=== PATIENT | male | born 1965 | race Caucasian/White ===

== ENCOUNTER 2022-10-24 10:40 | Inpatient (IN) ==
[2022-10-24] MEDS ORDERED: SODIUM CHLORIDE 0.9% 500 ML IV ONE ×2 (11:05→11:35)
[2022-10-24 11:30] LABS: Basophils # (auto) 0.04 K/uL (0-0.2); Basophils % (auto) 0.8 %; Eosinophils % (auto) 1.9 %; Hematocrit (blood only) 39.2 % (42.0-52.0); Hemoglobin 12.8 g/dl (14.0-18.0); Immature Granulocytes # (auto) 0.01 K/uL (0.01-0.20); Immature Granulocytes % (auto) 0.2 %; Lymphocytes # (auto) 1.59 K/uL (1.2-3.4); Lymphocytes % (auto) 30.8 %; Mean Corpuscular Hemoglobin 29.2 pg (25.0-34.0); Mean Corpuscular Hgb Conc 32.7 g/dL (32.0-36.0); Mean Corpuscular Volume 89.5 fL (80.0-100.0); Mean Platelet Volume 10.1 fL (9.4-12.4); Monocytes # (auto) 0.32 K/uL (0.11-0.59); Monocytes % (auto) 6.2 %; Neutrophils # (auto) 3.11 K/uL (1.40-6.50); Neutrophils % (auto) 60.1 %; Platelet Count 253 K/uL (130-400); RDW Coefficient of Variation 13.9 % (11.5-14.5); RDW Standard Deviation 45.4 fL (36.4-46.3); Red Blood Count 4.38 M/uL (4.70-6.10); White Blood Count 5.17 K/ul (4.8-10.8)
--- NOTE | 2022-10-24 11:30 | XRay Report ---
XR chest 1V portable CLINICAL HISTORY: palpitations TECHNIQUE: Single frontal radiograph of the chest was obtained. Comparison: None available at the time of this dictation. FINDINGS: No lines and tubes are seen. Cardiomegaly is noted. Multifocal airspace opacities are seen. No eviden ce of pleural effusion or pneumothorax. IMPRESSION: 1. Multifocal airspace opacities may represent atelectasis, pneumonia, and/or aspiration. 2. Cardiomegaly is seen. ACT 112: Negative or not required by law. Electronically signed by: Reuben Paz M.D. 10/24/2022 11:28 AM
[2022-10-24] MEDS ORDERED: FAMOTIDINE 20MG IV PUSH 20 MG/5 ML SYR IV STA (11:35)
--- NOTE | 2022-10-24 11:37 | Emergency Department Note ---
Impression & Plan New onset atrial fibrillation, Liver transplant status, ALEX (acute kidney injury), Pneumonia, Pericardial effusion ED Provider Note NAME: ZEENAT VENEGAS AGE: 57 SEX: M ARRIVES VIA: Ambulance INFORMANT: Patient ED PROVIDER(S): Gen Dailey MD CHIEF COMPLAINT: weakness, new afib, referred. PLAN: Disposition: Admit MEDICAL DECISION MAKING: The patient is a pleasant 57-year-old gentleman with a past medical history of liver transplant over 6 years ago on tacrolimus and mycophenolate who presents emerged [facility] several months of generalized weakness where he was found to have new onset atrial fibrillation in the office today. The patient describes that his symptoms began several months ago after having a flulike illness where he reports he did have fevers with cough and congestion but did not seek medical evaluation. He acknowledges that he is on "antirejection medications" but reports he was not aware that this also made him immune compromised. He reports ongoing cough and congestion for the past several months. He reports nausea with decreased appetite and poor oral intake. He reports significant weight loss over this time period as well. He denies any chest pain. He reports shortness of breath with minimal exertion. He denies any constipation, diarrhea or urinary symptoms. On arrival the patient is in no acute distress, afebrile with heart rate in the 110s in atrial fibrillation and vital signs otherwise stable. He appears clinically dry. He has rhonchi of bilateral mid and lower lung garcia. EKG demonstrates atrial fibrillation with RVR without overt acute ischemia. At rial fibrillation is new. Chest x-ray with multifocal airspace opacities better characterized on CT imaging. WBC completely within normal limits. H/H 12 point/39.2 without prior values for comparison. Creatinine 2.2 without priors for comparison though acute kidney injury suspected. Lactic acid 1.2, within normal limits. Magnesium 1.5 with repletion provided. Total bilirubin 1.6 with direct bilirubin 0.5 and LFTs otherwise unremarkable. Initial high-sensitivity troponin 24, nonspecific. Procalcitonin was not elevated. TSH 5.2 with free T4 within normal limits. UA appears contaminated without overt evidence of infection. Respiratory viral panel/bio fire was negative. CT of the head negative for acute abnormalities. CT of the chest demonstrates previously seen groundglass consolidations throughout both lungs with septal thickening which is nonspecific with broad differential including multifocal pneumonia, pulm edema and lung disease. Small to moderate pericardial effusion is also seen without clinical evidence of tamponade. Trace pleural effusions are noted. Appearance of cystitis is also seen. Small volume abdominopelvic ascites is noted. Patient agrees with plan for admission for further management. IV fluid hydration administered cautiously in setting of acute renal failure. Patient was treated empirically for pneumonia with cefepime and vancomycin. Case was discussed with Blayne Vargas with Dr. Maguire [facility] hospitalist, who will evaluate the patient for admission. Further management per admitting team. Triage Nursing notes reviewed and agree them. Prior/outside medical records reviewed Vital Signs: reviewed Differential diagnosis: Infection, dehydration, metabolic abnormality, hypo/hyperglycemia, electrolyte disturbance, anemia, hypoxia, cardiac sources, intracerebral event, toxicologic, neurologic, as well as other pathologies. ER treatment provided: See below. Diagnostics interpreted by me: ECG: Atrial fibrillation versus atrial flutter with variable AV block, 121 bpm, no overt ST elevation or depression, QTc 448, QRS 80. Cardiac Monitoring: An order for continuous cardiac monitoring was placed and demonstrated Laboratory studies: See below Imaging studies: See below Consultation(s): Case was discussed with Blayne Vargas with Dr. Magu[facility], who will evaluate the patient for admission. HPI: The patient is a pleasant 57-year-old gentleman with a past medical history of liver transplant over 6 years ago on tacrolimus and mycophenolate who presents emerged department [facility] for evaluation of several months of generalized weakness where he was found to have new onset atrial fibrillation in the office today. The patient describes that his symptoms began several months ago after having a flulike illness where he reports he did have fevers with cough and congestion but did not seek medical evaluation. He acknowledges that he is on "antirejection medications" but reports he was not aware that this also made him immune compromised. He reports ongoing cough and congestion for the past several months. He reports nausea with decreased appetite and poor oral intake. He reports significant weight loss over this time period as well. He denies any chest pain. He reports shortness of breath with minimal exertion. He denies any constipation, diarrhea or urinary symptoms. ROS: See above HPI for pertinent positives & negatives. A total of 10 systems reviewed and were otherwise negative. VITALS:See Below PHYSICAL EXAMINATION: GENERAL: Awake, alert, fatigued-appearing, in no distress HENT: Normocephalic, atraumatic. Oropharynx with dry mucous membranes and otherwise unremarkable. EYES: Normal conjunctiva. Sclera non-icteric. NECK: Supple. No nuchal rigidity. FROM. No JVD. RESPIRATORY: Rhonchi of bilateral lower lung garcia. CARDIAC: Regular rate, normal rhythm. Extremities warm and well perfused. Pulses equal. ABDOMEN: Soft, non-distended. No tenderness to palpation. No rebound or guarding. No masses. RECTAL: Deferred. MUSCULOSKELETAL: Chest examination reveals no tenderness. The back is symmetrical on inspection without obvious abnormality. There is no CVA tendern ess to palpation. No joint edema. LOWER EXTREMITIES: Calves are equal size bilaterally and non-tender. No edema. No discoloration. NEURO: Normal sensorium. No sensory or motor deficits noted. SKIN: No rash or jaundice noted. ED COURSE: Critical Care: I have personally spent greater than 35 minutes of critical care time in the direct management of this patient. This includes bedside care, interpretation of diagnostic studies, and testing, discussion with consultants, patient, and family members, and other required patient management activities. This 35 minutes is in excess of all separately billable procedures. Gen Dailey MD Past Med/Surg History Medical History History of alcohol use last drink reported 4 months ago HTN (hypertension) Tobacco use Surgical History Liver transplant status Family History Other Diabetes Heart disease Social History Smoking Status: Never smoker Do You Dip or Chew Tobacco: Yes; Hx Alcohol Use: No Hx Substance Use: No Preferred Language: Croatian Communication Ability: Effective Architectural Technologist Required: No Beliefs That Will Affect Care: None Current Living Situation: Alone Feels Safe at Home: Yes Safety Concerns: Feels Safe At This Time Assistive Devices: None Allergies Allergies Allergy/AdvReac Type Severity Reaction Status Date / Time No Known Allergies Allergy Unverified 10/24/22 12:02 Home Meds Home Medications Medication Instructions Recorded Confirmed carvedilol 12.5 mg tablet 0 mg PO BID 10/24/22 10/24/22 cyanocobalamin (vitamin B-12) 0 mcg PO DAILY 10/24/22 10/24/22 1,000 mcg tablet folic acid 1 mg tablet 0 mg PO DAILY 10/24/22 10/24/22 furosemide 20 mg tablet 0 mg PO DAILY 10/24/22 10/24/22 hydralazine 10 mg tablet 0 mg PO TID 10/24/22 10/24/22 mycophenolate mofetil 500 mg tablet 500 mg PO BID 10/24/22 10/24/22 tacrolimus 1 mg capsule, 3 mg PO Q12H 10/24/22 10/24/22 immediate-release thiamine HCl (vitamin B1) 100 mg 100 mg PO DAILY 10/24/22 10/24/22 tablet Results & Data (ED) Vital Signs Vital Signs - 24 hr 10/24/22 10:43 10/24/22 10:48 10/24/22 10:48 Temperature 36.6 C Temperature Source Oral Pulse Rate 126 H Pulse Rate [Right Apical] 126 H Pulse Rate from SpO2 Sensor Pulse Rhythm Respiratory Rate 18 18 Respiratory Effort / Characteristics Non-Labored Spontaneous Non-Labored Spontaneous Respiratory Depth Normal Normal Respiratory Pattern Regular Regular Blood Pressure 145/113 H Blood Pressure [Right Arm] 145/113 H Blood Pressure Mean 123 Blood Pressure Mean [Right Arm] 123 Pulse Oximetry 97 98 98 Oxygen Delivery Method Room Air Room Air Room Air Sepsis Recent Fever Within 48 Hours No Sepsis New/Unexplained Change in Mental Status No Sepsis Action Taken by Nursing No Action Required 10/24/22 11:04 10/24/22 12:14 10/24/22 10:54 Temperature Temperature Source Pulse Rate 112 H 100 H 106 H Pulse Rate [Right Apical] Pulse Rate from SpO2 Sensor 111 H Pulse Rhythm Irregular Respiratory Rate 18 20 Respiratory Effort / Characteristics Respiratory Depth Respiratory Pattern Blood Pressure Blood Pressure [Right Arm] Blood Pressure Mean Blood Pressure Mean [Right Arm] Pulse Oximetry 96 97 Oxygen Delivery Method Room Air Sepsis Recent Fever Within 48 Hours Sepsis New/Unexplained Change in Mental Status Sepsis Action Taken by Nursing 10/24/22 11:00 10/24/22 11:00 10/24/22 11:30 Temperature Temperature Source Pulse Rate 121 H Pulse Rate [Right Apical] Pulse Rate from SpO2 Sensor 117 H Pulse Rhythm Respiratory Rate 24 Respiratory Effort / Characteristics Respiratory Depth Respiratory Pattern Blood Pressure 124/87 121/83 Blood Pressure [Right Arm] Blood Pressure Mean 99 95 Blood Pressure Mean [Right Arm] Pulse Oximetry 98 Oxygen Delivery Method Sepsis Recent Fever Within 48 Hours Sepsis New/Unexplained Change in Mental Status Sepsis Action Taken by Nursing 10/24/22 11:30 10/24/22 12:00 10/24/22 12:00 Temperature Temperature Source Pulse Rate 128 H 117 H Pulse Rate [Right Apical] Pulse Rate from SpO2 Sensor 131 H Pulse Rhythm Respiratory Rate 25 H 23 Respiratory Effort / Characteristics Respiratory Depth Respiratory Pattern Blood Pressure 136/101 H Blood Pressure [Right Arm] Blood Pressure Mean 112 Blood Pressure Mean [Right Arm] Pulse Oximetry 96 Oxygen Delivery Method Sepsis Recent Fever Within 48 Hours Sepsis New/Unexplained Change in Mental Status Sepsis Action Taken by Nursing 10/24/22 12:30 10/24/22 12:30 10/24/22 13:10 Temperature Temperature Source Pulse Rate 124 H 120 H Pulse Rate [Right Apical] Pulse Rate from SpO2 Sensor 125 H Pulse Rhythm Respiratory Rate 27 H 29 H Respiratory Effort / Characteristics Respiratory Depth Respiratory Pattern Blood Pressure 144/84 H Blood Pressure [Right Arm] Blood Pressure Mean 104 Blood Pressure Mean [Right Arm] Pulse Oximetry 95 Oxygen Delivery Method Sepsis Recent Fever Within 48 Hours Sepsis New/Unexplained Change in Mental Status Sepsis Action Taken by Nursing 10/24/22 13:30 10/24/22 13:30 10/24/22 14:00 Temperature Temperature Source Pulse Rate 114 H Pulse Rate [Right Apical] Pulse Rate from SpO2 Sensor 109 H Pulse Rhythm Respiratory Rate 21 Respiratory Effort / Characteristics Respiratory Depth Respiratory Pattern Blood Pressure 122/83 116/93 Blood Pressure [Right Arm] Blood Pressure Mean 96 100 Blood Pressure Mean [Right Arm] Pulse Oximetry 93 Oxygen Delivery Method Sepsis Recent Fever Within 48 Hours Sepsis New/Unexplained Change in Mental Status Sepsis Action Taken by Nursing 10/24/22 14:00 10/24/22 14:30 10/24/22 14:30 Temperature Temperature Source Pulse Rate 106 H 109 H Pulse Rate [Right Apical] Pulse Rate from SpO2 Sensor 106 H 110 H Pulse Rhythm Respiratory Rate 17 20 Respiratory Effort / Characteristics Respiratory Depth Respiratory Pattern Blood Pressure 111/86 Blood Pressure [Right Arm] Blood Pressure Mean 94 Blood Pressure Mean [Right Arm] Pulse Oximetry 93 92 Oxygen Delivery Method Sepsis Recent Fever Within 48 Hours Sepsis New/Unexplained Change in Mental Status Sepsis Action Taken by Nursing 10/24/22 15:00 10/24/22 15:00 Temperature Temperature Source Pulse Rate 119 H Pulse Rate [Right Apical] Pulse Rate from SpO2 Sensor 118 H Pulse Rhythm Respiratory Rate 25 H Respiratory Effort / Characteristics Respiratory Depth Respiratory Pattern Blood Pressure 127/95 Blood Pressure [Right Arm] Blood Pressure Mean 105 Blood Pressure Mean [Right Arm] Pulse Oximetry 94 Oxygen Delivery Method Sepsis Recent Fever Within 48 Hours Sepsis New/Unexplained Change in Mental Status Sepsis Action Taken by Nursing Laboratory Data Attestation: I reviewed the patient's lab results. 10/24/22 10:30 10/24/22 10:30 Lab Results 10/24/22 10/24/22 10/24/22 Range/Units 10:30 10:30 10:30 WBC 5.17 (4.8-10.8) K/ul RBC 4.38 L (4.70-6.10) M/uL Hgb 12.8 L (14.0-18.0) g/dl Hct 39.2 L (42.0-52.0) % MCV 89.5 (80.0-100.0) fL MCH 29.2 (25.0-34.0) pg MCHC 32.7 (32.0-36.0) g/dL RDW Std Deviation 45.4 (36.4-46.3) fL RDW Coeff of Irina 13.9 (11.5-14.5) % Plt Count 253 (130-400) K/uL MPV 10.1 (9.4-12.4) fL Immature Gran % (Auto) 0.2 % Neut % (Auto) 60.1 % Lymph % (Auto) 30.8 % [place] % (Auto) 6.2 % Eos % (Auto) 1.9 % Baso % (Auto) 0.8 % Neut # (Auto) 3.11 (1.40-6.50) K/uL Lymph # (Auto) 1.59 (1.2-3.4) K/uL [place] # (Auto) 0.32 (0.11-0.59) K/uL Eos # (Auto) 0.10 (0-0.50) K/uL Baso # (Auto) 0.04 (0-0.2) K/uL Immature Gran # (Auto) 0.01 (0.01-0.20) K/uL PT 12.4 H (9.0-12.0) Seconds INR 1.2 H (0.9-1.1) Sodium 136 (136-145) mmol/L Potassium 4.0 (3.5-5.1) mmol/L Chloride 100 (98-107) mmol/L Carbon Dioxide 24 (21-32) mmol/L Anion Gap 12 H (3-11) BUN 24 H (6-23) mg/dl Creatinine 2.27 H (0.6-1.4) mg/dl Est Cr Clr Drug Dosing 36.6 ml/min Est GFR ( Amer) 35.5 ml/min Est GFR (Non-Af Amer) 30.7 ml/min BUN/Creatinine Ratio 10.6 (10-20) Glucose 119 H (70-99(Fasting)) mg/dl Lactate (0.4-2.0) mmol/L Calcium 9.1 (8.6-10.3) mg/dl Phosphorus 4.3 (2.5-4.9) mg/dl Magnesium 1.5 L (1.7-2.4) mg/dl Total Bilirubin 1.6 H (0.2-1.0) mg/dl Direct Bilirubin 0.5 H (0-0.2) mg/dl AST 11 L (13-39) U/L ALT 3 L (7-52) U/L Alkaline Phosphatase 78 (34-104) U/L Troponin I High Sens 24.1 H (0-20) pg/ml Total Protein 7.4 (6.0-8.3) gm/dl Albumin 3.7 (3.4-5.0) gm/dl Globulin 3.7 (2.5-4.0) gm/dl Albumin/Globulin Ratio 1.0 (0.9-2) Lipase 7 L (11-82) U/L Procalcitonin (0-0.5) ng/ml TSH (0.300-4.500) uIu/ml Free T4 (0.61-1.60) ng/dl Anaplasma Smear Babesia Smear Lyme Disease IgG Ab (Negative) Lyme Disease IgM Ab (Negative) SARS-CoV-2, RNA, NAAT (NEGATIVE) 10/24/22 10/24/22 10/24/22 Range/Units 10:30 11:19 12:19 WBC (4.8-10.8) K/ul RBC (4.70-6.10) M/uL Hgb (14.0-18.0) g/dl Hct (42.0-52.0) % MCV (80.0-100.0) fL MCH (25.0-34.0) pg MCHC (32.0-36.0) g/dL RDW Std Deviation (36.4-46.3) fL RDW Coeff of Irina (11.5-14.5) % Plt Count (130-400) K/uL MPV (9.4-12.4) fL Immature Gran % (Auto) % Neut % (Auto) % Lymph % (Auto) % [place] % (Auto) % Eos % (Auto) % Baso % (Auto) % Neut # (Auto) (1.40-6.50) K/uL Lymph # (Auto) (1.2-3.4) K/uL [place] # (Auto) (0.11-0.59) K/uL Eos # (Auto) (0-0.50) K/uL Baso # (Auto) (0-0.2) K/uL Immature Gran # (Auto) (0.01-0.20) K/uL PT (9.0-12.0) Seconds INR (0.9-1.1) Sodium (136-145) mmol/L Potassium (3.5-5.1) mmol/L Chloride (98-107) mmol/L Carbon Dioxide (21-32) mmol/L Anion Gap (3-11) BUN (6-23) mg/dl Creatinine (0.6-1.4) mg/dl Est Cr Clr Drug Dosing ml/min Est GFR ( Amer) ml/min Est GFR (Non-Af Amer) ml/min BUN/Creatinine Ratio (10-20) Glucose (70-99(Fasting)) mg/dl Lactate (0.4-2.0) mmol/L Calcium (8.6-10.3) mg/dl Phosphorus (2.5-4.9) mg/dl Magnesium (1.7-2.4) mg/dl Total Bilirubin (0.2-1.0) mg/dl Direct Bilirubin (0-0.2) mg/dl AST (13-39) U/L ALT (7-52) U/L Alkaline Phosphatase (34-104) U/L Troponin I High Sens (0-20) pg/ml Total Protein (6.0-8.3) gm/dl Albumin (3.4-5.0) gm/dl Globulin (2.5-4.0) gm/dl Albumin/Globulin Ratio (0.9-2) Lipase (11-82) U/L Procalcitonin 0.16 (0-0.5) ng/ml TSH 5.226 H (0.300-4.500) uIu/ml Free T4 1.18 (0.61-1.60) ng/dl Anaplasma Smear Babesia Smear Lyme Disease IgG Ab Negative (Negative) Lyme Disease IgM Ab Negative (Negative) SARS-CoV-2, RNA, NAAT NEGATIVE (NEGATIVE) 10/24/22 10/24/22 Range/Units 12:19 12:19 WBC (4.8-10.8) K/ul RBC (4.70-6.10) M/uL Hgb (14.0-18.0) g/dl Hct (42.0-52.0) % MCV (80.0-100.0) fL MCH (25.0-34.0) pg MCHC (32.0-36.0) g/dL RDW Std Deviation (36.4-46.3) fL RDW Coeff of Irina (11.5-14.5) % Plt Count (130-400) K/uL MPV (9.4-12.4) fL Immature Gran % (Auto) % Neut % (Auto) % Lymph % (Auto) % [place] % (Auto) % Eos % (Auto) % Baso % (Auto) % Neut # (Auto) (1.40-6.50) K/uL Lymph # (Auto) (1.2-3.4) K/uL [place] # (Auto) (0.11-0.59) K/uL Eos # (Auto) (0-0.50) K/uL Baso # (Auto) (0-0.2) K/uL Immature Gran # (Auto) (0.01-0.20) K/uL PT (9.0-12.0) Seconds INR (0.9-1.1) Sodium (136-145) mmol/L Potassium (3.5-5.1) mmol/L Chloride (98-107) mmol/L Carbon Dioxide (21-32) mmol/L Anion Gap (3-11) BUN (6-23) mg/dl Creatinine (0.6-1.4) mg/dl Est Cr Clr Drug Dosing ml/min Est GFR ( Amer) ml/min Est GFR (Non-Af Amer) ml/min BUN/Creatinine Ratio (10-20) Glucose (70-99(Fasting)) mg/dl Lactate 1.2 (0.4-2.0) mmol/L Calcium (8.6-10.3) mg/dl Phosphorus (2.5-4.9) mg/dl Magnesium (1.7-2.4) mg/dl Total Bilirubin (0.2-1.0) mg/dl Direct Bilirubin (0-0.2) mg/dl AST (13-39) U/L ALT (7-52) U/L Alkaline Phosphatase (34-104) U/L Troponin I High Sens (0-20) pg/ml Total Protein (6.0-8.3) gm/dl Albumin (3.4-5.0) gm/dl Globulin (2.5-4.0) gm/dl Albumin/Globulin Ratio (0.9-2) Lipase (11-82) U/L Procalcitonin (0-0.5) ng/ml TSH (0.300-4.500) uIu/ml Free T4 (0.61-1.60) ng/dl Anaplasma Smear See Comment Babesia Smear See Comment Lyme Disease IgG Ab (Negative) Lyme Disease IgM Ab (Negative) SARS-CoV-2, RNA, NAAT (NEGATIVE) Administered Medications Heparin Sodium/Dextrose (Heparin Sodium/Dextrose) 25,000 units in 500 mls @ 26 mls/hr IV .[id number] [facility]; Protocol Stop: 11/23/22 16:14 Last Titration: 10/25/22 00:29 Dose: 1,300 units/hr, 26 mls/hr Documented By: ALLA Co-signed By: CIARA Titration: 10/24/22 19:13 Dose: 1,400 units/hr, 28 mls/hr Documented By: SHARONDA Co-signed By: ALLA Admin: 10/24/22 16:33 Dose: 1,400 units/hr, 28 mls/hr Documented By: JONO Co-signed By: MARIBEL Cefepime HCl 2,000 mg/ Syringe 20 mls @ 5 mls/min IV Q12H [facility]; Protocol Stop: 10/31/22 00:00 Last Admin: 10/25/22 00:36 Dose: 5 mls/min Documented By: ALLA Metoprolol Tartrate (Metoprolol Tartrate 25 Mg Tab) 12.5 mg PO QID JESSICA Stop: 11/23/22 16:59 Last Admin: 10/24/22 20:33 Dose: 12.5 mg Documented By: Admin: 10/24/22 20:33 Dose: Not Given Documented By: ALLA Mycophenolate Mofetil (Mycophenolate Mofetil 250 Mg Cap) 500 mg PO BID JESSICA Stop: 11/23/22 20:59 Last Admin: 10/24/22 20:32 Dose: 500 mg Documented By: ALLA Tacrolimus (Tacrolimus 1 Mg Cap) 3 mg PO Q12 JESSICA Stop: 11/23/22 20:59 Last Admin: 10/24/22 20:32 Dose: 3 mg Documented By: ALLA Discontinued Medications Furosemide (Furosemide Inj 20 Mg/2 Ml Vial) 20 mg IV ONE ONE Stop: 10/24/22 16:16 Last Admin: 10/24/22 16:30 Dose: 20 mg Documented By: JONO Heparin Sodium/Dextrose (Heparin Iv Adult Wt-Based Standard *No* Bolus Protocol) 1 each IV Q15M [facility]; Protocol Stop: 10/24/22 17:01 Last Admin: 10/24/22 18:00 Dose: Not Given Documented By: SHARONDA Sodium Chloride (Nss) 500 mls @ 999 mls/hr IV .Q31M ONE Stop: 10/24/22 11:35 Last Infusion: 10/24/22 11:57 Dose: 0 mls/hr Documented By: Admin: 10/24/22 11:26 Dose: 999 mls/hr Documented By: MARIBEL Sodium Chloride (Nss) 500 mls @ 999 mls/hr IV .Q31M ONE Stop: 10/24/22 12:05 Last Admin: 10/24/22 11:50 Dose: Not Given Documented By: MARIBEL Famotidine (Pepcid 20mg Iv Push) 20 mg in 5 mls @ 2.5 mls/min IV NOW STA Stop: 10/24/22 11:36 Last Admin: 10/24/22 11:50 Dose: 2.5 mls/min Documented By: MARIBEL Cefepime HCl (Maxipime) 2,000 mg in 20 mls @ 5 mls/min IV NOW STA; Protocol Stop: 10/24/22 11:50 Last Admin: 10/24/22 12:40 Dose: 5 mls/min Documented By: MICHEAL Vancomycin HCl 2,000 mg/ (Sodium Chloride) 540 mls @ 200 mls/hr IV NOW ONE Stop: 10/24/22 14:31 Last Admin: 10/24/22 12:40 Dose: 200 mls/hr Documented By: HS Magnesium Sulfate/Dextrose (Magnesium Sulfate / D5w) 1 gm in 100 mls @ 100 mls/hr IV NOW STA Stop: 10/24/22 15:13 Last Infusion: 10/24/22 15:18 Dose: 0 mls/hr Documented By: Admin: 10/24/22 14:18 Dose: 100 mls/hr Documented By: MARIBEL Ondansetron HCl (Ondansetron Inj 2 Mg/Ml 2 Ml Vial) Confirm Administered Dose 4 mg .ROUTE .STK-MED ONE Stop: 10/24/22 16:15 Last Admin: 10/24/22 16:15 Dose: 4 mg Documented By: ALENA Imaging Data Radiologist's Impression: Abdomen/Pelvis CT 10/24/22 11:47 CT SCAN OF THE CHEST, ABDOMEN, AND PELVIS WITHOUT IV CONTRAST CLINICAL HISTORY: Pneumonia. Liver transplant. Acute renal insufficiency. COMPARISON STUDY: Chest x-ray dated 10/24/2022. TECHNIQUE: Unenhanced CT scan of the chest, abdomen, and pelvis was performed from the thoracic inlet to the proximal femora. Images are reviewed in the axial, sagittal, and coronal planes. IV contrast was not administered due to poor renal function. Note that the examinations are suboptimal without oral and IV contrast. There is also significant motion artifact. A dose lowering technique was utilized adhering to the principles of ALARA. FINDINGS: CHEST: Thyroid: Imaged portions of the thyroid gland are normal in size and attenuation. Thoracic aorta: There is mild atherosclerotic calcification of the thoracic aorta, which is normal in caliber and demonstrates standard 3-vessel arch anatomy. Heart: The heart is enlarged noting a small to moderate pericardial effusion. The coronary arteries and aortic valve leaflets are densely calcified. There is diminished attenuation of the cardiac blood pool as compared to the myocardium suggesting anemia. Lungs and pleural spaces: Evaluation of the lung parenchyma is degraded by motion artifact. There are trace pleural effusions. There is ground glass consolidation throughout both lungs with associated intralobular septal thickening. This gives a "crazy paving" appearance. The trachea and central airways are clear. There are scattered calcified granulomas. Mediastinum: There are numerous mildly enlarged mediastinal lymph nodes. Pretracheal nodes measure up to 14 mm short axis. Prevascular nodes measure up to 11 mm in short axis. Autumn: Not well assessed without IV contrast. Axillae: There is no axillary lymphadenopathy. Bony thorax: The skeletal structures are osteopenic. No lytic or blastic lesions are identified. Soft tissues: Gynecomastia is noted. ABDOMEN AND PELVIS: Liver: The unenhanced hepatic transplant is normal in size, contour, and attenuation. There is no intrahepatic biliary ductal dilatation. Gallbladder: Surgically absent. Spleen: Normal in size and attenuation. Pancreas: The unenhanced pancreas is atrophic and grossly unremarkable. Adrenal glands: Unremarkable. Kidneys: The unenhanced kidneys are atrophic and without hydronephrosis. No renal calculi are identified. There is no evidence of contour deforming renal mass lesion. Abdominal vasculature: The abdominal aorta is normal in course and caliber noting moderate atherosclerotic calcification. Bowel: There is no bowel obstruction. Mild fecal retention is seen throughout the colon. There are scattered colonic diverticula without CT evidence of acute diverticulitis. The appendix is well-visualized and normal. Peritoneum: There is a small volume of abdominopelvic ascites. No intraperitoneal free air is seen. There is a fat and ascitic fluid containing umbilical hernia. Lymphadenopathy: None. Pelvic viscera: The prostate gland is diminutive and heterogeneous. The bladder wall is circumferentially thickened with surrounding inflammation. There are small bilateral fat-containing groin hernias. Skeletal structures: The skeletal structures are osteopenic. There is mild lumbosacral spondylosis. No lytic or blastic lesions are seen. IMPRESSION: 1. Significantly motion compromised examinations. 2. Groundglass consolidation is seen throughout both lungs with associated intralobular septal thickening and a "crazy paving" appearance. This is nonspecific, and could be seen with pulmonary edema, multifocal pneumonia, pulmonary hemorrhage, and/or possibly drug induced lung disease. Clinical correlation will be essential. Correlate with any prior outside imaging studies. Radiographic follow-up to resolution is recommend. 3. Cardiomegaly noting a [id number]-[id number]-tiwzeszh pericardial effusion. 4. Trace pleural effusions. 5. The appearance of the bladder suggests cystitis. Correlate with clinical findings and urinalysis. 6. The unenhanced hepatic transplant is normal in size and attenuation. 7. Small volume of abdominopelvic ascites. 8. The kidneys are atrophic and without hydronephrosis. 9. Additional findings as above. ACT 112: Negative or not required by law. Electronically signed by: Eusebio Salguero M.D. 10/24/2022 1:[address] 10/24/22 11:47 CT SCAN OF THE CHEST, ABDOMEN, AND PELVIS WITHOUT IV CONTRAST CLINICAL HISTORY: Pneumonia. Liver transplant. Acute renal insufficiency. COMPARISON STUDY: Chest x-ray dated 10/24/2022. TECHNIQUE: Unenhanced CT scan of the chest, abdomen, and pelvis was performed from the thoracic inlet to the proximal femora. Images are reviewed in the axial, sagittal, and coronal planes. IV contrast was not administered due to poor renal function. Note that the examinations are suboptimal without oral and IV contrast. There is also significant motion artifact. A dose lowering technique was utilized adhering to the principles of ALARA. FINDINGS: CHEST: Thyroid: Imaged portions of the thyroid gland are normal in size and attenuation. Thoracic aorta: There is mild atherosclerotic calcification of the thoracic aorta, which is normal in caliber and demonstrates standard 3-vessel arch anatomy. Heart: The heart is enlarged noting a small to moderate pericardial effusion. The coronary arteries and aortic valve leaflets are densely calcified. There is diminished attenuation of the cardiac blood pool as compared to the myocardium suggesting anemia. Lungs and pleural spaces: Evaluation of the lung parenchyma is degraded by motion artifact. There are trace pleural effusions. There is ground glass consolidation throughout both lungs with associated intralobular septal thickening. This gives a "crazy paving" appearance. The trachea and central airways are clear. There are scattered calcified granulomas. Mediastinum: There are numerous mildly enlarged mediastinal lymph nodes. Pretracheal nodes measure up to 14 mm short axis. Prevascular nodes measure up to 11 mm in short axis. Autumn: Not well assessed without IV contrast. Axillae: There is no axillary lymphadenopathy. Bony thorax: The skeletal structures are osteopenic. No lytic or blastic lesions are identified. Soft tissues: Gynecomastia is noted. ABDOMEN AND PELVIS: Liver: The unenhanced hepatic transplant is normal in size, contour, and attenuation. There is no intrahepatic biliary ductal dilatation. Gallbladder: Surgically absent. Spleen: Normal in size and attenuation. Pancreas: The unenhanced pancreas is atrophic and grossly unremarkable. Adrenal glands: Unremarkable. Kidneys: The unenhanced kidneys are atrophic and without hydronephrosis. No renal calculi are identified. There is no evidence of contour deforming renal mass lesion. Abdominal vasculature: The abdominal aorta is normal in course and caliber noting moderate atherosclerotic calcification. Bowel: There is no bowel obstruction. Mild fecal retention is seen throughout the colon. There are scattered colonic diverticula without CT evidence of acute diverticulitis. The appendix is well-visualized and normal. Peritoneum: There is a small volume of abdominopelvic ascites. No intraperitoneal free air is seen. There is a fat and ascitic fluid containing umbilical hernia. Lymphadenopathy: None. Pelvic viscera: The prostate gland is diminutive and heterogeneous. The bladder wall is circumferentially thickened with surrounding inflammation. There are small bilateral fat-containing groin hernias. Skeletal structures: The skeletal structures are osteopenic. There is mild lumbosacral spondylosis. No lytic or blastic lesions are seen. IMPRESSION: 1. Significantly motion compromised examinations. 2. Groundglass consolidation is seen throughout both lungs with associated intralobular septal thickening and a "crazy paving" appearance. This is nonspecific, and could be seen with pulmonary edema, multifocal pneumonia, pulmonary hemorrhage, and/or possibly drug induced lung disease. Clinical correlation will be essential. Correlate with any prior outside imaging studies. Radiographic follow-up to resolution is recommend. 3. Cardiomegaly noting a [id number] pericardial effusion. 4. Trace pleural effusions. 5. The appearance of the bladder suggests cystitis. Correlate with clinical findings and urinalysis. 6. The unenhanced hepatic transplant is normal in size and attenuation. 7. Small volume of abdominopelvic ascites. 8. The kidneys are atrophic and without hydronephrosis. 9. Additional findings as above. ACT 112: Negative or not required by law. Electronically signed by: Eusebio Salguero M.D. 10/24/2022 1:[address] 10/24/22 11:50 CT SCAN OF THE BRAIN WITHOUT IV CONTRAST CLINICAL HISTORY: Generous weakness. Change in mental status. COMPARISON STUDY: No priors. TECHNIQUE: Unenhanced axial CT scan of the brain is performed from the vertex to the skull base. A dose lowering technique was utilized adhering to the principles of ALARA. CT DOSE: 1373.10 mGy.cm FINDINGS: Brain parenchyma: There is age-related involutional change noting mild to moderate patchy subcortical and periventricular microangiopathic disease. There is no hemorrhage, mass effect, or evidence of acute territorial ischemia by CT criteria. Beverly-white matter differentiation is preserved. No extra-axial fluid collection is seen. Mineralization is noted in the basal ganglia. Ventricles, sulci, cisterns: Prominent secondary to involutional change. Intracranial vasculature: There is atherosclerotic calcification of the cavernous carotid and vertebral arteries. Calvarium: Unremarkable. Sinuses and mastoids: The visualized paranasal sinuses are clear. The mastoid air cells are well pneumatized. Orbits: The bony orbits are grossly intact. IMPRESSION: There is no hemorrhage, mass effect, or evidence of acute territorial ischemia by CT criteria. ACT 112: Negative or not required by law. Electronically signed by: Eusebio Salguero M.D. 10/24/2022 1:17 PM Discharge Plan Visit Data Chief Complaint: Shortness of Breath/Dyspnea Stated Complaint: SOB, NEW ONSET AFIB ED Provider: Gen Dailey Discharge Problem: New onset atrial fibrillation, Liver transplant status, ALEX (acute kidney injury), Pneumonia, Pericardial effusion Patient Disposition: Admitted As Inpatient Discharge Instructions Interventions: ED Discharge Assessment Last Done: 10/24/22 17:44
[2022-10-24 11:45] LABS: Albumin Level 3.7 gm/dl (3.4-5.0); BUN Creatinine Ratio 10.6 (10-20); Bilirubin,Total 1.6 mg/dl (0.2-1.0); Calcium 9.1 mg/dl (8.6-10.3); Creatinine Clr Calc Pharmacy 36.6 ml/min; Est GFR (African American) 35.5 ml/min; Est GFR (Non-African American) 30.7 ml/min; Globulin 3.7 gm/dl (2.5-4.0); Magnesium 1.5 mg/dl (1.7-2.4); Phosphorus 4.3 mg/dl (2.5-4.9); Total Protein 7.4 gm/dl (6.0-8.3)
[2022-10-24] MEDS ORDERED: CEFEPIME 2,000 MG/20 ML VIAL IV STA (11:47)
[2022-10-24] MEDS ORDERED: VANCOMYCIN HCL 2,000 MG in SODIUM CHLORIDE 0.9% 500 ML IV ONE (11:50)
[2022-10-24] MEDS ORDERED: VANCOMYCIN CONSULT ACTIVE PRN (11:50)
[2022-10-24 11:51] LABS: Troponin I High Sensitivity 24.1 pg/ml (0-20)
[2022-10-24 11:55] LABS: INR 1.2 (0.9-1.1); Prothrombin Time 12.4 Seconds (9.0-12.0)
[2022-10-24 11:59] LABS: Thyroid Stimulating Hormone 5.226 uIu/ml (0.300-4.500)
[2022-10-24 12:18] LABS: Bilirubin Direct 0.5 mg/dl (0-0.2)
[2022-10-24 12:37] LABS: T4 Free Thyroxine 1.18 ng/dl (0.61-1.60)
--- NOTE | 2022-10-24 13:19 | CT Scan Report ---
CT SCAN OF THE BRAIN WITHOUT IV CONTRAST CLINICAL HISTORY: Generous weakness. Change in mental status. COMPARISON STUDY: No priors. TECHNIQUE: Unenhanced axial CT scan of the brain is performed from the vertex to the skull base. A do se lowering technique was utilized adhering to the principles of ALARA. CT DOSE: 1373.10 mGy.cm FINDINGS: Brain parenchyma: There is age-related involutional change noting mild to moderate patchy subcortical and periventricular microangiopathic disease. There is no hemorrhage, mass effect, or evidence of ac lucita territorial ischemia by CT criteria. Beverly-white matter differentiation is preserved. No extra-axi al fluid collection is seen. Mineralization is noted in the basal ganglia. Ventricles, sulci, cisterns: Prominent secondary to involutional change. Intracranial vasculature: There is atherosclerotic calcification of the cavernous carotid and vertebr al arteries. Calvarium: Unremarkable. Sinuses and mastoids: The visualized paranasal sinuses are clear. The mastoid air cells are well pneu matized. Orbits: The bony orbits are grossly intact. IMPRESSION: There is no hemorrhage, mass effect, or evidence of acute territorial ischemia by CT fredy mei. ACT 112: Negative or not required by law. Electronically signed by: Eusebio Salguero M.D. 10/24/2022 1:17 PM
--- NOTE | 2022-10-24 13:32 | CT Scan Report ---
CT SCAN OF THE CHEST, ABDOMEN, AND PELVIS WITHOUT IV CONTRAST CLINICAL HISTORY: Pneumonia. Liver transplant. Acute renal insufficiency. COMPARISON STUDY: Chest x-ray dated 10/24/2022. TECHNIQUE: Unenhanced CT scan of the chest, abdomen, and pelvis was performed from the thoracic inlet to the proximal femora. Images are reviewed in the axial, sagittal, and coronal planes. IV contrast was not administered due to poor renal function. Note that the examinations are suboptimal without or al and IV contrast. There is also significant motion artifact. A dose lowering technique was utilize d adhering to the principles of ALARA. FINDINGS: CHEST: Thyroid: Imaged portions of the thyroid gland are normal in size and attenuation. Thoracic aorta: There is mild atherosclerotic calcification of the thoracic aorta, which is normal in caliber and demonstrates standard 3-vessel arch anatomy. Heart: The heart is enlarged noting a small to moderate pericardial effusion. The coronary arteries a nd aortic valve leaflets are densely calcified. There is diminished attenuation of the cardiac blood pool as compared to the myocardium suggesting anemia. Lungs and pleural spaces: Evaluation of the lung parenchyma is degraded by motion artifact. There are trace pleural effusions. There is ground glass consolidation throughout both lungs with associated i ntralobular septal thickening. This gives a "crazy paving" appearance. The trachea and central airway s are clear. There are scattered calcified granulomas. Mediastinum: There are numerous mildly enlarged mediastinal lymph nodes. Pretracheal nodes measure up to 14 mm short axis. Prevascular nodes measure up to 11 mm in short axis. Autumn: Not well assessed without IV contrast. Axillae: There is no axillary lymphadenopathy. Bony thorax: The skeletal structures are osteopenic. No lytic or blastic lesions are identified. Soft tissues: Gynecomastia is noted. ABDOMEN AND PELVIS: Liver: The unenhanced hepatic transplant is normal in size, contour, and attenuation. There is no int rahepatic biliary ductal dilatation. Gallbladder: Surgically absent. Spleen: Normal in size and attenuation. Pancreas: The unenhanced pancreas is atrophic and grossly unremarkable. Adrenal glands: Unremarkable. Kidneys: The unenhanced kidneys are atrophic and without hydronephrosis. No renal calculi are identif ied. There is no evidence of contour deforming renal mass lesion. Abdominal vasculature: The abdominal aorta is normal in course and caliber noting moderate atheroscle rotic calcification. Bowel: There is no bowel obstruction. Mild fecal retention is seen throughout the colon. There are sc attered colonic diverticula without CT evidence of acute diverticulitis. The appendix is well-visual ized and normal. Peritoneum: There is a small volume of abdominopelvic ascites. No intraperitoneal free air is seen. T here is a fat and ascitic fluid containing umbilical hernia. Lymphadenopathy: None. Pelvic viscera: The prostate gland is diminutive and heterogeneous. The bladder wall is circumferenti ally thickened with surrounding inflammation. There are small bilateral fat-containing groin hernias. Skeletal structures: The skeletal structures are osteopenic. There is mild lumbosacral spondylosis. N o lytic or blastic lesions are seen. IMPRESSION: 1. Significantly motion compromised examinations. 2. Groundglass consolidation is seen throughout both lungs with associated intralobular septal thicke jose maria and a "crazy paving" appearance. This is nonspecific, and could be seen with pulmonary edema, mu ltifocal pneumonia, pulmonary hemorrhage, and/or possibly drug induced lung disease. Clinical correla tion will be essential. Correlate with any prior outside imaging studies. Radiographic follow-up to tressa romeo is recommend. 3. Cardiomegaly noting a [id number] pericardial effusion. 4. Trace pleural effusions. 5. The appearance of the bladder suggests cystitis. Correlate with clinical findings and urinalysis. 6. The unenhanced hepatic transplant is normal in size and attenuation. 7. Small volume of abdominopelvic ascites. 8. The kidneys are atrophic and without hydronephrosis. 9. Additional findings as above. ACT 112: Negative or not required by law. Electronically signed by: Eusebio Salguero M.D. 10/24/2022 1:31 PM
[2022-10-24 13:38] LABS: Procalcitonin 0.16 ng/ml (0-0.5)
[2022-10-24 13:43] LABS: Lyme Ab IgG w/WB Rflx Negative (Negative)
[2022-10-24 13:44] LABS: Lyme Ab IgM w/WB Rflx Negative (Negative)
[2022-10-24] MEDS ORDERED: MAGNESIUM SULFATE / D5W 1 GM/100 ML BAG IV STA (14:14)
--- NOTE | 2022-10-24 14:40 | History & Physical Report ---
Date of Service October 24, 2022 Assessment & Plan (1) SOB (shortness of breath): (2) HTN (hypertension): (3) Tobacco use: (4) History of alcohol use: (5) Liver transplant status: (6) ALEX (acute kidney injury): (7) New onset atrial fibrillation: Plan This is a 57-year-old male with PMH of history of heavy alcohol use and cirrhosis status post liver transplant at [facility] 6 years ago, hypertension, tobacco use who presents from [facility] clinic due to cough, fatigue and shortness of breath for the past 3 months. Exertional dyspnea Cough Unintentional weight loss [place] poorly over the past 3 months but did not seek medical attention until today. Of note, did self-stop taking carvedilol, lasix and hydralazine 3 months ago. Is only taking Prograf and CellCept once a day (prescribed Q12) No leukocytosis, covid and PCR negative, lyme negative, anaplasma DNR pending Chest CT with: * 1. Ground glass consolidation is seen throughout both lungs with associated intralobular septal thickening and a "crazy paving" appearance. This is nonspecific, and could be seen with pulmonary edema, multifocal pneumonia, pulmonary hemorrhage, and/or possibly drug induced lung disease. Clinical correlation will be essential. Correlate with any prior outside imaging studies. Radiographic follow-up to resolution is recommend. * 2. Cardiomegaly noting a [id number] pericardial effusion * 3. Trace pleural effusions Denies history of CHF but cardiomegaly, pulm edema - will obtain 2D echo for further evaluation, give 20mg IV Lasix in ED. Discussed case with Dr. Edmonds who will evaluate Dr. Bryant reviewed CT chest imaging and feels consistent with pulm edema Will continue empiric coverage of infectious pulm process - resp biofire pending, continue cefepime and vanco, follow blood culture New onset A fib A fib with RVR in 120s on EKG, no known history Stopped taking carvedilol 3 months ago - HR now 110s on monitor, giving PO Lopressor dose Starting IV heparin per discussion with Dr. Edmonds Acute kidney injury, unknown baseline Cr of 2.27 today (last Cr 1.7 in [facility] from October 2020) CT abd/pelvis with kidneys that are atrophic and without hydronephrosis Appears volume overloaded, giving 20mg IV lasix Routine nephro consult Pericardial effusion on CT chest Small-moderate pericardial effusion noted Adequate BP, normal heart sounds - low concern for tamponade at this time, cont close monitoring 2D echo pending H/o etoh cirrhosis s/p liver transplant 6 years ago Liver transplant at [facility] in [place], is only taking Prograf and CellCept once a day (prescribed Q12) Has not had labwork in over a year Still drinking etoh but denies use in past 4 months Small ascites on imaging, A&Ox3, INR 1.2 HTN Previously taking carvedilol, hydralazine but not currently taking. Appreciate cardiology recs Tobacco use Recommend cessation DVT Ppx: IV heparin Code status: FULL PCP: [facility] Dispo: Admitted to PCU Patient seen in collaboration with Dr. Maguire. Please see addendum. I spent a total of 85 minutes coordinating, documenting, and providing care for this patient excluding time spent in the performance of separately billed services. History of Present Illness Chief Complaint: SOB Primary Care Provider: NO PCP This is a 57-year-old male with PMH of history of heavy alcohol use and cirrhosis status post liver transplant at [facility] 6 years ago, hypertension, tobacco use who presents from [facility] clinic due to cough, fatigue and shortness of breath for the past 3 months. Has felt poorly for the past 3 months, stating he has had a cough, postnasal drip, dyspnea with exertion, loss of appetite and unintentional weight loss of 20 pounds over the p ast 3 months. Has been sleeping all the time. States he has not had lab work done in over a year because it is difficult for him to get from [place] where he resides alone to the [facility]. Stop taking carvedilol, Lasix and hydralazine over 3 months ago because he ran out and "have never been told what those medications are for". Does still take mycophenolate and tacrolimus daily (scheduled as every 12). Denies any fever or chills. No lightheadedness. No chest pain, wheezing, vomiting, abdominal pain, dysuria, diarrhea or constipation. States that following liver transplant while still inpatient in [place], was told he had kidney and heart problems but has not followed up for those. Does not see any specialists. Still drinks alcohol occasionally since liver transplant but denies any drink in the past 4 months. Using chewing tobacco. Allergies Allergy/AdvReac Type Severity Reaction Status Date / Time No Known Allergies Allergy Unverified 10/24/22 12:02 Home Medications Medication Instructions Recorded Confirmed Type carvedilol 12.5 mg tablet 0 mg PO BID 10/24/22 10/24/22 History cyanocobalamin (vitamin B-12) 0 mcg PO DAILY 10/24/22 10/24/22 History 1,000 mcg tablet folic acid 1 mg tablet 0 mg PO DAILY 10/24/22 10/24/22 History furosemide 20 mg tablet 0 mg PO DAILY 10/24/22 10/24/22 History hydralazine 10 mg tablet 0 mg PO TID 10/24/22 10/24/22 History mycophenolate mofetil 500 mg tablet 500 mg PO BID 10/24/22 10/24/22 History tacrolimus 1 mg capsule, 3 mg PO Q12H 10/24/22 10/24/22 History immediate-release thiamine HCl (vitamin B1) 100 mg 100 mg PO DAILY 10/24/22 10/24/22 History tablet Past Med/Surg History Medical History History of alcohol use last drink reported 4 months ago HTN (hypertension) Tobacco use Surgical History Liver transplant status Family History Other Diabetes Heart disease Social History Smoking Status: Current some day smoker Preferred Language: Bulgarian Feels Safe at Home: Yes Review of Systems Review of Systems: At least ten systems reviewed and negative except as noted in the HPI. Physical Exam Physical Exam: Please see Dr. Maguire's addendum for physical exam. Results & Data Results & Data Vital Signs (Past 12 Hours) Vital Signs Temp Pulse Pulse Resp BP BP Pulse Ox 10/24/22 12:14 100 H 10/24/22 11:04 112 H 18 96 10/24/22 10:48 126 H 18 145/113 H 98 10/24/22 10:48 98 10/24/22 10:43 36.6 C 126 H 18 145/113 H 97 O2 Del Method 10/24/22 12:14 10/24/22 11:04 Room Air 10/24/22 10:48 Room Air 10/24/22 10:48 Room Air 10/24/22 10:43 Room Air Laboratory Results Short CBC 10/24/22 Range/Units 10:30 WBC 5.17 (4.8-10.8) K/ul Hgb 12.8 L (14.0-18.0) g/dl Hct 39.2 L (42.0-52.0) % Plt Count 253 (130-400) K/uL BMP 10/24/22 10:30 Sodium 136 Potassium 4.0 Chloride 100 Carbon Dioxide 24 BUN 24 H Creatinine 2.27 H Glucose 119 H Calcium 9.1 Liver Function 10/24/22 Range/Units 10:30 Total Bilirubin 1.6 H (0.2-1.0) mg/dl Direct Bilirubin 0.5 H (0-0.2) mg/dl AST 11 L (13-39) U/L ALT 3 L (7-52) U/L Alkaline Phosphatase 78 (34-104) U/L Albumin 3.7 (3.4-5.0) gm/dl Diagnostic Findings Chest X-Ray 10/24/22 11:04 XR chest 1V portable CLINICAL HISTORY: palpitations TECHNIQUE: Single frontal radiograph of the chest was obtained. Comparison: None available at the time of this dictation. FINDINGS: No lines and tubes are seen. Cardiomegaly is noted. Multifocal airspace opacities are seen. No evidence of pleural effusion or pneumothorax. IMPRESSION: 1. Multifocal airspace opacities may represent atelectasis, pneumonia, and/or aspiration. 2. Cardiomegaly is seen. ACT 112: Negative or not required by law. Electronically signed by: Reuben Paz M.D. 10/24/2022 11:28 AM Abdomen/Pelvis CT 10/24/22 11:47 CT SCAN OF THE CHEST, ABDOMEN, AND PELVIS WITHOUT IV CONTRAST CLINICAL HISTORY: Pneumonia. Liver transplant. Acute renal insufficiency. COMPARISON STUDY: Chest x-ray dated 10/24/2022. TECHNIQUE: Unenhanced CT scan of the chest, abdomen, and pelvis was performed from the thoracic inlet to the proximal femora. Images are reviewed in the axial, sagittal, and coronal planes. IV contrast was not administered due to poor renal function. Note that the examinations are suboptimal without oral and IV contrast. There is also significant motion artifact. A dose lowering technique was utilized adhering to the principles of ALARA. FINDINGS: CHEST: Thyroid: Imaged portions of the thyroid gland are normal in size and attenuation . Thoracic aorta: There is mild atherosclerotic calcification of the thoracic aorta, which is normal in caliber and demonstrates standard 3-vessel arch anatomy. Heart: The heart is enlarged noting a small to moderate pericardial effusion. The coronary arteries and aortic valve leaflets are densely calcified. There is diminished attenuation of the cardiac blood pool as compared to the myocardium suggesting anemia. Lungs and pleural spaces: Evaluation of the lung parenchyma is degraded by motion artifact. There are trace pleural effusions. There is ground glass consolidation throughout both lungs with associated intralobular septal thickening. This gives a "crazy paving" appearance. The trachea and central airways are clear. There are scattered calcified granulomas. Mediastinum: There are numerous mildly enlarged mediastinal lymph nodes. Pretracheal nodes measure up to 14 mm short axis. Prevascular nodes measure up to 11 mm in short axis. Autumn: Not well assessed without IV contrast. Axillae: There is no axillary lymphadenopathy. Bony thorax: The skeletal structures are osteopenic. No lytic or blastic lesions are identified. Soft tissues: Gynecomastia is noted. ABDOMEN AND PELVIS: Liver: The unenhanced hepatic transplant is normal in size, contour, and attenuation. There is no intrahepatic biliary ductal dilatation. Gallbladder: Surgically absent. Spleen: Normal in size and attenuation. Pancreas: The unenhanced pancreas is atrophic and grossly unremarkable. Adrenal glands: Unremarkable. Kidneys: The unenhanced kidneys are atrophic and without hydronephrosis. No renal calculi are identified. There is no evidence of contour deforming renal mass lesion. Abdominal vasculature: The abdominal aorta is normal in course and caliber noting moderate atherosclerotic calcification. Bowel: There is no bowel obstruction. Mild fecal retention is seen throughout the colon. There are scattered colonic diverticula without CT evidence of acute diverticulitis. The appendix is well-visualized and normal. Peritoneum: There is a small volume of abdominopelvic ascites. No intraperitoneal free air is seen. There is a fat and ascitic fluid containing u mbilical hernia. Lymphadenopathy: None. Pelvic viscera: The prostate gland is diminutive and heterogeneous. The bladder wall is circumferentially thickened with surrounding inflammation. There are small bilateral fat-containing groin hernias. Skeletal structures: The skeletal structures are osteopenic. There is mild lumbosacral spondylosis. No lytic or blastic lesions are seen. IMPRESSION: 1. Significantly motion compromised examinations. 2. Groundglass consolidation is seen throughout both lungs with associated intralobular septal thickening and a "crazy paving" appearance. This is nonspecific, and could be seen with pulmonary edema, multifocal pneumonia, pulmonary hemorrhage, and/or possibly drug induced lung disease. Clinical correlation will be essential. Correlate with any prior outside imaging studies. Radiographic follow-up to resolution is recommend. 3. Cardiomegaly noting a [id number] pericardial effusion. 4. Trace pleural effusions. 5. The appearance of the bladder suggests cystitis. Correlate with clinical findings and urinalysis. 6. The unenhanced hepatic transplant is normal in size and attenuation. 7. Small volume of abdominopelvic ascites. 8. The kidneys are atrophic and without hydronephrosis. 9. Additional findings as above. ACT 112: Negative or not required by law. Electronically signed by: Eusebio Salguero M.D. 10/24/2022 1:[address] 10/24/22 11:47 CT SCAN OF THE CHEST, ABDOMEN, AND PELVIS WITHOUT IV CONTRAST CLINICAL HISTORY: Pneumonia. Liver transplant. Acute renal insufficiency. COMPARISON STUDY: Chest x-ray dated 10/24/2022. TECHNIQUE: Unenhanced CT scan of the chest, abdomen, and pelvis was performed from the thoracic inlet to the proximal femora. Images are reviewed in the axial, sagittal, and coronal planes. IV contrast was not administered due to poor renal function. Note that the examinations are suboptimal without oral and IV contrast. There is also significant motion artifact. A dose lowering technique was utilized adhering to the principles of ALARA. FINDINGS: CHEST: Thyroid: Imaged portions of the thyroid gland are normal in size and attenu ation. Thoracic aorta: There is mild atherosclerotic calcification of the thoracic aorta, which is normal in caliber and demonstrates standard 3-vessel arch anatomy. Heart: The heart is enlarged noting a small to moderate pericardial effusion. The coronary arteries and aortic valve leaflets are densely calcified. There is diminished attenuation of the cardiac blood pool as compared to the myocardium suggesting anemia. Lungs and pleural spaces: Evaluation of the lung parenchyma is degraded by motion artifact. There are trace pleural effusions. There is ground glass consolidation throughout both lungs with associated intralobular septal thickening. This gives a "crazy paving" appearance. The trachea and central airways are clear. There are scattered calcified granulomas. Mediastinum: There are numerous mildly enlarged mediastinal lymph nodes. Pretracheal nodes measure up to 14 mm short axis. Prevascular nodes measure up to 11 mm in short axis. Autumn: Not well assessed without IV contrast. Axillae: There is no axillary lymphadenopathy. Bony thorax: The skeletal structures are osteopenic. No lytic or blastic lesions are identified. Soft tissues: Gynecomastia is noted. ABDOMEN AND PELVIS: Liver: The unenhanced hepatic transplant is normal in size, contour, and attenuation. There is no intrahepatic biliary ductal dilatation. Gallbladder: Surgically absent. Spleen: Normal in size and attenuation. Pancreas: The unenhanced pancreas is atrophic and grossly unremarkable. Adrenal glands: Unremarkable. Kidneys: The unenhanced kidneys are atrophic and without hydronephrosis. No renal calculi are identified. There is no evidence of contour deforming renal mass lesion. Abdominal vasculature: The abdominal aorta is normal in course and caliber noting moderate atherosclerotic calcification. Bowel: There is no bowel obstruction. Mild fecal retention is seen throughout the colon. There are scattered colonic diverticula without CT evidence of acute diverticulitis. The appendix is well-visualized and normal. Peritoneum: There is a small volume of abdominopelvic ascites. No intraperitoneal free air is seen. There is a fat and ascitic fluid containing umbilical hernia. Lymphadenopathy: None. Pelvic viscera: The prostate gland is diminutive and heterogeneous. The bladder wall is circumferentially thickened with surrounding inflammation. There are small bilateral fat-containing groin hernias. Skeletal structures: The skeletal structures are osteopenic. There is mild lumbosacral spondylosis. No lytic or blastic lesions are seen. IMPRESSION: 1. Significantly motion compromised examinations. 2. Groundglass consolidation is seen throughout both lungs with associated intralobular septal thickening and a "crazy paving" appearance. This is nonspecific, and could be seen with pulmonary edema, multifocal pneumonia, pulmonary hemorrhage, and/or possibly drug induced lung disease. Clinical correlation will be essential. Correlate with any prior outside imaging studies. Radiographic follow-up to resolution is recommend. 3. Cardiomegaly noting a [id number] pericardial effusion. 4. Trace pleural effusions. 5. The appearance of the bladder suggests cystitis. Correlate with clinical findings and urinalysis. 6. The unenhanced hepatic transplant is normal in size and attenuation. 7. Small volume of abdominopelvic ascites. 8. The kidneys are atrophic and without hydronephrosis. 9. Additional findings as above. ACT 112: Negative or not required by law. Electronically signed by: Eusebio Salguero M.D. 10/24/2022 1:[address] 10/24/22 11:50 CT SCAN OF THE BRAIN WITHOUT IV CONTRAST CLINICAL HISTORY: Generous weakness. Change in mental status. COMPARISON STUDY: No priors. TECHNIQUE: Unenhanced axial CT scan of the brain is performed from the vertex to the skull base. A dose lowering technique was utilized adhering to the principles of ALARA. CT DOSE: 1373.10 mGy.cm FINDINGS: Brain parenchyma: There is age-related involutional change noting mild to moderate patchy subcortical and periventricular microangiopathic disease. There is no hemorrhage, mass effect, or evidence of acute territorial ischemia by CT criteria. Beverly-white matter differentiation is preserved. No extra-axial fluid collection is seen. Mineralization is noted in the basal ganglia. Ventricles, sulci, cisterns: Prominent secondary to involutional change. Intracranial vasculature: There is atherosclerotic calcification of the cavernous carotid and vertebral arteries. Calvarium: Unremarkable. Sinuses and mastoids: The visualized paranasal sinuses are clear. The mastoid air cells are well pneumatized. Orbits: The bony orbits are grossly intact. IMPRESSION: There is no hemorrhage, mass effect, or evidence of acute territorial ischemia by CT criteria. ACT 112: Negative or not required by law. Electronically signed by: Eusebio Salguero M.D. 10/24/2022 1:17 PM Supervising Physician Co-Signing Physician Notes Pt is a 57 y/o M with hx of Liver transplant (@ [facility] ~ 6 years ago) on Tacrolimus, & mycophenolate, prior hx of Alcoholic encephalopathy, CKD III, HTN admitted for worsening SOB, cough, fatigue. Per pt he has been only taking tacro, mycophenolate and Vit b12 daily. Otherwise has not been taking coreg, Lasix or any other meds for a while Still chewing tobacco, and has been drinking alcohol on and off. Last drink was 4 months ago Denied any hx of cardiac arrhythmia, or GI bleed. PE: NAD, well developed HEENT: normal conjunctiva (no jaundice) Lungs: Fair air movement b/l with mid and lower lobe crackles Cardiac: In afib, no murmur Abd: ND, soft, slight TTP of the L mid area MSK: trace b/l LE pitting edema Psych: AAOx3, normal affect A/P: SOB with cough: -2/2 Pneumonia +/- Acute on CHF - CT chest: Groundglass consolidation is seen throughout both lungs with associated intralobular septal thickening and a "crazy paving" appearance. This is nonspecific, and could be seen with pulmonary edema, multifocal pneumonia, pulmonary hemorrhage, and/or possibly drug induced lung disease. -procal neg ---- due to his chronic immunosuppression status will treat for PNA ---- continue vancomycin and Cefepine -will send BCx and UCx - Lyme is neg with normal smear study Acute CHF with possible hx of Chronic heart failure: -pt was supposed to take coreg and Lasix -currently not on these meds -will start pt on Lasix 20mg IV -echo -admit to tele -trend trop and cardiology consult -daily weight and Strict I/O New onset afib: -with intermittent RVR -Chadvasc: 2-3 ---- started the pt on heparin drip w/o bolus ---- A1C in the morning -admit to tele and cardiology consult --- recommended to start metoprolol tartrate 12.5mg QID ALEX with CKD III: -last know Cr was 1.7 -will continue to monitor BMP -nephrology consult Liver transplant: -pt was supposed to take cellcept and Tacro BID ---- will do BID dosing -also start pt on thiamine, folic acid (last ETOH intake was 4 months ago) Agree with A/P by Stephanie Guy PA-C
[2022-10-24] MEDS ORDERED: ONDANSETRON INJ 2 MG/ML 2 ML VIAL ONE (16:14)
[2022-10-24] MEDS ORDERED: FUROSEMIDE INJ 20 MG/2 ML VIAL IV ONE (16:15)
--- NOTE | 2022-10-24 16:24 | Cardiology Consultation ---
Date of Consultation October 24, 2022 Assessment & Plan (1) New onset atrial fibrillation: - Atrial fibrillation noted. Duration unknown. -The admitting service has requested records with regards to his hip pathology history see if he has any known history of esophageal varices. Hemoglobin relatively stable, at present, favor unfractionated heparin for stroke prophylaxis. -Proceed with low-dose metoprolol tartrate 12.5 mg 4 times daily for rate control -Patient apparently had been treated with hydralazine furosemide and carvedilol in the past but has not taken these medications for a few months. (2) Pulmonary edema: - Chest x-ray, CT of the chest suggestive of pulmonary edema. -Proceed with echocardiogram tomorrow to assess left ventricular systolic, diastolic function. -CT chest images reviewed independently, noted dense left coronary artery calcification (LAD) and calcification of the aortic valve -Proceed with cautious furosemide 20 mg IV x1 to start. (3) ALEX (acute kidney injury): - Creatinine 2.27 today. Most recent available previous measurement was in October, within the [facility], at which time creatinine was 1.7. -Proceed with supportive care. (4) HTN (hypertension): - Metoprolol and furosemide to be initiated first. (5) Liver transplant status: - Per primary service is placing him back on his immunosuppressive therapy, as it sounds like he has been taking them, but not at the prescribed doses. (6) Pericardial effusion: - Small to moderate pericardial effusion noted on CT of the chest. Blood pressure stable. Plan for echocardiogram tomorrow. Given most recent blood pressure measurement 145/113, hemodynamic stability noted. History of Present Illness History of Present Illness Candy Leach is a 57-year-old male seen in cardiology consultation per the request of Stephanie Guy PA-C of the [facility] Hospitalist service for the evaluation of generalized fatigue, dyspnea on exertion, atrial fibrillation with rapid ventricular response, small to moderate circumferential pericardial effusion on CT scan, and suspected underlying cardiomyopathy. The patient does not follow routinely with cardiology and this is the first time he is assessed by a member of our practice. He receives his care through the local [facility]. 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 He notes that 3 months ago he had what he describes as a flulike illness and was quite ill. Subsequently he had significant sinus congestion, and ever since he has felt weak and tired. He made an appointment with the local [place] clinic today, and on arrival was found to be in atrial fibrillation with rapid ventricular response prompting referral to the emergency department. At the time of my assessment in the ED, room C6, ongoing atrial fibrillation was noted with ventricular rate in the range of 97 to 100 bpm with occasional PVCs. Patient was without acute distress. With deep inspiration, he noted coughing. Family History: Mother at the age of 64 due to a presumed heart event, details unknown The patient's father at the age of 79, unknown causes The patient has 2 siblings without any history of heart disease Social History: Patient states he has been free of alcohol use for the last 3 months, is noted however that he presented to the emergency department at [facility] in July, with acute alcohol intoxication, fall, and hand laceration that required suturing He states he lives alone, but his sister and his former spouse check up on him on occasion He states he joined the [employer] after high school, and 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 [place] Allergies Allergy/AdvReac Type Severity Reaction Status Date / Time No Known Allergies Allergy Unverified 10/24/22 12:02 Home Medications Medication Instructions Recorded Confirmed Type carvedilol 12.5 mg tablet 0 mg PO BID 10/24/22 10/24/22 History cyanocobalamin (vitamin B-12) 0 mcg PO DAILY 10/24/22 10/24/22 History 1,000 mcg tablet folic acid 1 mg tablet 0 mg PO DAILY 10/24/22 10/24/22 History furosemide 20 mg tablet 0 mg PO DAILY 10/24/22 10/24/22 History hydralazine 10 mg tablet 0 mg PO TID 10/24/22 10/24/22 History mycophenolate mofetil 500 mg tablet 500 mg PO BID 10/24/22 10/24/22 History tacrolimus 1 mg capsule, 3 mg PO Q12H 10/24/22 10/24/22 History immediate-release thiamine HCl (vitamin B1) 100 mg 100 mg PO DAILY 10/24/22 10/24/22 History tablet Patient History Medical History History of alcohol use last drink reported 4 months ago HTN (hypertension) Tobacco use Surgical History Liver transplant status Family History Other Diabetes Heart disease Social History Smoking Status: Current some day smoker Preferred Language: Croatian Feels Safe at Home: Yes Review of Systems Constitutional: + fatigue, + weakness and + weight loss Respiratory: + cough and + dyspnea on exertion Cardiovascular: + dyspnea and + edema Physical Exam Constitutional: + ill appearing and + thin Eyes: PERRL, conjunctivae normal, anicteric sclerae Respiratory: Auscultation: + diminished lung sounds (Crackles bilaterally at the bases with diminished lung sounds) Cardiovascular: Rate/Rhythm: + tachycardic and + irregularly irregular Extremities: + edema (Trace bilateral lower extremity edema) Gastrointestinal (Abdomen): normal bowel sounds, soft, nontender, no hepatosplenomegaly Neurologic: PERRL, EOMI, accommodation nl, no face palsy, no dysarthria Results & Data Vital Signs (Past 12 Hours) Vital Signs Temp Pulse Pulse Resp BP BP Pulse Ox 10/24/22 12:14 100 H 10/24/22 11:04 112 H 18 96 10/24/22 10:48 126 H 18 145/113 H 98 10/24/22 10:48 98 10/24/22 10:43 36.6 C 126 H 18 145/113 H 97 O2 Del Method 10/24/22 12:14 10/24/22 11:04 Room Air 10/24/22 10:48 Room Air 10/24/22 10:48 Room Air 10/24/22 10:43 Room Air Laboratory Results Cardiac Enzymes 10/24/22 Range/Units 10:30 AST 11 L (13-39) U/L Troponin I High Sens 24.1 H (0-20) pg/ml Coagulation INR 1.2 10/24/22 Range/Units 10:30 PT 12.4 H (9.0-12.0) Seconds CBC 10/24/22 Range/Units 10:30 WBC 5.17 (4.8-10.8) K/ul RBC 4.38 L (4.70-6.10) M/uL Hgb 12.8 L (14.0-18.0) g/dl Hct 39.2 L (42.0-52.0) % Plt Count 253 (130-400) K/uL Neut # (Auto) 3.11 (1.40-6.50) K/uL Lymph # (Auto) 1.59 (1.2-3.4) K/uL [place] # (Auto) 0.32 (0.11-0.59) K/uL Eos # (Auto) 0.10 (0-0.50) K/uL Baso # (Auto) 0.04 (0-0.2) K/uL Comprehensive Metabolic Panel 10/24/22 Range/Units 10:30 Sodium 136 (136-145) mmol/L Potassium 4.0 (3.5-5.1) mmol/L Chloride 100 (98-107) mmol/L Carbon Dioxide 24 (21-32) mmol/L BUN 24 H (6-23) mg/dl Creatinine 2.27 H (0.6-1.4) mg/dl Glucose 119 H (70-99(Fasting)) mg/dl Calcium 9.1 (8.6-10.3) mg/dl Direct Bilirubin 0.5 H (0-0.2) mg/dl AST 11 L (13-39) U/L ALT 3 L (7-52) U/L Alkaline Phosphatase 78 (34-104) U/L Total Protein 7.4 (6.0-8.3) gm/dl Albumin 3.7 (3.4-5.0) gm/dl TSH 5.226 IU/L, free T41.18 NG per deciliter SARS-CoV-2 screen negative Lyme screen negative Diagnostic Findings Summary of report of CT of the head no hemorrhage mass effect or evidence of acute territorial ischemia by CT criteria Noncontrast CT of the chest abdomen and pelvis: Radiology report describes that the examination was compromised by motion artifact Groundglass consolidation noted throughout the lungs with findings suggestive of pulmonary edema, multifocal pneumonia,Pulmonary hemorrhage, or drug-induced lung disease. Cardiomegaly noted with small to moderate circumferential pericardial effusion Trace pleural effusions Bladder appearance suggestive of cystitis Small volume abdominal pelvic ascites The coronary arteries and aortic valve are densely calcified Chest x-ray: Image reviewed independently: Consistent with pulmonary edema, enlarged cardiac silhouette EKG performed 10/24/2022 at 10:45 AM: Atrial fibrillation with rapid ventricular sponsor 121 bpm, [address] segments are difficult to interpret due to baseline artifact Repeat EKG 10/24/2022 at 1418: Interpreted independently: Atrial fibrillation 113 bpm poor R wave progression suggestive of possible anterolateral infarct, ST segments without acute abnormality, when noted PVC
[2022-10-24] MEDS: HEPARIN SODIUM/DEXTROSE 25,000 UNITS/500 ML BAG IV SCH (16:33)
[2022-10-24 17:55] LABS: Adenovirus PCR Not Detected (NotDetected); Bordetella parapertussis PCR Not Detected (NotDetected); Bordetella pertussis PCR Not Detected (NotDetected); Chlamydia pneumoniae PCR Not Detected (NotDetected); Coronavirus 229E PCR Not Detected (NotDetected); Coronavirus CoV-2 (COVID19)PCR Not Detected (NotDetected); Coronavirus HKU1 PCR Not Detected (NotDetected); Coronavirus NL63 PCR Not Detected (NotDetected); Coronavirus OC43PCR Not Detected (NotDetected); Human Metapneumovirus PCR Not Detected (NotDetected); Influenza A PCR Not Detected (NotDetected); Influenza B PCR Not Detected (NotDetected); Mycoplasma pneumoniae PCR Not Detected (NotDetected); Parainfluenza Virus 1 PCR Not Detected (NotDetected); Parainfluenza Virus 2 PCR Not Detected (NotDetected); Parainfluenza Virus 3 PCR Not Detected (NotDetected); Parainfluenza Virus 4 PCR Not Detected (NotDetected); Respiratory Syncytial VirusPCR Not Detected (NotDetected); Rhinovirus/Enterovirus PCR Not Detected (NotDetected)
[2022-10-24] MEDS ORDERED: ACETAMINOPHEN 325 MG TAB PO PRN (17:56)
[2022-10-24] MEDS ORDERED: ONDANSETRON INJ 2 MG/ML 2 ML VIAL IV PRN (17:56)
[2022-10-24] MEDS ORDERED: POLYETHYLENE (MIRALAX) 17 GM PACK PO PRN (17:56)
[2022-10-24] MEDS: Heparin IV Adult Wt-Based Standard *NO* Bolus Protocol IV SCH ×2 (18:00→18:04)
--- NOTE | 2022-10-24 18:55 | Pharmacy Report ---
Pharmacy PK ABX Note - Date of Service October 24, 2022 - Assessment and Plan Assessment 57 year old M receiving IV Vancomycin and Cefepime for treatment of empiric pulm. Day # 1 of antimicrobial therapy. Plan Vancomycin * Loading dose: 2000 mg (~25mg/kg) IV x 1 was given in the ED * Patient presents in ALEX; sCr = 2.27 mg/dL. Baseline sCr was 1.7 according to labs at [facility] 10/2020. Given unstable renal function, will dose Vancomycin based on random levels as unable to determine optimal maintenance dose. * Ordered MRSA nasal swab to assist with potential de-escalation * Random level ordered for: 10/25/22 Pharmacy will continue to follow and will adjust dose/frequency as necessary. Thank you. Pharmacy has transitioned to AUC monitoring for vancomycin. AUC/MAIN is the preferred PK/PD target and is associated with decreased risk of nephrotoxicity compared to traditional trough targets.
[2022-10-24] MEDS: METOPROLOL TARTRATE 25 MG TAB PO SCH ×3 (20:30→20:33)
[2022-10-24] MEDS: MYCOPHENOLATE MOFETIL 250 MG CAP PO SCH (20:32)
[2022-10-24] MEDS: TACROLIMUS 1 MG CAP PO SCH (20:32)
[2022-10-24 21:22] LABS: Appearance Urine Clear (Clear); Bacteria Urine Automated Negative (Negative); Bilirubin Urine Negative (Negative); Blood Urine Negative (Negative); Color Urine Dark Yellow; Glucose Urine UA Negative (Negative); Ketones Urine Trace (Negative); Leukocyte Esterase Urine Trace (Negative); Nitrite Urine Negative (Negative); Protein Urine Negative (Negative); RBC Urine Automated 0-4 /hpf (0-4); Specific Gravity Urine 1.016 (1.000-1.030); Urobilinogen Urine Negative (Negative)
[2022-10-24 23:59] LABS: Partial Thromboplastin Ratio 2.7
[2022-10-25 00:07] LABS: Partial Thromboplastin Time 75.2 Seconds (21.0-31.0)
[2022-10-25] MEDS: CEFEPIME 2,000 MG in SYRINGE 0 ML IV SCH ×2 (00:36→11:55)
[2022-10-25 08:18] LABS: Basophils # (auto) 0.04 K/uL (0-0.2); Eosinophils # (auto) 0.08 K/uL (0-0.50); Eosinophils % (auto) 2.1 %; Hematocrit (blood only) 33.1 % (42.0-52.0); Hemoglobin 10.7 g/dl (14.0-18.0); Lymphocytes # (auto) 1.61 K/uL (1.2-3.4); Lymphocytes % (auto) 41.8 %; Mean Corpuscular Hemoglobin 29.1 pg (25.0-34.0); Mean Corpuscular Hgb Conc 32.3 g/dL (32.0-36.0); Mean Corpuscular Volume 89.9 fL (80.0-100.0); Mean Platelet Volume 10.2 fL (9.4-12.4); Monocytes # (auto) 0.29 K/uL (0.11-0.59); Monocytes % (auto) 7.5 %; Neutrophils # (auto) 1.83 K/uL (1.40-6.50); Neutrophils % (auto) 47.6 %; Platelet Count 199 K/uL (130-400); Red Blood Count 3.68 M/uL (4.70-6.10); White Blood Count 3.85 K/ul (4.8-10.8)
[2022-10-25] MEDS: METOPROLOL TARTRATE 25 MG TAB PO SCH ×4 (08:34→21:10)
[2022-10-25] MEDS: MYCOPHENOLATE MOFETIL 250 MG CAP PO SCH ×2 (08:39→21:10)
[2022-10-25] MEDS: TACROLIMUS 1 MG CAP PO SCH ×2 (08:39→21:11)
[2022-10-25] MEDS: THIAMINE HCL 100 MG TAB PO SCH (08:39)
[2022-10-25 08:45] LABS: Magnesium 1.7 mg/dl (1.7-2.4)
[2022-10-25 08:49] LABS: Estimated Average Glucose 117 mg/dl; Hemoglobin A1C 5.7 % (4.5-5.6)
[2022-10-25 08:54] LABS: Partial Thromboplastin Ratio 2.6
[2022-10-25] MEDS ORDERED: FOLIC ACID 1 MG TAB PO SCH (09:00)
[2022-10-25 09:26] LABS: Partial Thromboplastin Time 71.8 Seconds (21.0-31.0)
[2022-10-25 10:06] LABS: Est GFR (African American) 31.3 ml/min
--- NOTE | 2022-10-25 10:52 | Pharmacy Report ---
Pharmacy PK ABX Note - Date of Service October 25, 2022 - Assessment and Plan Assessment 57 year old M receiving IV Vancomycin and Cefepime for empiric treatment of pneumonia. * Day #2 of antimicrobial therapy. * Remains afebrile and without leukocytosis. Renal fxn is worsening with SCr up to 2.52 today. * Attending would like to continue vancomycin for now despite negative MRSA nasal swab given immunocompromised state. Blood cultures pending. Plan Vancomycin * Received 2000 mg vancomycin loading dose yesterday at 1240 (~25 mg/kg). * Random level obtained this AM resulted as 17.2 mcg/mL. This is predicted to achieve target AUC/MAIN of 400-600 mg/L.hr * Will give 1000 mg IV vancomycin today at 1200. Predicted AUC at steady state: 595 mg/L.hr. * Continue to dose per level at this point. Repeat random level ordered for: 10/26/22 Pharmacy will continue to follow and will adjust dose/frequency as necessary. Thank you. Pharmacy has transitioned to AUC monitoring for vancomycin. AUC/MAIN is the preferred PK/PD target and is associated with decreased risk of nephrotoxicity compared to traditional trough targets.
--- NOTE | 2022-10-25 11:17 | Consultation Report ---
NEPHROLOGY CONSULTATION NOTE REASON FOR CONSULTATION: [id number] renal failure in a patient status post liver transplant, now admitted with pulmonary edema. HISTORY OF PRESENT ILLNESS: The patient is a 57-year-old male with history of alcoholic cirrhosis, status post liver transplant at the [facility], operated by [facility] about 6 years ago. He is not great with followup. He has not had any blood work for the last 2 year, when he had a creatinine of 1.7 as of October 2020. For the last few months, he was not taking his carvedilol or Lasix, but claims he was still taking his transplant medications, which includes tacrolimus 3 mg twice daily and mycophenolate 500 twice daily. He was getting increasingly short of breath, weak. Workup done in the Emergency Department shows pericardial as well as pleural effusion with pulmonary edema. Creatinine was 2.27 yesterday and has gone up even more today to 2.52. He got one dose of Lasix 20 mg IV yesterday, but did not have any diuresis at all. He was also found to be in atrial fibrillation with rapid ventricular response. Echocardiogram done earlier today shows ejection fraction of 40% with atrial fibrillation. Urine sediment was negative for blood or protein. Chest x-ray shows pulmonary edema. CT abdomen and pelvis shows bilateral atrophic kidney without hydronephrosis or other significant abnormality. ALLERGIES: None. MEDICATIONS: Home medication list was reviewed in detail. He was still taking the rejection medicine, but no other medicine. PAST MEDICAL AND SURGICAL HISTORY: Alcoholic cirrhosis with status post liver transplant 6 years ago. He still has alcohol use, hypertension, tobacco use, history of cardiomyopathy, which he was told even 6 years ago, as well as CKD with last creatinine we have in our system is 1.7 two years ago, status post liver transplant. FAMILY HISTORY: Positive for diabetes, heart disease. 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 REVIEW OF SYSTEMS: Positive for ongoing weight loss, increasing weakness, shortness of breath, orthopnea, PND, cough, poor appetite. Otherwise, denied any acute symptoms and total of 12 systems was reviewed. PHYSICAL EXAMINATION: GENERAL: A middle-aged white male who appears to be chronically ill. He is awake, alert, oriented x3. VITAL SIGNS: Most recent blood pressure is 99/67, pulse rate 92, temperature 36.4, 96% on room air, respiratory rate 20. HEENT: Mucous membranes are moist. NECK: Supple. Jugular venous distention is present. CHEST: Bilateral decreased breath sounds with basal crackles up to half the lung. CARDIOVASCULAR: S1 and S2, irregular. Systolic murmur heard. ABDOMEN: Soft, nontender. Ascites could not be appreciated on clinical exam. EXTREMITIES: Show trace edema. LABORATORY DATA: The last creatinine we have is 1.7 two years ago, current creatinine is 2.5. Sodium 136, potassium 4.0 on admission. Creatinine yesterday was 2.27. Hemoglobin A1c 5.7, magnesium 1.7. LFT, no major changes. BNP was 1610. IMAGING DATA: Chest x-ray, CT abdomen and pelvis, CT chest was reviewed in detail. Pertinent findings include bilateral atrophic kidneys. Pericardial and pleural effusion with pulmonary edema, mild ascites. The urine sediment negative for blood or protein, but does have a lot of hyaline casts and epithelial cells. ASSESSMENT AND PLAN: A 57-year-old male with alcoholic cirrhosis, status post liver transplant 6 years ago with underlying chronic kidney disease as well as cardiomyopathy, now admitted with decompensated congestive heart failure as well as atrial fibrillation with rapid ventricular response and also has worsening kidney function. Acute renal failure: Given that his last baseline creatinine was 1.7 two years ago and he already has bilateral atrophic kidney, my assumption is this is predominantly chronic kidney disease we are dealing with. Creatinine went up slightly from yesterday, but this is definitely not because of Lasix, as he had barely any meaningful diuresis. Given the current situation of decompensated heart failure, atrial fibrillation, there will be expected cardiorenal syndrome with decreased renal perfusion causing worsening kidney function. He has not had any urine output since this morning and bladder scan was negative, but there is no question he does have evidence of fluid overload with pulmonary edema and needs to be diuresed. I expect the kidney function to potentially get worse in the coming days, but that is still acceptable and permissible. His renal prognosis is not good and is heading towards path of dialysis. does need regular Nephrology care in [place]. . RECOMMENDATION: 1. Lasix 40 mg IV twice daily. This is because the 20 mg IV did not produce any diuresis at all and we do need to use a higher dose. 2. Daily renal panel. 3. Avoid BAILEY or ARB at this time. 4. Hold diuretics if his blood pressure gets below 90 systolic. 5. No further workup is needed for the etiology of the acute renal failure. We have already ruled out obstructive uropathy and his urine sediment is bland without blood or protein ruling out most causes of GN. 6. 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 However, we do have to use that for his liver transplant, but I do want to check the Prograf trough level, which we have not checked for a long time. The current dose of 3 mg twice daily is somewhat high for a liver transplant, but we will continue the same dose pending Prograf trough level. Case has been discussed with cardiology and primary team. Thank you very much for the consult. Job ID: [id number] MTDD
[2022-10-25] MEDS: HEPARIN SODIUM/DEXTROSE 25,000 UNITS/500 ML BAG IV SCH (11:33)
[2022-10-25] MEDS ORDERED: VANCOMYCIN HCL 1,000 MG in SODIUM CHLORIDE 0.9% 250 ML IV SCH (12:00)
--- NOTE | 2022-10-25 12:34 | Cardiology Progress Note ---
Date of Service October 25, 2022 Assessment & Plan (1) New onset atrial fibrillation: Plan: - Atrial fibrillation noted. Duration unknown. -The admitting service has requested records with regards to his hip pathology history see if he has any known history of esophageal varices. Hemoglobin relatively stable, at present, favor unfractionated heparin for stroke prophylaxis. -Continue low-dose metoprolol tartrate 12.5 mg 4 times daily for rate control (2) Pulmonary edema: Plan: - Chest x-ray, CT of the chest suggestive of pulmonary edema. -Echo with LVEF 40-45%, moderate , moderate RV systolic dysfunction -Nephrology input noted and appreciated, agree with furosemide 40 mg IV BID. (3) ALEX (acute kidney injury): Plan: - Creatinine 2.27 --> 2.52. Most recent available previous measurement was in October, within the [facility] [place], at which time creatinine was 1.7. -Cautious furosemide 40 mg IV BID . (4) HTN (hypertension): Plan: - Metoprolol and furosemide . BP improved, most recent measurement 108/74 mm Hg. (5) Liver transplant status: Plan: - Per primary service is placing him back on his immunosuppressive therapy, as it sounds like he has been taking them, but not at the prescribed doses. (6) Pericardial effusion: Plan: - Small to moderate pericardial effusion noted on CT of the chest and echo without tamponade. Blood pressure stable. Monitor. (7) Aortic stenosis: Plan: - Moderate aortic stenosis. Treatment as noted above. Admission and Anticipated Discharge Date Admission Date: October 24, 2022 Subjective Patient seen in cardiology follow-up of chief complaint of generalized weakness, shortness of breath. Patient feels subjectively improved. Less short of breath. He states that he was able to stand to walk to the bathroom this morning, and yesterday he was unable to stand under his own power. Telemetry reveals ongoing atrial fibrillation currently at 88 bpm, with recent range in the range of 80 bpm to 100 bpm. Physical Exam Constitutional: + ill appearing and + thin Eyes: PERRL, conjunctivae normal, anicteric sclerae Respiratory: Auscultation: + diminished lung sounds (Crackles bilaterally at the bases with diminished lung sounds) Cardiovascular: Rate/Rhythm: + tachycardic and + irregularly irregular Extremities: + edema (Trace bilateral lower extremity edema) Gastrointestinal (Abdomen): normal bowel sounds, soft, nontender, no hepatosplenomegaly Neurologic: PERRL, EOMI, accommodation nl, no face palsy, no dysarthria Results & Data Vital Signs (Past 12 Hours) Vital Signs Temp Pulse Resp BP Pulse Ox O2 Del Method 10/25/22 12:11 36.6 C 92 H 20 108/74 95 Room Air 10/25/22 07:52 36.4 C L 92 H 20 99/67 L 96 Room Air 10/25/22 03:57 36.6 C 88 20 119/74 96 Room Air Laboratory Results Cardiac Enzymes 10/24/22 10/24/22 10/24/22 Range/Units 16:12 16:12 22:45 Troponin I High Sens 25.6 H 24.8 H (0-20) pg/ml B-Natriuretic Peptide 1610 H (0-100) pg/ml Coagulation 10/24/22 10/24/22 10/25/22 Range/Units 16:12 22:45 07:36 APTT 75.2 H* 71.8 H* (21.0-31.0) Seconds B-Natriuretic Peptide 1610 H (0-100) pg/ml CBC 10/25/22 Range/Units 07:36 WBC 3.85 L (4.8-10.8) K/ul RBC 3.68 L (4.70-6.10) M/uL Hgb 10.7 L (14.0-18.0) g/dl Hct 33.1 L (42.0-52.0) % Plt Count 199 (130-400) K/uL Neut # (Auto) 1.83 (1.40-6.50) K/uL Lymph # (Auto) 1.61 (1.2-3.4) K/uL [place] # (Auto) 0.29 (0.11-0.59) K/uL Eos # (Auto) 0.08 (0-0.50) K/uL Baso # (Auto) 0.04 (0-0.2) K/uL Comprehensive Metabolic Panel 10/25/22 10/25/22 Range/Units 07:36 07:41 Creatinine 2.52 H Cancelled (0.6-1.4) mg/dl Intake and Output 10/24/22 10/25/22 10/25/22 22:59 06:59 14:59 Intake Total 174.667 / 1022.134 347.467 / 1022.134 277.866 / 277.866 Output Total 150 / 150 Balance 174.667 / 872.134 197.467 / 872.134 277.866 / 277.866 Intake: IV 174.667 / 822.134 147.467 / 822.134 277.866 / 277.866 Heparin Sodium/Dextrose 25,000 74.667 / 222.134 147.467 / 222.134 277.866 / 277.866 units In 500 ml @ 1,300 UNITS/ HR 26 mls/hr IV .[id number] JESSICA Rx #:[id number] Magnesium Sulfate / D5w 1 gm In 100 / 100 100 ml @ 100 mls/hr IV NOW STA Rx#:[id number] Oral 200 / 200 Output: Urine 150 / 150 Other: # Unmeasured Voids 1 Weight 80.9 kg 80.9 kg Weight Measurement Method Built in [facility] in [facility] Diagnostic Findings Echocardiogram performed 10/25/2022 and interpreted independently: Atrial fibrillation with rate in the range of 90 to 100 bpm present at the time of the echocardiogram. Moderate concentric left ventricular hypertrophy is present Mild global left ventricular hypokinesis, LVEF in the range of 40-45% The right ventricle is mildly dilated The right ventricular systolic function is moderately reduced Mild biatrial enlargement is present. Moderate aortic valve calcification with moderate aortic valve stenosis and mild aortic regurgitation Mild mitral gravitation Mild tricuspid regurgitation There is a small to moderate-sized circumferential pericardial effusion with no significant focal fluid collection adjacent to the inferolateral left ventricular wall, without evidence of tamponade The aortic root is mildly dilated at 3.8 cm. -No previous studies available for comparison
[2022-10-25] MEDS: FUROSEMIDE 40 MG/4 ML VIAL IV SCH ×2 (13:04→17:08)
[2022-10-25] MEDS: POTASSIUM CHLORIDE CRTAB 20 MEQ TABCR PO SCH ×2 (13:04→21:12)
[2022-10-25] MEDS: Heparin IV Adult Wt-Based Standard *NO* Bolus Protocol IV SCH (15:06)
--- NOTE | 2022-10-25 16:08 | Hospitalist Progress Note ---
Date of Service October 25, 2022 Assessment & Plan (1) SOB (shortness of breath): (2) HTN (hypertension): (3) Tobacco use: (4) History of alcohol use: (5) Liver transplant status: (6) ALEX (acute kidney injury): (7) New onset atrial fibrillation: Plan This is a 57-year-old male with PMH of history of heavy alcohol use and cirrhosis status post liver transplant at [facility] 6 years ago, hypertension, tobacco use who presents from [facility] clinic due to cough, fatigue and shortness of breath for the past 3 months. Exertional dyspnea Cough Unintentional weight loss [place] poorly over the past 3 months but did not seek medical attention until today. Of note, did self-stop taking carvedilol, lasix and hydralazine 3 months ago. Is only taking Prograf and CellCept once a day (prescribed Q12) No leukocytosis, covid and PCR negative, lyme negative, anaplasma DNR pending Chest CT with: * 1. Ground glass consolidation is seen throughout both lungs with associated intralobular septal thickening and a "crazy paving" appearance. This is nonspecific, and could be seen with pulmonary edema, multifocal pneumonia, pulmonary hemorrhage, and/or possibly drug induced lung disease. Clinical correlation will be essential. Correlate with any prior outside imaging studies. Radiographic follow-up to resolution is recommend. * 2. Cardiomegaly noting a [id number] pericardial effusion * 3. Trace pleural effusions Denies history of CHF but cardiomegaly, pulm edema - will obtain 2D echo for further evaluation, give 20mg IV Lasix in ED. Discussed case with Dr. Edmonds who will evaluate Dr. Bryant reviewed CT chest imaging and feels consistent with pulm edema Was started with cefepime and Vanco-Vanco was discontinued with negative MRSA swab Will add doxycycline to cover atypicals Clinically much better Will involve pulmonary from tomorrow New onset A fib A fib with RVR in 120s on EKG, no known history Stopped taking carvedilol 3 months ago - HR now 110s on monitor, giving PO Lopressor dose Starting IV heparin per discussion with Dr. Edmonds Appreciate cardiology input and recommendation Echo of the heart showed: Moderate concentric LVH with mild global hypokinesis of the left ventricle EF of 40 to 45%, biatrial enlargement, moderate valvular aortic stenosis, mild aortic regurgitation, mild mitral regurgitation and mild tricuspid regurgitation, there is a small to moderate size circumferential pericardial effusion Denies any cardiac symptoms Acute kidney injury, unknown baseline Cr of 2.27 today (last Cr 1.7 in [facility] from October 2020) CT abd/pelvis with kidneys that are atrophic and without hydronephrosis Appears volume overloaded, giving 20mg IV lasix Appreciate nephrology input and recommendation Will have Lasix 40 mg IV twice daily for more diuresis Pericardial effusion on CT chest Small-moderate pericardial effusion noted Adequate BP, normal heart sounds - low concern for tamponade at this time, cont close monitoring 2D echo pending -as above with a small pericardial effusion H/o etoh cirrhosis s/p liver transplant 6 years ago Liver transplant at [facility] [place], is only taking Prograf and CellCept once a day (prescribed Q12) Has not had labwork in over a year Still drinking etoh but denies use in past 4 months Small ascites on imaging, A&Ox3, INR 1.2 Will get Prograf and CellCept level Outpatient appointment with the transplant team on discharge HTN Previously taking carvedilol, hydralazine but not currently taking. Appreciate cardiology recs Tobacco use Recommend cessation DVT Ppx: IV heparin Code status: FULL PCP: [facility] Dispo: Admitted to PCU Admission and Anticipated Discharge Date Admission Date: October 24, 2022 Subjective 10/25/2022 The patient was seen and examined in telemetry unit He has been feeling much better since admission Has generalized weakness but denies any other significant symptoms Review of Systems Review of Systems: All systems reviewed and are unremarkable except as noted below Physical Exam Physical Exam: Lying in bed without any acute distress Constitutional: + ill appearing and average body habitus Eyes: PERRL, conjunctivae normal, anicteric sclerae ENMT: external ear and nose normal, oropharynx normal Neck: trachea midline, no thyromegaly Respiratory: no respiratory distress Auscultation: + diminished lung sounds and + crackles (Bibasilar crackles) Cardiovascular: Rate/Rhythm: not tachycardic and not irregularly irregular Heart Sounds: normal S1, normal S2 and + murmur Extremities: + edema (Trace edema bilaterally) Gastrointestinal (Abdomen): Inspection/Auscultation: normal bowel sounds; abdomen not distended Percussion/Palpation: abdomen soft; abdomen nontender Musculoskeletal: No acute arthritis involving any joint Neurologic: Alert, awake and oriented x3 Psychiatric: A+Ox3, euthymic affect Lymphatic: no cervical or axillary lymphadenopathy Results & Data Results & Data Vital Signs (Past 12 Hours) Vital Signs Temp Pulse Pulse Resp BP Pulse Ox O2 Del Method 10/25/22 15:03 36.5 C 91 H 18 103/69 93 Room Air 10/25/22 14:06 Room Air 10/25/22 12:11 36.6 C 92 H 20 108/74 95 Room Air 10/25/22 07:52 36.4 C L 92 H 20 99/67 L 96 Room Air Laboratory Results Short CBC 10/25/22 Range/Units 07:36 WBC 3.85 L (4.8-10.8) K/ul Hgb 10.7 L (14.0-18.0) g/dl Hct 33.1 L (42.0-52.0) % Plt Count 199 (130-400) K/uL BMP 10/25/22 10/25/22 07:36 07:41 Creatinine 2.52 H Cancelled Urine 10/24/22 Range/Units 20:58 Urine Color Dark Yellow Urine Appearance Clear (Clear) Urine pH 5.0 (4.5-7.5) Ur Specific Jordan 1.016 (1.000-1.030) Urine Protein Negative (Negative) Urine Glucose (UA) Negative (Negative) Medications Administered Current Inpatient Medications Acetaminophen (Acetaminophen 325 Mg Tab) 650 mg PO Q4H PRN PRN Reason: Pain or Fever Stop: 11/23/22 17:55 Furosemide (Furosemide 40 Mg/4 Ml Vial) 40 mg IV [id number] [facility] Stop: 11/24/22 12:29 Last Admin: 10/25/22 13:04 Dose: 40 mg Heparin Sodium/Dextrose (Heparin Sodium/Dextrose) 25,000 units in 500 mls @ 24 mls/hr IV .[id number] [facility]; Protocol Stop: 11/23/22 16:14 Last Admin: 10/25/22 11:33 Dose: 1,200 units/hr, 24 mls/hr Cefepime HCl 2,000 mg/ Syringe 20 mls @ 5 mls/min IV Q12H [facility]; Protocol Stop: 10/31/22 00:00 Last Admin: 10/25/22 11:55 Dose: 5 mls/min Metoprolol Tartrate (Metoprolol Tartrate 25 Mg Tab) 12.5 mg PO QID [facility] Stop: 11/23/22 16:59 Last Admin: 10/25/22 13:04 Dose: 12.5 mg Mycophenolate Mofetil (Mycophenolate Mofetil 250 Mg Cap) 500 mg PO BID [facility] Stop: 11/23/22 20:59 Last Admin: 10/25/22 08:39 Dose: 500 mg Ondansetron HCl (Ondansetron Inj 2 Mg/Ml 2 Ml Vial) 4 mg IV Q6H PRN PRN Reason: Nausea Stop: 11/23/22 17:55 Polyethylene Glycol (Polyethylene (Miralax) 17 Gm Pack) 17 gm PO DAILY PRN PRN Reason: Constipation Stop: 11/23/22 17:55 Potassium Chloride (Potassium Chloride Crtab 20 Meq Tabcr) 20 meq PO BID [facility] Stop: 11/24/22 12:29 Last Admin: 10/25/22 13:04 Dose: 20 meq Tacrolimus (Tacrolimus 1 Mg Cap) 3 mg PO Q12 [facility] Stop: 11/23/22 20:59 Last Admin: 10/25/22 08:39 Dose: 3 mg Thiamine HCl (Thiamine Hcl 100 Mg Tab) 100 mg PO DAILY [facility] Stop: 11/24/22 08:59 Last Admin: 10/25/22 08:39 Dose: 100 mg
[2022-10-25 16:16] LABS: Partial Thromboplastin Ratio 2.6
[2022-10-25] MEDS: DOXYCYCLINE HYCLATE 100 MG CAP PO SCH (21:10)
[2022-10-25 23:46] LABS: Partial Thromboplastin Ratio 2.2
[2022-10-25 23:51] LABS: Partial Thromboplastin Time 59.8 Seconds (21.0-31.0)
[2022-10-26] MEDS: CEFEPIME 2,000 MG in SYRINGE 0 ML IV SCH ×2 (00:06→23:40)
--- NOTE | 2022-10-26 05:06 | Electrocardiogram Report ---
Test Reason : Blood Pressure : / mmHG Vent. Rate : 121 BPM Atrial Rate : 187 BPM P-R Int : 000 ms QRS Dur : 080 ms QT Int : 316 ms P-R-T Axes : 000 -36 065 degrees QTc Int : 448 ms Atrial fibrillation with rapid ventricular response with premature ventricular or aberrantly conducte d complexes Left axis deviation Poor R wave progression, consider anterior ME vs. lead placement vs. LVH Abnormal ECG No previous ECGs available Confirmed by Easton Moreols ([id number]) on 10/26/2022 5:06:32 AM Referred By: Confirmed By:Easton Morelos
--- NOTE | 2022-10-26 05:20 | Electrocardiogram Report ---
Test Reason : Blood Pressure : / mmHG Vent. Rate : 113 BPM Atrial Rate : 113 BPM P-R Int : 000 ms QRS Dur : 086 ms QT Int : 344 ms P-R-T Axes : 000 -38 042 degrees QTc Int : 471 ms Atrial fibrillation with rapid ventricular response with premature ventricular or aberrantly conducte d complexes Left axis deviation Anterior infarct Abnormal ECG When compared with ECG of 24-OCT-2022 10:45, No significant change Confirmed by Easton Morelos ([id number]) on 10/26/2022 5:20:42 AM Referred By: REFERRED SELF Confirmed By:Easton Morelos
[2022-10-26 06:08] LABS: Basophils # (auto) 0.03 K/uL (0-0.2); Basophils % (auto) 0.8 %; Eosinophils # (auto) 0.09 K/uL (0-0.50); Eosinophils % (auto) 2.4 %; Hematocrit (blood only) 36.1 % (42.0-52.0); Hemoglobin 11.7 g/dl (14.0-18.0); Lymphocytes # (auto) 1.27 K/uL (1.2-3.4); Lymphocytes % (auto) 34.1 %; Mean Corpuscular Hgb Conc 32.4 g/dL (32.0-36.0); Mean Corpuscular Volume 89.4 fL (80.0-100.0); Mean Platelet Volume 10.4 fL (9.4-12.4); Monocytes # (auto) 0.26 K/uL (0.11-0.59); Neutrophils # (auto) 2.07 K/uL (1.40-6.50); Neutrophils % (auto) 55.7 %; Platelet Count 189 K/uL (130-400); RDW Coefficient of Variation 13.7 % (11.5-14.5); RDW Standard Deviation 45.1 fL (36.4-46.3); Red Blood Count 4.04 M/uL (4.70-6.10); White Blood Count 3.72 K/ul (4.8-10.8)
[2022-10-26 06:18] LABS: BUN Creatinine Ratio 9.9 (10-20); Calcium 8.7 mg/dl (8.6-10.3); Creatinine Clr Calc Pharmacy 27.5 ml/min; Est GFR (African American) 25.2 ml/min; Est GFR (Non-African American) 21.7 ml/min; Magnesium 1.7 mg/dl (1.7-2.4); Phosphorus 5.1 mg/dl (2.5-4.9); Potassium 4.8 mmol/L (3.5-5.1)
[2022-10-26 07:36] LABS: Partial Thromboplastin Ratio 1.9; Partial Thromboplastin Time 51.5 Seconds (21.0-31.0)
[2022-10-26] MEDS: HEPARIN SODIUM/DEXTROSE 25,000 UNITS/500 ML BAG IV SCH ×2 (08:15→12:08)
[2022-10-26] MEDS: DOXYCYCLINE HYCLATE 100 MG CAP PO SCH ×2 (08:16→21:01)
[2022-10-26] MEDS: FUROSEMIDE 40 MG/4 ML VIAL IV SCH (08:16)
[2022-10-26] MEDS: METOPROLOL TARTRATE 25 MG TAB PO SCH ×4 (08:17→21:01)
[2022-10-26] MEDS: MYCOPHENOLATE MOFETIL 250 MG CAP PO SCH ×2 (08:18→21:00)
[2022-10-26] MEDS: TACROLIMUS 1 MG CAP PO SCH ×2 (08:18→21:03)
[2022-10-26] MEDS: POTASSIUM CHLORIDE CRTAB 20 MEQ TABCR PO SCH ×2 (08:18→21:01)
[2022-10-26] MEDS: THIAMINE HCL 100 MG TAB PO SCH (08:18)
--- NOTE | 2022-10-26 10:10 | Nephrology Progress Note ---
Date of Service October 26, 2022 Assessment & Plan Admission and Anticipated Discharge Date Admission Date: October 24, 2022 Subjective S---Says feels tired. Denies major SOB now. Did not have Diuresis even with l asix 40 iv bid. PHYSICAL EXAMINATION: GENERAL: A middle-aged white male who appears to be chronically ill. He is awake, alert, oriented x3. VITAL SIGNS: Most recent blood pressure is 99/67, pulse rate 92, temperature 36.4, 96% on room air, respiratory rate 20. HEENT: Mucous membranes are moist. NECK: Supple. Jugular venous distention is present. CHEST: Bilateral decreased breath sounds with basal crackles up to half the lung. CARDIOVASCULAR: S1 and S2, irregular. Systolic murmur heard. ABDOMEN: Soft, nontender. Ascites could not be appreciated on clinical exam. EXTREMITIES: Show trace edema. LABORATORY DATA: The last creatinine we have is 1.7 two years ago, Creat is still rising. IMAGING DATA: Chest x-ray, CT abdomen and pelvis, CT chest was reviewed in detail. Pertinent findings include bilateral atrophic kidneys. Pericardial and pleural effusion with pulmonary edema, mild ascites. The urine sediment negative for blood or protein, but does have a lot of hyaline casts and epithelial cells. ASSESSMENT AND PLAN: A 57-year-old male with alcoholic cirrhosis, status post liver transplant 6 years ago with underlying chronic kidney disease as well as cardiomyopathy, now admitted with decompensated congestive heart failure as well as atrial fibrillation with rapid ventricular response and also has worsening kidney function. Acute renal failure: Given that his last baseline creatinine was 1.7 two years ago and he already has bilateral atrophic kidney, my assumption is this is predominantly chronic kidney disease we are dealing with. Creatinine went up slightly from yesterday, but this is definitely not because of Lasix, as he had barely any meaningful diuresis. Given the current situation of decompensated heart failure, atrial fibrillation, there will be expected cardiorenal syndrome with decreased renal perfusion causing worsening kidney function. He has not had any urine output since this morning and bladder scan was negative, but there is no question he does have evidence of fluid overload with pulmonary edema and needs to be diuresed. I expect the kidney function to potentially get worse in the coming days, but that is still acceptable and permissible. His renal prognosis is not good and is heading towards path of dialysis. does need regular Nephrology care in [place]. . RECOMMENDATION: 1. Will stop Lasix. Already got the dose in AM. It is not a good sign when creat is rising daily even without Diuresis. acting more like ATN at this point. 2. Daily renal panel. 3. Avoid BAILEY or ARB at this time. 4. Repeat UA today. 5. 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 However, we do have to use that for his liver transplant, but I do want to check the Prograf trough level, which we have not checked for a long time.The current dose of 3 mg twice daily is somewhat high for a liver transplant, but we will continue the same dose pending Prograf trough level. 6 If possible avoid nephrotoxic Abx salvador vancomicin. Results & Data Vital Signs (Past 12 Hours) Vital Signs Temp Pulse Resp BP Pulse Ox O2 Del Method 10/26/22 08:00 Room Air 10/26/22 07:14 36.4 C L 98 H 19 115/76 92 Room Air 10/26/22 03:19 36.8 C 85 18 124/83 97 Room Air 10/25/22 23:07 36.6 C 83 18 106/72 93 Room Air
--- NOTE | 2022-10-26 12:36 | Cardiology Progress Note ---
Date of Service October 26, 2022 Assessment & Plan (1) ALEX (acute kidney injury): Plan: - Creatinine 2.27 --> 2.52--> 3.02 -Agree with nephrology assessment the patient likely has cardiorenal syndrome in the setting of heart failure with reduced ejection fraction, atrial fibrillation and previous chronic kidney disease. -Holding diuretics and observing. -No BAILEY inhibitor or angiotensin receptor yola due to renal insufficiency. (2) New onset atrial fibrillation: Plan: - Atrial fibrillation noted. Duration unknown. -Continue low-dose metoprolol tartrate 12.5 mg 4 times daily for rate control -Continue heparin for stroke prophylaxis. Hemoglobin stable. I favor unfractioned heparin infusion as the anticoagulant of choice is given his renal insufficiency he is not a candidate for Lovenox or direct oral anticoagulant at present. Would hold off on starting warfarin until his hospital course remains more clear with regards to the needs for potential invasive procedure especially given worsening renal function. (3) Pulmonary edema: Plan: - Chest x-ray, CT of the chest suggestive of pulmonary edema. -Echo with LVEF 40-45%, moderate , moderate RV systolic dysfunction -Nephrology input noted and appreciated-diuretics on hold as noted below. (4) HTN (hypertension): Plan: - Metoprolol and furosemide . BP stable. (5) Liver transplant status: Plan: - Per primary service is placing him back on his immunosuppressive therapy, as it sounds like he has been taking them, but not at the prescribed doses. (6) Pericardial effusion: Plan: - Small to moderate pericardial effusion noted on CT of the chest and echo without tamponade. Blood pressure stable. Monitor. (7) Aortic stenosis: Plan: - Moderate aortic stenosis. Treatment as noted above. Admission and Anticipated Discharge Date Admission Date: October 24, 2022 Subjective Patient seen in follow-up of chief complaint of generalized weakness, shortness of breath with exertion. Patient seen in room 461. Remains in bed. Denies any subjective cardiac complaint at present. Minimal urine output noted by patient and per intake and output summary as charted. Telemetry reveals rate controlled atrial fibrillation with occasional PVCs, rates for the most part in the 80s to 90s. Heparin infusing. Physical Exam Constitutional: + ill appearing and + thin Eyes: PERRL, conjunctivae normal, anicteric sclerae Respiratory: Auscultation: + diminished lung sounds (Crackles bilaterally at the bases with diminished lung sounds) Cardiovascular: Rate/Rhythm: + irregularly irregular Extremities: + edema (Trace bilateral lower extremity edema) Gastrointestinal (Abdomen): normal bowel sounds, soft, nontender, no hepatosplenomegaly Neurologic: PERRL, EOMI, accommodation nl, no face palsy, no dysarthria Results & Data Vital Signs (Past 12 Hours) Vital Signs Temp Pulse Resp BP Pulse Ox O2 Del Method 10/26/22 12:21 36.5 C 79 20 100/63 96 Room Air 10/26/22 08:00 Room Air 10/26/22 07:14 36.4 C L 98 H 19 115/76 92 Room Air 10/26/22 03:19 36.8 C 85 18 124/83 97 Room Air Laboratory Results Coagulation 10/25/22 10/25/22 10/26/22 Range/Units 15:18 22:48 05:39 APTT 72.0 H* 59.8 H* 51.5 H* (21.0-31.0) Seconds CBC 10/26/22 Range/Units 05:39 WBC 3.72 L (4.8-10.8) K/ul RBC 4.04 L (4.70-6.10) M/uL Hgb 11.7 L (14.0-18.0) g/dl Hct 36.1 L (42.0-52.0) % Plt Count 189 (130-400) K/uL Neut # (Auto) 2.07 (1.40-6.50) K/uL Lymph # (Auto) 1.27 (1.2-3.4) K/uL [place]row # (Auto) 0.26 (0.11-0.59) K/uL Eos # (Auto) 0.09 (0-0.50) K/uL Baso # (Auto) 0.03 (0-0.2) K/uL Comprehensive Metabolic Panel 10/26/22 Range/Units 05:39 Sodium 132 L (136-145) mmol/L Potassium 4.8 (3.5-5.1) mmol/L Chloride 103 (98-107) mmol/L Carbon Dioxide 22 (21-32) mmol/L BUN 30 H (6-23) mg/dl Creatinine 3.02 H D (0.6-1.4) mg/dl Glucose 91 (70-99(Fasting)) mg/dl Calcium 8.7 (8.6-10.3) mg/dl
--- NOTE | 2022-10-26 17:07 | Hospitalist Progress Note ---
Date of Service October 26, 2022 Assessment & Plan (1) SOB (shortness of breath): (2) HTN (hypertension): (3) Tobacco use: (4) History of alcohol use: (5) Liver transplant status: (6) ALEX (acute kidney injury): (7) New onset atrial fibrillation: Plan This is a 57-year-old male with PMH of history of heavy alcohol use and cirrhosis status post liver transplant at [facility] 6 years ago, hypertension, tobacco use who presents from [facility] clinic due to cough, fatigue and shortness of breath for the past 3 months. Exertional dyspnea Cough Unintentional weight loss [place] poorly over the past 3 months but did not seek medical attention until today. Of note, did self-stop taking carvedilol, lasix and hydralazine 3 months ago. Is only taking Prograf and CellCept once a day (prescribed Q12) No leukocytosis, covid and PCR negative, lyme negative, anaplasma DNR pending Chest CT with: * 1. Ground glass consolidation is seen throughout both lungs with associated intralobular septal thickening and a "crazy paving" appearance. This is nonspecific, and could be seen with pulmonary edema, multifocal pneumonia, pulmonary hemorrhage, and/or possibly drug induced lung disease. Clinical correlation will be essential. Correlate with any prior outside imaging studies. Radiographic follow-up to resolution is recommend. * 2. Cardiomegaly noting a [id number]-[id number] pericardial effusion * 3. Trace pleural effusions Denies history of CHF but cardiomegaly, pulm edema - will obtain 2D echo for further evaluation, give 20mg IV Lasix in ED. Discussed case with Dr. Edmonds who will evaluate Dr. Bryant reviewed CT chest imaging and feels consistent with pulm edema Was started with cefepime and Vanco-Vanco was discontinued with negative MRSA swab Will add doxycycline to cover atypicals Clinically much better and denies any other symptoms We will continue current management and repeat x-ray in a day or 2 If condition gets worse will involve pulmonary New onset A fib A fib with RVR in 120s on EKG, no known history Stopped taking carvedilol 3 months ago - HR now 110s on monitor, giving PO Lopressor dose Starting IV heparin per discussion with Dr. Edmonds Appreciate cardiology input and recommendation Echo of the heart showed: Moderate concentric LVH with mild global hypokinesis of the left ventricle EF of 40 to 45%, biatrial enlargement, moderate valvular aortic stenosis, mild aortic regurgitation, mild mitral regurgitation and mild tricuspid regurgitation, there is a small to moderate size circumferential pericardial effusion Denies any cardiac symptoms-his rate remains controlled Acute kidney injury, unknown baseline Cr of 2.27 today (last Cr 1.7 in [facility] from October 2020) CT abd/pelvis with kidneys that are atrophic and without hydronephrosis Appears volume overloaded, giving 20mg IV lasix Appreciate nephrology input and recommendation Will have Lasix 40 mg IV twice daily for more diuresis Creatinine went up and Lasix is on hold today We will monitor kidney function Pericardial effusion on CT chest Small-moderate pericardial effusion noted Adequate BP, normal heart sounds - low concern for tamponade at this time, cont close monitoring 2D echo pending -as above with a small pericardial effusion H/o etoh cirrhosis s/p liver transplant 6 years ago Liver transplant at [facility] in [place], is only taking Prograf and CellCept once a day (prescribed Q12) Has not had labwork in over a year Still drinking etoh but denies use in past 4 months Small ascites on imaging, A&Ox3, INR 1.2 Will get Prograf and CellCept level Outpatient appointment with the transplant team on discharge HTN Previously taking carvedilol, hydralazine but not currently taking. Appreciate cardiology recs Tobacco use Recommend cessation DVT Ppx: IV heparin Code status: FULL PCP: [facility] Dispo: Admitted to PCU Admission and Anticipated Discharge Date Admission Date: October 24, 2022 Subjective 10/25/2022 The patient was seen and examined in telemetry unit He has been feeling much better since admission Has generalized weakness but denies any other significant symptoms 10/26/2022 The patient was seen and examined in telemetry unit He has been feeling much better and denies any symptoms at rest No cough, fever and or chills no shortness of breath Has been saturating normally on room air Review of Systems Review of Systems: All systems reviewed and are unremarkable except as noted below Respiratory: No cough and no shortness of breath Cardiovascular: Additional Comments: No palpitation and/or chest pain Physical Exam Physical Exam: Lying in bed without any acute distress Constitutional: average body habitus; not ill appearing Eyes: PERRL, conjunctivae normal, anicteric sclerae ENMT: external ear and nose normal, oropharynx normal Neck: trachea midline, no thyromegaly Respiratory: no respiratory distress Auscultation: + diminished lung sounds and + crackles (Bibasilar crackles) Cardiovascular: Rate/Rhythm: not tachycardic and not irregularly irregular Heart Sounds: normal S1, normal S2 and + murmur Extremities: + edema (Trace edema bilaterally) Gastrointestinal (Abdomen): Inspection/Auscultation: normal bowel sounds; abdomen not distended Percussion/Palpation: abdomen soft; abdomen nontender Musculoskeletal: No acute arthritis involving any of the joints Neurologic: Alert, awake and oriented x3. No focal sensory or motor deficit appreciated Psychiatric: A+Ox3, euthymic affect Lymphatic: no cervical or axillary lymphadenopathy Results & Data Results & Data Vital Signs (Past 12 Hours) Vital Signs Temp Pulse Resp BP Pulse Ox O2 Del Method 10/26/22 16:25 36.5 C 76 19 115/75 99 Room Air 10/26/22 12:21 36.5 C 79 20 100/63 96 Room Air 10/26/22 08:00 Room Air 10/26/22 07:14 36.4 C L 98 H 19 115/76 92 Room Air Laboratory Results Short CBC 10/26/22 Range/Units 05:39 WBC 3.72 L (4.8-10.8) K/ul Hgb 11.7 L (14.0-18.0) g/dl Hct 36.1 L (42.0-52.0) % Plt Count 189 (130-400) K/uL BMP 10/26/22 05:39 Sodium 132 L Potassium 4.8 Chloride 103 Carbon Dioxide 22 BUN 30 H Creatinine 3.02 H D Glucose 91 Calcium 8.7 Medications Administered Current Inpatient Medications Acetaminophen (Acetaminophen 325 Mg Tab) 650 mg PO Q4H PRN PRN Reason: Pain or Fever Stop: 11/23/22 17:55 Doxycycline Hyclate (Doxycycline Hyclate 100 Mg Cap) 100 mg PO BID [facility] Stop: 11/01/22 20:59 Last Admin: 10/26/22 08:16 Dose: 100 mg Heparin Sodium/Dextrose (Heparin Sodium/Dextrose) 25,000 units in 500 mls @ 22 mls/hr IV .[id number] [facility]; Protocol Stop: 11/23/22 16:14 Last Admin: 10/26/22 12:08 Dose: 1,100 units/hr, 22 mls/hr Cefepime HCl 2,000 mg/ Syringe 20 mls @ 5 mls/min IV Q24H [facility]; Protocol Stop: 11/01/22 00:00 Metoprolol Tartrate (Metoprolol Tartrate 25 Mg Tab) 12.5 mg PO QID [facility] Stop: 11/23/22 16:59 Last Admin: 10/26/22 12:10 Dose: 12.5 mg Mycophenolate Mofetil (Mycophenolate Mofetil 250 Mg Cap) 500 mg PO BID [facility] Stop: 11/23/22 20:59 Last Admin: 10/26/22 08:18 Dose: 500 mg Ondansetron HCl (Ondansetron Inj 2 Mg/Ml 2 Ml Vial) 4 mg IV Q6H PRN PRN Reason: Nausea Stop: 11/23/22 17:55 Polyethylene Glycol (Polyethylene (Miralax) 17 Gm Pack) 17 gm PO DAILY PRN PRN Reason: Constipation Stop: 11/23/22 17:55 Potassium Chloride (Potassium Chloride Crtab 20 Meq Tabcr) 20 meq PO BID [facility] Stop: 11/24/22 12:29 Last Admin: 10/26/22 08:18 Dose: 20 meq Tacrolimus (Tacrolimus 1 Mg Cap) 3 mg PO Q12 [facility] Stop: 11/23/22 20:59 Last Admin: 10/26/22 08:18 Dose: 3 mg Thiamine HCl (Thiamine Hcl 100 Mg Tab) 100 mg PO DAILY [facility] Stop: 11/24/22 08:59 Last Admin: 10/26/22 08:18 Dose: 100 mg
--- NOTE | 2022-10-26 23:39 | Electrocardiogram Report ---
Test Reason : Blood Pressure : / mmHG Vent. Rate : 084 BPM Atrial Rate : 075 BPM P-R Int : 000 ms QRS Dur : 086 ms QT Int : 388 ms P-R-T Axes : 000 -46 -02 degrees QTc Int : 458 ms Atrial fibrillation with premature ventricular or aberrantly conducted complexes Left axis deviation Low voltage QRS Possible Inferior infarct , age undetermined Possible Anterior infarct Abnormal ECG When compared with ECG of 24-OCT-2022 14:18, No significant change was found Confirmed by Easton Morelos ([id number]) on 10/26/2022 11:38:51 PM Referred By: REFERRED SELF Confirmed By:Easton Morelos
[2022-10-27 05:19] LABS: Appearance Urine Cloudy (Clear); Bacteria Urine Automated Negative (Negative); Bilirubin Urine Negative (Negative); Blood Urine Negative (Negative); Color Urine Dark Yellow; Epithelial Cell Urine Auto >30 /lpf (0-5); Glucose Urine UA Negative (Negative); Ketones Urine Trace (Negative); Leukocyte Esterase Urine Negative (Negative); Nitrite Urine Negative (Negative); Protein Urine 1+ (Negative); Specific Gravity Urine 1.018 (1.000-1.030); Urobilinogen Urine Negative (Negative)
[2022-10-27 06:16] LABS: Calcium Oxalate Crystals Urine Present (None Prsent)
[2022-10-27 06:37] LABS: Basophils # (auto) 0.02 K/uL (0-0.2); Basophils % (auto) 0.5 %; Eosinophils % (auto) 2.5 %; Hematocrit (blood only) 34.2 % (42.0-52.0); Hemoglobin 11.1 g/dl (14.0-18.0); Immature Granulocytes # (auto) 0.01 K/uL (0.01-0.20); Immature Granulocytes % (auto) 0.2 %; Lymphocytes # (auto) 1.36 K/uL (1.2-3.4); Lymphocytes % (auto) 33.3 %; Mean Corpuscular Hemoglobin 29.4 pg (25.0-34.0); Mean Corpuscular Hgb Conc 32.5 g/dL (32.0-36.0); Mean Corpuscular Volume 90.5 fL (80.0-100.0); Mean Platelet Volume 10.5 fL (9.4-12.4); Monocytes # (auto) 0.37 K/uL (0.11-0.59); Monocytes % (auto) 9.1 %; Neutrophils # (auto) 2.22 K/uL (1.40-6.50); Neutrophils % (auto) 54.4 %; Platelet Count 169 K/uL (130-400); RDW Coefficient of Variation 13.9 % (11.5-14.5); RDW Standard Deviation 45.6 fL (36.4-46.3); Red Blood Count 3.78 M/uL (4.70-6.10); White Blood Count 4.08 K/ul (4.8-10.8)
[2022-10-27 06:47] LABS: BUN Creatinine Ratio 8.7 (10-20); Calcium 8.7 mg/dl (8.6-10.3); Creatinine Clr Calc Pharmacy 22.7 ml/min; Est GFR (African American) 19.9 ml/min; Est GFR (Non-African American) 17.2 ml/min; Magnesium 1.6 mg/dl (1.7-2.4); Potassium 5.3 mmol/L (3.5-5.1)
[2022-10-27 07:22] LABS: Partial Thromboplastin Ratio 2.5
[2022-10-27 07:41] LABS: Partial Thromboplastin Time 68.7 Seconds (21.0-31.0)
[2022-10-27] MEDS: METOPROLOL TARTRATE 25 MG TAB PO SCH ×4 (09:00→20:46)
[2022-10-27] MEDS: DOXYCYCLINE HYCLATE 100 MG CAP PO SCH ×2 (09:00→20:45)
[2022-10-27] MEDS: MYCOPHENOLATE MOFETIL 250 MG CAP PO SCH ×2 (09:00→20:45)
[2022-10-27] MEDS: THIAMINE HCL 100 MG TAB PO SCH (09:00)
[2022-10-27] MEDS: TACROLIMUS 1 MG CAP PO SCH ×2 (09:00→20:45)
[2022-10-27 10:27] LABS: Babesia microti DNA Not Detected (Not Detected)
--- NOTE | 2022-10-27 10:54 | Nephrology Progress Note ---
Date of Service October 27, 2022 Assessment & Plan Admission and Anticipated Discharge Date Admission Date: October 24, 2022 Subjective Subjective S---Says feels tired. Denies major SOB now. Did not have Diuresis even with lasix 40 iv bid. Urine output is low PHYSICAL EXAMINATION: GENERAL: A middle-aged white male who appears to be chronically ill. He is awake, alert, oriented x3. HEENT: Mucous membranes are moist. NECK: Supple. Jugular venous distention is present. CHEST: Bilateral decreased breath sounds with basal crackles up to half the lung. CARDIOVASCULAR: S1 and S2, irregular. Systolic murmur heard. ABDOMEN: Soft, nontender. Ascites could not be appreciated on clinical exam. EXTREMITIES: Show trace edema. LABORATORY DATA: The last creatinine we have is 1.7 two years ago, Creat is still rising every day IMAGING DATA: Chest x-ray, CT abdomen and pelvis, CT chest was reviewed in detail. Pertinent findings include bilateral atrophic kidneys. Pericardial and pleural effusion with pulmonary edema, mild ascites. The urine sediment negative for blood or protein, but does have a lot of hyaline casts and epithelial cells. ASSESSMENT AND PLAN: A 57-year-old male with alcoholic cirrhosis, status post liver transplant 6 years ago with underlying chronic kidney disease as well as cardiomyopathy, now admitted with decompensated congestive heart failure as well as atrial fibrillation with rapid ventricular response and also has worsening kidney function. Acute renal failure: Given that his last baseline creatinine was 1.7 two years ago and he already has bilateral atrophic kidney, my assumption is this is predominantly chronic kidney disease we are dealing with. Creatinine went up slightly from yesterday, but this is definitely not because of Lasix, as he had barely any meaningful diuresis. Given the current situation of decompensated heart failure, atrial fibrillation, there will be expected cardiorenal syndrome with decreased renal perfusion causing worsening kidney function. He has not had any sig urine. I expect the kidney function to potentially get worse in the coming days. His renal prognosis is not good and is heading towards path of dialysis. does need regular Nephrology care in [place]. . RECOMMENDATION: 1.Last lasix was yesterday AM. For now hold. It is not a good sign when creat is rising daily even without Diuresis. Acting like ATN/cardio renal at this point.Since creat is still rising every day we dont know how far bad it will get at this time 2. Daily renal panel. 3. Avoid BAILEY or ARB at this time. 4. CXR x 1 view today. 5. 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 However, we do have to use that for his liver transplant, but I do want to check the Prograf trough level, which we have not checked for a long time.The current dose of 3 mg twice daily is somewhat high for a liver transplant, but we will continue the same dose pending Prograf trough level. 6If possible avoid nephrotoxic Abx salvador vancomicin. Results & Data Vital Signs (Past 12 Hours) Vital Signs Temp Pulse Pulse Resp BP Pulse Ox O2 Del Method 10/27/22 09:39 84 10/27/22 09:35 Room Air 10/27/22 08:15 36.4 C L 94 H 18 113/76 95 Room Air 10/27/22 03:51 36.4 C L 98 H 16 120/80 96 Room Air 10/26/22 23:52 36.3 C L 79 18 97/63 L 93 Room Air
[2022-10-27] MEDS: HEPARIN SODIUM/DEXTROSE 25,000 UNITS/500 ML BAG IV SCH (10:55)
[2022-10-27] MEDS: POTASSIUM CHLORIDE CRTAB 20 MEQ TABCR PO SCH (11:40)
--- NOTE | 2022-10-27 13:05 | XRay Report ---
XR chest 1V portable HISTORY: Shortness of breath. f/u Pulm congestion COMPARISON: Chest 10/24/2022. FINDINGS: No pneumothorax. The heart remains enlarged. Trace bilateral pleural effusions persist. Ghislaine r diffuse bilateral airspace opacities are similar to the prior study. There are low lung volumes. No acute fractures identified. IMPRESSION: No significant change in the cardiomegaly and bilateral airspace opacities. ACT 112: Negative or not required by law. Electronically signed by: Monster Ramirez M.D. 10/27/2022 1:04 PM
[2022-10-27] MEDS: MAGNESIUM OXIDE 400 MG TAB PO SCH (13:23)
--- NOTE | 2022-10-27 14:03 | Cardiology Progress Note ---
Date of Service October 27, 2022 Assessment & Plan (1) ALEX (acute kidney injury): (2) New onset atrial fibrillation: (3) Pulmonary edema: (4) Liver transplant status: (5) Pericardial effusion: (6) Aortic stenosis: Plan: (1) ALEX (acute kidney injury): Plan: - Creatinine 2.27 --> 2.52--> 3.02-->3.67 mg/dl -Agree with nephrology assessment the patient likely has cardiorenal syndrome in the setting of heart failure with reduced ejection fraction, atrial fibrillation and previous chronic kidney disease. -Holding diuretics and observing. -No BAILEY inhibitor or angiotensin receptor yola due to renal insufficiency. (2) New onset atrial fibrillation: Plan: - Atrial fibrillation noted. Duration unknown. -Continue low-dose metoprolol tartrate 12.5 mg 4 times daily for rate control -Continue heparin for stroke prophylaxis. Hemoglobin stable. I favor unfractioned heparin infusion as the anticoagulant of choice is given his renal insufficiency he is not a candidate for Lovenox or direct oral anticoagulant at present. Would hold off on starting warfarin until his hospital course remains more clear with regards to the needs for potential invasive procedure especially given worsening renal function. (3) Pulmonary edema: Plan: - Chest x-ray, CT of the chest suggestive of pulmonary edema. -Echo with LVEF 40-45%, moderate , moderate RV systolic dysfunction -Nephrology input noted and appreciated-diuretics on hold as noted below. (4) HTN (hypertension): Plan: - Metoprolol and furosemide . BP stable. (5) Liver transplant status: Plan: - Per primary service is placing him back on his immunosuppressive therapy, as it sounds like he has been taking them, but not at the prescribed doses. (6) Pericardial effusion: Plan: - Small to moderate pericardial effusion noted on CT of the chest and echo without tamponade. Blood pressure stable. Monitor. (7) Aortic stenosis: Plan: - Moderate aortic stenosis. Treatment as noted above. Admission and Anticipated Discharge Date Admission Date: October 24, 2022 Subjective Patient seen in follow-up of shortness of breath. He remains in bed. Heparin infusing. Telemetry reveals atrial fibrillation for the most part in the 80s. Physical Exam Constitutional: + ill appearing (Without acute distress) Respiratory: Auscultation: + diminished lung sounds (And coarse breath sounds bilaterally at the bases) Cardiovascular: Rate/Rhythm: + irregularly irregular Heart Sounds: + murmur (2/6 systolic murmur) Extremities: + edema (Trace edema) Gastrointestinal (Abdomen): normal bowel sounds, soft, nontender, no hepatosplenomegaly Neurologic: PERRL, EOMI, accommodation nl, no face palsy, no dysarthria Results & Data Vital Signs (Past 12 Hours) Vital Signs Temp Pulse Pulse Pulse Resp BP Pulse Ox 10/27/22 11:41 36.5 C 91 H 16 108/67 95 10/27/22 09:39 84 10/27/22 09:35 10/27/22 08:15 36.4 C L 94 H 18 113/76 95 10/27/22 03:51 36.4 C L 98 H 16 120/80 96 O2 Del Method 10/27/22 11:41 Room Air 10/27/22 09:39 10/27/22 09:35 Room Air 10/27/22 08:15 Room Air 10/27/22 03:51 Room Air Laboratory Results Coagulation 10/27/22 Range/Units 05:25 APTT 68.7 H* (21.0-31.0) Seconds CBC 10/27/22 Range/Units 05:25 WBC 4.08 L (4.8-10.8) K/ul RBC 3.78 L (4.70-6.10) M/uL Hgb 11.1 L (14.0-18.0) g/dl Hct 34.2 L (42.0-52.0) % Plt Count 169 (130-400) K/uL Neut # (Auto) 2.22 (1.40-6.50) K/uL Lymph # (Auto) 1.36 (1.2-3.4) K/uL [place] # (Auto) 0.37 (0.11-0.59) K/uL Eos # (Auto) 0.10 (0-0.50) K/uL Baso # (Auto) 0.02 (0-0.2) K/uL Comprehensive Metabolic Panel 10/27/22 Range/Units 05:25 Sodium 131 L (136-145) mmol/L Potassium 5.3 H (3.5-5.1) mmol/L Chloride 103 (98-107) mmol/L Carbon Dioxide 18 L (21-32) mmol/L BUN 32 H (6-23) mg/dl Creatinine 3.67 H D (0.6-1.4) mg/dl Glucose 93 (70-99(Fasting)) mg/dl Calcium 8.7 (8.6-10.3) mg/dl Intake and Output 10/26/22 10/27/22 10/27/22 22:59 06:59 14:59 Intake Total 157.667 / 976.067 240 / 976.067 337.533 / 337.533 Output Total 50 / 200 50 / 200 Balance 107.667 / 776.067 190 / 776.067 337.533 / 337.533 Intake: IV 157.667 / 376.067 337.533 / 337.533 Heparin Sodium/Dextrose 25,000 157.667 / 376.067 337.533 / 337.533 units In 500 ml @ 1,100 UNITS/ HR 22 mls/hr IV .[id number] [facility] Rx #:[id number] Oral 240 / 600 Output: Urine 50 / 200 50 / 200 Other: # Emeses 1 Weight 85 kg Weight Measurement Method Built in [facility] Diagnostic Findings Chest x-ray reveals enlargement of the cardiac silhouette, with ongoing pulmonary edema-Per radiology report as well as my personal interpretation
[2022-10-27 15:45] LABS: Partial Thromboplastin Ratio 2.1
--- NOTE | 2022-10-27 15:45 | Hospitalist Progress Note ---
Date of Service October 27, 2022 Assessment & Plan (1) SOB (shortness of breath): (2) HTN (hypertension): (3) Tobacco use: (4) History of alcohol use: (5) Liver transplant status: (6) ALEX (acute kidney injury): (7) New onset atrial fibrillation: Plan This is a 57-year-old male with PMH of history of heavy alcohol use and cirrhosis status post liver transplant at [facility] 6 years ago, hypertension, tobacco use who presents from [facility] clinic due to cough, fatigue and shortness of breath for the past 3 months. Exertional dyspnea Cough Unintentional weight loss Critz poorly over the past 3 months but did not seek medical attention until today. Of note, did self-stop taking carvedilol, lasix and hydralazine 3 months ago. Is only taking Prograf and CellCept once a day (prescribed Q12) No leukocytosis, covid and PCR negative, lyme negative, anaplasma DNR pending Chest CT with: * 1. Ground glass consolidation is seen throughout both lungs with associated intralobular septal thickening and a "crazy paving" appearance. This is nonspecific, and could be seen with pulmonary edema, multifocal pneumonia, pulmonary hemorrhage, and/or possibly drug induced lung disease. Clinical correlation will be essential. Correlate with any prior outside imaging studies. Radiographic follow-up to resolution is recommend. * 2. Cardiomegaly noting a [id number]-[id number] pericardial effusion * 3. Trace pleural effusions Denies history of CHF but cardiomegaly, pulm edema - will obtain 2D echo for further evaluation, give 20mg IV Lasix in ED. Discussed case with Dr. Edmonds who will evaluate Dr. Bryant reviewed CT chest imaging and feels consistent with pulm edema Was started with cefepime and Vanco-Vanco was discontinued with negative MRSA swab Will add doxycycline to cover atypicals Clinically much better and denies any other symptoms We will continue current management and repeat x-ray in a day or 2 If condition gets worse will involve pulmonary No issues with shortness of breath and has been saturating normally on room air Repeat chest x-ray did not show any change-we will get pulmonary involvement New onset A fib A fib with RVR in 120s on EKG, no known history Stopped taking carvedilol 3 months ago - HR now 110s on monitor, giving PO Lopressor dose Starting IV heparin per discussion with Dr. Edmonds Appreciate cardiology input and recommendation Echo of the heart showed: Moderate concentric LVH with mild global hypokinesis of the left ventricle EF of 40 to 45%, biatrial enlargement, moderate valvular aortic stenosis, mild aortic regurgitation, mild mitral regurgitation and mild tricuspid regurgitation, there is a small to moderate size circumferential pericardial effusion Denies any cardiac symptoms-his rate remains controlled Reverted to sinus rhythm and rate is running around 90s with first-degree AV block Acute kidney injury, unknown baseline Cr of 2.27 today (last Cr 1.7 in [facility] from October 2020) CT abd/pelvis with kidneys that are atrophic and without hydronephrosis Appears volume overloaded, giving 20mg IV lasix Appreciate nephrology input and recommendation Will have Lasix 40 mg IV twice daily for more diuresis Creatinine went up and Lasix is on hold today Kidney function has been getting worse-diuretics is on hold since yesterday morning Pericardial effusion on CT chest Small-moderate pericardial effusion noted Adequate BP, normal heart sounds - low concern for tamponade at this time, cont close monitoring 2D echo pending -as above with a small pericardial effusion H/o etoh cirrhosis s/p liver transplant 6 years ago Liver transplant at [facility] in [place], is only taking Prograf and CellCept once a day (prescribed Q12) Has not had labwork in over a year Still drinking etoh but denies use in past 4 months Small ascites on imaging, A&Ox3, INR 1.2 Will get Prograf and CellCept level Outpatient appointment with the transplant team on discharge Has had acute confusion transiently last night-we will check ammonia level tomorrow HTN Previously taking carvedilol, hydralazine but not currently taking. Appreciate cardiology recs Tobacco use Recommend cessation DVT Ppx: IV heparin Code status: FULL PCP: [facility] Dispo: Admitted to PCU Discussed with the patient in detail Admission and Anticipated Discharge Date Admission Date: October 24, 2022 Subjective 10/25/2022 The patient was seen and examined in telemetry unit He has been feeling much better since admission Has generalized weakness but denies any other significant symptoms 10/26/2022 The patient was seen and examined in telemetry unit He has been feeling much better and denies any symptoms at rest No cough, fever and or chills no shortness of breath Has been saturating normally on room air 10/27/2022 The patient was seen and examined in telemetry unit He has been very weak and denies any other symptoms He has not had seen his liver transplant doctor for more than 6 years He gets his medications through mail and does not know who is prescribing it [facility] [place] [facility] Denies any palpitation, any chest pain or shortness of breath at rest Review of Systems Review of Systems: All systems reviewed and are unremarkable as noted below Cardiovascular: Additional Comments: No palpitation and/or chest pain Physical Exam Physical Exam: Lying in bed without any acute distress but looks very anxious Constitutional: average body habitus; not ill appearing Eyes: PERRL, conjunctivae normal, anicteric sclerae ENMT: external ear and nose normal, oropharynx normal Neck: trachea midline, no thyromegaly Respiratory: no respiratory distress Auscultation: + diminished lung sounds and + crackles (Bibasilar crackles) Cardiovascular: Rate/Rhythm: not tachycardic and not irregularly irregular Heart Sounds: normal S1, normal S2 and + murmur Extremities: + edema (Trace edema bilaterally) Gastrointestinal (Abdomen): Inspection/Auscultation: normal bowel sounds; abdomen not distended Percussion/Palpation: abdomen soft; abdomen nontender Musculoskeletal: No acute arthritis involving any joint Neurologic: Alert, awake and oriented x3 Psychiatric: A+Ox3, euthymic affect Lymphatic: no cervical or axillary lymphadenopathy Results & Data Results & Data Vital Signs (Past 12 Hours) Vital Signs Temp Pulse Pulse Pulse Resp BP Pulse Ox 10/27/22 11:41 36.5 C 91 H 16 108/67 95 10/27/22 09:39 84 10/27/22 09:35 10/27/22 08:15 36.4 C L 94 H 18 113/76 95 10/27/22 03:51 36.4 C L 98 H 16 120/80 96 O2 Del Method 10/27/22 11:41 Room Air 10/27/22 09:39 10/27/22 09:35 Room Air 10/27/22 08:15 Room Air 10/27/22 03:51 Room Air Laboratory Results Short CBC 10/27/22 Range/Units 05:25 WBC 4.08 L (4.8-10.8) K/ul Hgb 11.1 L (14.0-18.0) g/dl Hct 34.2 L (42.0-52.0) % Plt Count 169 (130-400) K/uL BMP 10/27/22 05:25 Sodium 131 L Potassium 5.3 H Chloride 103 Carbon Dioxide 18 L BUN 32 H Creatinine 3.67 H D Glucose 93 Calcium 8.7 Urine 10/27/22 Range/Units 04:55 Urine Color Dark Yellow Urine Appearance Cloudy A (Clear) Urine pH 5.0 (4.5-7.5) Ur Specific [place] 1.018 (1.000-1.030) Urine Protein 1+ H (Negative) Urine Glucose (UA) Negative (Negative) Medications Administered Current Inpatient Medications Acetaminophen (Acetaminophen 325 Mg Tab) 650 mg PO Q4H PRN PRN Reason: Pain or Fever Stop: 11/23/22 17:55 Doxycycline Hyclate (Doxycycline Hyclate 100 Mg Cap) 100 mg PO BID [facility] Stop: 10/30/22 20:59 Last Admin: 10/27/22 09:00 Dose: 100 mg Heparin Sodium/Dextrose (Heparin Sodium/Dextrose) 25,000 units in 500 mls @ 20 mls/hr IV .Q24H [facility]; Protocol Stop: 11/23/22 16:14 Last Admin: 10/27/22 10:55 Dose: 1,000 units/hr, 20 mls/hr Cefepime HCl 2,000 mg/ Syringe 20 mls @ 5 mls/min IV Q24H [facility]; Protocol Stop: 10/29/22 12:00 Last Admin: 10/26/22 23:40 Dose: 5 mls/min Magnesium Oxide (Magnesium Oxide 400 Mg Tab) 400 mg PO QAM [facility] Stop: 11/26/22 12:14 Last Admin: 10/27/22 13:23 Dose: 400 mg Metoprolol Tartrate (Metoprolol Tartrate 25 Mg Tab) 12.5 mg PO QID [facility] Stop: 11/23/22 16:59 Last Admin: 10/27/22 14:47 Dose: 12.5 mg Mycophenolate Mofetil (Mycophenolate Mofetil 250 Mg Cap) 500 mg PO BID [facility] Stop: 11/23/22 20:59 Last Admin: 10/27/22 09:00 Dose: 500 mg Ondansetron HCl (Ondansetron Inj 2 Mg/Ml 2 Ml Vial) 4 mg IV Q6H PRN PRN Reason: Nausea Stop: 11/23/22 17:55 Last Admin: 10/26/22 22:36 Dose: 4 mg Polyethylene Glycol (Polyethylene (Miralax) 17 Gm Pack) 17 gm PO DAILY PRN PRN Reason: Constipation Stop: 11/23/22 17:55 Tacrolimus (Tacrolimus 1 Mg Cap) 3 mg PO Q12 JESSICA Stop: 11/23/22 20:59 Last Admin: 10/27/22 09:00 Dose: 3 mg Tamsulosin HCl (Tamsulosin Hcl 0.4 Mg Cap) 0.4 mg PO HS JESSICA Stop: 11/26/22 20:59 Thiamine HCl (Thiamine Hcl 100 Mg Tab) 100 mg PO DAILY JESSICA Stop: 11/24/22 08:59 Last Admin: 10/27/22 09:00 Dose: 100 mg
[2022-10-27 15:46] LABS: Partial Thromboplastin Time 58.6 Seconds (21.0-31.0)
--- NOTE | 2022-10-27 16:29 | Pulmonary Consultation ---
Date of Consultation October 27, 2022 Assessment & Plan (1) Pulmonary edema: (2) SOB (shortness of breath): (3) New onset atrial fibrillation: (4) Tobacco use: (5) Liver transplant status: (6) Abnormal chest CT: Plan Chest CT 10/24/2022 personally reviewed: Interstitial thickening appreciated bilaterally upper lobes, patchy opacities also appreciated bilateral upper and lower lobes Traction bronchiectasis upper lobes, bronchiectasis bilateral lower lobes Small bilateral pleural effusion Cardiomegaly Minimal mediastinal lymphadenopathy 2D echo 10/25/2022: EF 40-45%, RV mildly dilated, RV systolic function is moderately reduced, moderate aortic stenosis, moderate circumferential pericardial effusion -- Exertional shortness of breath Multifactorial Likely secondary to new onset A-fib RVR on top of systolic CHF and moderate Respiratory bio fire negative for everything BNP at the time of presentation 1610 Procalcitonin 0.16, nasal MRSA negative -- Abnormal chest CT Patient likely has underlying ILD with traction bronchiectasis I think patient most likely has pulmonary fibrosis like picture The reason for patchy disease bilaterally given the elevated BNP and CHF will likely be from pulmonary edema Other possibilities include but not limited to pulmonary hemorrhage(Unlikely given improvement with diuresis, H&H is stable), drug-induced pneumonia is also possibility given tacrolimus use. 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 --Current smoker Approximately [id number] smoking history Importance of quitting explained to the patient --History of liver cirrhosis S/p liver transplant 6 years ago On tacrolimus and mycophenolate Plan: In/out: +3.2 L since coming to the hospital Chest x-ray from today does show minimal improvement compared to 10/24/2022 Patchy alveolar opacities and interstitial marking appreciated bilaterally with cardiomegaly Given the overall improvement in the opacities compared to the time of pre sentation probability of pulmonary hemorrhage as well as drug-induced pneumonitis will be low It does seem the patient has underlying ILD/pulmonary fibrosis. Autoimmune work-up ordered The CAT scan likely shows pulmonary edema on an underlying ILD/pulmonary fibrosis like picture. I do not expect chest x-ray to normalize. Okay to continue with antibiotics for atypical coverage Recommend diuresing the patient when feasible Plan was discussed with Dr. Lopez Please note the above document was generated using voice recognition software. It may contain grammatical, syntax or spelling errors.Any formal questions or concerns about the content, text or information contained within the body of this dictation should be directly addressed to the provider for clarification. History of Present Illness Attending Physician: Ayla Lopez MD History of Present Illness 57-year-old male presented to the hospital with complaints of exertional shortness of breath which has been getting worse in the last 3 months Past medical history: Cirrhosis s/p liver transplant in 2008 6 on tacrolimus and mycophenolate, hypertension, tobacco use Pulmonary consulted for abnormal imaging At the time of examination patient was not in acute distress He was saturating 96-97% on room air. Respiratory rate in the mid teens. Denies any issues with his breathing right now. No headache, no blurry vision Did have nausea when he had flulike symptoms approximately a month ago. No dysuria, no diarrhea No fever or chills right now Denies any prior diagnosis of COVID 19 pneumonia Denies any personal or family history of autoimmune disease like lupus, sarcoid, Sjogren's, rheumatoid Patient states that he has not followed up with any doctor for approximately 6 years and needs to get his tacrolimus and mycophenolate at home. Please make note that patient has tangential thoughts. His replies are not to the point Social history: Approximately [id number] smoking history, occasionally smokes cigarettes. Used to be heavy drinker quit long time ago. 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 Was also stationed in [facility] for couple of months, unable to quantify how much time Allergies Allergy/AdvReac Type Severity Reaction Status Date / Time No Known Allergies Allergy Unverified 10/24/22 12:02 Home Medications Medication Instructions Recorded Confirmed Type carvedilol 12.5 mg tablet 0 mg PO BID 10/24/22 10/24/22 History cyanocobalamin (vitamin B-12) 0 mcg PO DAILY 10/24/22 10/24/22 History 1,000 mcg tablet folic acid 1 mg tablet 0 mg PO DAILY 10/24/22 10/24/22 History furosemide 20 mg tablet 0 mg PO DAILY 10/24/22 10/24/22 History hydralazine 10 mg tablet 0 mg PO TID 10/24/22 10/24/22 History mycophenolate mofetil 500 mg tablet 500 mg PO BID 10/24/22 10/24/22 History tacrolimus 1 mg capsule, 3 mg PO Q12H 10/24/22 10/24/22 History immediate-release thiamine HCl (vitamin B1) 100 mg 100 mg PO DAILY 10/24/22 10/24/22 History tablet Patient History Medical History History of alcohol use last drink reported 4 months ago HTN (hypertension) Tobacco use Surgical History Liver transplant status Family History Other Diabetes Heart disease Social History Smoking Status: Never smoker Do You Dip or Chew Tobacco: Yes; Hx Alcohol Use: No Hx Substance Use: No Preferred Language: Czech Communication Ability: Effective Physician Representative Required: No Beliefs That Will Affect Care: None Current Living Situation: Alone Feels Safe at Home: Yes Safety Concerns: Feels Safe At This Time Assistive Devices: None Review of Systems Review of Systems: All systems reviewed & are unremarkable except as noted in HPI & below Physical Exam Physical Exam: Constitutional: No acute distress HEENT: EOMI, PERRLA Respiratory system: Decreased air entry bilaterally, no wheeze, no rhonchi, positive crackles appreciated bilaterally anteriorly and posteriorly (? Velcro- like especially anteriorly) CVS: S1-S2 positive, no murmurs or gallops Abdomen: Soft, nontender, nondistended, positive bowel sounds x4 Extremities: +2 pulses bilaterally radialis/ dorsalis pedis, no cyanosis, +1 p itting edema bilateral lower extremity Neuro: Awake alert oriented x3 Psych: Normal mood and affect G/U: No Horner Skin: no rashes, warm and dry Lymphatic: no cervical or axillary lymphadenopathy Results & Data Results & Data Vital Signs (Past 12 Hours) Vital Signs Temp Pulse Pulse Pulse Resp BP Pulse Ox 10/27/22 11:41 36.5 C 91 H 16 108/67 95 10/27/22 09:39 84 10/27/22 09:35 10/27/22 08:15 36.4 C L 94 H 18 113/76 95 O2 Del Method 10/27/22 11:41 Room Air 10/27/22 09:39 10/27/22 09:35 Room Air 10/27/22 08:15 Room Air Laboratory Results 10/27/22 05:25 10/27/22 05:25 PG Care Time/CCT Total # of Minutes Spent Total Time Spent with Patient: Total time spent is greater than 50% in coordination of care (as documented) at patient's floor/unit and/or counseling patient: Coding Level of Care Code 99958 INT INP/OBS CARE 3/75MIN Diagnoses Pulmonary edema J81.1 SOB (shortness of breath) R06.02 New onset atrial fibrillation I48.91 Tobacco use Z72.0 Liver transplant status Z94.[address] R93.89
[2022-10-27] MEDS: TAMSULOSIN HCL 0.4 MG CAP PO SCH (20:46)
[2022-10-27] MEDS: CEFEPIME 2,000 MG in SYRINGE 0 ML IV SCH (23:27)
[2022-10-28 06:30] LABS: Basophils # (auto) 0.03 K/uL (0-0.2); Eosinophils # (auto) 0.07 K/uL (0-0.50); Eosinophils % (auto) 2.2 %; Hematocrit (blood only) 31.8 % (42.0-52.0); Hemoglobin 10.7 g/dl (14.0-18.0); Immature Granulocytes # (auto) 0.01 K/uL (0.01-0.20); Immature Granulocytes % (auto) 0.3 %; Lymphocytes # (auto) 1.07 K/uL (1.2-3.4); Lymphocytes % (auto) 34.2 %; Mean Corpuscular Hemoglobin 29.6 pg (25.0-34.0); Mean Corpuscular Hgb Conc 33.6 g/dL (32.0-36.0); Mean Corpuscular Volume 87.8 fL (80.0-100.0); Mean Platelet Volume 10.4 fL (9.4-12.4); Monocytes # (auto) 0.26 K/uL (0.11-0.59); Monocytes % (auto) 8.3 %; Neutrophils # (auto) 1.69 K/uL (1.40-6.50); Platelet Count 155 K/uL (130-400); RDW Coefficient of Variation 13.5 % (11.5-14.5); RDW Standard Deviation 43.5 fL (36.4-46.3); Red Blood Count 3.62 M/uL (4.70-6.10); White Blood Count 3.13 K/ul (4.8-10.8)
[2022-10-28 06:38] LABS: Anion Gap 8 (3-11); Blood Urea Nitrogen 35 mg/dl (6-23); Calcium 8.8 mg/dl (8.6-10.3); Carbon Dioxide 20 mmol/L (21-32); Chloride 103 mmol/L (98-107); Creatinine Clr Calc Pharmacy 21.3 ml/min; Est GFR (African American) 18.4 ml/min; Est GFR (Non-African American) 15.9 ml/min; Glucose 92 mg/dl (70-99(Fasting)); Potassium 5.2 mmol/L (3.5-5.1); Sodium 131 mmol/L (136-145)
[2022-10-28 06:44] LABS: Alanine Aminotransferase < 3 U/L (7-52); Albumin Level 2.8 gm/dl (3.4-5.0); Alkaline Phosphatase 49 U/L (34-104); Aspartate Aminotransferase 8 U/L (13-39); Bilirubin,Total 0.8 mg/dl (0.2-1.0); Globulin 2.7 gm/dl (2.5-4.0); Total Protein 5.5 gm/dl (6.0-8.3)
[2022-10-28 06:56] LABS: Partial Thromboplastin Ratio 1.7
[2022-10-28] MEDS: MYCOPHENOLATE MOFETIL 250 MG CAP PO SCH ×2 (08:24→21:00)
[2022-10-28] MEDS: THIAMINE HCL 100 MG TAB PO SCH (08:24)
[2022-10-28] MEDS: MAGNESIUM OXIDE 400 MG TAB PO SCH (08:24)
[2022-10-28] MEDS: METOPROLOL TARTRATE 25 MG TAB PO SCH ×4 (08:25→21:00)
[2022-10-28] MEDS: DOXYCYCLINE HYCLATE 100 MG CAP PO SCH ×2 (08:25→21:00)
[2022-10-28] MEDS: TACROLIMUS 1 MG CAP PO SCH (08:26)
--- NOTE | 2022-10-28 10:23 | Pulmonology Progress Note ---
Date of Service October 28, 2022 Assessment & Plan (1) Pulmonary edema: (2) SOB (shortness of breath): (3) New onset atrial fibrillation: (4) Tobacco use: (5) Liver transplant status: (6) Abnormal chest CT: Plan Chest CT 10/24/2022 personally reviewed: Interstitial thickening appreciated bilaterally upper lobes, patchy opacities also appreciated bilateral upper and lower lobes Traction bronchiectasis upper lobes, bronchiectasis bilateral lower lobes Small bilateral pleural effusion Cardiomegaly Minimal mediastinal lymphadenopathy 2D echo 10/25/2022: EF 40-45%, RV mildly dilated, RV systolic function is moderately reduced, moderate aortic stenosis, moderate circumferential pericardial effusion -- Exertional shortness of breath Multifactorial Likely secondary to new onset A-fib RVR on top of systolic CHF and moderate Respiratory bio fire negative for everything BNP at the time of presentation 1610 Procalcitonin 0.16, nasal MRSA negative -- Abnormal chest CT Patient likely has underlying ILD with traction bronchiectasis I think patient most likely has pulmonary fibrosis like picture The CAT scan likely shows pulmonary edema on an underlying ILD/pulmonary fibrosis like picture. The reason for patchy disease bilaterally given the elevated BNP and CHF will likely be from pulmonary edema Other possibilities include but not limited to pulmonary hemorrhage(Unlikely given improvement with diuresis, H&H is stable), drug-induced pneumonia is also possibility given tacrolimus use. 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 Autoimmune blood work ordered Bronchoscopy in a patient who has moderate aortic stenosis, decrease ejection fraction, CKD will be very high risk. --Current smoker Approximately [id number] smoking history Importance of quitting explained to the patient --History of liver cirrhosis S/p liver transplant 6 years ago On tacrolimus and mycophenolate Tacrolimus level within expected range Plan: In/out: +4 L since coming to the hospital Continue with atypical coverage for total of 5 days Follow-up sputum culture Recommend diuresing the patient when feasible Plan was discussed with Dr. Lopez Please note the above document was generated using voice recognition software. It may contain grammatical, syntax or spelling errors.Any formal questions or concerns about the content, text or information contained within the body of this dictation should be directly addressed to the provider for clarification. Admission and Anticipated Discharge Date Admission Date: October 24, 2022 Subjective Patient seen and examined at bedside. No acute distress, no adverse events overnight He was saturating well on room air. He was sleeping. Upon waking up he denied any chest pain, no headache, no nausea, no vomiting He has been coughing but not bringing up any phlegm. Denies any fever or chills. Review of Systems Review of Systems: All systems reviewed & are unremarkable except as noted in Subjective Physical Exam Physical Exam: Constitutional: No acute distress HEENT: EOMI, PERRLA Respiratory system: Decreased air entry bilaterally, no wheeze, no rhonchi, positive crackles appreciated bilaterally anteriorly and posteriorly (? Velcro- like especially anteriorly) CVS: S1-S2 positive, no murmurs or gallops Abdomen: Soft, nontender, nondistended, positive bowel sounds x4 Extremities: +2 pulses bilaterally radialis/ dorsalis pedis, no cyanosis, +1 pitting edema bilateral lower extremity Neuro: Awake alert oriented x3 Psych: Normal mood and affect G/U: No Horner Skin: no rashes, warm and dry Lymphatic: no cervical or axillary lymphadenopathy Results & Data Results & Data Vital Signs (Past 12 Hours) Vital Signs Temp Pulse Pulse Resp BP Pulse Ox O2 Del Method 10/28/22 09:17 75 10/28/22 08:37 Room Air 10/28/22 08:04 36.3 C L 95 H 18 90/56 L 98 Room Air 10/28/22 04:12 97 H 98/63 L 97 Room Air 10/27/22 23:19 36.5 C 65 18 95/63 L 96 Room Air Laboratory Results 10/28/22 05:34 10/28/22 05:34 PG Care Time/CCT Total # of Minutes Spent Total Time Spent with Patient: Total time spent is greater than 50% in coordination of care (as documented) at patient's floor/unit and/or counseling patient: Coding Level of Care Code 24018 SUB INP/OBS CARE 3/50MIN Diagnoses Pulmonary edema J81.1 SOB (shortness of breath) R06.02 New onset atrial fibrillation I48.91 Tobacco use Z72.0 Liver transplant status Z94.[address] R93.89
[2022-10-28] MEDS: HEPARIN SODIUM/DEXTROSE 25,000 UNITS/500 ML BAG IV SCH ×2 (12:23→20:25)
--- NOTE | 2022-10-28 14:35 | CT Scan Report ---
CT SCAN OF THE BRAIN WITHOUT IV CONTRAST CLINICAL HISTORY: Change in mental status. COMPARISON STUDY: CT of the brain dated 10/24/2022. TECHNIQUE: Unenhanced axial CT scan of the brain is performed from the vertex to the skull base. A do se lowering technique was utilized adhering to the principles of ALARA. CT DOSE: 1228.53 mGy.cm FINDINGS: Brain parenchyma: There is age-related involutional change noting [id number] subcortical and pe riventricular microangiopathic disease. There is no hemorrhage, mass effect, or evidence of acute ter ritorial ischemia by CT criteria. Beverly-white matter differentiation is preserved. No extra-axial flui d collection is seen. Mineralization is noted in the basal ganglia. Ventricles, sulci, cisterns: Prominent secondary to involutional change. Intracranial vasculature: There is atherosclerotic calcification of the cavernous carotid and vertebr al arteries. Calvarium: Unremarkable. Sinuses and mastoids: The visualized paranasal sinuses are clear. The mastoid air cells are well pneu matized. Orbits: The bony orbits are grossly intact. IMPRESSION: There is no hemorrhage, mass effect, or evidence of acute territorial ischemia by CT fredy mei. ACT 112: Negative or not required by law. Electronically signed by: Eusebio Salguero M.D. 10/28/2022 2:33 PM
--- NOTE | 2022-10-28 15:07 | Nephrology Progress Note ---
Date of Service October 28, 2022 Assessment & Plan Admission and Anticipated Discharge Date Admission Date: October 24, 2022 Subjective Subjective S---Says feels tired. Denies major SOB now. Did not have Diuresis even with lasix 40 iv bid. Urine output is low but creat is still rising. Now has ray. PHYSICAL EXAMINATION: GENERAL: A middle-aged white male who appears to be chronically ill. He is awake, alert, oriented x3. HEENT: Mucous membranes are moist. NECK: Supple. Jugular venous distention is present. CHEST: Bilateral decreased breath sounds with basal crackles up to half the lung. CARDIOVASCULAR: S1 and S2, irregular. Systolic murmur heard. ABDOMEN: Soft, nontender. Ascites could not be appreciated on clinical exam. EXTREMITIES: Show trace edema. LABORATORY DATA: The last creatinine we have is 1.7 two years ago, Creat is still rising every day IMAGING DATA: Chest x-ray, CT abdomen and pelvis, CT chest was reviewed in detail. Pertinent findings include bilateral atrophic kidneys. Pericardial and pleural effusion with pulmonary edema, mild ascites. The urine sediment negative for blood or protein, but does have a lot of hyaline casts and epit helial cells. ASSESSMENT AND PLAN: A 57-year-old male with alcoholic cirrhosis, status post liver transplant 6 years ago with underlying chronic kidney disease as well as cardiomyopathy, now admitted with decompensated congestive heart failure as well as atrial fibrillation with rapid ventricular response and also has worsening kidney function. Acute renal failure: Given that his last baseline creatinine was 1.7 two years ago and he already has bilateral atrophic kidney, my assumption is this is predominantly chronic kidney disease we are dealing with. Creatinine went up slightly from yesterday, but this is definitely not because of Lasix, as he had barely any meaningful diuresis. I expect the kidney function to potentially get worse in the coming days. His renal prognosis is not good and is heading towards path of dialysis. does need regular Nephrology care in [place]. . RECOMMENDATION: 1.Last lasix was 2 days ago. For now hold.It is not a good sign when creat is rising daily even without Diuresis. Acting like ATN/cardio renal at this point.Since creat is still rising every day we dont know how far bad it will get at this time 2 Can give 500 ml NS given low BP and now Pulm saying he has ILD and maybe thats what it is and not Pulm edema. Also he is not eating anything. 2. Daily renal panel. 3. Avoid BAILEY or ARB at this time. 4.Given that he has been on Prograf, which is a potentially nephrotoxic drug when used chronically, it is quite possible that part of the CKD and ALEX is related with calcineurin inhibitor toxicity. However, we do have to use that for his liver transplant, but I do want to check the Prograf trough level, which we have not checked for a long time.The current dose of 3 mg twice daily is somewhat high for a liver transplant---Prograf level was quite high at 19 ( although not exactly 12 hr trough) so will hold for tonight and AM dose tomorrow and then restart at 1 mg q12 empricially. . Will also need to get hold of his liver transplant center on Sunday for further discussion. Prograf trough level takes more than 5 days in our hospital so it is not really possible to establish the dosing. Patient does not want to be in [facility] where the level can come quick. He does not want to go back to [place]. Had long discussion with his ex who is still involved and his closest person about all this. Results & Data Vital Signs (Past 12 Hours) Vital Signs Temp Pulse Pulse Resp BP Pulse Ox O2 Del Method 10/28/22 12:28 75 18 97/64 L 95 Room Air 10/28/22 09:17 75 10/28/22 08:37 Room Air 10/28/22 08:04 36.3 C L 95 H 18 90/56 L 98 Room Air 10/28/22 04:12 97 H 98/63 L 97 Room Air
--- NOTE | 2022-10-28 15:47 | Ultrasound Report ---
ULTRASOUND ASCITES CHECK CLINICAL HISTORY: Liver transplant. Assess for ascites. COMPARISON STUDY: Abdominal CT dated 10/24/2022. FINDINGS: Real-time grayscale sonography of all 4 quadrants of the abdomen is performed to assess for abdominal ascites. There is a [id number] volume of abdominopelvic ascites, with the largest p ocket seen in the right lower quadrant. IMPRESSION: Small to moderate volume of abdominopelvic ascites. Electronically signed by: Eusebio Salguero M.D. 10/28/2022 3:44 PM
[2022-10-28] MEDS: SODIUM CHLORIDE 0.9% 1000ML 1,000 ML IV SCH (16:13)
--- NOTE | 2022-10-28 17:09 | Hospitalist Progress Note ---
Date of Service October 28, 2022 Assessment & Plan (1) Acute metabolic encephalopathy: Plan: He has been more confused for the last day or 2 Multifactorial-ALEX, deteriorating CHF, multiorgan failure, medications Discussed with the significant other-he has been almost like this at home for the last few days. He has been very noncompliant with medications and has not been seen his doctors for a while. Given does not take his medication regularly. CT of the head did not show any acute events Abdominal ultrasound did not show much ascites We will hold his tacrolimus for now and give a small amount of intravenous fluid Prognosis remains poor We will discuss with his sister (2) SOB (shortness of breath): (3) HTN (hypertension): (4) Tobacco use: (5) History of alcohol use: (6) Liver transplant status: (7) ALEX (acute kidney injury): (8) New onset atrial fibrillation: Plan This is a 57-year-old male with PMH of history of heavy alcohol use and cirrhosis status post liver transplant at [facility] 6 years ago, hypertension, tobacco use who presents from [facility] clinic due to cough, fatigue and shortness of breath for the past 3 months. Exertional dyspnea Cough Unintentional weight loss [place] poorly over the past 3 months but did not seek medical attention until today. Of note, did self-stop taking carvedilol, lasix and hydralazine 3 months ago. Is only taking Prograf and CellCept once a day (prescribed Q12) No leukocytosis, covid and PCR negative, lyme negative, anaplasma DNR pending Chest CT with: * 1. Ground glass consolidation is seen throughout both lungs with associated intralobular septal thickening and a "crazy paving" appearance. This is nonspecific, and could be seen with pulmonary edema, multifocal pneumonia, pu lmonary hemorrhage, and/or possibly drug induced lung disease. Clinical correlation will be essential. Correlate with any prior outside imaging studies. Radiographic follow-up to resolution is recommend. * 2. Cardiomegaly noting a [id number] pericardial effusion * 3. Trace pleural effusions Denies history of CHF but cardiomegaly, pulm edema - will obtain 2D echo for further evaluation, give 20mg IV Lasix in ED. Discussed case with Dr. Edmonds who will evaluate Dr. Bryant reviewed CT chest imaging and feels consistent with pulm edema Was started with cefepime and Vanco-Vanco was discontinued with negative MRSA swab Will add doxycycline to cover atypicals Clinically much better and denies any other symptoms We will continue current management and repeat x-ray in a day or 2 If condition gets worse will involve pulmonary No issues with shortness of breath and has been saturating normally on room air Repeat chest x-ray did not show any change-we will get pulmonary involvement Appreciate pulmonary input and recommendation New onset A fib A fib with RVR in 120s on EKG, no known history Stopped taking carvedilol 3 months ago - HR now 110s on monitor, giving PO Lopressor dose Starting IV heparin per discussion with Dr. Edmonds Appreciate cardiology input and recommendation Echo of the heart showed: Moderate concentric LVH with mild global hypokinesis of the left ventricle EF of 40 to 45%, biatrial enlargement, moderate valvular aortic stenosis, mild aortic regurgitation, mild mitral regurgitation and mild tricuspid regurgitation, there is a small to moderate size circumferential pericardial effusion Denies any cardiac symptoms-his rate remains controlled Reverted to sinus rhythm and rate is running around 90s with first-degree AV block Acute kidney injury, unknown baseline Cr of 2.27 today (last Cr 1.7 in [facility] from October 2020) CT abd/pelvis with kidneys that are atrophic and without hydronephrosis Appears volume overloaded, giving 20mg IV lasix Appreciate nephrology input and recommendation Will have Lasix 40 mg IV twice daily for more diuresis Creatinine went up and Lasix is on hold today Kidney function has been getting worse-diuretics is on hold since yesterday morning Pericardial effusion on CT chest Small-moderate pericardial effusion noted Adequate BP, normal heart sounds - low concern for tamponade at this time, cont close monitoring 2D echo pending -as above with a small pericardial effusion H/o etoh cirrhosis s/p liver transplant 6 years ago Liver transplant at [place] in [place], is only taking Prograf and CellCept once a day (prescribed Q12) Has not had labwork in over a year Still drinking etoh but denies use in past 4 months Small ascites on imaging, A&Ox3, INR 1.2 Will get Prograf and CellCept level Outpatient appointment with the transplant team on discharge Has had acute confusion transiently last night-we will check ammonia level tomorrow HTN Previously taking carvedilol, hydralazine but not currently taking. Appreciate cardiology recs Tobacco use Recommend cessation DVT Ppx: IV heparin Code status: FULL PCP: [facility] Dispo: Admitted to PCU Discussed with the significant other-the mother of his children And the sister Admission and Anticipated Discharge Date Admission Date: October 24, 2022 Subjective 10/25/2022 The patient was seen and examined in telemetry unit He has been feeling much better since admission Has generalized weakness but denies any other significant symptoms 10/26/2022 The patient was seen and examined in telemetry unit He has been feeling much better and denies any symptoms at rest No cough, fever and or chills no shortness of breath Has been saturating normally on room air 10/27/2022 The patient was seen and examined in telemetry unit He has been very weak and denies any other symptoms He has not had seen his liver transplant doctor for more than 6 years He gets his medications through mail and does not know who is prescribing it See his [place] doctor in [place] occasionally Denies any palpitation, any chest pain or shortness of breath at rest 10/28/2022 The patient was seen and examined in telemetry unit He has been more confused today and has not been drinking or eating Minimal communication today, does not seems to be in any acute distress but lethargic Review of Systems Review of Systems: Unobtainable due to cognitive status Respiratory: No cough and no shortness of breath Cardiovascular: Additional Comments: No palpitation and/or chest pain Physical Exam Physical Exam: Lying in bed with minimal distress but looks ill Constitutional: + ill appearing and average body habitus Eyes: PERRL, conjunctivae normal, anicteric sclerae ENMT: external ear and nose normal, oropharynx normal Neck: trachea midline, no thyromegaly Respiratory: no respiratory distress Auscultation: + diminished lung sounds and + crackles (Bibasilar crackles) Cardiovascular: Rate/Rhythm: not tachycardic and not irregularly irregular Heart Sounds: normal S1, normal S2 and + murmur Extremities: + edema (Trace edema bilaterally) Gastrointestinal (Abdomen): Inspection/Auscultation: normal bowel sounds; abdomen not distended Percussion/Palpation: abdomen soft; abdomen nontender Musculoskeletal: No acute arthritis involving any joint Neurologic: Alert and awake. Confused and minimal communication on commands. Lymphatic: no cervical or axillary lymphadenopathy Results & Data Results & Data Vital Signs (Past 12 Hours) Vital Signs Temp Pulse Pulse Resp BP Pulse Ox O2 Del Method 10/28/22 16:19 36.2 C L 94 H 18 109/73 98 Room Air 10/28/22 12:28 75 18 97/64 L 95 Room Air 10/28/22 09:17 75 10/28/22 08:37 Room Air 10/28/22 08:04 36.3 C L 95 H 18 90/56 L 98 Room Air Laboratory Results Short CBC 10/28/22 Range/Units 05:34 WBC 3.13 L (4.8-10.8) K/ul Hgb 10.7 L (14.0-18.0) g/dl Hct 31.8 L (42.0-52.0) % Plt Count 155 (130-400) K/uL BMP 10/28/22 05:34 Sodium 131 L Potassium 5.2 H Chloride 103 Carbon Dioxide 20 L BUN 35 H Creatinine 3.91 H Glucose 92 Calcium 8.8 Liver Function 10/28/22 Range/Units 05:34 Total Bilirubin 0.8 (0.2-1.0) mg/dl AST 8 L (13-39) U/L ALT < 3 L (7-52) U/L Alkaline Phosphatase 49 (34-104) U/L Albumin 2.8 L (3.4-5.0) gm/dl Medications Administered Current Inpatient Medications Acetaminophen (Acetaminophen 325 Mg Tab) 650 mg PO Q4H PRN PRN Reason: Pain or Fever Stop: 11/23/22 17:55 Doxycycline Hyclate (Doxycycline Hyclate 100 Mg Cap) 100 mg PO BID JESSICA Stop: 10/30/22 20:59 Last Admin: 10/28/22 08:25 Dose: 100 mg Heparin Sodium/Dextrose (Heparin Sodium/Dextrose) 25,000 units in 500 mls @ 20 mls/hr IV .Q24H JESSICA; Protocol Stop: 11/23/22 16:14 Last Admin: 10/28/22 12:23 Dose: 1,000 units/hr, 20 mls/hr Cefepime HCl 2,000 mg/ Syringe 20 mls @ 5 mls/min IV Q24H JESSICA; Protocol Stop: 10/29/22 12:00 Last Admin: 10/27/22 23:27 Dose: 5 mls/min Sodium Chloride (Nss 1000ml) 1,000 mls @ 80 mls/hr IV .[id number] [facility] Stop: 11/27/22 15:14 Last Admin: 10/28/22 16:13 Dose: 80 mls/hr Magnesium Oxide (Magnesium Oxide 400 Mg Tab) 400 mg PO QAM [facility] Stop: 11/26/22 12:14 Last Admin: 10/28/22 08:24 Dose: 400 mg Metoprolol Tartrate (Metoprolol Tartrate 25 Mg Tab) 12.5 mg PO QID [facility] Stop: 11/23/22 16:59 Last Admin: 10/28/22 16:21 Dose: Not Given Mycophenolate Mofetil (Mycophenolate Mofetil 250 Mg Cap) 500 mg PO BID [facility] Stop: 11/23/22 20:59 Last Admin: 10/28/22 08:24 Dose: 500 mg Ondansetron HCl (Ondansetron Inj 2 Mg/Ml 2 Ml Vial) 4 mg IV Q6H PRN PRN Reason: Nausea Stop: 11/23/22 17:55 Last Admin: 10/26/22 22:36 Dose: 4 mg Polyethylene Glycol (Polyethylene (Miralax) 17 Gm Pack) 17 gm PO DAILY PRN PRN Reason: Constipation Stop: 11/23/22 17:55 Tamsulosin HCl (Tamsulosin Hcl 0.4 Mg Cap) 0.4 mg PO HS [facility] Stop: 11/26/22 20:59 Last Admin: 10/27/22 20:46 Dose: 0.4 mg Thiamine HCl (Thiamine Hcl 100 Mg Tab) 100 mg PO DAILY JESSICA Stop: 11/24/22 08:59 Last Admin: 10/28/22 08:24 Dose: 100 mg
--- NOTE | 2022-10-28 17:28 | Cardiology Progress Note ---
Date of Service October 28, 2022 Assessment & Plan (1) ALEX (acute kidney injury): (2) New onset atrial fibrillation: (3) Pulmonary edema: (4) Liver transplant status: (5) Pericardial effusion: (6) Aortic stenosis: Plan: (1) ALEX (acute kidney injury): Plan: - Creatinine 2.27 --> 2.52--> 3.02-->3.67 --> 3.91 mg/dl -Agree with nephrology assessment the patient likely has cardiorenal syndrome in the setting of heart failure with reduced ejection fraction, atrial fibrillation and previous chronic kidney disease. -Pulmonary input noted and appreciated, with thoughts that some of the changes on his CT may be due to underlying interstitial lung disease. Agree with nephrology plan to proceed with gentle IV fluid. Holding furosemide. (2) New onset atrial fibrillation: Plan: - Atrial fibrillation noted. Duration unknown. -Continue low-dose metoprolol tartrate 12.5 mg 4 times daily for rate control -Continue heparin for stroke prophylaxis. Hemoglobin stable. I favor unfractionated heparin infusion as the anticoagulant of choice is given his renal insufficiency he is not a candidate for Lovenox or direct oral anticoagulant at present. Would hold off on starting warfarin until his hospital course remains more clear with regards to the needs for potential invasive procedure especially given worsening renal function. (3) Pulmonary edema: Plan: - Chest x-ray, CT of the chest suggestive of pulmonary edema, perhaps underlying interstitial lung disease -Echo with LVEF 40-45%, moderate , moderate RV systolic dysfunction -Nephrology input noted and appreciated-diuretics on hold as noted below. (4) HTN (hypertension): Plan: - Metoprolol and furosemide . BP stable. (5) Liver transplant status: Plan: - Per primary service is placing him back on his immunosuppressive therapy. Prograf dose being adjusted with the assistance of nephrology. (6) Pericardial effusion: Plan: - Small to moderate pericardial effusion noted on CT of the chest and echo without tamponade. Blood pressure stable. Monitor. (7) Aortic stenosis: Plan: - Moderate aortic stenosis. Treatment as noted above. Admission and Anticipated Discharge Date Admission Date: October 24, 2022 Subjective Patient seen in cardiology follow-up. Patient is more lethargic today. Less conversant. Telemetry reveals ongoing atrial fibrillation in the 80s. Heparin infusing. Horner catheter in place. Physical Exam Constitutional: no acute distress Respiratory: Auscultation: + crackles (Bilaterally at the bases) Cardiovascular: Rate/Rhythm: + irregularly irregular Heart Sounds: + murmur (1/6 systolic murmur) Extremities: + edema (Trace edema) Gastrointestinal (Abdomen): Inspection/Auscultation: normal bowel sounds and + abdominal edema (Suggestive of mild ascites) Nontender on palpation Neurologic: 4 extremities. Mildly somnolent/ Results & Data Vital Signs (Past 12 Hours) Vital Signs Temp Pulse Pulse Resp BP Pulse Ox O2 Del Method 10/28/22 16:19 36.2 C L 94 H 18 109/73 98 Room Air 10/28/22 12:28 75 18 97/64 L 95 Room Air 10/28/22 09:17 75 10/28/22 08:37 Room Air 10/28/22 08:04 36.3 C L 95 H 18 90/56 L 98 Room Air Laboratory Results Cardiac Enzymes 10/28/22 Range/Units 05:34 AST 8 L (13-39) U/L Coagulation 10/28/22 Range/Units 05:34 APTT 47.0 H* (21.0-31.0) Seconds CBC 10/28/22 Range/Units 05:34 WBC 3.13 L (4.8-10.8) K/ul RBC 3.62 L (4.70-6.10) M/uL Hgb 10.7 L (14.0-18.0) g/dl Hct 31.8 L (42.0-52.0) % Plt Count 155 (130-400) K/uL Neut # (Auto) 1.69 (1.40-6.50) K/uL Lymph # (Auto) 1.07 L (1.2-3.4) K/uL [place] # (Auto) 0.26 (0.11-0.59) K/uL Eos # (Auto) 0.07 (0-0.50) K/uL Baso # (Auto) 0.03 (0-0.2) K/uL Comprehensive Metabolic Panel 10/28/22 Range/Units 05:34 Sodium 131 L (136-145) mmol/L Potassium 5.2 H (3.5-5.1) mmol/L Chloride 103 (98-107) mmol/L Carbon Dioxide 20 L (21-32) mmol/L BUN 35 H (6-23) mg/dl Creatinine 3.91 H (0.6-1.4) mg/dl Glucose 92 (70-99(Fasting)) mg/dl Calcium 8.8 (8.6-10.3) mg/dl AST 8 L (13-39) U/L ALT < 3 L (7-52) U/L Alkaline Phosphatase 49 (34-104) U/L Total Protein 5.5 L (6.0-8.3) gm/dl Albumin 2.8 L (3.4-5.0) gm/dl Intake and Output 10/28/22 10/28/22 10/28/22 06:59 14:59 22:59 Intake Total 335.667 / 335.667 Output Total Balance - 930.866 335.667 / 332.667 - / 332.667 Intake: IV 335.667 / 335.667 Heparin Sodium/Dextrose 25,000 335.667 / 335.667 units In 500 ml @ 1,000 UNITS/ HR 20 mls/hr IV .Q24H [facility] Rx#: [id number] Output: # Bowel Movements Other: # Unmeasured Voids 1 Weight 83.2 kg Weight Measurement Method Built in [facility]
[2022-10-28] MEDS ORDERED: MoRPHine SULFATE 2 MG/ML CARP IV STA (20:51)
[2022-10-28] MEDS: TAMSULOSIN HCL 0.4 MG CAP PO SCH (21:00)
[2022-10-29] MEDS: CEFEPIME 2,000 MG in SYRINGE 0 ML IV SCH
[2022-10-29] MEDS: SODIUM CHLORIDE 0.9% 1000ML 1,000 ML IV SCH ×2 (05:45→16:04)
[2022-10-29] MEDS: HEPARIN SODIUM/DEXTROSE 25,000 UNITS/500 ML BAG IV SCH ×2 (05:45→14:19)
[2022-10-29 06:27] LABS: Basophils # (auto) 0.01 K/uL (0-0.2); Basophils % (auto) 0.3 %; Eosinophils # (auto) 0.08 K/uL (0-0.50); Eosinophils % (auto) 2.7 %; Hematocrit (blood only) 31.9 % (42.0-52.0); Hemoglobin 10.7 g/dl (14.0-18.0); Lymphocytes # (auto) 0.96 K/uL (1.2-3.4); Lymphocytes % (auto) 31.9 %; Mean Corpuscular Hemoglobin 29.3 pg (25.0-34.0); Mean Corpuscular Hgb Conc 33.5 g/dL (32.0-36.0); Mean Corpuscular Volume 87.4 fL (80.0-100.0); Mean Platelet Volume 10.4 fL (9.4-12.4); Monocytes # (auto) 0.31 K/uL (0.11-0.59); Monocytes % (auto) 10.3 %; Neutrophils # (auto) 1.65 K/uL (1.40-6.50); Neutrophils % (auto) 54.8 %; Platelet Count 147 K/uL (130-400); RDW Coefficient of Variation 13.7 % (11.5-14.5); RDW Standard Deviation 43.9 fL (36.4-46.3); Red Blood Count 3.65 M/uL (4.70-6.10); White Blood Count 3.01 K/ul (4.8-10.8)
[2022-10-29 06:36] LABS: Albumin Level 2.8 gm/dl (3.4-5.0); BUN Creatinine Ratio 9.2 (10-20); Bilirubin,Total 0.8 mg/dl (0.2-1.0); Calcium 8.9 mg/dl (8.6-10.3); Creatinine Clr Calc Pharmacy 21.9 ml/min; Est GFR (African American) 19.1 ml/min; Est GFR (Non-African American) 16.4 ml/min; Globulin 2.7 gm/dl (2.5-4.0); Magnesium 1.5 mg/dl (1.7-2.4); Total Protein 5.5 gm/dl (6.0-8.3)
--- NOTE | 2022-10-29 07:05 | XRay Report ---
SINGLE VIEW CHEST CLINICAL HISTORY: Follow-up airspace consolidation. FINDINGS: An AP, portable, upright chest radiograph is compared to study dated 10/27/2022 and correlat ed with chest CT dated 10/24/2022. The heart is enlarged. There is pulmonary vascular congestion. Mult ifocal bilateral airspace consolidation is similar to previous. Small pleural effusions are noted. No pneumothorax is seen. The skeletal structures are osteopenic. The bony thorax is grossly intact. IMPRESSION: 1. Cardiomegaly with pulmonary vascular congestion. 2. Multifocal airspace consolidation throughout both lungs is similar to previous. 3. Small pleural effusions. ACT 112: Negative or not required by law. Electronically signed by: Eusebio Salguero M.D. 10/29/2022 7:04 AM
--- NOTE | 2022-10-29 07:22 | Pulmonology Progress Note ---
Date of Service October 29, 2022 Assessment & Plan (1) Pulmonary edema: (2) SOB (shortness of breath): (3) New onset atrial fibrillation: (4) Tobacco use: (5) Liver transplant status: (6) Abnormal chest CT: Plan Chest CT 10/24/2022 personally reviewed: Interstitial thickening appreciated bilaterally upper lobes, patchy opacities also appreciated bilateral upper and lower lobes Traction bronchiectasis upper lobes, bronchiectasis bilateral lower lobes Small bilateral pleural effusion Cardiomegaly Minimal mediastinal lymphadenopathy 2D echo 10/25/2022: EF 40-45%, RV mildly dilated, RV systolic function is moderately reduced, moderate aortic stenosis, moderate circumferential pericardial effusion -- Exertional shortness of breath Multifactorial Likely secondary to new onset A-fib RVR on top of systolic CHF and moderate Respiratory bio fire negative for everything BNP at the time of presentation 1610 Procalcitonin 0.16, nasal MRSA negative -- Abnormal chest CT Patient likely has underlying ILD with traction bronchiectasis I think patient most likely has pulmonary fibrosis like picture The CAT scan likely shows pulmonary edema on an underlying ILD/pulmonary fibrosis like picture. The reason for patchy disease bilaterally given the elevated BNP and CHF will likely be from pulmonary edema Other possibilities include but not limited to pulmonary hemorrhage(Unlikely given improvement with diuresis, H&H is stable), drug-induced pneumonia is also possibility given tacrolimus use. 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 Autoimmune blood work ordered Bronchoscopy in a patient who has moderate aortic stenosis, decrease ejection fraction, CKD will be very high risk. --Current smoker Approximately [id number] smoking history Importance of quitting explained to the patient --History of liver cirrhosis S/p liver transplant 6 years ago On tacrolimus and mycophenolate Tacrolimus level within expected range --Metabolic encephalopathy Calcium within normal limit Ammonia negative TSH normal Sodium within normal limit, BUN elevated Plan: In/out: +1 L, urine output 453, +5 L since coming to the hospital Continue with atypical coverage for total of 5 days Patient's mental status has acutely worsened in the last 24-48 hours Ammonia level was negative yesterday TSH at the time of presentation was high but normal free T4 Patient is still getting mycophenolate. Would recommend to stop mycophenolate totally. Recommend diuresing the patient when feasible Recommend palliative care consult to get goals of care for the patient who has multiple comorbidities Plan was discussed with Dr. Lopez Please note the above document was generated using voice recognition software. It may contain grammatical, syntax or spelling errors.Any formal questions or concerns about the content, text or information contained within the body of this dictation should be directly addressed to the provider for clarification. Admission and Anticipated Discharge Date Admission Date: October 24, 2022 Subjective Patient seen and examined at bedside. No acute distress Patient is having just a blank stare. He is not answering any questions. He was saturating 98% on room air. Has been afebrile. Review of Systems Review of Systems: Unobtainable due to cognitive status Physical Exam Physical Exam: Constitutional: No acute distress HEENT: EOMI, PERRLA Respiratory system: Decreased air entry bilaterally, no wheeze, no rhonchi, positive crackles appreciated bilaterally anteriorly and posteriorly (? Velcro- like especially anteriorly) CVS: S1-S2 positive, no murmurs or gallops Abdomen: Soft, nontender, nondistended, positive bowel sounds x4 Extremities: +2 pulses bilaterally radialis/ dorsalis pedis, no cyanosis, +1 pitting edema bilateral lower extremity Neuro: Patient moving all extremities but not following any commands Psych: Flat mood and affect G/U: No Horner Skin: no rashes, warm and dry Lymphatic: no cervical or axillary lymphadenopathy Results & Data Results & Data Vital Signs (Past 12 Hours) Vital Signs Temp Pulse Pulse Resp BP Pulse Ox O2 Del Method 10/29/22 05:48 92 H 10/29/22 03:37 36.5 C 98 H 18 110/78 97 Room Air 10/28/22 23:03 36.4 C L 105 H 18 117/69 99 Room Air 10/28/22 20:36 Room Air 10/28/22 19:41 36.5 C 80 18 97/62 L 94 Room Air Laboratory Results 10/29/22 05:56 10/29/22 05:56 PG Care Time/CCT Total # of Minutes Spent Total Time Spent with Patient: Total time spent is greater than 50% in coordination of care (as documented) at patient's floor/unit and/or counseling patient: Coding Level of Care Code 52906 SUB INP/OBS CARE 3/50MIN Diagnoses Pulmonary edema J81.1 SOB (shortness of breath) R06.02 New onset atrial fibrillation I48.91 Tobacco use Z72.0 Liver transplant status Z94.[address] R93.89
[2022-10-29 07:23] LABS: Partial Thromboplastin Ratio 2.9
[2022-10-29] MEDS: THIAMINE HCL 100 MG TAB PO SCH (07:48)
[2022-10-29] MEDS: METOPROLOL TARTRATE 25 MG TAB PO SCH ×2 (07:48→22:37)
[2022-10-29] MEDS: MAGNESIUM OXIDE 400 MG TAB PO SCH (07:48)
[2022-10-29] MEDS: MYCOPHENOLATE MOFETIL 250 MG CAP PO SCH ×2 (07:48→22:37)
[2022-10-29] MEDS: DOXYCYCLINE HYCLATE 100 MG CAP PO SCH ×2 (07:48→22:37)
--- NOTE | 2022-10-29 11:29 | Cardiology Progress Note ---
Date of Service October 29, 2022 Assessment & Plan (1) ALEX (acute kidney injury): (2) New onset atrial fibrillation: (3) Pulmonary edema: (4) Liver transplant status: (5) Pericardial effusion: (6) Aortic stenosis: Plan: (1) ALEX (acute kidney injury): Plan: - Creatinine 2.27 --> 2.52--> 3.02-->3.67 --> 3.91 --> 3.80 mg/dl -450 mils of urine output noted in Horner catheter in last 24 hours, which is a bit improved compared to previously, and patient is now on normal saline at 80 mils per hour, started at 1500 on 10/28/2022 -Agree with nephrology assessment the patient likely has cardiorenal syndrome in the setting of heart failure with reduced ejection fraction, atrial fibrillation and previous chronic kidney disease. -Pulmonary input noted and appreciated, with thoughts that some of the changes on his CT may be due to underlying interstitial lung disease. Agree with nephrology plan to proceed with gentle IV fluid. Holding furosemide. (2) New onset atrial fibrillation: Plan: - Atrial fibrillation noted. Duration unknown. -Continue low-dose metoprolol tartrate . Change dose to 25 mg twice daily. -Continue heparin for stroke prophylaxis. Hemoglobin stable. I favor unfractionated heparin infusion as the anticoagulant of choice is given his renal insufficiency he is not a candidate for Lovenox or direct oral anticoagulant at present. Would hold off on starting warfarin until his hospital course remains more clear with regards to the needs for potential invasive procedure especially given worsening renal function. (3) Pulmonary edema: Plan: - Chest x-ray, CT of the chest suggestive of pulmonary edema, perhaps underlying interstitial lung disease -Echo with LVEF 40-45%, moderate , moderate RV systolic dysfunction -Nephrology input noted and appreciated-diuretics on hold as noted below. (4) HTN (hypertension): Plan: - Metoprolol. BP stable. (5) Liver transplant status: Plan: - Per primary service is placing him back on his immunosuppressive therapy. Prograf dose being adjusted with the assistance of nephrology. (6) Pericardial effusion: Plan: - Small to moderate pericardial effusion noted on CT of the chest and echo without tamponade. Blood pressure stable. Monitor. (7) Aortic stenosis: Plan: - Moderate aortic stenosis. Treatment as noted above. (8) Delirium -Mental status worse over the last 2 days. Ammonia level within normal limits on 10/29, repeat currently pending.No focal neurological deficits Admission and Anticipated Discharge Date Admission Date: October 24, 2022 Subjective Patient not conversant today. Ammonia level drawn yesterday was within normal limits, repeat pending today. Moves feet on request. Physical Exam Constitutional: + ill appearing (Without acute distress) and + thin; no acute distress Eyes: PERRL, conjunctivae normal, anicteric sclerae Respiratory: Auscultation: + diminished lung sounds (And coarse breath sounds bilaterally at the bases) and + crackles (Bilaterally at the bases) Cardiovascular: Rate/Rhythm: + tachycardic and + irregularly irregular Heart Sounds: + murmur (1/6 systolic murmur) Extremities: + edema (Trace edema) Gastrointestinal (Abdomen): normal bowel sounds, soft, nontender, no hepatosplenomegaly Inspection/Auscultation: normal bowel sounds and + abdominal edema (Suggestive of mild ascites) Neurologic: PERRL, EOMI, accommodation nl, no face palsy, no dysarthria Results & Data Vital Signs (Past 12 Hours) Vital Signs Temp Pulse Pulse Resp BP Pulse Ox O2 Del Method 10/29/22 10:36 96 H 10/29/22 07:49 Room Air 10/29/22 07:45 36.5 C 87 20 117/81 97 Room Air 10/29/22 05:48 92 H 10/29/22 03:37 36.5 C 98 H 18 110/78 97 Room Air Laboratory Results Cardiac Enzymes 10/29/22 Range/Units 05:56 AST 9 L (13-39) U/L Coagulation 10/29/22 Range/Units 06:03 APTT 81.0 H* (21.0-31.0) Seconds CBC 10/29/22 Range/Units 05:56 WBC 3.01 L (4.8-10.8) K/ul RBC 3.65 L (4.70-6.10) M/uL Hgb 10.7 L (14.0-18.0) g/dl Hct 31.9 L (42.0-52.0) % Plt Count 147 (130-400) K/uL Neut # (Auto) 1.65 (1.40-6.50) K/uL Lymph # (Auto) 0.96 L (1.2-3.4) K/uL [place] # (Auto) 0.31 (0.11-0.59) K/uL Eos # (Auto) 0.08 (0-0.50) K/uL Baso # (Auto) 0.01 (0-0.2) K/uL Comprehensive Metabolic Panel 10/29/22 Range/Units 05:56 Sodium 132 L (136-145) mmol/L Potassium 5.0 (3.5-5.1) mmol/L Chloride 105 (98-107) mmol/L Carbon Dioxide 19 L (21-32) mmol/L BUN 35 H (6-23) mg/dl Creatinine 3.80 H (0.6-1.4) mg/dl Glucose 88 (70-99(Fasting)) mg/dl Calcium 8.9 (8.6-10.3) mg/dl AST 9 L (13-39) U/L ALT 3 L (7-52) U/L Alkaline Phosphatase 50 (34-104) U/L Total Protein 5.5 L (6.0-8.3) gm/dl Albumin 2.8 L (3.4-5.0) gm/dl
--- NOTE | 2022-10-29 14:09 | Hospitalist Progress Note ---
Date of Service October 29, 2022 Assessment & Plan (1) Acute metabolic encephalopathy: Plan: He has been more confused for the last day or 2 Multifactorial-ALEX, deteriorating CHF, multiorgan failure, medications Discussed with the significant other-he has been almost like this at home for the last few days. He has been very noncompliant with medications and has not been seen his doctors for a while. Given does not take his medication regularly. CT of the head did not show any acute events Abdominal ultrasound did not show much ascites We will hold his tacrolimus for now and give a small amount of intravenous fluid Prognosis remains poor Condition is worsened today-ammonia level has been unremarkable Will DC CellCept and tacrolimus was DC'd yesterday Trying to get the number of sister to update her and also get recommendation for continued care from here Try to get palliative involved tomorrow (2) SOB (shortness of breath): (3) HTN (hypertension): (4) Tobacco use: (5) History of alcohol use: (6) Liver transplant status: (7) ALEX (acute kidney injury): (8) New onset atrial fibrillation: Plan This is a 57-year-old male with PMH of history of heavy alcohol use and cirr hosis status post liver transplant at [facility] 6 years ago, hypertension, tobacco use who presents from [facility] clinic due to cough, fatigue and shortness of breath for the past 3 months. Exertional dyspnea Cough Unintentional weight loss Grant poorly over the past 3 months but did not seek medical attention until today. Of note, did self-stop taking carvedilol, lasix and hydralazine 3 months ago. Is only taking Prograf and CellCept once a day (prescribed Q12) No leukocytosis, covid and PCR negative, lyme negative, anaplasma DNR pending Chest CT with: * 1. Ground glass consolidation is seen throughout both lungs with associated intralobular septal thickening and a "crazy paving" appearance. This is nonspecific, and could be seen with pulmonary edema, multifocal pneumonia, pulmonary hemorrhage, and/or possibly drug induced lung disease. Clinical correlation will be essential. Correlate with any prior outside imaging studies. Radiographic follow-up to resolution is recommend. * 2. Cardiomegaly noting a [id number] pericardial effusion * 3. Trace pleural effusions Denies history of CHF but cardiomegaly, pulm edema - will obtain 2D echo for further evaluation, give 20mg IV Lasix in ED. Discussed case with Dr. Edmonds who will evaluate Dr. Bryant reviewed CT chest imaging and feels consistent with pulm edema Was started with cefepime and Vanco-Vanco was discontinued with negative MRSA swab Will add doxycycline to cover atypicals Clinically much better and denies any other symptoms We will continue current management and repeat x-ray in a day or 2 If condition gets worse will involve pulmonary No issues with shortness of breath and has been saturating normally on room air Repeat chest x-ray did not show any change-we will get pulmonary involvement Appreciate pulmonary input and recommendation Has been saturating normally on room air-continue antibiotic for now New onset A fib A fib with RVR in 120s on EKG, no known history Stopped taking carvedilol 3 months ago - HR now 110s on monitor, giving PO Lopressor dose Starting IV heparin per discussion with Dr. Edmonds Appreciate cardiology input and recommendation Echo of the heart showed: Moderate concentric LVH with mild global hypokinesis of the left ventricle EF of 40 to 45%, biatrial enlargement, moderate valvular aortic stenosis, mild aortic regurgitation, mild mitral regurgitation and mild tricuspid regurgitation, there is a small to moderate size circumferential pericardial effusion Denies any cardiac symptoms-his rate remains controlled Reverted to sinus rhythm and rate is running around 90s with first-degree AV block Acute kidney injury, unknown baseline Cr of 2.27 today (last Cr 1.7 in [facility] from October 2020) CT abd/pelvis with kidneys that are atrophic and without hydronephrosis Appears volume overloaded, giving 20mg IV lasix Appreciate nephrology input and recommendation Will have Lasix 40 mg IV twice daily for more diuresis Creatinine went up and Lasix is on hold today Kidney function has been getting worse-diuretics is on hold since yesterday morning Creatinine remains elevated but minimally improved as of yesterday Pericardial effusion on CT chest Small-moderate pericardial effusion noted Adequate BP, normal heart sounds - low concern for tamponade at this time, cont close monitoring 2D echo pending -as above with a small pericardial effusion H/o etoh cirrhosis s/p liver transplant 6 years ago Liver transplant at [facility] in [place], is only taking Prograf and CellCept once a day (prescribed Q12) Has not had labwork in over a year Still drinking etoh but denies use in past 4 months Small ascites on imaging, A&Ox3, INR 1.2 Will get Prograf and CellCept level Outpatient appointment with the transplant team on discharge Has had acute confusion transiently last night-we will check ammonia level tomorrow HTN Previously taking carvedilol, hydralazine but not currently taking. Appreciate cardiology recs Tobacco use Recommend cessation DVT Ppx: IV heparin Code status: FULL PCP: [facility] Dispo: Admitted to PCU Discussed with the significant other-the mother of his children Will discuss with the significant other and the sister when available Admission and Anticipated Discharge Date Admission Date: October 24, 2022 Subjective 10/25/2022 The patient was seen and examined in telemetry unit He has been feeling much better since admission Has generalized weakness but denies any other significant symptoms 10/26/2022 The patient was seen and examined in telemetry unit He has been feeling much better and denies any symptoms at rest No cough, fever and or chills no shortness of breath Has been saturating normally on room air 10/27/2022 The patient was seen and examined in telemetry unit He has been very weak and denies any other symptoms He has not had seen his liver transplant doctor for more than 6 years He gets his medications through mail and does not know who is prescribing it [facility] [place] occasionally Denies any palpitation, any chest pain or shortness of breath at rest 10/28/2022 The patient was seen and examined in telemetry unit He has been more confused today and has not been drinking or eating Minimal communication today, does not seems to be in any acute distress but lethargic 10/29/2022 The patient was seen and examined in telemetry unit He is worse today and has not been communicating Not being responding to vocal commands but wandering around with the eyes A little distress at rest Saturating normally on room air and remains hemodynamically stable Review of Systems Review of Systems: All systems reviewed and are unremarkable as noted below Respiratory: No cough and no shortness of breath Cardiovascular: Additional Comments: No palpitation and/or chest pain Physical Exam Physical Exam: Lying in bed with minimal distress but looks ill Constitutional: + ill appearing and average body habitus Eyes: PERRL, conjunctivae normal, anicteric sclerae ENMT: external ear and nose normal, oropharynx normal Neck: trachea midline, no thyromegaly Respiratory: no respiratory distress Auscultation: + diminished lung sounds and + crackles (Bibasilar crackles) Cardiovascular: Rate/Rhythm: not tachycardic and not irregularly irregular Heart Sounds: normal S1, normal S2 and + murmur Extremities: + edema (Trace edema bilaterally) Gastrointestinal (Abdomen): Inspection/Auscultation: normal bowel sounds; abdomen not distended Percussion/Palpation: abdomen soft; abdomen nontender Musculoskeletal: No acute arthritis involving any joint Neurologic: Alert and awake. Not communicating and no meaningful response to vocal commands. Generally weak Lymphatic: no cervical or axillary lymphadenopathy Results & Data Results & Data Vital Signs (Past 12 Hours) Vital Signs Temp Pulse Pulse Resp BP Pulse Ox O2 Del Method 10/29/22 12:16 36.4 C L 83 19 118/83 98 Room Air 10/29/22 10:36 96 H 10/29/22 07:49 Room Air 10/29/22 07:45 36.5 C 87 20 117/81 97 Room Air 10/29/22 05:48 92 H 10/29/22 03:37 36.5 C 98 H 18 110/78 97 Room Air Laboratory Results Short CBC 10/29/22 Range/Units 05:56 WBC 3.01 L (4.8-10.8) K/ul Hgb 10.7 L (14.0-18.0) g/dl Hct 31.9 L (42.0-52.0) % Plt Count 147 (130-400) K/uL BMP 10/29/22 05:56 Sodium 132 L Potassium 5.0 Chloride 105 Carbon Dioxide 19 L BUN 35 H Creatinine 3.80 H Glucose 88 Calcium 8.9 Liver Function 10/29/22 Range/Units 05:56 Total Bilirubin 0.8 (0.2-1.0) mg/dl AST 9 L (13-39) U/L ALT 3 L (7-52) U/L Alkaline Phosphatase 50 (34-104) U/L Albumin 2.8 L (3.4-5.0) gm/dl Medications Administered Current Inpatient Medications Acetaminophen (Acetaminophen 325 Mg Tab) 650 mg PO Q4H PRN PRN Reason: Pain or Fever Stop: 11/23/22 17:55 Doxycycline Hyclate (Doxycycline Hyclate 100 Mg Cap) 100 mg PO BID JESSICA Stop: 10/30/22 20:59 Last Admin: 10/29/22 07:48 Dose: Not Given Heparin Sodium/Dextrose (Heparin Sodium/Dextrose) 25,000 units in 500 mls @ 18 mls/hr IV .Q24H [facility]; Protocol Stop: 11/23/22 16:14 Last Titration: 10/29/22 09:54 Dose: 900 units/hr, 18 mls/hr Sodium Chloride (Nss 1000ml) 1,000 mls @ 80 mls/hr IV .[id number] [facility] Stop: 11/27/22 15:14 Last Admin: 10/29/22 05:45 Dose: 80 mls/hr Magnesium Oxide (Magnesium Oxide 400 Mg Tab) 400 mg PO QAM [facility] Stop: 11/26/22 12:14 Last Admin: 10/29/22 07:48 Dose: Not Given Metoprolol Tartrate (Metoprolol Tartrate 25 Mg Tab) 25 mg PO BID [facility] Stop: 11/28/22 20:59 Ondansetron HCl (Ondansetron Inj 2 Mg/Ml 2 Ml Vial) 4 mg IV Q6H PRN PRN Reason: Nausea Stop: 11/23/22 17:55 Last Admin: 10/26/22 22:36 Dose: 4 mg Polyethylene Glycol (Polyethylene (Miralax) 17 Gm Pack) 17 gm PO DAILY PRN PRN Reason: Constipation Stop: 11/23/22 17:55 Tamsulosin HCl (Tamsulosin Hcl 0.4 Mg Cap) 0.4 mg PO HS [facility] Stop: 11/26/22 20:59 Last Admin: 10/28/22 21:00 Dose: Not Given Thiamine HCl (Thiamine Hcl 100 Mg Tab) 100 mg PO DAILY [facility] Stop: 11/24/22 08:59 Last Admin: 10/29/22 07:48 Dose: Not Given
--- NOTE | 2022-10-29 15:03 | Nephrology Progress Note ---
Date of Service October 29, 2022 Assessment & Plan Admission and Anticipated Discharge Date Admission Date: October 24, 2022 Subjective Subjective S---has stopped talking totally. He seems awake and fully alert though. Also not taking any pills now. Some increase in urine output--450ml yesterday.. Denies major SOB. has ray and on Iv fluid. PHYSICAL EXAMINATION: GENERAL: A middle-aged white male who appears to be chronically ill. He is awake, alert,. HEENT: Mucous membranes are moist. NECK: Supple. Jugular venous distention is present. CHEST: Bilateral decreased breath sounds with basal crackles up to half the lung. CARDIOVASCULAR: S1 and S2, irregular. Systolic murmur heard. ABDOMEN: Soft, nontender. Ascites could not be appreciated on clinical exam. EXTREMITIES: Show trace edema. LABORATORY DATA: The last creatinine we have is 1.7 two years ago, Creat today is 3.9 IMAGING DATA: Chest x-ray, CT abdomen and pelvis, CT chest was reviewed in detail. Pertinent findings include bilateral atrophic kidneys. Pericardial and pleural effusion with pulmonary edema, mild ascites. The urine sediment negative for blood or protein, but does have a lot of hyaline casts and epithelial cells. ASSESSMENT AND PLAN: A 57-year-old male with alcoholic cirrhosis, status post liver transplant 6 years ago with underlying chronic kidney disease as well as cardiomyopathy, now admitted with decompensated congestive heart failure as well as atrial fibrillation with rapid ventricular response and also has worsening kidney function. Acute renal failure: Given that his last baseline creatinine was 1.7 two years ago and he already has bilateral atrophic kidney, my assumption is this is predominantly chronic kidney disease we are dealing with. Creatinine went up slightly from yesterday, but this is definitely not because of Lasix, as he had barely any meaningful diuresis. I think the crackles is very possibly related with ILD. His renal prognosis is not good and is heading towards path of dialysis. He does need regular Nephrology care in [place]. . RECOMMENDATION: 1.Continue NS at 80 ml per hr for now. 2. Daily renal panel + LFT 3. Avoid BAILEY or ARB at this time. 4.The current dose of 3 mg twice daily is somewhat high for a liver transplant---Prograf level was quite high at 19 ( although not exactly 12 hr trough). However his ex claims he was taking 3mg daily and that too he would forget quite often. Will also need to get hold of his liver transplant center on Sunday for further discussion. Prograf trough level takes more than 5 days in our hospital so it is not really possible to establish the dosing. for now will use 2 in AM and 1 in PM from tomorrow morning. Check LFT Patient does not want to be in [facility] where the level can come quick. He does not want to go back to [place]. Had long discussion with his ex who is still involved and his closest person about all this. 5 Low mag and will correct. 6 neurotoxicity from MMF is extremely rare and I personally have not witnessed it. prograf is much more likely to cause neurotoxicity though. But I dont want to stop Anti rejection meds arbitrarily. restart MMF 7 Palliative med is being consulted to decide about the level of care. It seems patient has almost given up and does not want to do anything now. . Results & Data Vital Signs (Past 12 Hours) Vital Signs Temp Pulse Pulse Resp BP Pulse Ox O2 Del Method 10/29/22 12:16 36.4 C L 83 19 118/83 98 Room Air 10/29/22 10:36 96 H 10/29/22 07:49 Room Air 10/29/22 07:45 36.5 C 87 20 117/81 97 Room Air 10/29/22 05:48 92 H 10/29/22 03:37 36.5 C 98 H 18 110/78 97 Room Air
[2022-10-29] MEDS ORDERED: MAGNESIUM SULFATE / D5W 1 GM/100 ML BAG IV ONE (15:09)
[2022-10-29] MEDS ORDERED: LORazepam 2 MG/1 ML VIAL IV STA (16:19)
[2022-10-29 17:11] LABS: Partial Thromboplastin Ratio 2.8
[2022-10-29 17:17] LABS: Partial Thromboplastin Time 77.3 Seconds (21.0-31.0)
--- NOTE | 2022-10-29 17:24 | XRay Report ---
BONY ORBITS 3 VIEWS CLINICAL HISTORY: MRI clearance. FINDINGS: 3 views of the bony orbits are obtained. There is no radiodense/metallic foreign body seen in the region of the bony orbits. The bony orbits are intact as imaged. The visualized paranasal sinu ses and the mastoid air cells appear clear. The imaged calvarium appears intact. IMPRESSION: There is no radiodense/metallic foreign body seen in the region of the bony orbits. ACT 112: Negative or not required by law. Electronically signed by: Eusebio Salguero M.D. 10/29/2022 5:22 PM
--- NOTE | 2022-10-29 18:48 | Magnetic Resonance Report ---
MRI OF THE BRAIN WITHOUT IV CONTRAST CLINICAL HISTORY: Change in mental status. Stroke like symptoms. COMPARISON STUDY: CT of the brain dated 10/28/2022. TECHNIQUE: MRI of the brain was performed utilizing various T1 and T2-weighted sequences in the axial , sagittal, and coronal planes. IV contrast was not administered for this examination. FINDINGS: Brain parenchyma: There is age-related involutional change noting mild subcortical and periventricula r microangiopathic disease. There is no hemorrhage or mass effect. There is no restricted diffusion t o suggest acute ischemia. [place]-white matter differentiation is preserved. No extra-axial fluid collec tion is seen. The cerebellar tonsils are normal in configuration. Mineralization is noted in the basa l ganglia. Ventricles, sulci, and cisterns: Prominent secondary to involutional change. Pituitary and sella: Unremarkable. Intracranial vasculature: Normal flow voids are maintained at the skull base. Orbits: The bony orbits are grossly intact. Orbital contents are normal in appearance. Sinuses and mastoids: Clear. Calvarium: Unremarkable. Cervical cord: Partially visualized cervical spinal cord is normal in morphology and signal intensity . IMPRESSION: No acute intracranial abnormality. ACT 112: Negative or not required by law. Electronically signed by: Eusebio Salguero M.D. 10/29/2022 6:46 PM
[2022-10-29] MEDS: TAMSULOSIN HCL 0.4 MG CAP PO SCH (22:38)
[2022-10-30 01:15] LABS: Partial Thromboplastin Ratio 2.1
[2022-10-30 01:35] LABS: Partial Thromboplastin Time 56.5 Seconds (21.0-31.0)
[2022-10-30 02:04] LABS: Basophils # (auto) 0.02 K/uL (0-0.2); Basophils % (auto) 0.7 %; Eosinophils # (auto) 0.05 K/uL (0-0.50); Eosinophils % (auto) 1.7 %; Hematocrit (blood only) 31.6 % (42.0-52.0); Hemoglobin 10.3 g/dl (14.0-18.0); Immature Granulocytes # (auto) 0.01 K/uL (0.01-0.20); Immature Granulocytes % (auto) 0.3 %; Lymphocytes % (auto) 34.6 %; Mean Corpuscular Hgb Conc 32.6 g/dL (32.0-36.0); Mean Platelet Volume 10.3 fL (9.4-12.4); Monocytes # (auto) 0.34 K/uL (0.11-0.59); Monocytes % (auto) 11.8 %; Neutrophils # (auto) 1.47 K/uL (1.40-6.50); Neutrophils % (auto) 50.9 %; Platelet Count 140 K/uL (130-400); RDW Standard Deviation 45.5 fL (36.4-46.3); Red Blood Count 3.55 M/uL (4.70-6.10); White Blood Count 2.89 K/ul (4.8-10.8)
[2022-10-30 02:20] LABS: Anion Gap 9 (3-11); Blood Urea Nitrogen 33 mg/dl (6-23); Calcium 8.9 mg/dl (8.6-10.3); Carbon Dioxide 18 mmol/L (21-32); Chloride 106 mmol/L (98-107); Creatinine Clr Calc Pharmacy 22.6 ml/min; Est GFR (African American) 19.8 ml/min; Est GFR (Non-African American) 17.1 ml/min; Glucose 73 mg/dl (70-99(Fasting)); Potassium 5.4 mmol/L (3.5-5.1); Sodium 133 mmol/L (136-145)
[2022-10-30 02:32] LABS: Alanine Aminotransferase < 3 U/L (7-52); Albumin Level 2.7 gm/dl (3.4-5.0); Alkaline Phosphatase 48 U/L (34-104); Aspartate Aminotransferase 9 U/L (13-39); Bilirubin,Total 0.8 mg/dl (0.2-1.0); Globulin 2.7 gm/dl (2.5-4.0); Total Protein 5.4 gm/dl (6.0-8.3)
[2022-10-30 04:44] LABS: INR 1.2 (0.9-1.1)
[2022-10-30] MEDS: SODIUM CHLORIDE 0.9% 1000ML 1,000 ML IV SCH ×2 (07:28→17:48)
[2022-10-30] MEDS: THIAMINE HCL 100 MG TAB PO SCH (08:07)
[2022-10-30] MEDS: MAGNESIUM OXIDE 400 MG TAB PO SCH (08:07)
[2022-10-30] MEDS: MYCOPHENOLATE MOFETIL 250 MG CAP PO SCH ×2 (08:07→20:26)
[2022-10-30] MEDS: DOXYCYCLINE HYCLATE 100 MG CAP PO SCH (08:07)
[2022-10-30] MEDS: TACROLIMUS 1 MG CAP PO SCH ×2 (08:07→20:26)
[2022-10-30] MEDS: METOPROLOL TARTRATE 25 MG TAB PO SCH ×2 (08:07→20:26)
--- NOTE | 2022-10-30 10:49 | Cardiology Progress Note ---
Date of Service October 30, 2022 Assessment & Plan (1) ALEX (acute kidney injury): (2) New onset atrial fibrillation: (3) Pulmonary edema: (4) Liver transplant status: (5) Pericardial effusion: (6) Aortic stenosis: Plan: (1) ALEX (acute kidney injury): Plan: - Creatinine 2.27 --> 2.52--> 3.02-->3.67 --> 3.91 --> 3.80 mg/dl -->3.68 Urine output slightly improved, however, patient examines volume overloaded with crackles suggestive of possible interstitial lung disease versus pulmonary edema. Will defer trial of diuretic therapy to nephrology at this time. Patient is not hypoxic, saturate 95% on room air Most likely cardiorenal syndrome in the setting of heart failure with reduced ejection fraction, atrial fibrillation and previous chronic kidney disease. (2) New onset atrial fibrillation: Plan: -Fair rate control -Continue low-dose metoprolol tartrate and IV heparin. -Hemoglobin stable. I favor unfractionated heparin infusion as the anticoagulant of choice is given his renal insufficiency he is not a candidate for Lovenox or direct oral anticoagulant at present. Would hold off on starting warfarin until his hospital course remains more clear with regards to the needs for potential invasive procedure especially given worsening renal function. (3) Pulmonary edema: Plan: - Chest x-ray, CT of the chest suggestive of pulmonary edema, perhaps underlying interstitial lung disease -Echo with LVEF 40-45%, moderate , moderate RV systolic dysfunction -Nephrology input noted and appreciated-diuretics currently on hold (4) HTN (hypertension): Plan: - Metoprolol. BP stable. (5) Liver transplant status: Plan: - Per primary service is placing him back on his immunosuppressive therapy. Prograf dose being adjusted with the assistance of nephrology. (6) Pericardial effusion: Plan: - Small to moderate pericardial effusion noted on CT of the chest and echo without tamponade. Blood pressure stable. Monitor. (7) Aortic stenosis: Plan: - Moderate aortic stenosis. Treatment as noted above. (8) Delirium -Mental status improved today. Ammonia level within normal limits on 10/29. No focal neurological deficits Admission and Anticipated Discharge Date Admission Date: October 24, 2022 Subjective Patient seen examined the bedside. Awake and alert however uncooperative. Answers some questions. States "there is nothing wrong with me". Fluid balance positive. Creatinine trending downward slightly, however, essentially unchanged from 10/27/2022. Telemetry reveals atrial fibrillation with heart rate ranging 90-100 bpm. Patient denies chest pain or palpitations. Review of Systems Review of Systems: Other (Patient uncooperative.) Physical Exam Constitutional: + ill appearing; no acute distress Respiratory: no respiratory distress and no labored breathing Auscultation: + crackles (Bilateral) and + rales (Bilateral); no wheezes Cardiovascular: Rate/Rhythm: + irregularly irregular Heart Sounds: normal S1 and normal S2; no murmur Vessels: radial pulses present; no JVD and no carotid bruit Extremities: no edema Neurologic: moves all extremities Results & Data Vital Signs (Past 12 Hours) Vital Signs Temp Pulse Pulse Resp BP Pulse Ox O2 Del Method 10/30/22 08:39 36.5 C 112 H 20 118/74 95 Room Air 10/30/22 07:29 Room Air 10/30/22 04:09 36.3 C L 113 H 18 126/77 98 Room Air 10/30/22 01:19 97 H 10/29/22 23:32 36.5 C 78 18 115/75 96 Room Air Laboratory Results Cardiac Enzymes 10/30/22 Range/Units 01:40 AST 9 L (13-39) U/L Coagulation 10/29/22 10/30/22 10/30/22 Range/Units 16:03 00:22 00:22 PT 13.0 H (9.0-12.0) Seconds APTT 77.3 H* 56.5 H* (21.0-31.0) Seconds CBC 10/30/22 Range/Units 01:40 WBC 2.89 L (4.8-10.8) K/ul RBC 3.55 L (4.70-6.10) M/uL Hgb 10.3 L (14.0-18.0) g/dl Hct 31.6 L (42.0-52.0) % Plt Count 140 (130-400) K/uL Neut # (Auto) 1.47 (1.40-6.50) K/uL Lymph # (Auto) 1.00 L (1.2-3.4) K/uL [place] # (Auto) 0.34 (0.11-0.59) K/uL Eos # (Auto) 0.05 (0-0.50) K/uL Baso # (Auto) 0.02 (0-0.2) K/uL Comprehensive Metabolic Panel 10/30/22 Range/Units 01:40 Sodium 133 L (136-145) mmol/L Potassium 5.4 H (3.5-5.1) mmol/L Chloride 106 (98-107) mmol/L Carbon Dioxide 18 L (21-32) mmol/L BUN 33 H (6-23) mg/dl Creatinine 3.68 H (0.6-1.4) mg/dl Glucose 73 (70-99(Fasting)) mg/dl Calcium 8.9 (8.6-10.3) mg/dl AST 9 L (13-39) U/L ALT < 3 L (7-52) U/L Alkaline Phosphatase 48 (34-104) U/L Total Protein 5.4 L (6.0-8.3) gm/dl Albumin 2.7 L (3.4-5.0) gm/dl Intake and Output 10/29/22 10/30/22 10/30/22 22:59 06:59 14:59 Intake Total 1180.833 / 2680.833 1000 / 2680.833 218.933 / 218.933 Output Total 250 / 725 250 / 725 Balance 930.833 / 1955.833 750 / 1955.833 218.933 / 218.933 Intake: IV 980.833 / 2480.833 1000 / 2480.833 218.933 / 218.933 Heparin Sodium/Dextrose 25,000 55.5 / 555.500 218.933 / 218.933 units In 500 ml @ 800 UNITS/HR 16 mls/hr IV .Q24H JESSICA Rx#: [id number] Magnesium Sulfate / D5w 1 gm In 100 / 100 100 ml @ 50 mls/hr IV ONE ONE Rx#:[id number] Sodium Chloride 0.9% 1000ML 1, 825.333 / 2126.253 9169 / 1825.333 000 ml @ 80 mls/hr IV .[id number] [facility] Rx#:[id number] Oral 200 / 200 Output: Urine Amount (Catheter) 250 / 725 250 / 725 [place]ner/Indwelling 250 / 725 250 / 725 Other: Weight 86.5 kg Weight Measurement Method Built in [facility]
--- NOTE | 2022-10-30 11:55 | Nephrology Progress Note ---
Date of Service October 30, 2022 Assessment & Plan (1) CKD (chronic kidney disease) stage 4, GFR 15-29 ml/min: Plan: Advanced CKD4, bordering on CKD 5 with stable renal function past 4 days or so His last baseline creatinine was 1.7 two years ago and he already has bilateral atrophic kidneys so current changes are chronic not acute kidney failure. Crackles on exam possibly related with ILD. His renal prognosis is not good and is heading towards dialysis. He will need regular Nephrology care in [place]. . RECOMMENDATION: 1.Continue NS at 80 ml per hr for now ; pt tolerating this IV Fso far 2. Daily renal panel + LFT 3. Avoid BAILEY or ARB at this time. 4.>>recommend primary service contact [facility] transplant program to update them on his liver transplant status and for guidance on recommended tacrolimus dosing, what f/u they prefer etc; may need to connect him w/ local bread panner for f/u.; He was admitted with 3 mg bid FK dose, which is rather high for a liver transplant---Prograf level was quite high at 19 ( although not exactly 12 hr trough). However his ex claims he was taking 3 mg daily and that too he would forget quite often. Prograf trough level takes more than 5 days in our hospital so it is not really possible to establish the dosing. for now will use 2 in AM and 1 in PM from 10/30 on Patient does not want to be in [facility] where the level can come quick. He does not want to go back to [place]. 5 Low mag this admission > order in to recheck in am 6 neurotoxicity from MMF is extremely rare; do not stop MMF 7 Palliative med is being consulted to decide about the level of care. It seems patient has almost given up and does not want to do anything now. >>consider psych consult / close OP follow up for depression Admission and Anticipated Discharge Date Admission Date: October 24, 2022 Subjective seen on rounds early this afternoon > more alert/interactive today but limited ability to participate in ros; ex at bedside Review of Systems Review of Systems: Unobtainable due to cognitive status Physical Exam Constitutional: well developed and well nourished; no acute distress Eyes: EOM intact bilaterally ENMT: Ears: no external ear abnormality Nose: no external nose abnormality Mouth: + dry oral mucous membranes Neck: no nuchal rigidity Respiratory: normal respiratory effort Auscultation: + diminished lung sounds Cardiovascular: Rate/Rhythm: + tachycardic and + irregularly irregular Extremities: no edema Gastrointestinal (Abdomen): Inspection/Auscultation: normal bowel sounds Percussion/Palpation: + abdomen tender (R sided tenderness ), + guarding and abdomen soft Musculoskeletal: Extremities: strength 5/5 throughout Skin: no rashes, warm and dry Neurologic: dick, fluent speech, no tremor Psychiatric: Orientation: alert and oriented to person; + not oriented x 3 Results & Data Vital Signs (Past 12 Hours) Vital Signs Temp Pulse Pulse Resp BP Pulse Ox O2 Del Method 10/30/22 08:39 36.5 C 112 H 20 118/74 95 Room Air 10/30/22 07:29 Room Air 10/30/22 04:09 36.3 C L 113 H 18 126/77 98 Room Air 10/30/22 01:19 97 H Laboratory Results 10/30/22 01:40 10/30/22 01:40
--- NOTE | 2022-10-30 15:59 | Hospitalist Progress Note ---
Date of Service October 30, 2022 Assessment & Plan (1) Acute metabolic encephalopathy: Plan: He has been more confused for the last day or 2 Multifactorial-ALEX, deteriorating CHF, multiorgan failure, medications Discussed with the significant other-he has been almost like this at home for the last few days. He has been very noncompliant with medications and has not been seen his doctors for a while. Given does not take his medication regularly. CT of the head did not show any acute events Abdominal ultrasound did not show much ascites We will hold his tacrolimus for now and give a small amount of intravenous fluid Prognosis remains poor Condition is worsened today-ammonia level has been unremarkable Will DC CellCept and tacrolimus was DC'd yesterday Trying to get the number of sister to update her and also get recommendation for continued care from here Discussed with the sister in detail on 10/29/2022 and [id number] on 10/30/2022 in presence of the patient He was talking occasionally during her presence-looked very depressed and confused Awaiting palliative input and recommendation We will get a neuro consult as per the sister Tried to call [facility] for more information regarding the transplant and medications-no one was available at the time. We will try again tomorrow morning. (2) SOB (shortness of breath): (3) HTN (hypertension): (4) Tobacco use: (5) History of alcohol use: (6) Liver transplant status: (7) ALEX (acute kidney injury): (8) New onset atrial fibrillation: Plan This is a 57-year-old male with PMH of history of heavy alcohol use and cirrhosis status post liver transplant at [facility] 6 years ago, hypertension, tobacco use who presents from [facility] clinic due to cough, fatigue and shortness of breath for the past 3 months. Exertional dyspnea Cough Unintentional weight loss Radnor poorly over the past 3 months but did not seek medical attention until today. Of note, did self-stop taking carvedilol, lasix and hydralazine 3 months ago. Is only taking Prograf and CellCept once a day (prescribed Q12) No leukocytosis, covid and PCR negative, lyme negative, anaplasma DNR pending Chest CT with: * 1. Ground glass consolidation is seen throughout both lungs with associated intralobular septal thickening and a "crazy paving" appearance. This is nonspecific, and could be seen with pulmonary edema, multifocal pneumonia, pulmonary hemorrhage, and/or possibly drug induced lung disease. Clinical correlation will be essential. Correlate with any prior outside imaging studies. Radiographic follow-up to resolution is recommend. * 2. Cardiomegaly noting a [id number] pericardial effusion * 3. Trace pleural effusions Denies history of CHF but cardiomegaly, pulm edema - will obtain 2D echo for fur ther evaluation, give 20mg IV Lasix in ED. Discussed case with Dr. Edmonds who will evaluate Dr. Bryant reviewed CT chest imaging and feels consistent with pulm edema Was started with cefepime and Vanco-Vanco was discontinued with negative MRSA swab Will add doxycycline to cover atypicals Clinically much better and denies any other symptoms We will continue current management and repeat x-ray in a day or 2 If condition gets worse will involve pulmonary No issues with shortness of breath and has been saturating normally on room air Repeat chest x-ray did not show any change-we will get pulmonary involvement Appreciate pulmonary input and recommendation Has been saturating normally on room air-continue antibiotic for now Saturating normally on room air New onset A fib A fib with RVR in 120s on EKG, no known history Stopped taking carvedilol 3 months ago - HR now 110s on monitor, giving PO Lopressor dose Starting IV heparin per discussion with Dr. Edmonds Appreciate cardiology input and recommendation Echo of the heart showed: Moderate concentric LVH with mild global hypokinesis of the left ventricle EF of 40 to 45%, biatrial enlargement, moderate valvular aortic stenosis, mild aortic regurgitation, mild mitral regurgitation and mild tricuspid regurgitation, there is a small to moderate size circumferential pericardial effusion Denies any cardiac symptoms-his rate remains controlled Reverted to sinus rhythm and rate is running around 90s with first-degree AV block Heart rate has been around 113 Acute kidney injury, unknown baseline Cr of 2.27 today (last Cr 1.7 in [facility] from October 2020) CT abd/pelvis with kidneys that are atrophic and without hydronephrosis Appears volume overloaded, giving 20mg IV lasix Appreciate nephrology input and recommendation Will have Lasix 40 mg IV twice daily for more diuresis Creatinine went up and Lasix is on hold today Kidney function has been getting worse-diuretics is on hold since yesterday morning Creatinine remains elevated but minimally improved as of yesterday Creatinine is minimally improved-continue minimal amount IV fluid Pericardial effusion on CT chest Small-moderate pericardial effusion noted Adequate BP, normal heart sounds - low concern for tamponade at this time, cont close monitoring 2D echo pending -as above with a small pericardial effusion H/o etoh cirrhosis s/p liver transplant 6 years ago Liver transplant at [facility] in [place], is only taking Prograf and CellCept once a day (prescribed Q12) Has not had labwork in over a year Still drinking etoh but denies use in past 4 months Small ascites on imaging, A&Ox3, INR 1.2 Will get Prograf and CellCept level Outpatient appointment with the transplant team on discharge Has had acute confusion transiently last night-we will check ammonia level tomorrow When it has been normal-we will try to contact transplant service at [facility] HTN Previously taking carvedilol, hydralazine but not currently taking. Appreciate cardiology recs Tobacco use Recommend cessation DVT Ppx: IV heparin Code status: FULL PCP: [facility] Dispo: Admitted to PCU Discussed with the significant other-the mother of his children Discussed with the sister in detail Admission and Anticipated Discharge Date Admission Date: October 24, 2022 Subjective 10/25/2022 The patient was seen and examined in telemetry unit He has been feeling much better since admission Has generalized weakness but denies any other significant symptoms 10/26/2022 The patient was seen and examined in telemetry unit He has been feeling much better and denies any symptoms at rest No cough, fever and or chills no shortness of breath Has been saturating normally on room air 10/27/2022 The patient was seen and examined in telemetry unit He has been very weak and denies any other symptoms He has not had seen his liver transplant doctor for more than 6 years He gets his medications through mail and does not know who is prescribing it See [facility] [place] occasionally Denies any palpitation, any chest pain or shortness of breath at rest 10/28/2022 The patient was seen and examined in telemetry unit He has been more confused today and has not been drinking or eating Minimal communication today, does not seems to be in any acute distress but lethargic 10/29/2022 The patient was seen and examined in telemetry unit He is worse today and has not been communicating Not being responding to vocal commands but wandering around with the eyes A little distress at rest Saturating normally on room air and remains hemodynamically stable 10/30/2022 The patient was seen and examined in telemetry unit He remains confused does not want to talk with a vacant look when asked a question This morning he was seen in presence of the sister He could not remember the name of the sister but he was happy to see her initially He mentioned that he is feeling fine Review of Systems Review of Systems: All systems reviewed and are unremarkable as noted below Respiratory: No cough and no shortness of breath Cardiovascular: Additional Comments: No palpitation and/or chest pain Physical Exam Physical Exam: Lying in bed with minimal distress and is not communicating Constitutional: + ill appearing and average body habitus Eyes: PERRL, conjunctivae normal, anicteric sclerae ENMT: external ear and nose normal, oropharynx normal Neck: trachea midline, no thyromegaly Respiratory: no respiratory distress Auscultation: + diminished lung sounds and + crackles (Bibasilar crackles) Cardiovascular: Rate/Rhythm: not tachycardic and not irregularly irregular Heart Sounds: normal S1, normal S2 and + murmur Extremities: + edema (Trace edema bilaterally) Gastrointestinal (Abdomen): Inspection/Auscultation: normal bowel sounds; abdomen not distended Percussion/Palpation: abdomen soft; abdomen nontender Neurologic: Remains confused and not communicating Psychiatric: Looks very depressed Lymphatic: no cervical or axillary lymphadenopathy Results & Data Results & Data Vital Signs (Past 12 Hours) Vital Signs Temp Pulse Resp BP Pulse Ox O2 Del Method 10/30/22 15:57 36.4 C L 113 H 17 126/73 97 Room Air 10/30/22 12:16 36.5 C 110 H 19 121/79 97 Room Air 10/30/22 08:39 36.5 C 112 H 20 118/74 95 Room Air 10/30/22 07:29 Room Air 10/30/22 04:09 36.3 C L 113 H 18 126/77 98 Room Air Laboratory Results Short CBC 10/30/22 Range/Units 01:40 WBC 2.89 L (4.8-10.8) K/ul Hgb 10.3 L (14.0-18.0) g/dl Hct 31.6 L (42.0-52.0) % Plt Count 140 (130-400) K/uL BMP 10/30/22 01:40 Sodium 133 L Potassium 5.4 H Chloride 106 Carbon Dioxide 18 L BUN 33 H Creatinine 3.68 H Glucose 73 Calcium 8.9 Liver Function 10/30/22 Range/Units 01:40 Total Bilirubin 0.8 (0.2-1.0) mg/dl AST 9 L (13-39) U/L ALT < 3 L (7-52) U/L Alkaline Phosphatase 48 (34-104) U/L Albumin 2.7 L (3.4-5.0) gm/dl Medications Administered Current Inpatient Medications Acetaminophen (Acetaminophen 325 Mg Tab) 650 mg PO Q4H PRN PRN Reason: Pain or Fever Stop: 11/23/22 17:55 Doxycycline Hyclate (Doxycycline Hyclate 100 Mg Cap) 100 mg PO BID [facility] Stop: 10/30/22 20:59 Last Admin: 10/30/22 08:07 Dose: Not Given Heparin Sodium/Dextrose (Heparin Sodium/Dextrose) 25,000 units in 500 mls @ 16 mls/hr IV .Q24H JESSICA; Protocol Stop: 11/23/22 16:14 Last Titration: 10/30/22 07:05 Dose: 800 units/hr, 16 mls/hr Sodium Chloride (Nss 1000ml) 1,000 mls @ 80 mls/hr IV .[id number] [facility] Stop: 11/27/22 15:14 Last Admin: 10/30/22 07:28 Dose: 80 mls/hr Magnesium Oxide (Magnesium Oxide 400 Mg Tab) 400 mg PO QAM [facility] Stop: 11/26/22 12:14 Last Admin: 10/30/22 08:07 Dose: Not Given Metoprolol Tartrate (Metoprolol Tartrate 25 Mg Tab) 25 mg PO BID [facility] Stop: 11/28/22 20:59 Last Admin: 10/30/22 08:07 Dose: Not Given Mycophenolate Mofetil (Mycophenolate Mofetil 250 Mg Cap) 500 mg PO BID [facility] Stop: 11/28/22 20:59 Last Admin: 10/30/22 08:07 Dose: Not Given Ondansetron HCl (Ondansetron Inj 2 Mg/Ml 2 Ml Vial) 4 mg IV Q6H PRN PRN Reason: Nausea Stop: 11/23/22 17:55 Last Admin: 10/26/22 22:36 Dose: 4 mg Polyethylene Glycol (Polyethylene (Miralax) 17 Gm Pack) 17 gm PO DAILY PRN PRN Reason: Constipation Stop: 11/23/22 17:55 Tacrolimus (Tacrolimus 1 Mg Cap) 2 mg PO QAM JESSICA Stop: 11/29/22 08:59 Last Admin: 10/30/22 08:07 Dose: Not Given Tacrolimus (Tacrolimus 1 Mg Cap) 1 mg PO QPM JESSICA Stop: 11/29/22 20:59 Tamsulosin HCl (Tamsulosin Hcl 0.4 Mg Cap) 0.4 mg PO HS JESSICA Stop: 11/26/22 20:59 Last Admin: 10/29/22 22:38 Dose: Not Given Thiamine HCl (Thiamine Hcl 100 Mg Tab) 100 mg PO DAILY JESSICA Stop: 11/24/22 08:59 Last Admin: 10/30/22 08:07 Dose: Not Given
[2022-10-30] MEDS: METOPROLOL TARTRATE 1 MG/ML VIAL IV PRN (17:47)
--- NOTE | 2022-10-30 17:48 | Pulmonology Progress Note ---
Date of Service October 30, 2022 Assessment & Plan (1) Pulmonary edema: (2) SOB (shortness of breath): (3) New onset atrial fibrillation: (4) Tobacco use: (5) Liver transplant status: (6) Abnormal chest CT: Plan Attending: Dr. Fuentes Impression: 57-year-old male admitted 10/24/2022 from the [place] [facility] with shortness of breath, fatigue and cough. Imaging reveals probable traction bronchiectasis in the upper lobes as well as bronchiectasis in the bilateral lower lobes. Trace pleural effusions. Minimal mediastinal lymphadenopathy. Probable infectious process. Patient is unresponsive today but is awake. No acute distress or use of accessory muscles. Patient unable to participate in interview and examination. Recommendations: 1. Exertional shortness of breath: * Certainly multifactorial. Probable interstitial lung disease versus fibrosis. Patient with bronchiectasis as seen on CT scan * Patient also with new onset atrial fibrillation with RVR with congestive heart failure. * Echocardiogram also reveals moderate aortic stenosis. * Patient with elevated proBNP on admission * Continue to maintain SaO2 between 88 and 92% * Continue to treat congestive heart failure 2. Abnormal CT with probable infectious process: * Continue with antibiotics. * Calcitonin was 0.16 on admission and the nasal MRSA was negative. * Due to groundglass opacities on CT scan we will treat for 5 to 7 days and stop * Patient is a smoker. Also had exposure in the [place] with the . * Follow-up outpatient after discharge. * Patient also with bronchiectasis. Would encourage pulmonary toilet and flutter valve. If unable to clear sputum, consider Pneumovax. * Outpatient follow-up for ILD/pulmonary fibrosis * Bronchoscopy at this time due to moderate aortic stenosis and decreased ejection fraction. 3. Tobacco abuse history: * Patient really is not cooperative with discussion regarding tobacco due to cognitive status * [id number] smoking history * If patient improves from a metabolic standpoint, continue to encourage tobacco abstention Thank you for including us in the care of this patient. Palliative care consult would most likely be appropriate. Will defer to primary care team for this. Admission and Anticipated Discharge Date Admission Date: October 24, 2022 Subjective Attending: Dr. Fuentes This is a 57-year-old male who was admitted to [facility] on 10/24/2022 with significant history of heavy alcohol use, cirrhosis, status post liver transplant 6 years ago, tobacco use who was referred from the [facility] clinic due to cough, fatigue, shortness of breath x3 months. Patient was found to be in new onset atrial fibrillation. CT scan showed groundglass consolidation with multifocal pneumonia with trace pleural effusions. Patient seen at bedside in room 461. He is awake but is unable to give me history and answers most questions with a simple yes or no which are not always accurate based on presentation. Unreliable historian. Unable to adequately complete review of systems. Does not appear to be in any acute distress. No use of accessory muscles. No evidence of respiratory distress. Review of Systems Review of Systems: Unobtainable due to cognitive status Physical Exam Physical Exam: GENERAL : No acute distress. No use of accessory muscles. No evidence of respiratory distress. EYES: No icterus, gaze conjugate NOSE: No evidence of epistaxis MOUTH: No lesions or candidiasis NECK: Supple LUNGS: Velcro type crackles on examination. No significant wheezes. Decreased breath sounds throughout. Patient noncompliant when directed to take deep breaths. HEART: Regular, rate controlled ABDOMEN: Soft, NT, ND, BS Present EXTREMITIES: No LE edema, pedal pulses intact NEURO: Awake and moves all 4 extremities but does not follow any commands. Results & Data Results & Data Vital Signs (Past 12 Hours) Vital Signs Temp Pulse Pulse Resp BP Pulse Ox O2 Del Method 10/30/22 16:17 109 H 10/30/22 15:57 36.4 C L 113 H 17 126/73 97 Room Air 10/30/22 12:16 36.5 C 110 H 19 121/79 97 Room Air 10/30/22 08:39 36.5 C 112 H 20 118/74 95 Room Air 10/30/22 07:29 Room Air Critical Care Results & Data Vital Signs (Past 12 Hours) Vital Signs Temp Pulse Pulse Resp BP Pulse Ox O2 Del Method 10/30/22 16:17 109 H 10/30/22 15:57 36.4 C L 113 H 17 126/73 97 Room Air 10/30/22 12:16 36.5 C 110 H 19 121/79 97 Room Air 10/30/22 08:39 36.5 C 112 H 20 118/74 95 Room Air 10/30/22 07:29 Room Air Lab & Micro Results (Past 24 Hours) RBC 3.55 M/uL (4.70-6.10) L 10/30/22 WBC 2.89 K/ul (4.8-10.8) L 10/30/22 Hgb 10.3 g/dl (14.0-18.0) L 10/30/22 Hct 31.6 % (42.0-52.0) L 10/30/22 MCV 89.0 fL (80.0-100.0) 10/30/22 MCH 29.0 pg (25.0-34.0) 10/30/22 MCHC 32.6 g/dL (32.0-36.0) 10/30/22 RDW Standard Deviation 45.5 fL (36.4-46.3) 10/30/22 RDW Coefficient of Variation 14.0 % (11.5-14.5) 10/30/22 Plt Count 140 K/uL (130-400) 10/30/22 MPV 10.3 fL (9.4-12.4) 10/30/22 Neutrophils (%) (Auto) 50.9 % 10/30/22 Lymphocytes (%) (Auto) 34.6 % 10/30/22 Monocytes # (Auto) 0.34 K/uL (0.11-0.59) 10/30/22 Eosinophils # (Auto) 0.05 K/uL (0-0.50) 10/30/22 Immature Granulocyte % (Auto) 0.3 % 10/30/22 Neutrophils # (Auto) 1.47 K/uL (1.40-6.50) 10/30/22 Lymphocytes # (Auto) 1.00 K/uL (1.2-3.4) L 10/30/22 Monocytes # (Auto) 0.34 K/uL (0.11-0.59) 10/30/22 Eosinophils # (Auto) 0.05 K/uL (0-0.50) 10/30/22 Basophils # (Auto) 0.02 K/uL (0-0.2) 10/30/22 Immature Granulocyte # (Auto) 0.01 K/uL (0.01-0.20) 3 Na 133 mmol/L (136-145) L 10/30/22 K 5.4 mmol/L (3.5-5.1) H 10/30/22 Cl 106 mmol/L (98-107) 10/30/22 CO2 18 mmol/L (21-32) L 10/30/22 Anion Gap 9 (3-11) 10/30/22 BUN 33 mg/dl (6-23) H 10/30/22 Creatinine 3.68 mg/dl (0.6-1.4) H 10/30/22 Estimated GFR ( Amer) 19.8 ml/min 10/30/22 Estimated GFR (Non-Af Amer) 17.1 ml/min 10/30/22 BUN/Creatinine Ratio 9.0 (10-20) L 10/30/22 Glu 73 mg/dl (70-99(Fasting)) 10/30/22 Ca 8.9 mg/dl (8.6-10.3) 10/30/22 Total Bilirubin 0.8 mg/dl (0.2-1.0) 10/30/22 AST 9 U/L (13-39) L 10/30/22 ALT < 3 U/L (7-52) L 10/30/22 Alkaline Phosphatase 48 U/L (34-104) 10/30/22 TP 5.4 gm/dl (6.0-8.3) L 10/30/22 Albumin 2.7 gm/dl (3.4-5.0) L 10/30/22 Globulin 2.7 gm/dl (2.5-4.0) 10/30/22 Albumin/Globulin Ratio 1.0 (0.9-2) 10/30/22 Calcium Level 8.9 mg/dl (8.6-10.3) 10/30/22 01:40 Prothromb Time International Ratio 1.2 (0.9-1.1) H 10/30/22 00 :22 Microbiology 10/24/22 12:25 Aerobic Blood Culture - Final Blood No growth in Aerobic bottle after 5 days. Anaerobic Blood Culture - Final No growth in Anaerobic bottle after 5 days. 10/24/22 12:19 Aerobic Blood Culture - Final Blood No growth in Aerobic bottle after 5 days. Anaerobic Blood Culture - Final No growth in Anaerobic bottle after 5 days. Diagnostic Findings (Past 24 Hours) Brain MRI 10/29/22 16:17 MRI OF THE BRAIN WITHOUT IV CONTRAST CLINICAL HISTORY: Change in mental status. Stroke like symptoms. COMPARISON STUDY: CT of the brain dated 10/28/2022. TECHNIQUE: MRI of the brain was performed utilizing various T1 and T2-weighted sequences in the axial, sagittal, and coronal planes. IV contrast was not administered for this examination. FINDINGS: Brain parenchyma: There is age-related involutional change noting mild subcortical and periventricular microangiopathic disease. There is no hemorrhage or mass effect. There is no restricted diffusion to suggest acute ischemia. [place]-white matter differentiation is preserved. No extra-axial fluid collection is seen. The cerebellar tonsils are normal in configuration. Mineralization is noted in the basal ganglia. Ventricles, sulci, and cisterns: Prominent secondary to involutional change. Pituitary and sella: Unremarkable. Intracranial vasculature: Normal flow voids are maintained at the skull base. Orbits: The bony orbits are grossly intact. Orbital contents are normal in appearance. Sinuses and mastoids: Clear. Calvarium: Unremarkable. Cervical cord: Partially visualized cervical spinal cord is normal in morphology and signal intensity. IMPRESSION: No acute intracranial abnormality. ACT 112: Negative or not required by law. Electronically signed by: Eusebio Salguero M.D. 10/29/2022 6:46 PM I & O Totals 24 Hours 10/29/22 10/30/22 10/31/22 06:59 06:59 06:59 Intake Total 1335.667 / 7803.324 9593.833 / 2680.833 218.933 / 218.933 Output Total 453 / 453 725 / 725 Balance 882.667 / 035.567 8486.833 / 1955.833 218.933 / 218.933 Cumulative 10/24/22 10:29 thru 10/30/22 07:05 Intake Total 8874.966 Output Total 2154 Balance 6720.966 RT Ventilator Mngmt (Last Documented) Ventilator Ordered Settings Respiratory Rate 17 10/30/22 15:57 Ventilator - PT Measurements Respiratory Rate 17 PG Care Time/CCT Total # of Minutes Spent Total Time Spent with Patient: Total time spent is greater than 50% in coordination of care (as documented) at patient's floor/unit and/or counseling patient:20 Coding Level of Care Code 92480 SUB INP/OBS CARE 2/35MIN Diagnoses Pulmonary edema J81.1 SOB (shortness of breath) R06.02 New onset atrial fibrillation I48.91 Tobacco use Z72.0 Liver transplant status Z94.[address] R93.89 Time Spent (min) 20
[2022-10-30 18:57] LABS: Mycophenolic Acid 1.6 mcg/mL (1.0-3.5)
[2022-10-30] MEDS: TAMSULOSIN HCL 0.4 MG CAP PO SCH (20:26)
[2022-10-31] MEDS: HEPARIN SODIUM/DEXTROSE 25,000 UNITS/500 ML BAG IV SCH ×4 (01:01→09:30)
[2022-10-31] MEDS: SODIUM CHLORIDE 0.9% 1000ML 1,000 ML IV SCH (06:08)
[2022-10-31] MEDS: METOPROLOL TARTRATE 1 MG/ML VIAL IV PRN (07:23)
[2022-10-31] MEDS: MYCOPHENOLATE MOFETIL 250 MG CAP PO SCH ×2 (07:25→21:51)
[2022-10-31] MEDS: METOPROLOL TARTRATE 25 MG TAB PO SCH ×2 (07:25→21:52)
[2022-10-31] MEDS: TACROLIMUS 1 MG CAP PO SCH ×2 (07:25→21:52)
[2022-10-31] MEDS: THIAMINE HCL 100 MG TAB PO SCH (07:25)
[2022-10-31] MEDS: MAGNESIUM OXIDE 400 MG TAB PO SCH (07:26)
[2022-10-31 08:29] LABS: Partial Thromboplastin Ratio 2.1; Partial Thromboplastin Time 56.7 Seconds (21.0-31.0)
[2022-10-31 09:25] LABS: Basophils # (auto) 0.03 K/uL (0-0.2); Basophils % (auto) 0.8 %; Calcium 8.8 mg/dl (8.6-10.3); Eosinophils # (auto) 0.08 K/uL (0-0.50); Eosinophils % (auto) 2.1 %; Hematocrit (blood only) 32.3 % (42.0-52.0); Hemoglobin 10.6 g/dl (14.0-18.0); Immature Granulocytes # (auto) 0.01 K/uL (0.01-0.20); Immature Granulocytes % (auto) 0.3 %; Lymphocytes # (auto) 0.91 K/uL (1.2-3.4); Lymphocytes % (auto) 23.5 %; Mean Corpuscular Hemoglobin 28.9 pg (25.0-34.0); Mean Corpuscular Hgb Conc 32.8 g/dL (32.0-36.0); Mean Platelet Volume 10.5 fL (9.4-12.4); Monocytes # (auto) 0.41 K/uL (0.11-0.59); Monocytes % (auto) 10.6 %; Neutrophils # (auto) 2.43 K/uL (1.40-6.50); Neutrophils % (auto) 62.7 %; Platelet Count 135 K/uL (130-400); Potassium 5.4 mmol/L (3.5-5.1); RDW Coefficient of Variation 14.1 % (11.5-14.5); RDW Standard Deviation 45.5 fL (36.4-46.3); Red Blood Count 3.67 M/uL (4.70-6.10); White Blood Count 3.87 K/ul (4.8-10.8)
[2022-10-31 09:30] LABS: BUN Creatinine Ratio 10.3 (10-20); Creatinine Clr Calc Pharmacy 27.5 ml/min; Est GFR (African American) 25.2 ml/min; Est GFR (Non-African American) 21.7 ml/min
--- NOTE | 2022-10-31 09:30 | Palliative Care Consultation ---
Date of Consultation October 31, 2022 Assessment & Plan (1) Palliative care by specialist: Met with pt, provided overview of Palliative Medicine, a subspecialty that provides specialized medical care for people living with a serious illness by offering a focus on quality of life. Palliative Medicine is often conflated with hospice: I advised patient/family that Palliative and hospice can be partners but we are not the same. It is important to understand the difference so that we may be informed, and not afraid. Palliative Medicine works to improve QOL through reduction of symptom burden/more control over their illness, for both the patient and family. Palliative medicine clinicians are board certified, specially-trained and another member of the patient's medical care team. We often provide an extra layer of support because our care is based on the needs of the patient, not the prognosis; as such, it's appropriate at any age/advancing stage of a serious illness and can be provided along with curative treatment. Palliative Medicine clinicians are also trained in advanced communication methodologies, to facilitate complex discussions about advanced illness planning, which are needed to help assure that the treatment choices match the patient's goals, aka delivering Goal Concordant care. Finally, we discussed that hospice is a visiting nurse service that focuses on care delivered at the very end of life for patients with terminal illness, with life expectancy less than 6 month. (2) Advanced care planning/counseling discussion: Met face to face with patient, his sister/HCP and his niece (sister's daughter) at bedside for 45min. We reviewed that all chronic/progressive disease has a declining trajectory over time where facets of patient self-identity and independence are lost. Every acute event leads to a further decline, resulting- many times, in a new baseline. Advised that the greatest priority is to determine what matters most to pt, then family and to develop a plan of care that is aligned with those priorities. Advance illness planning conversations are conducted to review goals and expectations, support shared decision-making, and engage in disease specific advance care planning. This type of advance care planning is sometimes referred to as 'preparedness planning. It is used to review the risks and benefits of offered therapy, elicit and deepen understanding of the underlying illness and therapeutic options, ensure adequate psychosocial support, address existential concerns and coping, and engage in end-of-life planning. Preparedness planning is not meant to replace informed consent discussions. Palliative medicine plays a role in the process of deepening a patients understanding of this specific medical intervention and ensuring this treatment aligns with their goals of care remains a central tenet of the planning conversation. Dr. De Leon joined for part of the discussion and advised pt and sister his heart rhythm is more regular and Coumadin would be the PO option but pt was saying no then yes then no twice more. He is still delirious and neuro consult is pending. Pt says do whatever is necessary" and sister feels everything should be done because she perceives he was well before the decline started in August. He is not decisional at this time and cannot follow a discussion. He is tangential and has wandering thoughts. Sister is surrogate decision maker. Patient was able to indicate "she's the boss, she's the only one you talk to." He is reportedly estranged from his 3 adult children and none of them could be reached successfully. 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 Thank you for allowing us to participate in the ongoing care of this patient. Please don't hesitate to call or page with any additional concerns. Dr. Mayte Fenton DNP Director, Palliative Care History of Present Illness Reason for Consultation: Goals of care Attending Physician: Ayla Lopez MD History of Present Illness Amaury is a 57yo male admitted 10/24/22 from home with a 3 month complaint of worsening cough, fatigue and dyspnea. He reported 3 mos of "flu-like illness" with severe sinus congestion, persistent weakness and fatigue. He made an appointment with [facility] clinic 10/24/22 and on arrival, was found to be in atrial fibrillation with rapid ventricular response prompting referral to the emergency department. He has a hx of liver txp for ETOH abuse induced cirrhosis at [place] approx 6 years ago. He is an active smoker, +HTN, +advanced CKD4, bordering on CKD 5and continues to actively drink ETOH after his liver txp for ETOH cirrhosis. Amaury reported being sober however EPIC review indicates [facility] ED visit in July 2022 for acute alcohol intoxication, fall, and hand laceration that required suturing. CT abd/pelvis with kidneys that are atrophic and without hydronephrosis Chest CT 10/24/2022: Interstitial thickening appreciated bilaterally upper lobes, patchy opacities also appreciated bilateral upper and lower lobes Traction bronchiectasis upper lobes, bronchiectasis bilateral lower lobes Small bilateral pleural effusion Cardiomegaly Minimal mediastinal lymphadenopathy 2D echo 10/25/2022: EF 40-45%, RV mildly dilated, RV systolic function is moderately reduced, moderate aortic stenosis, moderate circumferential pericardial effusion He has a hx of medical non adherence, reporting he self dc carvedilol, furosemide and hydralazine over 3 months ago "because he ran out and have never been told what those medications are for." He states he has continued taking MMF and Prograf. He has not had routine transplant labs done in over a year due to reported transportation problems from home in [facility] to [facility] [place]. 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 Autoimmune workup in progress. Chest imaging suggests probable interstitial lung disease versus fibrosis, and admission further complicated by new onset A fib with RVR, CHF, Ao stenosis on echo/moderate Extensive chart review indicates pt has not been cooperative with providers in nearly all discussions attempted. Palliative Medicine was consulted to assist with clarifying the goals of care for this very complicated patient. Allergies Allergy/AdvReac Type Severity Reaction Status Date / Time No Known Allergies Allergy Unverified 10/24/22 12:02 Home Medications Medication Instructions Recorded Confirmed Type carvedilol 12.5 mg tablet 0 mg PO BID 10/24/22 10/24/22 History cyanocobalamin (vitamin B-12) 0 mcg PO DAILY 10/24/22 10/24/22 History 1,000 mcg tablet folic acid 1 mg tablet 0 mg PO DAILY 10/24/22 10/24/22 History furosemide 20 mg tablet 0 mg PO DAILY 10/24/22 10/24/22 History hydralazine 10 mg tablet 0 mg PO TID 10/24/22 10/24/22 History mycophenolate mofetil 500 mg tablet 500 mg PO BID 10/24/22 10/24/22 History tacrolimus 1 mg capsule, 3 mg PO Q12H 10/24/22 10/24/22 History immediate-release thiamine HCl (vitamin B1) 100 mg 100 mg PO DAILY 10/24/22 10/24/22 History tablet Patient History Medical History Advanced care planning/counseling discussion Calcineurin inhibitor causing toxicity in therapeutic use Progressive CKD in part due to 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 Palliative care by specialist Tobacco use Surgical History Liver transplant status Family History Other Diabetes Heart disease Social History Smoking Status: Never smoker Hx Alcohol Use: No Hx Substance Use: No Preferred Language: [place] Communication Ability: Effective Practical Nursing Instructor Required: No Beliefs That Will Affect Care: None Current Living Situation: Alone Feels Safe at Home: Yes Assistive Devices: None Review of Systems Review of Systems: Other (pt refused to answer) Physical Exam Constitutional: WD/WN, vitals as above Eyes: PERRL, conjunctivae normal, anicteric sclerae ENMT: Mouth: + dry oral mucous membranes and + poor dentition Neck: normal visual inspection and trachea midline Thyroid: normal thyroid Respiratory: normal respiratory effort and able to speak in complete sentences Auscultation: + diminished lung sounds and + rhonchi Cardiovascular: Rate/Rhythm: + irregularly irregular Gastrointestinal (Abdomen): Percussion/Palpation: + abdomen tender and + guarding Musculoskeletal: Head/Neck/Chest: + head abnormal to inspection and neck supple Skin: + turgor decreased Neurologic: alert to self. date is january. year unsure. place "I don't F know" Psychiatric: Orientation: oriented to person Affect: + anxious affect and + labile affect Mood: + anxious mood and + dysphoric mood Thought Process: + tangential thought process, + flight of ideas and + looseness of associations Insight: + impaired insight Judgment: + impaired judgement Results & Data Vital Signs (Past 12 Hours) Vital Signs Temp Pulse Pulse Resp BP Pulse Ox O2 Del Method 10/31/22 07:45 36.4 C L 110 H 22 128/79 95 Room Air 10/31/22 07:23 137 H 10/31/22 03:52 36.7 C 112 H 18 135/78 96 Room Air 10/30/22 23:00 102 H 10/30/22 22:54 117 H 20 124/77 98 Room Air Laboratory Results data reviewed, see HPI Diagnostic Findings data reviewed, see HPI PG Care Time/CCT Total # of Minutes Spent Total Time Spent: 90 Total Time Spent with Patient: Total time spent is greater than 50% in coordination of care (as documented) at patient's floor/unit and/or counseling patient: [place] [address] INT INP/OBS CARE 2/55MIN Patient Type New Medical Decision Making High Complexity Diagnoses Palliative care by specialist Z51.5 Advanced care planning/counseling discussion Z71.89 New onset atrial fibrillation I48.91 ETOH abuse F10.10 Other abnormal clinical finding R68.89 Liver transplant status Z94.4 Dyspnea and respiratory abnormalities R06.00; R06.89 CKD (chronic kidney disease) stage 4, GFR 15-29 ml/min N18.4 Tobacco use Z72.0 Calcineurin inhibitor 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
--- NOTE | 2022-10-31 10:28 | Neurology Consultation ---
Date of Consultation October 31, 2022 Assessment & Plan (1) Acute metabolic encephalopathy: Plan NEUROLOGY CONSULTATION Assessment & Plan: Impression: pt with multiorgan failure and liver disease and CHF and ALEX. pt's episodic confusion is multifactorial and expected changes as his overall condition deteriorates. Likely Hepatorenal syndrome/encephalopathy. Recommendations: -not much to add from neurology at this point. continue supportive care. agree with palliative care. poor prognosis avoid hypotension and sedative meds. no further neurological work up needed. will sign off. Dr. Milan Ortega MD [facility] Neurology Chief Complaint: confusion History of Present Illness: pt with known liver transplant and noncompliant to medical therapy and alcohol abuse. pt with general feeling ill and was admitted for ongoing medical management. pt with episodic confusion. mri brain negative. this morning pt is fully awake and making jokes. chart reviewed. Admission/Initial HPI documentation: Amaury is a 57yo male admitted 10/24/22 from home with a 3 month complaint of worsening cough, fatigue and dyspnea. He reported 3 mos of "flu-like illness" with severe sinus congestion, persistent weakness and fatigue. He made an appointment with [facility] clinic 10/24/22 and on arrival, was found to be in atrial fibrillation with rapid ventricular response prompting referral to the emergency department. He has a hx of liver txp for ETOH abuse induced cirrhosis at [place] approx 6 years ago. He is an active smoker, +HTN, +advanced CKD4, bordering on CKD 5and continues to actively drink ETOH after his liver txp for ETOH cirrhosis. Amaury reported being sober however EPIC review indicates [facility] ED visit in July 2022 for acute alcohol intoxication, fall, and hand laceration that required suturing. CT abd/pelvis with kidneys that are atrophic and without hydronephrosis Chest CT 10/24/2022: Interstitial thickening appreciated bilaterally upper lobes, patchy opacities also appreciated bilateral upper and lower lobes Traction bronchiectasis upper lobes, bronchiectasis bilateral lower lobes Small bilateral pleural effusion Cardiomegaly Minimal mediastinal lymphadenopathy 2D echo 10/25/2022: EF 40-45%, RV mildly dilated, RV systolic function is moderately reduced, moderate aortic stenosis, moderate circumferential pericardial effusion He has a hx of medical non adherence, reporting he self dc carvedilol, furosemide and hydralazine over 3 months ago "because he ran out and have never been told what those medications are for." He states he has continued taking MMF and Prograf. He has not had routine transplant labs done in over a year due to reported transportation problems from home in [facility] to [facility] in [place]. 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 - high index suspicion for Pneumoconiosis. Autoimmune workup in progress. Past Medical History: See chart Meds: See chart I personally reviewed all of the medications Social & Family History: See chart Review of Systems: Per initial HPI on admission. Physical Exam: GEN: NAD HEENT: Normocephalic Neuro: Mental status:A & O x 3. had to guess the month. knew year, not sure of the name of the hospital. no left/rt confusion. make is making jokes and sometimes using inappropriate language towards this provider. No dysarthria or aphasia.No neglect. Fluent speech. No apraxia Cranial Nerves:II-XII intact Motor:Normal bulk and tone,5/5 strength x 4 extremities Coordination:Intact Chart reviewed I have spent more than 50% educating patient about potential diagnosis and neurological evaluation and coordinating care with patient's treatment team. Total time spent (including chart review and coordination of care): 80 min (this includes chart review). History of Present Illness Attending Physician: Ayla Lopez MD Allergies Allergy/AdvReac Type Severity Reaction Status Date / Time No Known Allergies Allergy Unverified 10/24/22 12:02 Home Medications Medication Instructions Recorded Confirmed Type carvedilol 12.5 mg tablet 0 mg PO BID 10/24/22 10/24/22 History cyanocobalamin (vitamin B-12) 0 mcg PO DAILY 10/24/22 10/24/22 History 1,000 mcg tablet folic acid 1 mg tablet 0 mg PO DAILY 10/24/22 10/24/22 History furosemide 20 mg tablet 0 mg PO DAILY 10/24/22 10/24/22 History hydralazine 10 mg tablet 0 mg PO TID 10/24/22 10/24/22 History mycophenolate mofetil 500 mg tablet 500 mg PO BID 10/24/22 10/24/22 History tacrolimus 1 mg capsule, 3 mg PO Q12H 10/24/22 10/24/22 History immediate-release thiamine HCl (vitamin B1) 100 mg 100 mg PO DAILY 10/24/22 10/24/22 History tablet Patient History Medical History Advanced care planning/counseling discussion 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 Palliative care by specialist Tobacco use Surgical History (Updated 10/25/22 @ 01: by Gen Dailey MD) Liver transplant status Family History Other Diabetes Heart disease Social History Smoking Status: Never smoker Do You Dip or Chew Tobacco: Yes; Hx Alcohol Use: No Hx Substance Use: No Preferred Language: Albanian Communication Ability: Effective Traffic Observer Required: No Beliefs That Will Affect Care: None Current Living Situation: Alone Feels Safe at Home: Yes Safety Concerns: Feels Safe At This Time Assistive Devices: None Results & Data Vital Signs (Past 12 Hours) Vital Signs Temp Pulse Pulse Resp BP Pulse Ox O2 Del Method 10/31/22 07:45 36.4 C L 110 H 22 128/79 95 Room Air 10/31/22 07:23 137 H 10/31/22 03:52 36.7 C 112 H 18 135/78 96 Room Air 10/30/22 23:00 102 H 10/30/22 22:54 117 H 20 124/77 98 Room Air
--- NOTE | 2022-10-31 11:57 | Nephrology Progress Note ---
Date of Service October 31, 2022 Assessment & Plan (1) CKD (chronic kidney disease) stage 4, GFR 15-29 ml/min: Plan: Advanced CKD4, bordering on CKD 5 with stable renal function past 4 days or so His last baseline creatinine was 1.7 two years ago and he already has bilateral atrophic kidneys so current changes are chronic not acute kidney failure. Crackles on exam possibly related with ILD. His renal prognosis is not good and is heading towards dialysis. He will need regular Nephrology care in [place]. All of that said, renal function improved dramatically with IV fluid; with urine output up trending to 700 mL daily yesterday, out of prior oliguric range -Changed normal saline to D5 water with 150 mill equivalents sodium bicarbonate at 125 mL hourly due to ongoing/worsening non-anion gap metabolic acidosis Continue Daily renal panel + LFT - Avoid BAILEY or ARB at this time. >>recommend primary service contact [facility] transplant program to update them on his liver transplant status and for guidance on recommended tacrolimus dosing, what f/u they prefer etc; may need to connect him w/ local toll bridge attendant for f/u.; He was admitted with 3 mg bid FK dose, which is rather high for a liver transplant---Prograf level was quite high at 19 ( although not exactly 12 hr trough). However his ex claims he was taking 3 mg daily and that too he would forget quite often. Prograf trough level takes more than 5 days in our hospital so it is not really possible to establish the dosing. for now will use 2 in AM and 1 in PM from 10/30 on Patient does not want to be in [facility] where the level can come quick. He does not want to go back to [place]. >> Continue current doses of tacrolimus and mycophenolate. Neurotoxicity from mycophenolate is extremely rare. Do not stop mycophenolate. Did go ahead and order tacrolimus trough on new dose; not clear how clinically useful this will be given delay in its posting but we will only know that in hindsight so I have ordered it -low mag this admission and again on labs this morning; he is on oral magnesium and missed October 29 and doses; will recheck in the morning no further supplementation. He did have his dose this morning Unexplained encephalopathy October 28 and particularly -Palliative med is being consulted to decide about the level of care. It seems patient has almost given up and does not want to do anything now. >>consider psych consult / close OP follow up for depression Continue metabolic evaluation for encephalopathy did discuss abdominal exam w/ Dr Lopez who is considering abdominal imaging/further eval Admission and Anticipated Discharge Date Admission Date: October 24, 2022 Subjective no interval events. different friends/family at bedside today. they tell me his abdomen has been quite sore. pt more conversant but still not really able to give ROS Review of Systems Review of Systems: Unobtainable due to reduced consciousness Physical Exam Constitutional: well developed and well nourished; no acute distress Eyes: EOM intact bilaterally ENMT: Ears: no external ear abnormality Nose: no external nose abnormality Mouth: + dry oral mucous membranes Neck: no nuchal rigidity Respiratory: normal respiratory effort Auscultation: + diminished lung soun ds Cardiovascular: Rate/Rhythm: + tachycardic and + irregularly irregular Extremities: no edema Gastrointestinal (Abdomen): Inspection/Auscultation: normal bowel sounds Percussion/Palpation: + abdomen tender (marked diffuse), + guarding and abdomen soft Musculoskeletal: Extremities: strength 5/5 throughout Skin: no rashes, warm and dry Psychiatric: Orientation: alert and oriented to person; + not oriented x 3 Eye Contact: + fair eye contact Speech: normal rate/rhythm/volume of speech (when he does speak which is limited but generally appropriate) Results & Data Vital Signs (Past 12 Hours) Vital Signs Temp Pulse Pulse Resp BP Pulse Ox O2 Del Method 10/31/22 11:29 36.5 C 100 H 20 127/81 95 Room Air 10/31/22 08:00 109 H 10/31/22 07:45 36.4 C L 110 H 22 128/79 95 Room Air 10/31/22 07:23 137 H 10/31/22 03:52 36.7 C 112 H 18 135/78 96 Room Air Laboratory Results 10/31/22 07:20 10/31/22 07:20
[2022-10-31] MEDS: OLANZAPINE 2.5 MG TAB PO SCH ×2 (12:23→12:27)
[2022-10-31] MEDS: SODIUM BICARBONATE 8.4% 150 MEQ in DEXTROSE 5% 1,000 ML IV SCH ×2 (12:57→21:50)
--- NOTE | 2022-10-31 13:01 | Cardiology Progress Note ---
Date of Service October 31, 2022 Assessment & Plan (1) ALEX (acute kidney injury): (2) New onset atrial fibrillation: (3) Pulmonary edema: (4) Liver transplant status: (5) Pericardial effusion: (6) Aortic stenosis: Plan: (1) ALEX (acute kidney injury): Plan: - Creatinine 2.27 --> 2.52--> 3.02-->3.67 --> 3.91 --> 3.80 mg/dl -->3.68 -->3.02 Patient examines volume overloaded with crackles suggestive of possible interstitial lung disease versus pulmonary edema. He has not hypoxic. No conversational dyspnea orthopnea. Consider discontinuation of IV fluid if p.o. intake is adequate. Will defer trial of diuretic therapy to nephrology at this time. (2) New onset atrial fibrillation: Plan: -Fair rate control -Continue low-dose metoprolol tartrate and IV heparin. -Currently, patient declining possibility of long-term anticoagulation (3) Pulmonary edema: Plan: - Chest x-ray, CT of the chest suggestive of pulmonary edema, perhaps underlying interstitial lung disease -Echo with LVEF 40-45%, moderate , moderate RV systolic dysfunction -Nephrology input noted and appreciated-diuretics currently on hold (4) HTN (hypertension): Plan: - Metoprolol. BP stable. (5) Liver transplant status: Plan: - Per primary service is placing him back on his immunosuppressive therapy. Prograf dose being adjusted with the assistance of nephrology. (6) Pericardial effusion: Plan: - Small to moderate pericardial effusion noted on CT of the chest and echo without tamponade. Blood pressure stable. Monitor. (7) Aortic stenosis: Plan: - Moderate aortic stenosis. Treatment as noted above. (8) Delirium -Mental status improved today. More alert. Ammonia level within normal limits on 10/29. No focal neurological deficits Admission and Anticipated Discharge Date Admission Date: October 24, 2022 Subjective Patient seen and examined at the bedside. More alert today. Somewhat uncooperative. Family and palliative care physician at bedside. Patient denies chest pain, shortness of breath, or palpitations. Serum creatinine improving. Patient continues to receive gentle IV fluid. Review of Systems Review of Systems: Unobtainable due to mental health condition Physical Exam Constitutional: + ill appearing; no acute distress Respiratory: no respiratory distress and no labored breathing Auscultation: + crackles (Bilateral) and + rales (Bilateral); no wheezes Cardiovascular: Rate/Rhythm: + irregularly irregular Heart Sounds: normal S1 and normal S2; no murmur Vessels: radial pulses present; no JVD and no carotid bruit Extremities: no edema Neurologic: CN's II-XI intact bilaterally and moves all extremities; no focal motor deficits Results & Data Vital Signs (Past 12 Hours) Vital Signs Temp Pulse Pulse Resp BP Pulse Ox O2 Del Method 10/31/22 11:29 36.5 C 100 H 20 127/81 95 Room Air 10/31/22 08:00 109 H 10/31/22 07:45 36.4 C L 110 H 22 128/79 95 Room Air 10/31/22 07:23 137 H 10/31/22 03:52 36.7 C 112 H 18 135/78 96 Room Air Laboratory Results Coagulation 10/31/22 Range/Units 07:18 APTT 56.7 H* (21.0-31.0) Seconds CBC 10/31/22 Range/Units 07:20 WBC 3.87 L (4.8-10.8) K/ul RBC 3.67 L (4.70-6.10) M/uL Hgb 10.6 L (14.0-18.0) g/dl Hct 32.3 L (42.0-52.0) % Plt Count 135 (130-400) K/uL Neut # (Auto) 2.43 (1.40-6.50) K/uL Lymph # (Auto) 0.91 L (1.2-3.4) K/uL Wheeler # (Auto) 0.41 (0.11-0.59) K/uL Eos # (Auto) 0.08 (0-0.50) K/uL Baso # (Auto) 0.03 (0-0.2) K/uL Comprehensive Metabolic Panel 10/31/22 Range/Units 07:20 Sodium 136 (136-145) mmol/L Potassium 5.4 H (3.5-5.1) mmol/L Chloride 110 H (98-107) mmol/L Carbon Dioxide 18 L (21-32) mmol/L BUN 31 H (6-23) mg/dl Creatinine 3.02 H D (0.6-1.4) mg/dl Glucose 81 (70-99(Fasting)) mg/dl Calcium 8.8 (8.6-10.3) mg/dl Intake and Output 10/30/22 10/31/22 10/31/22 22:59 06:59 14:59 Intake Total 1052.234 / 2257.834 986.667 / 2257.834 649.067 / 649.067 Output Total 200 / 400 200 / 400 Balance 852.234 / 1857.834 786.667 / 1857.834 649.067 / 649.067 Intake: IV 1052.234 / 2257.834 986.667 / 2257.834 649.067 / 649.067 Heparin Sodium/Dextrose 25,000 225.567 / 444.500 98.4 / 98.4 units In 500 ml @ 800 UNITS/HR 16 mls/hr IV .Q24H [facility] Rx#: [id number] Sodium Chloride 0.9% 1000ML 1, 826.667 / 1813.334 986.667 / 1813.334 550.667 / 550.667 000 ml @ 80 mls/hr IV .[id number] [facility] Rx#:[id number] Output: Urine Amount (Catheter) 200 / 400 200 / 400 Horner/Indwelling 200 / 400 200 / 400 Other: Weight 86 kg Weight Measurement Method Built in [facility]
--- NOTE | 2022-10-31 14:37 | Pulmonology Progress Note ---
Date of Service October 31, 2022 Assessment & Plan (1) Pulmonary edema: (2) SOB (shortness of breath): (3) New onset atrial fibrillation: (4) Tobacco use: (5) Liver transplant status: (6) Abnormal chest CT: Plan Attending: Dr. Fuentes Impression: 57-year-old male [place]/24/2022 from [place] with shortness of breath, fatigue and cough. Imaging reveals probable traction bronchiectasis in the upper lobes as well as bronchiectasis in the bilateral lower lobes. Trace pleural effusions. Minimal mediastinal lymphadenopathy. Probable infectious process. Patient is unresponsive today but is awake. No acute distress or use of accessory muscles. Patient unable to participate in interview and examination. Recommendations: 1. Exertional shortness of breath: * Certainly multifactorial. Probable interstitial lung disease versus fibrosis. Patient with bronchiectasis as seen on CT scan * Patient also with new onset atrial fibrillation with RVR with congestive heart failure. * Echocardiogram also reveals moderate aortic stenosis. * Patient with elevated proBNP on admission * Continue to maintain SaO2 between 88 and 92% * Continue to treat congestive heart failure 2. Abnormal CT with probable infectious process: * Continue with antibiotics. * Procalcitonin was 0.16 on admission and the nasal MRSA was negative. * Due to groundglass opacities on CT scan we will treat for 5 to 7 days and stop * Patient is a smoker. Also had exposure in the [place] with the . * Follow-up outpatient after discharge. * Patient also with bronchiectasis. Would encourage pulmonary toilet and flutter valve. If unable to clear sputum, consider Pneumovax. * Outpatient follow-up for ILD/pulmonary fibrosis * Bronchoscopy at this time due to moderate aortic stenosis and decreased ejection fraction. 3. Tobacco abuse history: * Patient really is not cooperative with discussion regarding tobacco due to cognitive status * [id number] smoking history * If patient improves from a metabolic standpoint, continue to encourage tobacco abstention Thank you for including us in the care of this patient. Pulmonary medicine will sign off at this time. Admission and Anticipated Discharge Date Admission Date: October 24, 2022 Subjective Patient seen and evaluated today. He is pleasantly confused. Offers no complaints at this time. Review of Systems Review of Systems: Offers no complaints. Physical Exam Physical Exam: VITAL SIGNS - Vital signs and nursing notes were reviewed. GENERAL - 57-year-old male appearing his stated age who is in no acute distress. Pleasantly confused. NOSE - Midline and without cyanosis. MOUTH/OROPHARYNX - Without perioral cyanosis. NECK - Neck with FROM. LUNGS - Auscultation reveals no wheezes, rales, or rhonchi noted. CARDIAC - RRR with S1/S2. No murmur, rubs, or gallops appreciated. ABDOMEN - BS normoactive all four quadrants. No tenderness, palpable masses, or ascites noted. EXTREMITIES - No pretibial edema present. +3/5 radial palpated throughout. PSYCH - A&Ox3 and cooperates fully with examiner. Pt is very pleasant and interacts well with examiner. Results & Data Results & Data Vital Signs (Past 12 Hours) Vital Signs Temp Pulse Pulse Resp BP Pulse Ox O2 Del Method 10/31/22 11:29 36.5 C 100 H 20 127/81 95 Room Air 10/31/22 08:00 109 H 10/31/22 07:45 36.4 C L 110 H 22 128/79 95 Room Air 10/31/22 07:23 137 H 10/31/22 03:52 36.7 C 112 H 18 135/78 96 Room Air PG Care Time/CCT Total # of Minutes Spent Total Time Spent with Patient: Total time spent is greater than 50% in coordination of care (as documented) at patient's floor/unit and/or counseling patient: Coding Level of Care Code 30566 SUB INP/OBS CARE 2/35MIN Diagnoses Pulmonary edema J81.1 SOB (shortness of breath) R06.02 New onset atrial fibrillation I48.91 Tobacco use Z72.0 Liver transplant status Z94.[address] R93.89
[2022-10-31] MEDS ORDERED: LORazepam 2 MG/1 ML VIAL IV STA (14:58)
[2022-10-31] MEDS: THIAMINE HCL 100 MG in SYRINGE 9 ML IV SCH (16:15)
[2022-10-31] MEDS: FOLIC ACID 1 MG in SYRINGE 9.8 ML IV SCH (16:15)
--- NOTE | 2022-10-31 18:29 | Hospitalist Progress Note ---
Date of Service October 31, 2022 Assessment & Plan (1) Acute metabolic encephalopathy: Plan: He has been more confused for the last day or 2 Multifactorial-ALEX, deteriorating CHF, multiorgan failure, medications Discussed with the significant other-he has been almost like this at home for the last few days. He has been very noncompliant with medications and has not been seen his doctors for a while. Given does not take his medication regularly. CT of the head did not show any acute events Abdominal ultrasound did not show much ascites We will hold his tacrolimus for now and give a small amount of intravenous fluid Prognosis remains poor Condition is worsened today-ammonia level has been unremarkable Will DC CellCept and tacrolimus was DC'd yesterday Trying to get the number of sister to update her and also get recommendation for continued care from here Discussed with the sister in detail on 10/29/2022 and [id number] on 10/30/2022 in presence of the patient He was talking occasionally during her presence-looked very depressed and confused Awaiting palliative input and recommendation We will get a neuro consult as per the sister Appreciate neuro consult and recommendation. Appreciate palliative care consult and recommendation Further information from PCP and transplant service in [place] Case discussed with Shannon Gracia #[phone] (the phone number for transplant team is [phone]) at the transplant center in [facility] He has been continuing to drink after transplant and has not been seen by the transplant team since his transplant team for follow-up Has been very noncompliant with medication and is still he has been getting Prograf and CellCept regularly from the facility He has [facility] [place] and following that he was transferred to the hospital with A-fib and RVR and shortness of breath His current condition of acute confusion and altered responsiveness could be due to medications and could be multifactorial as mentioned in neurological note He could have alcohol withdrawal issues as well No further recommendation from the transplant service other than continue the current care (2) SOB (shortness of breath): (3) HTN (hypertension): (4) Tobacco use: (5) History of alcohol use: Plan: Has been using alcohol even after liver transplant Symptom related to alcohol withdrawal as well (6) Liver transplant status: (7) ALEX (acute kidney injury): (8) New onset atrial fibrillation: Plan This is a 57-year-old male with PMH of history of heavy alcohol use and cirrhosis status post liver transplant at [facility] 6 years ago, hypertension, tobacco use who presents from [facility] clinic due to cough, fatigue and shortness of breath for the past 3 months. Exertional dyspnea Cough Unintentional weight loss [place] poorly over the past 3 months but did not seek medical attention until today. Of note, did self-stop taking carvedilol, lasix and hydralazine 3 months ago. Is only taking Prograf and CellCept once a day (prescribed Q12) No leukocytosis, covid and PCR negative, lyme negative, anaplasma DNR pending Chest CT with: * 1. Ground glass consolidation is seen throughout both lungs with associated intralobular septal thickening and a "crazy paving" appearance. This is nonspecific, and could be seen with pulmonary edema, multifocal pneumonia, pulmonary hemorrhage, and/or possibly drug induced lung disease. Clinical correlation will be essential. Correlate with any prior outside imaging studies. Radiographic follow-up to resolution is recommend. * 2. Cardiomegaly noting a [id number] pericardial effusion * 3. Trace pleural effusions Denies history of CHF but cardiomegaly, pulm edema - will obtain 2D echo for further evaluation, give 20mg IV Lasix in ED. Discussed case with Dr. Edmonds who will evaluate Dr. Bryant reviewed CT chest imaging and feels consistent with pulm edema Was started with cefepime and Vanco-Vanco was discontinued with negative MRSA swab Will add doxycycline to cover atypicals Clinically much better and denies any other symptoms We will continue current management and repeat x-ray in a day or 2 If condition gets worse will involve pulmonary No issues with shortness of breath and has been saturating normally on room air Repeat chest x-ray did not show any change-we will get pulmonary involvement Appreciate pulmonary input and recommendation Has been saturating normally on room air-continue antibiotic for now Saturating normally on room air New onset A fib A fib with RVR in 120s on EKG, no known history Stopped taking carvedilol 3 months ago - HR now 110s on monitor, giving PO Lopressor dose Starting IV heparin per discussion with Dr. Edmonds Appreciate cardiology input and recommendation Echo of the heart showed: Moderate concentric LVH with mild global hypokinesis of the left ventricle EF of 40 to 45%, biatrial enlargement, moderate valvular aortic stenosis, mild aortic regurgitation, mild mitral regurgitation and mild tricuspid regurgitation, there is a small to moderate size circumferential pericardial effusion Denies any cardiac symptoms-his rate remains controlled Reverted to sinus rhythm and rate is running around 90s with first-degree AV block Heart rate has been around 115 Acute kidney injury, unknown baseline Cr of 2.27 today (last Cr 1.7 in [facility] from October 2020) CT abd/pelvis with kidneys that are atrophic and without hydronephrosis Appears volume overloaded, giving 20mg IV lasix Appreciate nephrology input and recommendation Will have Lasix 40 mg IV twice daily for more diuresis Creatinine went up and Lasix is on hold today Kidney function has been getting worse-diuretics is on hold since yesterday morning Creatinine remains elevated but minimally improved as of yesterday Creatinine is minimally improved-continue minimal amount IV fluid Creatinine remains stable at 3.[address] chest Small-moderate pericardial effusion noted Adequate BP, normal heart sounds - low concern for tamponade at this time, cont close monitoring 2D echo pending -as above with a small pericardial effusion H/o etoh cirrhosis s/p liver transplant 6 years ago Liver transplant at [facility] in [place], is only taking Prograf and CellCept once a day (prescribed Q12) Has not had labwork in over a year Still drinking etoh but denies use in past 4 months Small ascites on imaging, A&Ox3, INR 1.2 Will get Prograf and CellCept level Outpatient appointment with the transplant team on discharge Has had acute confusion transiently last night-we will check ammonia level tomorrow Discussed with the transplant service in [place]-current change in mental status could be due to restarting Prograf and CellCept and also reflect alcohol withdrawal and multiorgan failure as mentioned above We will be happy to follow of the patient following discharge from the hospital Current dose of Prograf and CellCept will be continued HTN Previously taking carvedilol, hydralazine but not currently taking. Appreciate cardiology recs Tobacco use Recommend cessation DVT Ppx: IV heparin Code status: FULL PCP: [facility] Dispo: Admitted to PCU Discussed with the significant other-the mother of his children Discussed with the sister in detail Admission and Anticipated Discharge Date Admission Date: October 24, 2022 Subjective 10/25/2022 The patient was seen and examined in telemetry unit He has been feeling much better since admission Has generalized weakness but denies any other significant symptoms 10/26/2022 The patient was seen and examined in telemetry unit He has been feeling much better and denies any symptoms at rest No cough, fever and or chills no shortness of breath Has been saturating normally on room air 10/27/2022 The patient was seen and examined in telemetry unit He has been very weak and denies any other symptoms He has not had seen his liver transplant doctor for more than 6 years He gets his medications through mail and does not know who is prescribing it See his CT doctor in [place] occasionally Denies any palpitation, any chest pain or shortness of breath at rest 10/28/2022 The patient was seen and examined in telemetry unit He has been more confused today and has not been drinking or eating Minimal communication today, does not seems to be in any acute distress but lethargic 10/29/2022 The patient was seen and examined in telemetry unit He is worse today and has not been communicating Not being responding to vocal commands but wandering around with the eyes A little distress at rest Saturating normally on room air and remains hemodynamically stable 10/30/2022 The patient was seen and examined in telemetry unit He remains confused does not want to talk with a vacant look when asked a question This morning he was seen in presence of the sister He could not remember the name of the sister but he was happy to see her initially He mentioned that he is feeling fine 10/31/2022 The patient was seen and examined in telemetry unit He has been communicating but remains very confused and lethargic He does not want to eat and sometimes does not want to answer the questions Not been aggressive but later on noted to be very agitated Review of Systems Review of Systems: All systems reviewed and are unremarkable as noted below Respiratory: No cough and no shortness of breath Cardiovascular: Additional Comments: No palpitation and/or chest pain Physical Exam Physical Exam: Lying in bed with with little unsteady and has been communicating Constitutional: + ill appearing and average body habitus Eyes: PERRL, conjunctivae normal, anicteric sclerae ENMT: external ear and nose normal, oropharynx normal Neck: trachea midline, no thyromegaly Respiratory: no respiratory distress Auscultation: + diminished lung sounds and + crackles (Bibasilar crackles) Cardiovascular: Rate/Rhythm: not tachycardic and not irregularly irregular Heart Sounds: normal S1, normal S2 and + murmur Extremities: + edema (Trace edema bilaterally) Gastrointestinal (Abdomen): Inspection/Auscultation: normal bowel sounds; abdomen not distended Percussion/Palpation: abdomen soft; abdomen nontender Musculoskeletal: No acute arthritis involving any joint Neurologic: Alert and awake. Confused. Answering questions critically. Occasionally aggressive and trying to tear of the lines Psychiatric: A+Ox3, euthymic affect Lymphatic: no cervical or axillary lymphadenopathy Results & Data Results & Data Vital Signs (Past 12 Hours) Vital Signs Temp Pulse Pulse Resp BP Pulse Ox O2 Del Method 10/31/22 15:51 115 H 10/31/22 11:29 36.5 C 100 H 20 127/81 95 Room Air 10/31/22 08:00 109 H 10/31/22 07:45 36.4 C L 110 H 22 128/79 95 Room Air 10/31/22 07:23 137 H Laboratory Results Short CBC 10/31/22 Range/Units 07:20 WBC 3.87 L (4.8-10.8) K/ul Hgb 10.6 L (14.0-18.0) g/dl Hct 32.3 L (42.0-52.0) % Plt Count 135 (130-400) K/uL BMP 10/31/22 07:20 Sodium 136 Potassium 5.4 H Chloride 110 H Carbon Dioxide 18 L BUN 31 H Creatinine 3.02 H D Glucose 81 Calcium 8.8 Medications Administered Current Inpatient Medications Acetaminophen (Acetaminophen 325 Mg Tab) 650 mg PO Q4H PRN PRN Reason: Pain or Fever Stop: 11/23/22 17:55 Heparin Sodium/Dextrose (Heparin Sodium/Dextrose) 25,000 units in 500 mls @ 16 mls/hr IV .Q24H [facility]; Protocol Stop: 11/30/22 09:29 Last Admin: 10/31/22 09:30 Dose: 800 units/hr, 16 mls/hr Sodium Bicarbonate 150 meq/ (Dextrose) 1,150 mls @ 125 mls/hr IV .Q9H12M [facility] Stop: 11/30/22 11:59 Last Admin: 10/31/22 12:57 Dose: 125 mls/hr Folic Acid 1 mg/ Syringe 10 mls @ 5 mls/min IV QAM [facility] Stop: 11/30/22 14:59 Last Admin: 10/31/22 16:15 Dose: 5 mls/min Thiamine HCl 100 mg/ Syringe 10 mls @ 2 mls/min IV QAM [facility] Stop: 11/30/22 15:14 Last Admin: 10/31/22 16:15 Dose: 2 mls/min Magnesium Oxide (Magnesium Oxide 400 Mg Tab) 400 mg PO QAM [facility] Stop: 11/26/22 12:14 Last Admin: 10/31/22 07:26 Dose: 400 mg Metoprolol Tartrate (Metoprolol Tartrate 25 Mg Tab) 25 mg PO BID [facility] Stop: 11/28/22 20:59 Last Admin: 10/31/22 07:25 Dose: 25 mg Metoprolol Tartrate (Metoprolol Tartrate 1 Mg/Ml Vial) 2.5 mg IV Q6 PRN PRN Reason: Tachycardia Stop: 11/29/22 17:59 Last Admin: 10/31/22 07:23 Dose: 2.5 mg Mycophenolate Mofetil (Mycophenolate Mofetil 250 Mg Cap) 500 mg PO BID [facility] Stop: 11/28/22 20:59 Last Admin: 10/31/22 07:25 Dose: 500 mg Olanzapine (Ol[facility]apine 2.5 Mg Tab) [facility]: 11/30/22 11:14 Last Admin: 10/31/22 12:27 Dose: Not Given Ondansetron HCl (Ondansetron Inj 2 Mg/Ml 2 Ml Vial) 4 mg IV Q6H PRN PRN Reason: Nausea Stop: 11/23/22 17:55 Last Admin: 10/26/22 22:36 Dose: 4 mg Polyethylene Glycol (Polyethylene (Miralax) 17 Gm Pack) 17 gm PO DAILY PRN PRN Reason: Constipation Stop: 11/23/22 17:55 Tacrolimus (Tacrolimus 1 Mg Cap) 2 mg PO QAM [facility] Stop: 11/29/22 08:59 Last Admin: 10/31/22 07:25 Dose: 2 mg Tacrolimus (Tacrolimus 1 Mg Cap) 1 mg PO QPM [facility] Stop: 11/29/22 20:59 Last Admin: 10/30/22 20:26 Dose: Not Given Tamsulosin HCl (Tamsulosin Hcl 0.4 Mg Cap) 0.4 mg PO HS [facility] Stop: 11/26/22 20:59 Last Admin: 10/30/22 20:26 Dose: Not Given
[2022-10-31] MEDS: TAMSULOSIN HCL 0.4 MG CAP PO SCH (21:52)
[2022-10-31 23:32] LABS: Hematocrit (blood only) 32.8 % (42.0-52.0); Hemoglobin 10.8 g/dl (14.0-18.0)
[2022-11-01] MEDS: SODIUM BICARBONATE 8.4% 150 MEQ in DEXTROSE 5% 1,000 ML IV SCH (06:34)
[2022-11-01 07:47] LABS: Basophils # (auto) 0.02 K/uL (0-0.2); Basophils % (auto) 0.5 %; Eosinophils # (auto) 0.11 K/uL (0-0.50); Eosinophils % (auto) 2.6 %; Hematocrit (blood only) 29.9 % (42.0-52.0); Immature Granulocytes # (auto) 0.01 K/uL (0.01-0.20); Immature Granulocytes % (auto) 0.2 %; Lymphocytes # (auto) 0.78 K/uL (1.2-3.4); Lymphocytes % (auto) 18.3 %; Mean Corpuscular Hemoglobin 29.4 pg (25.0-34.0); Mean Corpuscular Hgb Conc 33.4 g/dL (32.0-36.0); Mean Corpuscular Volume 87.9 fL (80.0-100.0); Mean Platelet Volume 10.8 fL (9.4-12.4); Monocytes # (auto) 0.49 K/uL (0.11-0.59); Monocytes % (auto) 11.5 %; Neutrophils # (auto) 2.85 K/uL (1.40-6.50); Neutrophils % (auto) 66.9 %; Platelet Count 121 K/uL (130-400); RDW Coefficient of Variation 14.3 % (11.5-14.5); RDW Standard Deviation 45.5 fL (36.4-46.3); White Blood Count 4.26 K/ul (4.8-10.8)
[2022-11-01 08:00] LABS: BUN Creatinine Ratio 9.6 (10-20); Calcium 8.9 mg/dl (8.6-10.3); Creatinine Clr Calc Pharmacy 28.5 ml/min; Est GFR (African American) 26.2 ml/min; Est GFR (Non-African American) 22.6 ml/min; Magnesium 1.4 mg/dl (1.7-2.4); Potassium 4.6 mmol/L (3.5-5.1)
[2022-11-01 08:25] LABS: Partial Thromboplastin Ratio 1.2; Partial Thromboplastin Time 34.3 Seconds (21.0-31.0)
[2022-11-01] MEDS: THIAMINE HCL 100 MG in SYRINGE 9 ML IV SCH (09:29)
[2022-11-01] MEDS: OLANZAPINE 2.5 MG TAB PO SCH (09:30)
[2022-11-01] MEDS: METOPROLOL TARTRATE 25 MG TAB PO SCH ×2 (09:30→21:04)
[2022-11-01] MEDS: FOLIC ACID 1 MG in SYRINGE 9.8 ML IV SCH (09:30)
[2022-11-01] MEDS: MAGNESIUM OXIDE 400 MG TAB PO SCH ×2 (09:30→21:05)
[2022-11-01] MEDS: MYCOPHENOLATE MOFETIL 250 MG CAP PO SCH ×2 (09:30→21:04)
[2022-11-01] MEDS: TACROLIMUS 1 MG CAP PO SCH ×2 (09:30→21:08)
--- NOTE | 2022-11-01 11:10 | Nephrology Progress Note ---
Date of Service November 01, 2022 Assessment & Plan (1) CKD (chronic kidney disease) stage 4, GFR 15-29 ml/min: Plan: Advanced CKD4, bordering on CKD 5 with stable renal function past 4 days or so His last baseline creatinine was 1.7 two years ago and he already has bilateral atrophic kidneys so current changes are chronic not acute kidney failure. Crackles on exam possibly related with ILD. His renal prognosis is not good and is heading towards dialysis. He will need regular Nephrology care in [place]. All of that said, renal function improved dramatically with IV fluid; UOP has dropped off a bit -Changed bicarb gtt to LR at 80 ml/hr Continue Daily renal panel + LFT - Avoid BAILEY or ARB at this time. >>primary service has contacted [facility] transplant program to update them on his liver transplant status; long hx of noncompliance w/ meds and f/u per Dr Lopez's discussion w/ liver txplt. family corroborates noncompliance >>Prograf trough level takes more than 5 days in our hospital so it is not really possible to establish the dosing. for now will use 2 in AM and 1 in PM from 10/30 on; did order tac trough 10/30 PM which is\will be pending >> Continue current doses of tacrolimus and mycophenolate. Neurotoxicity from mycophenolate is extremely rare. Do not stop mycophenolate. AWait tacrolimus trough on new dose; not clear how clinically useful this will be given delay in its posting but we will only know that in hindsight so I have ordered it -low mag this admission and again on labs yesterday, this morning; he is on oral magnesium and missed October 29 and doses; getting 2 gm IV mag today and had daily dose past 2 days including today >>> increased po mag to 200 mg bid Unexplained encephalopathy October 28 and particularly -Palliative med is being consulted to decide about the level of care. It seems patient has almost given up and does not want to do anything now. >>consider psych consult / close OP follow up for depression Continue metabolic evaluation for encephalopathy No further abdominal pain or findings on exam today. Defer abdominal imaging Admission and Anticipated Discharge Date Admission Date: October 24, 2022 Subjective Remains quite confused. Denies abdominal pain today. Denies shortness of breath Review of Systems Review of Systems: All systems reviewed & are unremarkable except as noted in Subjective (Limited by mental status) Physical Exam Constitutional: well developed and well nourished; no acute distress Eyes: EOM intact bilaterally ENMT: Ears: no external ear abnormality Nose: no external nose abnormality Mouth: + dry oral mucous membranes Neck: no nuchal rigidity Respiratory: normal respiratory effort Auscultation: + diminished lung sounds Cardiovascular: Rate/Rhythm: + tachycardic and + irregularly irregular Extremities: no edema Gastrointestinal (Abdomen): Inspection/Auscultation: normal bowel sounds Percussion/Palpation: + guarding and abdomen soft; abdomen nontender Musculoskeletal: Extremities: strength 5/5 throughout Skin: no rashes, warm and dry Psychiatric: Orientation: alert and oriented to person; + not oriented x 3 Eye Contact: + fair eye contact Speech: normal rate/rhythm/volume of speech (when he does speak which is limited but generally appropriate) Results & Data Vital Signs (Past 12 Hours) Vital Signs Temp Pulse Pulse Resp BP Pulse Ox O2 Del Method 11/01/22 08:00 100 H 11/01/22 08:00 Room Air 11/01/22 08:11 36.7 C 99 H 18 126/82 95 Room Air 11/01/22 03:33 36.8 C 102 H 22 113/72 94 Room Air 11/01/22 03:03 107 H Laboratory Results 11/01/22 07:23 11/01/22 07:02
[2022-11-01] MEDS: MAGNESIUM SULFATE / D5W 1 GM/100 ML BAG IV SCH ×2 (11:50→13:58)
[2022-11-01] MEDS: LACTATED RINGER'S 1,000 ML IV SCH (11:56)
--- NOTE | 2022-11-01 13:26 | Cardiology Progress Note ---
Date of Service November 01, 2022 Assessment & Plan (1) ALEX (acute kidney injury): (2) New onset atrial fibrillation: (3) Pulmonary edema: (4) Liver transplant status: (5) Pericardial effusion: (6) Aortic stenosis: Plan: (1) ALEX (acute kidney injury): Plan: - Creatinine 2.27 --> 2.52--> 3.02-->3.67 --> 3.91 --> 3.80 mg/dl -->3.68 -->3.02 --> 2.92 Renal function improving with gentle IV fluid. Patient is not hypoxic without orthopnea or signs of acute decompensated heart failure. Chest x-ray and physical exam suggest interstitial lung disease. (2) New onset atrial fibrillation: Plan: -Fair rate control -IV heparin placed on hold due to hematuria after traumatic Horner removal. No recurrent hematuria this AM. Restart IV heparin. Patient agreeable to warfarin, however, will not initiate oral anticoagulation until long- term/discharge plans in place. -Continue low-dose metoprolol tartrate (3) Pulmonary edema: Plan: - Chest x-ray, CT of the chest suggestive of pulmonary edema, perhaps underlying interstitial lung disease -Echo with LVEF 40-45%, moderate , moderate RV systolic dysfunction -Nephrology input noted and appreciated-diuretics currently on hold (4) HTN (hypertension): Plan: - Metoprolol. BP stable. (5) Liver transplant status: Plan: - Per primary service is placing him back on his immunosuppressive therapy. Prograf dose being adjusted with the assistance of nephrology. (6) Pericardial effusion: Plan: - Small to moderate pericardial effusion noted on CT of the chest and echo without tamponade. Blood pressure stable. Monitor. (7) Aortic stenosis: Plan: - Moderate aortic stenosis. Treatment as noted above. (8) Delirium -Mental status improved today. More alert. Ammonia level within normal limits on 10/29. No focal neurological deficits Admission and Anticipated Discharge Date Admission Date: October 24, 2022 Subjective Patient seen examined the bedside. More alert and cooperative today. Removed Horner catheter overnight with resultant hematuria. IV heparin placed on hold. Telemetry reveals atrial fibrillation with heart rate in the 80-90s. Patient unaware of atrial fibrillation. Denies palpitations, chest discomfort, shortness of breath, or lightheadedness. No recurrent hematuria this morning. Serum creatinine trending downward. Review of Systems Review of Systems: All systems reviewed & are unremarkable except as noted in Subjective Physical Exam Constitutional: + ill appearing; no acute distress Respiratory: no respiratory distress and no labored breathing Auscultation: + crackles (Bilateral) and + rales (Bilateral); no wheezes Cardiovascular: Rate/Rhythm: + irregularly irregular Heart Sounds: normal S1 and normal S2; no murmur Vessels: radial pulses present; no JVD and no carotid bruit Extremities: no edema Neurologic: CN's II-XI intact bilaterally and moves all extremities; no focal motor deficits Results & Data Vital Signs (Past 12 Hours) Vital Signs Temp Pulse Pulse Resp BP Pulse Ox O2 Del Method 11/01/22 11:19 36.9 C 85 18 109/73 95 Room Air 11/01/22 08:00 100 H 11/01/22 08:00 Room Air 11/01/22 08:11 36.7 C 99 H 18 126/82 95 Room Air 11/01/22 03:33 36.8 C 102 H 22 113/72 94 Room Air 11/01/22 03:03 107 H
[2022-11-01] MEDS: HEPARIN SODIUM/DEXTROSE 25,000 UNITS/500 ML BAG IV SCH (15:42)
--- NOTE | 2022-11-01 18:09 | Hospitalist Progress Note ---
Date of Service November 01, 2022 Assessment & Plan (1) Acute metabolic encephalopathy: Plan: Patient is a 57-yr male with PMH of history of heavy alcohol use and cirrhosis status post liver transplant at [facility] 6 years ago, hypertension, tobacco use who presents from [facility] clinic due to cough, fatigue and shortness of breath for the past 3 months. Acute metabolic encephalopathy Likely multifactorial-ALEX, deteriorating CHF, multiorgan failure, medications H/O noncompliance with medications and follow-up with physicians as per family --MRI Brain:No acute intracranial abnormality. -- Appreciate neurology input --Ammonia within normal limits TSH minimally elevated Check vitamin B12 levels Continue thiamine, folic acid Avoid sedating medications as able Reorient frequently to minimize delirium Monitor for alcohol withdrawal As per Prior hospitalist Further information from PCP and transplant service in [place] Case discussed with Shannon Gracia #[phone] (the phone number for transplant team is [phone]) at the transplant center in [facility] He has been continuing to drink after transplant and has not been seen by the transplant team since his transplant team for follow-up Has been very noncompliant with medication and is still he has been getting Prograf and CellCept regularly from the facility He has [facility] [place] and following that he was transferred to the hospital with A-fib and RVR and shortness of breath His current condition of acute confusion and altered responsiveness could be due to medications and could be multifactorial as mentioned in neurological note He could have alcohol withdrawal issues as well No further recommendation from the transplant service other than continue the current care (2) SOB (shortness of breath): (3) HTN (hypertension): (4) Tobacco use: (5) History of alcohol use: Plan: Was apparently using alcohol even after liver transplant per record Monitor for withdrawal (6) Liver transplant status: (7) ALEX (acute kidney injury): (8) New onset atrial fibrillation: Plan Exertional dyspnea Cough Unintentional weight loss--Likely multifactorial Noncompliant with medications -self discontinued carvedilol, lasix and hydralazine 3 months ago and was taking only Prograf and CellCept once a day (prescribed Q12) Dyspnea likely multifactorial--probable interstitial lung disease versus fibrosis, valvular heart disease, CHF, pericardial effusion contributing as well Bronchiectasis on CT scan Moderate aortic stenosis on echo --BioFire negative --Chest CT:Significantly motion compromised examinations. Groundglass consolidation is seen throughout both lungs with associated intralobular septal thickening and a "crazy paving" appearance. This is nonspecific, and could be seen with pulmonary edema, multifocal pneumonia, pulmonary hemorrhage, and/or possibly drug induced lung disease. Clinical correlation will be essential. Correlate with any prior outside imaging studies. Radiographic follow-up to [facility] is recommend. Cardiomegaly noting a [id number] pericardial effusion. Trace pleural effusions. The appearance of the bladder suggests cystitis. Correlate with clinical findings and urinalysis. The unenhanced hepatic transplant is normal in size and attenuation. Small volume of abdominopelvic ascites. The kidneys are atrophic and without hydronephrosis. --ECHO: Moderate concentric LVH. Mild global hypokinesis of left ventricle. EF 40 to 45%. Right ventricle is mildly dilated. Right ventricle systolic function is moderately reduced. Mild biatrial enlargement. Aortic valve trileaflet. Aortic valve is moderately calcified, moderate valvular aortic stenosis. Mild aortic regurgitation. Mild mitral and tricuspid regurgitation. Small to moderate-sized circumferential pericardial effusion with most significant focal fluid collection adjacent to the inferolateral left ventricular wall. No findings suggestive of cardiac tamponade. Aortic root mildly dilated at 3.8 cm. Proximal ascending aorta is not visualized well enough to allow measurement. -- Appreciate pulmonology, cardiology Input -- Suspected probable infectious process. Procalcitonin normal. MRSA screen negative. Empirically completed 7-day course of antibiotics (cefepime, vancomycin, Doxy) Counseled to quit smoking Needs follow-up with pulmonology upon discharge Currently saturating well on room air New onset A fib Noncompliant with home carvedilol Continue metoprolol On IV heparin for anticoagulation Appreciate cardiology input Acute kidney injury on CKD IV/V Baseline Cr ~ 1.7 Metabolic acidosis Hyperkalemia --CT abd/pelvis with kidneys that are atrophic and without hydronephrosis Cr slowly improving Acidosis, hyperkalemia resolved Continue IV fluids as per nephrology Avoid nephrotoxic agents as able Monitor renal function Volume overload Likely multifactorial Pericardial effusion on CT chest Small to moderate abdominal pelvic ascites on abdominal ultrasound H/O ETOH cirrhosis s/p liver transplant 6 years ago Liver transplant at [facility] in [place], is only taking Prograf and CellCept once a day (prescribed Q12) Has not had lab work in over a year Continues to drink alcohol post transplant but denies alcohol use in past 4 months Prograf and CellCept level pending Immunological work-up pending as well Monitor volume status HTN Continue current medication Hypomagnesemia Replete electrolytes as needed Tobacco use Recommend cessation DVT Px: IV heparin Code status: FULL CODE Admission and Anticipated Discharge Date Admission Date: October 24, 2022 Subjective Patient is seen and examined at bedside Patient voluntarily pulled out Horner catheter overnight resulting in transient hematuria More alert, awake this morning Pleasantly confused Offers no complaints We will plan to resume IV heparin Review of Systems Review of Systems: Other Physical Exam Physical Exam: Physical Exam: Vitals signs as noted above General Appearance:Moderately built and nourished, no apparent distress Head: normocephalic, Atraumatic Eyes: normal inspection, EOMI Neck: supple, Trachea midline Respiratory/Chest: Normal breath sounds, B/L Rales, No accessory muscle use Cardiovascular: Irregularly irregular, No murmur Abdomen/GI:Soft, Non tender, Bowel sounds present Extremities/Musculoskeletal:normal inspection, B/L LE edema Neurologic/Psych:AAOX1, grossly no focal neurological deficits Skin: normal color, warm Results & Data Results & Data Vital Signs (Past 12 Hours) Vital Signs Temp Pulse Pulse Resp BP BP Pulse Ox 11/01/22 15:18 36.6 C 85 18 105/69 96 11/01/22 11:19 36.9 C 85 18 109/73 95 11/01/22 08:00 100 H 11/01/22 08:00 11/01/22 08:11 36.7 C 99 H 18 126/82 95 O2 Del Method 11/01/22 15:18 Room Air 11/01/22 11:19 Room Air 11/01/22 08:00 11/01/22 08:00 Room Air 11/01/22 08:11 Room Air Laboratory Results Short CBC 10/31/22 11/01/22 Range/Units 22:59 07:23 WBC 4.26 L (4.8-10.8) K/ul Hgb 10.8 L 10.0 L (14.0-18.0) g/dl Hct 32.8 L 29.9 L (42.0-52.0) % Plt Count 121 L (130-400) K/uL BMP 11/01/22 07:02 Sodium 136 Potassium 4.6 Chloride 105 Carbon Dioxide 26 BUN 28 H Creatinine 2.92 H Glucose 122 H Calcium 8.9
[2022-11-01] MEDS: TAMSULOSIN HCL 0.4 MG CAP PO SCH (21:04)
[2022-11-01 23:29] LABS: Partial Thromboplastin Ratio 1.7
[2022-11-01 23:33] LABS: Partial Thromboplastin Time 48.1 Seconds (21.0-31.0)
[2022-11-02] MEDS: LACTATED RINGER'S 1,000 ML IV SCH (00:06)
[2022-11-02 06:25] LABS: Hemoglobin 10.3 g/dl (14.0-18.0); Mean Corpuscular Hemoglobin 29.8 pg (25.0-34.0); Mean Corpuscular Hgb Conc 33.2 g/dL (32.0-36.0); Mean Corpuscular Volume 89.6 fL (80.0-100.0); Mean Platelet Volume 11.1 fL (9.4-12.4); Platelet Count 109 K/uL (130-400); RDW Coefficient of Variation 14.4 % (11.5-14.5); RDW Standard Deviation 46.2 fL (36.4-46.3); Red Blood Count 3.46 M/uL (4.70-6.10); White Blood Count 3.41 K/ul (4.8-10.8)
[2022-11-02 06:45] LABS: Calcium 8.8 mg/dl (8.6-10.3); Magnesium 1.8 mg/dl (1.7-2.4); Potassium 4.5 mmol/L (3.5-5.1)
[2022-11-02 06:51] LABS: BUN Creatinine Ratio 9.2 (10-20); Creatinine Clr Calc Pharmacy 31.1 ml/min; Est GFR (African American) 26.2 ml/min; Est GFR (Non-African American) 22.6 ml/min; Partial Thromboplastin Ratio 2.1; Partial Thromboplastin Time 57.3 Seconds (21.0-31.0)
[2022-11-02] MEDS: MYCOPHENOLATE MOFETIL 250 MG CAP PO SCH ×2 (09:22→20:05)
[2022-11-02] MEDS: METOPROLOL TARTRATE 25 MG TAB PO SCH ×2 (09:22→20:06)
[2022-11-02] MEDS: MAGNESIUM OXIDE 400 MG TAB PO SCH ×2 (09:22→20:05)
[2022-11-02] MEDS: THIAMINE HCL 100 MG in SYRINGE 9 ML IV SCH (09:23)
[2022-11-02] MEDS: OLANZAPINE 2.5 MG TAB PO SCH (09:23)
[2022-11-02] MEDS: TACROLIMUS 1 MG CAP PO SCH ×2 (09:23→20:04)
[2022-11-02] MEDS: FOLIC ACID 1 MG in SYRINGE 9.8 ML IV SCH (09:23)
--- NOTE | 2022-11-02 10:35 | Nephrology Progress Note ---
Date of Service November 02, 2022 Assessment & Plan (1) CKD (chronic kidney disease) stage 4, GFR 15-29 ml/min: Plan: Advanced CKD4, bordering on CKD 5 with stable renal function past 4 days or so His last baseline creatinine was 1.7 two years ago and he already has bilateral atrophic kidneys so current changes are chronic not acute kidney failure. Crackles on exam possibly related with ILD. His renal prognosis is not good and is heading towards dialysis. He will need regular Nephrology care in [place]. All of that said, renal function improved dramatically with IV fluid; UOP has dropped off a bit primary service has contacted [facility] transplant program to update them on his liver transplant status; long hx of noncompliance w/ meds and f/u per Dr Lopez's discussion w/ liver txplt. family corroborates noncompliance -stopped IV fluids at this time as we are seeing little improvement in renal function with this support and IVF have potential to complicate cardiopulm status Continue Daily renal panel + LFT - Avoid BAILEY or ARB at this time. >>Prograf trough level takes more than 5 days in our hospital so it is not really possible to establish the dosing. for now will use 2 in AM and 1 in PM from 10/30 on; did order tac trough 10/30 PM which is still pending >> Continue current doses of tacrolimus and mycophenolate. Neurotoxicity from mycophenolate is extremely rare. Do not stop mycophenolate. AWait tacrolimus trough on new dose; not clear how clinically useful this will be given delay in its posting but we will only know that in hindsight so I have ordered it -low mag this admission and again on labs yesterday, this morning; he is on oral magnesium and missed October 29 and doses; getting 2 gm IV mag today and had daily dose past 2 days including today >>> increased po mag to 200 mg bid Unexplained encephalopathy October 28 and particularly -Palliative med is being consulted to decide about the level of care. It seems patient has almost given up and does not want to do anything now. >>consider psych consult / close OP follow up for depression Continue metabolic evaluation for encephalopathy No further abdominal pain or findings on exam today. Defer abdominal imaging Admission and Anticipated Discharge Date Admission Date: October 24, 2022 Subjective No interval clinical events. Continues with minimal appetite. Remains confused but quite talkative. Review of Systems Review of Systems: All systems reviewed & are unremarkable except as noted in Subjective Physical Exam Constitutional: well developed, + cachectic and cooperative; no acute distress Eyes: EOM intact bilaterally ENMT: Ears: no external ear abnormality Nose: no external nose abnormality Mouth: + dry oral mucous membranes Neck: no nuchal rigidity Respiratory: normal respiratory effort Auscultation: + diminished lung sounds Cardiovascular: Rate/Rhythm: regular rate and + irregularly irregular Extremities: no edema Gastrointestinal (Abdomen): Inspection/Auscultation: normal bowel sounds Percussion/Palpation: + guarding and abdomen soft; abdomen nontender Musculoskeletal: Extremities: strength 5/5 throughout Skin: no rashes, warm and dry Psychiatric: Orientation: alert and oriented to person; + not oriented x 3 Eye Contact: + fair eye contact Speech: normal rate/rhythm/volume of speech (when he does speak which is limited but generally appropriate) Results & Data Vital Signs (Past 12 Hours) Vital Signs Temp Pulse Resp BP BP Pulse Ox O2 Del Method 11/02/22 06:58 36.7 C 99 H 18 100/64 95 Room Air 11/02/22 03:00 36.4 C L 93 H 21 98/58 L 96 Room Air 11/01/22 22:55 36.8 C 86 18 115/67 95 Room Air Laboratory Results 11/02/22 06:02 11/02/22 06:02
--- NOTE | 2022-11-02 11:46 | Cardiology Progress Note ---
Date of Service November 02, 2022 Assessment & Plan (1) ALEX (acute kidney injury): (2) New onset atrial fibrillation: (3) Pulmonary edema: (4) Liver transplant status: (5) Pericardial effusion: (6) Aortic stenosis: Plan: (1) ALEX (acute kidney injury): Plan: - Creatinine 2.27 --> 2.52--> 3.02-->3.67 --> 3.91 --> 3.80 mg/dl -->3.68 -->3.02 --> 2.92 --> 2.92 Renal function improving with gentle IV fluid. Patient is not hypoxic without orthopnea or signs of acute decompensated heart failure. Chest x-ray and physical exam suggest interstitial lung disease. (2) New onset atrial fibrillation: Plan: -Fair rate control, patient refusing telemetry -IV heparin restarted. No recurrent hematuria this AM. Patient agreeable to warfarin, however, will not initiate oral anticoagulation until long-term/di scharge plans in place. -Continue low-dose metoprolol tartrate (3) Pulmonary edema: Plan: - Chest x-ray, CT of the chest suggestive of pulmonary edema, perhaps underlying interstitial lung disease -Echo with LVEF 40-45%, moderate , moderate RV systolic dysfunction -Nephrology input noted and appreciated-diuretics currently on hold (4) HTN (hypertension): Plan: -Well-controlled with borderline resting hypotension. (5) Liver transplant status: Plan: - Per primary service placed him back on his immunosuppressive therapy. Prograf dose being adjusted with the assistance of nephrology. (6) Pericardial effusion: Plan: - Small to moderate pericardial effusion noted on CT of the chest and echo without tamponade. Blood pressure stable. Monitor. (7) Aortic stenosis: Plan: - Moderate aortic stenosis. Treatment as noted above. (8) Delirium -Mental status improved today. More alert. Ammonia level within normal limits on 10/29. No focal neurological deficits Admission and Anticipated Discharge Date Admission Date: October 24, 2022 Subjective Patient seen examined the bedside. Refusing to wear air sampling and monitoring. Denies chest pain or shortness of breath. Horner catheter replaced yesterday. No recurrent hematuria. Tolerating IV heparin. Renal function unchanged. Review of Systems Review of Systems: All systems reviewed & are unremarkable except as noted in Subjective Physical Exam Constitutional: + ill appearing; no acute distress Respiratory: no respiratory distress and no labored breathing Auscultation: + crackles (Bilateral) and + rales (Bilateral); no wheezes Cardiovascular: Rate/Rhythm: + irregularly irregular Heart Sounds: normal S1 and normal S2; no murmur Vessels: radial pulses present; no JVD and no carotid bruit Extremities: no edema Neurologic: CN's II-XI intact bilaterally and moves all extremities; no focal motor deficits Results & Data Vital Signs (Past 12 Hours) Vital Signs Temp Pulse Resp BP BP Pulse Ox O2 Del Method 11/02/22 06:58 36.7 C 99 H 18 100/64 95 Room Air 11/02/22 03:00 36.4 C L 93 H 21 98/58 L 96 Room Air Laboratory Results Coagulation 11/01/22 11/02/22 Range/Units 22:30 06:02 APTT 48.1 H* 57.3 H* (21.0-31.0) Seconds CBC 11/02/22 Range/Units 06:02 WBC 3.41 L (4.8-10.8) K/ul RBC 3.46 L (4.70-6.10) M/uL Hgb 10.3 L (14.0-18.0) g/dl Hct 31.0 L (42.0-52.0) % Plt Count 109 L (130-400) K/uL Comprehensive Metabolic Panel 11/02/22 Range/Units 06:02 Sodium 134 L (136-145) mmol/L Potassium 4.5 (3.5-5.1) mmol/L Chloride 102 (98-107) mmol/L Carbon Dioxide 26 (21-32) mmol/L BUN 27 H (6-23) mg/dl Creatinine 2.92 H (0.6-1.4) mg/dl Glucose 91 (70-99(Fasting)) mg/dl Calcium 8.8 (8.6-10.3) mg/dl Intake and Output 11/01/22 11/02/22 11/02/22 22:59 06:59 14:59 Intake Total 158.733 / 2452.066 973.333 / 2452.066 1033.434 / 1033.434 Output Total 225 / 325 100 / 325 Balance -66.267 / 2127.066 873.333 / 2127.066 1033.434 / 1033.434 Intake: IV 158.733 / 1832.066 973.333 / 4993.038 8451.434 / 1033.434 Heparin Sodium/Dextrose 25,000 58.733 / 58.733 192.267 / 192.267 units In 500 ml @ 800 UNITS/HR 16 mls/hr IV .Q24H JESSICA Rx#: [id number] Lactated Ringer's 1,000 ml @ 80 973.333 / 973.333 841.167 / 841.167 mls/hr IV .[id number] JESSICA Rx#: [id number] Magnesium Sulfate / D5w 1 gm In 100 / 200 100 ml @ 50 mls/hr IV Q2H JESSICA Rx#:[id number] Output: Urine Amount (Catheter) 225 / 325 100 / 325 Horner/Indwelling 225 / 325 100 / 325 Other: Weight 90 kg Weight Measurement Method Built in [facility]
[2022-11-02 12:19] LABS: Partial Thromboplastin Ratio 1.7
[2022-11-02 12:26] LABS: Partial Thromboplastin Time 47.8 Seconds (21.0-31.0)
--- NOTE | 2022-11-02 16:26 | Hospitalist Progress Note ---
Date of Service November 02, 2022 Assessment & Plan (1) Acute metabolic encephalopathy: Plan: Patient is a 57-yr male with PMH of history of heavy alcohol use and cirrhosis status post liver transplant at [facility] 6 years ago, hypertension, tobacco use who presents from [facility] clinic due to cough, fatigue and shortness of breath for the past 3 months. Acute metabolic encephalopathy Likely multifactorial-ALEX, deteriorating CHF, multiorgan failure, medications H/O noncompliance with medications and follow-up with physicians as per family --MRI Brain:No acute intracranial abnormality. -- Appreciate neurology input --Ammonia within normal limits TSH minimally elevated Normal vitamin B12 levels Continue thiamine, folic acid Avoid sedating medications as able Reorient frequently to minimize delirium Monitor for alcohol withdrawal Mental status slowly improving As per Prior hospitalist Further information from PCP and transplant service in [place] Case discussed with Shannon Gracia #[phone] (the phone number for transplant team is [phone]) at the transplant center in [facility] He has been continuing to drink after transplant and has not been seen by the transplant team since his transplant team for follow-up Has been very noncompliant with medication and is still he has been getting Prograf and CellCept regularly from the facility He has seen once [facility] [place] and following that he was transferred to the hospital with A-fib and RVR and shortness of breath His current condition of acute confusion and altered responsiveness could be due to medications and could be multifactorial as mentioned in neurological note He could have alcohol withdrawal issues as well No further recommendation from the transplant service other than continue the current care (2) SOB (shortness of breath): (3) HTN (hypertension): (4) Tobacco use: (5) History of alcohol use: Plan: Was apparently using alcohol even after liver transplant per record Monitor for withdrawal (6) Liver transplant status: (7) ALEX (acute kidney injury): (8) New onset atrial fibrillation: Plan Exertional dyspnea Cough Unintentional weight loss--Likely multifactorial Noncompliant with medications -self discontinued carvedilol, lasix and hydralazine 3 months ago and was taking only Prograf and CellCept once a day (prescribed Q12) Dyspnea likely multifactorial--probable interstitial lung disease versus fibrosis, valvular heart disease, CHF, pericardial effusion contributing as well Bronchiectasis on CT scan Moderate aortic stenosis on echo --BioFire negative --Chest CT:Significantly motion compromised examinations. Groundglass consolidation is seen throughout both lungs with associated intralobular septal thickening and a "crazy paving" appearance. This is nonspecific, and could be seen with pulmonary edema, multifocal pneumonia, pulmonary hemorrhage, and/or possibly drug induced lung disease. Clinical correlation will be essential. Correlate with any prior outside imaging studies. Radiographic follow-up to resolution is recommend. Cardiomegaly noting a vxwae-[id number]-pwiqrmzx pericardial effusion. Trace pleural effusions. The appearance of the bladder suggests cystitis. Correlate with clinical findings and urinalysis. The unenhanced hepatic transplant is normal in size and attenuation. Small volume of abdominopelvic ascites. The kidneys are atrophic and without hydronephrosis. --ECHO: Moderate concentric LVH. Mild global hypokinesis of left ventricle. EF 40 to 45%. Right ventricle is mildly dilated. Right ventricle systolic function is moderately reduced. Mild biatrial enlargement. Aortic valve trileaflet. Aortic valve is moderately calcified, moderate valvular aortic stenosis. Mild aortic regurgitation. Mild mitral and tricuspid regurgitation. Small to moderate-sized circumferential pericardial effusion with most significant focal fluid collection adjacent to the inferolateral left ventricular wall. No findings suggestive of cardiac tamponade. Aortic root mildly dilated at 3.8 cm. Proximal ascending aorta is not visualized well enough to allow measurement. -- Appreciate pulmonology, cardiology Input -- Suspected probable infectious process. Procalcitonin normal. MRSA screen negative. Empirically completed 7-day course of antibiotics (cefepime, vancomycin, Doxy) Counseled to quit smoking Needs follow-up with pulmonology upon discharge saturating well on room air New onset A fib Noncompliant with home carvedilol Continue metoprolol On IV heparin for anticoagulation Appreciate cardiology input Rate controlled Acute kidney injury on CKD IV/V Baseline Cr ~ 1.7 Metabolic acidosis Hyperkalemia --CT abd/pelvis with kidneys that are atrophic and without hydronephrosis Acidosis, hyperkalemia resolved Continue IV fluids as per nephrology Avoid nephrotoxic agents as able Monitor renal function Cr stable at 2.9 Volume overload Likely multifactorial Pericardial effusion on CT chest Small to moderate abdominal pelvic ascites on abdominal ultrasound H/O ETOH cirrhosis s/p liver transplant 6 years ago Liver transplant at [facility] in [place], is only taking Prograf and CellCept once a day (prescribed Q12) Has not had lab work in over a year Continues to drink alcohol post transplant but denies alcohol use in past 4 months Prograf and CellCept level pending Immunological work-up pending as well Monitor volume status HTN Continue current medication Hypomagnesemia Replete electrolytes as needed Tobacco use Recommend cessation DVT Px: IV heparin Code status: FULL CODE Admission and Anticipated Discharge Date Admission Date: October 24, 2022 Subjective Patient is seen and examined at bedside Has been refusing to wear monitor Mental status slightly better but intermittently confused No hematuria today while on IV heparin Patient offers no complaints Review of Systems Review of Systems: All systems reviewed & are unremarkable except as noted in Subjective Physical Exam Physical Exam: Physical Exam: Vitals signs as noted above General Appearance:Moderately built and nourished, no apparent distress Head: normocephalic, Atraumatic Eyes: normal inspection, EOMI Neck: supple, Trachea midline Respiratory/Chest: Normal breath sounds, B/L Rales, No accessory muscle use Cardiovascular: Irregularly irregular, No murmur Abdomen/GI:Soft, Non tender, Bowel sounds present Extremities/Musculoskeletal:normal inspection, B/L LE edema Neurologic/Psych:AAOX1, grossly no focal neurological deficits Skin: normal color, warm Results & Data Results & Data Vital Signs (Past 12 Hours) Vital Signs Temp Pulse Resp BP BP Pulse Ox O2 Del Method 11/02/22 11:45 36.9 C 88 18 111/74 98 Room Air 11/02/22 15:41 36.8 C 81 18 104/68 97 Room Air 11/02/22 06:58 36.7 C 99 H 18 100/64 95 Room Air Laboratory Results Short CBC 11/02/22 Range/Units 06:02 WBC 3.41 L (4.8-10.8) K/ul Hgb 10.3 L (14.0-18.0) g/dl Hct 31.0 L (42.0-52.0) % Plt Count 109 L (130-400) K/uL BMP 11/02/22 06:02 Sodium 134 L Potassium 4.5 Chloride 102 Carbon Dioxide 26 BUN 27 H Creatinine 2.92 H Glucose 91 Calcium 8.8
[2022-11-02] MEDS: HEPARIN SODIUM/DEXTROSE 25,000 UNITS/500 ML BAG IV SCH (18:44)
[2022-11-02] MEDS: TAMSULOSIN HCL 0.4 MG CAP PO SCH (20:04)
[2022-11-03 06:19] LABS: Hemoglobin 9.5 g/dl (14.0-18.0); Mean Corpuscular Hemoglobin 29.6 pg (25.0-34.0); Mean Corpuscular Hgb Conc 32.8 g/dL (32.0-36.0); Mean Corpuscular Volume 90.3 fL (80.0-100.0); Mean Platelet Volume 11.1 fL (9.4-12.4); Platelet Count 105 K/uL (130-400); RDW Coefficient of Variation 14.6 % (11.5-14.5); RDW Standard Deviation 48.5 fL (36.4-46.3); Red Blood Count 3.21 M/uL (4.70-6.10); White Blood Count 3.37 K/ul (4.8-10.8)
[2022-11-03 06:31] LABS: BUN Creatinine Ratio 8.8 (10-20); Calcium 8.3 mg/dl (8.6-10.3); Creatinine Clr Calc Pharmacy 28.7 ml/min; Est GFR (African American) 23.5 ml/min; Est GFR (Non-African American) 20.3 ml/min; Magnesium 1.7 mg/dl (1.7-2.4); Potassium 4.5 mmol/L (3.5-5.1)
[2022-11-03] MEDS: FOLIC ACID 1 MG in SYRINGE 9.8 ML IV SCH (09:05)
[2022-11-03] MEDS: THIAMINE HCL 100 MG in SYRINGE 9 ML IV SCH (09:06)
[2022-11-03] MEDS: METOPROLOL TARTRATE 25 MG TAB PO SCH ×3 (09:06→20:16)
[2022-11-03] MEDS: TACROLIMUS 1 MG CAP PO SCH ×2 (09:06→20:18)
[2022-11-03] MEDS: OLANZAPINE 2.5 MG TAB PO SCH (09:07)
[2022-11-03] MEDS: MYCOPHENOLATE MOFETIL 250 MG CAP PO SCH ×2 (09:07→20:18)
[2022-11-03] MEDS: MAGNESIUM OXIDE 400 MG TAB PO SCH ×2 (09:07→20:19)
--- NOTE | 2022-11-03 09:49 | Cardiology Progress Note ---
Date of Service November 03, 2022 Assessment & Plan (1) ALEX (acute kidney injury): (2) New onset atrial fibrillation: (3) Pulmonary edema: (4) Liver transplant status: (5) Pericardial effusion: (6) Aortic stenosis: Plan: (1) ALEX (acute kidney injury): Plan: - Creatinine 2.27 --> 2.52--> 3.02-->3.67 --> 3.91 --> 3.80 mg/dl -->3.68 -->3.02 --> 2.92 --> 2.92 --> 3.19 Serum creatinine trending upward today. IV fluid discontinued. Patient is not hypoxic without orthopnea or signs of acute decompensated heart failure. Chest x-ray and physical exam suggest interstitial lung disease versus pulmonary edema. Will defer trial of low-dose diuretic therapy to nephrology. (2) New onset atrial fibrillation: Plan: -Fair rate control. -IV heparin restarted. No recurrent hematuria. -Patient agreeable to warfarin, however, he is a significant fall risk and will not initiate oral anticoagulation until long-term/discharge plans in place. -Titrate metoprolol to 25 mg 3 times daily (3) Pulmonary edema: Plan: - Chest x-ray, CT of the chest suggestive of pulmonary edema, perhaps underlying interstitial lung disease -Echo with LVEF 40-45%, moderate , moderate RV systolic dysfunction -Nephrology input appreciated, IVF discontinued, diuretics currently on hold (4) HTN (hypertension): Plan: -Well-controlled with borderline resting hypotension. (5) Liver transplant status: Plan: - Per primary service placed him back on his immunosuppressive therapy. Prograf dose being adjusted with the assistance of nephrology. (6) Pericardial effusion: Plan: - Small to moderate pericardial effusion noted on CT of the chest and echo without tamponade. Blood pressure stable. Monitor. (7) Aortic stenosis: Plan: - Moderate aortic stenosis. Treatment as noted above. (8) Delirium -Mental status improved today. More alert. Ammonia level within normal limits on 10/29. No focal neurological deficits Admission and Anticipated Discharge Date Admission Date: October 24, 2022 Subjective Patient seen examined the bedside. More alert today. Denies chest pain, shortness of breath, or palpitations. Creatinine trending upward this morning. Admits to feeling weak. Requesting transfer to bedside chair if possible. No signs/symptoms of GI/ blood loss. Telemetry reveals atrial fibrillation with heart rate 90-100 bpm. Review of Systems Review of Systems: All systems reviewed & are unremarkable except as noted in Subjective Physical Exam Constitutional: + ill appearing; no acute distress Respiratory: no respiratory distress and no labored breathing Auscultation: + crackles (Bilateral) and + rales (Bilateral); no wheezes Cardiovascular: Rate/Rhythm: + irregularly irregular Heart Sounds: normal S1 and normal S2; no murmur Vessels: radial pulses present; no JVD and no carotid bruit Extremities: no edema Neurologic: CN's II-XI intact bilaterally and moves all extremities; no focal motor deficits Results & Data Vital Signs (Past 12 Hours) Vital Signs Temp Pulse Pulse Pulse Resp BP Pulse Ox 11/03/22 07:47 36.5 C 108 H 18 129/77 95 11/03/22 04:00 36.6 C 89 20 117/82 92 11/02/22 23:46 88 11/02/22 22:52 36.5 C 96 H 22 103/70 93 O2 Del Method 11/03/22 07:47 Room Air 11/03/22 04:00 Room Air 11/02/22 23:46 11/02/22 22:52 Room Air Laboratory Results Coagulation 11/02/22 Range/Units 11:24 APTT 47.8 H* (21.0-31.0) Seconds CBC 11/03/22 Range/Units 06:04 WBC 3.37 L (4.8-10.8) K/ul RBC 3.21 L (4.70-6.10) M/uL Hgb 9.5 L (14.0-18.0) g/dl Hct 29.0 L (42.0-52.0) % Plt Count 105 L (130-400) K/uL Comprehensive Metabolic Panel 11/03/22 Range/Units 06:04 Sodium 131 L (136-145) mmol/L Potassium 4.5 (3.5-5.1) mmol/L Chloride 100 (98-107) mmol/L Carbon Dioxide 26 (21-32) mmol/L BUN 28 H (6-23) mg/dl Creatinine 3.19 H (0.6-1.4) mg/dl Glucose 95 (70-99(Fasting)) mg/dl Calcium 8.3 L (8.6-10.3) mg/dl Intake and Output 11/02/22 11/03/22 11/03/22 22:59 06:59 14:59 Intake Total 384.533 / 2127.967 200 / 2127.967 Output Total 100 / 553 450 / 553 Balance 284.533 / 1574.967 -250 / 1574.967 Intake: IV 184.533 / 1217.967 Heparin Sodium/Dextrose 25,000 184.533 / 376.800 units In 500 ml @ 800 UNITS/HR 16 mls/hr IV .Q24H [facility] Rx#: [id number] Oral 200 / 910 200 / 910 Output: Urine Amount (Catheter) 100 / 550 450 / 550 Horner/Indwelling 100 / 550 450 / 550 Other: Weight 91.4 kg Weight Measurement Method Built in [facility]
--- NOTE | 2022-11-03 10:14 | Nephrology Progress Note ---
Date of Service November 03, 2022 Assessment & Plan (1) CKD (chronic kidney disease) stage 4, GFR 15-29 ml/min: Plan: Advanced CKD4, bordering on CKD 5 with stable renal function past 4 days or so until it worsened today going from 2.9-3.2 His last baseline creatinine was 1.7 two years ago and he already has bilateral atrophic kidneys so current changes are chronic not acute kidney failure. Crackles on exam possibly related with ILD. His renal prognosis is not good and is heading towards dialysis. He will need regular Nephrology care in [place]. All of that said, renal function improved then stabilized with IV fluid; UOP has dropped off a bit primary service has contacted [facility] transplant program to update them on his liver transplant status; long hx of noncompliance w/ meds and f/u per Dr Lopez's discussion w/ liver txplt. family corroborates noncompliance -stopped IV fluids 11/02 as we are seeing little improvement in renal function with this support and IVF have potential to complicate cardiopulm status >> Chest x-ray suggestive of fluid overload: Started on low-dose 4 times daily Lasix Continue Daily renal panel + LFT - Avoid BAILEY or ARB at this time. >>Prograf trough level takes more than 5 days in our hospital so it is not really possible to establish the dosing. for now will use 2 in AM and 1 in PM from 10/30 on; did order tac trough 10/31 PM which is still pending >> Continue current doses of tacrolimus and mycophenolate. Neurotoxicity from mycophenolate is extremely rare. Do not stop mycophenolate. AWait tacrolimus trough on new dose; not clear how clinically useful this will be given delay in its posting but we will only know that in hindsight so I have ordered it -low mag this admission and improving now but also more BM on mag 200 mg bid to continue for now Unexplained encephalopathy October 28 and particularly -Palliative med is following for goals of care. >>consider psych consult / close OP follow up for depression No further abdominal pain or findings on exam today. Defer abdominal imaging Admission and Anticipated Discharge Date Admission Date: October 24, 2022 Subjective Creatinine worsened slightly today. Patient denies shortness of breath. Ongoing issues/challenges maintaining oral intake. Remains somewhat confused and unreliable Review of Systems Review of Systems: All systems reviewed & are unremarkable except as noted in Subjective Physical Exam Constitutional: well developed, well nourished, + cachectic and cooperative; no acute distress Eyes: EOM intact bilaterally ENMT: Ears: no external ear abnormality Nose: no external nose abnormality Mouth: + dry oral mucous membranes Neck: no nuchal rigidity Respiratory: normal respiratory effort Auscultation: + diminished lung sounds and + crackles (Posteriorly) Cardiovascular: Rate/Rhythm: regular rate and + irregularly irregular Extremities: no edema Gastrointestinal (Abdomen): Inspection/Auscultation: normal bowel sounds Percussion/Palpation: + guarding and abdomen soft; abdomen nontender Musculoskeletal: Extremities: strength 5/5 throughout Skin: no rashes, warm and dry Psychiatric: Orientation: alert and oriented to person; + not oriented x 3 Eye Contact: + fair eye contact Speech: normal rate/rhythm/volume of speech (when he does speak which is limited but generally appropriate) Results & Data Vital Signs (Past 12 Hours) Vital Signs Temp Pulse Pulse Pulse Resp BP Pulse Ox 11/03/22 07:47 36.5 C 108 H 18 129/77 95 11/03/22 04:00 36.6 C 89 20 117/82 92 11/02/22 23:46 88 11/02/22 22:52 36.5 C 96 H 22 103/70 93 O2 Del Method 11/03/22 07:47 Room Air 11/03/22 04:00 Room Air 11/02/22 23:46 11/02/22 22:52 Room Air Laboratory Results 11/03/22 06:04 11/03/22 06:04
[2022-11-03 11:18] LABS: Partial Thromboplastin Ratio 1.8
[2022-11-03 11:34] LABS: Partial Thromboplastin Time 50.3 Seconds (21.0-31.0)
--- NOTE | 2022-11-03 11:51 | XRay Report ---
XR chest 1V portable HISTORY: 57 years-old Male f/u pulmonary vascular congestion acute shortness of breath COMPARISON: 10/29/2022 TECHNIQUE: AP view of the chest FINDINGS: Cardiac silhouette is enlarged. Pulmonary vascular congestion with interstitial coarsening. Small ple ural effusions with bibasilar and midlung consolidation again noted. Slightly improved aeration of th e lungs. No pneumothorax. Bones appear grossly intact. IMPRESSION: 1. Cardiomegaly with pulmonary edema again noted. There is mild improvement of the previously noted b ilateral airspace opacities. 2. Small pleural effusions persist. ACT 112: Negative or not required by law. The above report was generated using voice recognition software. It may contain grammatical, syntax o r spelling errors. Electronically signed by: Beltran Roy M.D. 11/03/2022 11:50 AM
[2022-11-03] MEDS ORDERED: FUROSEMIDE INJ 20 MG/2 ML VIAL IV ONE (17:45)
--- NOTE | 2022-11-03 18:11 | Hospitalist Progress Note ---
Date of Service November 03, 2022 Assessment & Plan (1) Acute metabolic encephalopathy: Plan: Patient is a 57-yr male with PMH of history of heavy alcohol use and cirrhosis status post liver transplant at [facility] 6 years ago, hypertension, tobacco use who presents from [facility] clinic due to cough, fatigue and shortness of breath for the past 3 months. Acute metabolic encephalopathy Likely multifactorial-ALEX, deteriorating CHF, multiorgan failure, medications H/O noncompliance with medications and follow-up with physicians as per family --MRI Brain:No acute intracranial abnormality. -- Appreciate neurology input --Ammonia within normal limits TSH minimally elevated Normal vitamin B12 levels Continue thiamine, folic acid Avoid sedating medications as able Reorient frequently to minimize delirium Monitor for alcohol withdrawal Mental status continues to improve As per Prior hospitalist Further information from PCP and transplant service in [place] Case discussed with Shannon Gracia #[phone] (the phone number for transplant team is [phone]) at the transplant center in [facility] [address] He has been continuing to drink after transplant and has not been seen by the transplant team since his transplant team for follow-up Has been very noncompliant with medication and is still he has been getting Prograf and CellCept regularly from the facility He has seen [facility] [place] and following that he was transferred to the hospital with A-fib and RVR and shortness of breath His current condition of acute confusion and altered responsiveness could be due to medications and could be multifactorial as mentioned in neurological note He could have alcohol withdrawal issues as well No further recommendation from the transplant service other than continue the current care (2) SOB (shortness of breath): (3) HTN (hypertension): (4) Tobacco use: (5) History of alcohol use: Plan: Was apparently using alcohol even after liver transplant per record Monitor for withdrawal (6) Liver transplant status: (7) ALEX (acute kidney injury): (8) New onset atrial fibrillation: Plan Exertional dyspnea Cough Unintentional weight loss--Likely multifactorial Noncompliant with medications -self discontinued carvedilol, lasix and hydralazine 3 months ago and was taking only Prograf and CellCept once a day (prescribed Q12) Dyspnea likely multifactorial--probable interstitial lung disease versus fibrosis, valvular heart disease, CHF, pericardial effusion contributing as well Bronchiectasis on CT scan Moderate aortic stenosis on echo --BioFire negative --Chest CT:Significantly motion compromised examinations. Groundglass consolidation is seen throughout both lungs with associated intralobular septal thickening and a "crazy paving" appearance. This is nonspecific, and could be seen with pulmonary edema, multifocal pneumonia, pulmonary hemorrhage, and/or possibly drug induced lung disease. Clinical correlation will be essential. Correlate with any prior outside imaging studies. Radiographic follow-up to resolution is recommend. Cardiomegaly noting a [id number] pericardial effusion. Trace pleural effusions. The appearance of the bladder suggests cystitis. Correlate with clinical findings and urinalysis. The unenhanced hepatic transplant is normal in size and attenuation. Small volume of abdominopelvic ascites. The kidneys are atrophic and without hydronephrosis. --ECHO: Moderate concentric LVH. Mild global hypokinesis of left ventricle. EF 40 to 45%. Right ventricle is mildly dilated. Right ventricle systolic function is moderately reduced. Mild biatrial enlargement. Aortic valve trileaflet. Aortic valve is moderately calcified, moderate valvular aortic stenosis. Mild aortic regurgitation. Mild mitral and tricuspid regurgitation. Small to moderate-sized circumferential pericardial effusion with most significant focal fluid collection adjacent to the inferolateral left ventricular wall. No findings suggestive of cardiac tamponade. Aortic root mildly dilated at 3.8 cm. Proximal ascending aorta is not visualized well enough to allow measurement. -- Appreciate pulmonology, cardiology Input -- Suspected probable infectious process. Procalcitonin normal. MRSA screen negative. Empirically completed 7-day course of antibiotics (cefepime, vancomycin, Doxy) Counseled to quit smoking Needs follow-up with pulmonology upon discharge saturating well on room air New onset A fib Noncompliant with home carvedilol Continue metoprolol On IV heparin for anticoagulation Appreciate cardiology input Increase metoprolol dose to 25 mg TID Acute kidney injury on CKD IV/V Baseline Cr ~ 1.7 Metabolic acidosis Hyperkalemia --CT abd/pelvis with kidneys that are atrophic and without hydronephrosis Acidosis, hyperkalemia resolved Continue IV fluids as per nephrology Avoid nephrotoxic agents as able Monitor renal function Cr 3.19 today Volume overload Likely multifactorial Pericardial effusion on CT chest Small to moderate abdominal pelvic ascites on abdominal ultrasound H/O ETOH cirrhosis s/p liver transplant 6 years ago Liver transplant at [facility] in [place], is only taking Prograf and CellCept once a day (prescribed Q12) Has not had lab work in over a year Continues to drink alcohol post transplant but denies alcohol use in past 4 months Prograf and CellCept level pending Immunological work-up pending as well Monitor volume status Continue Lasix as needed HTN Continue current medication Hypomagnesemia Replete electrolytes as needed Tobacco use Recommend cessation DVT Px: IV heparin Code status: FULL CODE Admission and Anticipated Discharge Date Admission Date: October 24, 2022 Subjective Patient is seen and examined at bedside More alert, awake, oriented today Mildly tachycardic on monitor Reports generalized weakness Offers no new complaints Review of Systems Review of Systems: All systems reviewed & are unremarkable except as noted in Subjective Physical Exam Physical Exam: Physical Exam: Vitals signs as noted above General Appearance:Moderately built and nourished, no apparent distress Head: normocephalic, Atraumatic Eyes: normal inspection, EOMI Neck: supple, Trachea midline Respiratory/Chest: Normal breath sounds, B/L Rales, No accessory muscle use Cardiovascular: Irregularly irregular, No murmur Abdomen/GI:Soft, Non tender, Bowel sounds present Extremities/Musculoskeletal:normal inspection, B/L LE edema Neurologic/Psych:AAOX1, grossly no focal neurological deficits Skin: normal color, warm Results & Data Results & Data Vital Signs (Past 12 Hours) Vital Signs Temp Pulse Pulse Resp BP BP Pulse Ox 11/03/22 15:35 36.5 C 85 20 115/78 96 11/03/22 08:00 11/03/22 08:00 84 11/03/22 11:48 36.5 C 84 20 111/75 95 11/03/22 07:47 36.5 C 108 H 18 129/77 95 O2 Del Method 11/03/22 15:35 Room Air 11/03/22 08:00 Room Air 11/03/22 08:00 11/03/22 11:48 Room Air 11/03/22 07:47 Room Air Laboratory Results Short CBC 11/03/22 Range/Units 06:04 WBC 3.37 L (4.8-10.8) K/ul Hgb 9.5 L (14.0-18.0) g/dl Hct 29.0 L (42.0-52.0) % Plt Count 105 L (130-400) K/uL BMP 11/03/22 06:04 Sodium 131 L Potassium 4.5 Chloride 100 Carbon Dioxide 26 BUN 28 H Creatinine 3.19 H Glucose 95 Calcium 8.3 L
[2022-11-03] MEDS: TAMSULOSIN HCL 0.4 MG CAP PO SCH (20:16)
[2022-11-03] MEDS ORDERED: FUROSEMIDE INJ 20 MG/2 ML VIAL IV SCH (21:00)
[2022-11-04] MEDS: HEPARIN SODIUM/DEXTROSE 25,000 UNITS/500 ML BAG IV SCH ×2 (01:34→15:12)
[2022-11-04 06:23] LABS: Hematocrit (blood only) 29.2 % (42.0-52.0); Hemoglobin 9.6 g/dl (14.0-18.0); Mean Corpuscular Hemoglobin 29.3 pg (25.0-34.0); Mean Corpuscular Hgb Conc 32.9 g/dL (32.0-36.0); Mean Platelet Volume 10.6 fL (9.4-12.4); Platelet Count 122 K/uL (130-400); RDW Coefficient of Variation 14.4 % (11.5-14.5); RDW Standard Deviation 46.6 fL (36.4-46.3); Red Blood Count 3.28 M/uL (4.70-6.10); White Blood Count 3.46 K/ul (4.8-10.8)
[2022-11-04 06:37] LABS: BUN Creatinine Ratio 8.4 (10-20); Calcium 8.5 mg/dl (8.6-10.3); Creatinine Clr Calc Pharmacy 25.7 ml/min; Est GFR (African American) 20.6 ml/min; Est GFR (Non-African American) 17.7 ml/min; Magnesium 1.7 mg/dl (1.7-2.4); Potassium 4.5 mmol/L (3.5-5.1)
[2022-11-04 07:05] LABS: Partial Thromboplastin Ratio 1.8
[2022-11-04 07:06] LABS: Partial Thromboplastin Time 50.7 Seconds (21.0-31.0)
[2022-11-04] MEDS: THIAMINE HCL 100 MG in SYRINGE 9 ML IV SCH (09:50)
[2022-11-04] MEDS: FOLIC ACID 1 MG in SYRINGE 9.8 ML IV SCH (09:51)
[2022-11-04] MEDS: METOPROLOL TARTRATE 25 MG TAB PO SCH ×3 (09:52→20:49)
[2022-11-04] MEDS: MAGNESIUM OXIDE 400 MG TAB PO SCH ×2 (09:52→20:50)
[2022-11-04] MEDS: MYCOPHENOLATE MOFETIL 250 MG CAP PO SCH ×2 (09:52→20:49)
[2022-11-04] MEDS: OLANZAPINE 2.5 MG TAB PO SCH (09:52)
--- NOTE | 2022-11-04 11:10 | Nephrology Progress Note ---
Date of Service November 04, 2022 Assessment & Plan (1) CKD (chronic kidney disease) stage 4, GFR 15-29 ml/min: Plan: Advanced CKD4, bordering on CKD 5 with stable renal function past 4 days or so until it worsened today going from 2.9-3.2 His last baseline creatinine was 1.7 two years ago and he already has bilateral atrophic kidneys so current changes are chronic not acute kidney failure. Crackles on exam possibly related with ILD. His renal prognosis is not good and is heading towards dialysis. He will need regular Nephrology care in [place]. All of that said, renal function improved then stabilized with IV fluid; UOP has dropped off a bit primary service has contacted [facility] transplant program to update them on his liver transplant status; long hx of noncompliance w/ meds and f/u per Dr Lopez's discussion w/ liver txplt. family corroborates noncompliance Creatinine is uptrending 5.5 today. Prograf level from 10/31/2022 was high at 11. -We will reduce Prograf to 1 mg twice daily Admission and Anticipated Discharge Date Admission Date: October 24, 2022 Subjective Seen for acute kidney injury. He feels better no shortness of breath. Legs are swollen. Review of Systems Review of Systems: All other systems were reviewed and negative except as noted in HPI Physical Exam Physical Exam: General exam: Appears comfortable, no acute distress HEENT: Pupils are equal and reactive to light Neck: No JVD, neck is supple trachea is midline Respiratory system: Clear breath sounds bilaterally. Gastrointestinal: Abdomen is soft, non distended, non tender, bowel sounds are present CVS: Regular rate and rhythm. No murmurs, rubs or gallops Musculoskeletal: No joint or muscle tenderness Extremities: Non tender, 1+ edema, peripheral pulses are present Neuro: Oriented, no tremors, no focal neurological deficits Skin: No rashes Results & Data Vital Signs (Past 12 Hours) Vital Signs Temp Pulse Pulse Resp BP Pulse Ox O2 Del Method 11/04/22 07:03 36.5 C 89 18 125/77 95 Room Air 11/04/22 03:06 36.5 C 85 18 114/68 94 Room Air 11/03/22 23:40 85 Laboratory Results 11/04/22 05:54 11/04/22 05:54 WBC 3.46 L RBC 3.28 L MCV 89.0 MCH 29.3 MCHC 32.9 RDW Std Deviation 46.6 H RDW Coeff of Irina 14.4 Plt Count 122 L MPV 10.6
[2022-11-04] MEDS: TACROLIMUS 1 MG CAP PO SCH ×2 (11:26→20:51)
--- NOTE | 2022-11-04 18:40 | Hospitalist Progress Note ---
Date of Service November 04, 2022 Assessment & Plan (1) Acute metabolic encephalopathy: Plan: Patient is a 57-yr male with PMH of history of heavy alcohol use and cirrhosis status post liver transplant at [facility] 6 years ago, hypertension, tobacco use who presents from [facility] clinic due to cough, fatigue and shortness of breath for the past 3 months. Acute metabolic encephalopathy Likely multifactorial-ALEX, deteriorating CHF, multiorgan failure, medications H/O noncompliance with medications and follow-up with physicians as per family --MRI Brain:No acute intracranial abnormality. -- Appreciate neurology input --Ammonia within normal limits TSH minimally elevated Normal vitamin B12 levels Continue thiamine, folic acid Avoid sedating medications as able Reorient frequently to minimize delirium Monitor for alcohol withdrawal Mental status much improved As per Prior hospitalist Further information from PCP and transplant service in [place] discussed with Shannon Gracia #[phone] (the phone number for transplant team is [phone]) at the transplant center in [facility] He has been continuing to drink after transplant and has not been seen by the transplant team since his transplant team for follow-up Has been very noncompliant with medication and is still he has been getting Prograf and CellCept regularly from the facility He has [facility] [place] and following that he was transferred to the hospital with A-fib and RVR and shortness of breath His current condition of acute confusion and altered responsiveness could be due to medications and could be multifactorial as mentioned in neurological note He could have alcohol withdrawal issues as well No further recommendation from the transplant service other than continue the current care --Prograf level 11.5 on 10/31/22 Prograf dose decreased to 1 mg twice a day on 11/05/2019 (2) SOB (shortness of breath): (3) HTN (hypertension): (4) Tobacco use: (5) History of alcohol use: Plan: Was apparently using alcohol even after liver transplant per record Monitor for withdrawal (6) Liver transplant status: (7) ALEX (acute kidney injury): (8) New onset atrial fibrillation: Plan Exertional dyspnea Cough Unintentional weight loss--Likely multifactorial Noncompliant with medications -self discontinued carvedilol, lasix and hydralazine 3 months ago and was taking only Prograf and CellCept once a day (prescribed Q12) Dyspnea likely multifactorial--probable interstitial lung disease versus fibrosis, valvular heart disease, CHF, pericardial effusion contributing as well Bronchiectasis on CT scan Moderate aortic stenosis on echo --BioFire negative --Chest CT:Significantly motion compromised examinations. Groundglass consolidation is seen throughout both lungs with associated intralobular septal thickening and a "crazy paving" appearance. This is nonspecific, and could be seen with pulmonary edema, multifocal pneumonia, pulmonary hemorrhage, and/or possibly drug induced lung disease. Clinical correlation will be essential. Correlate with any prior outside imaging studies. Radiographic follow-up to resolution is recommend. Cardiomegaly noting a [id number] pericardial eff usion. Trace pleural effusions. The appearance of the bladder suggests cystitis. Correlate with clinical findings and urinalysis. The unenhanced hepatic transplant is normal in size and attenuation. Small volume of abdominopelvic ascites. The kidneys are atrophic and without hydronephrosis. --ECHO: Moderate concentric LVH. Mild global hypokinesis of left ventricle. EF 40 to 45%. Right ventricle is mildly dilated. Right ventricle systolic function is moderately reduced. Mild biatrial enlargement. Aortic valve trileaflet. Aortic valve is moderately calcified, moderate valvular aortic stenosis. Mild aortic regurgitation. Mild mitral and tricuspid regurgitation. Small to moderate-sized circumferential pericardial effusion with most significant focal fluid collection adjacent to the inferolateral left ventricular wall. No findings suggestive of cardiac tamponade. Aortic root mildly dilated at 3.8 cm. Proximal ascending aorta is not visualized well enough to allow measurement. -- Appreciate pulmonology, cardiology Input -- Suspected probable infectious process. Procalcitonin normal. MRSA screen negative. Empirically completed 7-day course of antibiotics (cefepime, vancomycin, Doxy) Counseled to quit smoking Needs follow-up with pulmonology upon discharge saturating well on room air New onset A fib Noncompliant with home carvedilol Continue metoprolol On IV heparin for anticoagulation Appreciate cardiology input Increase metoprolol dose to 25 mg TID Rate is better controlled today Acute kidney injury on CKD IV/V Baseline Cr ~ 1.7 Metabolic acidosis Hyperkalemia --CT abd/pelvis with kidneys that are atrophic and without hydronephrosis Acidosis, hyperkalemia resolved Continue IV fluids as per nephrology Avoid nephrotoxic agents as able Monitor renal function Cr 3.57 today Sodium 130 today Prograf dose decreased to 1 mg twice a day Volume overload Likely multifactorial Pericardial effusion on CT chest Small to moderate abdominal pelvic ascites on abdominal ultrasound H/O ETOH cirrhosis s/p liver transplant 6 years ago Liver transplant at [facility] in [place], is only taking Prograf and CellCept once a day (prescribed Q12) Has not had lab work in over a year Continues to drink alcohol post transplant but denies alcohol use in past 4 months Prograf and CellCept level pending Immunological work-up pending as well Monitor volume status Continue Lasix as needed HTN Continue current medication Hypomagnesemia Replete electrolytes as needed Tobacco use Recommend cessation DVT Px: IV heparin Code status: FULL CODE Admission and Anticipated Discharge Date Admission Date: October 24, 2022 Subjective Patient is seen and examined at bedside Offers no new complaints Lying in bed comfortably Creatinine worsening No tachycardia today Saturating well on room air Review of Systems Review of Systems: All systems reviewed & are unremarkable except as noted in Subjective Physical Exam Physical Exam: Physical Exam: Vitals signs as noted above General Appearance:Moderately built and nourished, no apparent distress Head: normocephalic, Atraumatic Eyes: normal inspection, EOMI Neck: supple, Trachea midline Respiratory/Chest: Normal breath sounds, B/L Rales, No accessory muscle use Cardiovascular: Irregularly irregular, No murmur Abdomen/GI:Soft, Non tender, Bowel sounds present Extremities/Musculoskeletal:normal inspection, B/L LE edema Neurologic/Psych:AAOX1, grossly no focal neurological deficits Skin: normal color, warm Results & Data Results & Data Vital Signs (Past 12 Hours) Vital Signs Temp Pulse Resp BP Pulse Ox O2 Del Method 11/04/22 17:19 36.3 C L 79 18 99/68 L 96 Room Air 11/04/22 13:16 Room Air 11/04/22 12:35 36.6 C 85 18 104/70 93 Room Air 11/04/22 07:03 36.5 C 89 18 125/77 95 Room Air Laboratory Results Short CBC 11/04/22 Range/Units 05:54 WBC 3.46 L (4.8-10.8) K/ul Hgb 9.6 L (14.0-18.0) g/dl Hct 29.2 L (42.0-52.0) % Plt Count 122 L (130-400) K/uL BMP 11/04/22 05:54 Sodium 130 L Potassium 4.5 Chloride 99 Carbon Dioxide 24 BUN 30 H Creatinine 3.57 H D Glucose 93 Calcium 8.5 L
[2022-11-04] MEDS: TAMSULOSIN HCL 0.4 MG CAP PO SCH (20:51)
[2022-11-05 05:23] LABS: Hematocrit (blood only) 28.4 % (42.0-52.0); Hemoglobin 9.5 g/dl (14.0-18.0); Mean Corpuscular Hemoglobin 29.3 pg (25.0-34.0); Mean Corpuscular Hgb Conc 33.5 g/dL (32.0-36.0); Mean Corpuscular Volume 87.7 fL (80.0-100.0); Mean Platelet Volume 10.7 fL (9.4-12.4); Platelet Count 138 K/uL (130-400); RDW Coefficient of Variation 14.5 % (11.5-14.5); RDW Standard Deviation 46.5 fL (36.4-46.3); Red Blood Count 3.24 M/uL (4.70-6.10)
[2022-11-05 05:27] LABS: BUN Creatinine Ratio 8.7 (10-20); Calcium 8.4 mg/dl (8.6-10.3); Est GFR (African American) 19.9 ml/min; Est GFR (Non-African American) 17.2 ml/min; Magnesium 1.8 mg/dl (1.7-2.4); Potassium 4.7 mmol/L (3.5-5.1)
[2022-11-05] MEDS: HEPARIN SODIUM/DEXTROSE 25,000 UNITS/500 ML BAG IV SCH (05:43)
[2022-11-05 05:52] LABS: Partial Thromboplastin Ratio 1.7; Partial Thromboplastin Time 47.2 Seconds (21.0-31.0)
[2022-11-05] MEDS ORDERED: LORazepam 2 MG/1 ML VIAL IV PRN (07:06)
[2022-11-05] MEDS: FOLIC ACID 1 MG in SYRINGE 9.8 ML IV SCH (08:50)
[2022-11-05] MEDS: THIAMINE HCL 100 MG in SYRINGE 9 ML IV SCH (08:50)
[2022-11-05] MEDS: MAGNESIUM OXIDE 400 MG TAB PO SCH ×2 (08:50→20:42)
[2022-11-05] MEDS: MYCOPHENOLATE MOFETIL 250 MG CAP PO SCH ×2 (08:51→20:43)
[2022-11-05] MEDS: METOPROLOL TARTRATE 25 MG TAB PO SCH ×3 (08:51→20:42)
[2022-11-05] MEDS: FUROSEMIDE 40 MG/4 ML VIAL IV SCH ×2 (09:21→16:30)
--- NOTE | 2022-11-05 11:05 | Nephrology Progress Note ---
Date of Service November 05, 2022 Assessment & Plan (1) CKD (chronic kidney disease) stage 4, GFR 15-29 ml/min: Plan: Advanced CKD4, bordering on CKD 5. Cr 3.67 today His last baseline creatinine was 1.7 two years ago and he already has bilateral atrophic kidneys so current changes are chronic not acute kidney failure. Crackles on exam possibly related with ILD. His renal prognosis is not good and is heading towards dialysis. He will need regular Nephrology care in [place]. Creatinine is uptrending 3.6 today. Prograf level from 10/31/2022 was high at 11. -We will hold Prograf today. -will give lasix 60mg iv bid -Check another FKlevel Admission and Anticipated Discharge Date Admission Date: October 24, 2022 Subjective Seen for ALEX. He requests removal of ray. has leg swelling. Review of Systems Review of Systems: All other systems were reviewed and negative except as noted in HPI Physical Exam Physical Exam: General exam: Appears comfortable, no acute distress HEENT: Pupils are equal and reactive to light Neck: No JVD, neck is supple trachea is midline Respiratory system: Clear breath sounds bilaterally. Gastrointestinal: Abdomen is soft, non distended, non tender, bowel sounds are present CVS: Regular rate and rhythm. No murmurs, rubs or gallops Musculoskeletal: No joint or muscle tenderness Extremities: Non tender, 1+ edema, peripheral pulses are present Neuro: Oriented, no tremors, no focal neurological deficits Skin: No rashes Results & Data Vital Signs (Past 12 Hours) Vital Signs Temp Pulse Pulse Resp BP Pulse Ox O2 Del Method 11/05/22 08:31 36.4 C L 96 H 18 127/83 96 Room Air 11/05/22 03:57 36.5 C 82 18 113/80 93 Room Air 11/04/22 23:29 73 Laboratory Results 11/05/22 04:32 11/05/22 04:32 WBC 3.80 L RBC 3.24 L MCV 87.7 MCH 29.3 MCHC 33.5 RDW Std Deviation 46.5 H RDW Coeff of Irina 14.5 Plt Count 138 MPV 10.7
--- NOTE | 2022-11-05 17:06 | Hospitalist Progress Note ---
Date of Service November 05, 2022 Assessment & Plan (1) Acute metabolic encephalopathy: Plan: Patient is a 57-yr male with PMH of history of heavy alcohol use and cirrhosis status post liver transplant at [facility] 6 years ago, hypertension, tobacco use who presents from [facility] clinic due to cough, fatigue and shortness of breath for the past 3 months. Acute metabolic encephalopathy Likely multifactorial-ALEX, deteriorating CHF, multiorgan failure, medications H/O noncompliance with medications and follow-up with physicians as per family --MRI Brain:No acute intracranial abnormality. -- Appreciate neurology input --Ammonia within normal limits TSH minimally elevated Normal vitamin B12 levels Continue thiamine, folic acid Avoid sedating medications as able Reorient frequently to minimize delirium Monitor for alcohol withdrawal Mental status much improved As per Prior hospitalist Further information from PCP and transplant service in [place] Case discussed with Shannon Gracia #[phone] (the phone number for transplant team is [phone]) at the transplant center in [facility] He has been continuing to drink after transplant and has not been seen by the transplant team since his transplant team for follow-up Has been very noncompliant with medication and is still he has been getting Prograf and CellCept regularly from the facility He has seen [facility] [place] and following that he was transferred to the hospital with A-fib and RVR and shortness of breath His current condition of acute confusion and altered responsiveness could be due to medications and could be multifactorial as mentioned in neurological note He could have alcohol withdrawal issues as well No further recommendation from the transplant service other than continue the current care --Prograf level 11.5 on 10/31/22 Prograf dose decreased to 1 mg twice a day on 11/05/2019 Hold Prograf today. Repeat levels pending (2) SOB (shortness of breath): (3) HTN (hypertension): (4) Tobacco use: (5) History of alcohol use: Plan: Was apparently using alcohol even after liver transplant per record Monitor for withdrawal (6) Liver transplant status: (7) ALEX (acute kidney injury): (8) New onset atrial fibrillation: Plan Exertional dyspnea Cough Unintentional weight loss--Likely multifactorial Noncompliant with medications -self discontinued carvedilol, lasix and hydralazine 3 months ago and was taking only Prograf and CellCept once a day (prescribed Q12) Dyspnea likely multifactorial--probable interstitial lung disease versus fibrosis, valvular heart disease, CHF, pericardial effusion contributing as well Bronchiectasis on CT scan Moderate aortic stenosis on echo --BioFire negative --Chest CT:Significantly motion compromised examinations. Groundglass consolidation is seen throughout both lungs with associated intralobular septal thickening and a "crazy paving" appearance. This is nonspecific, and could be seen with pulmonary edema, multifocal pneumonia, pulmonary hemorrhage, and/or possibly drug induced lung disease. Clinical correlation will be essential. Correlate with any prior outside imaging studies. Radiographic follow-up to resolution is recommend. Cardiomegaly noting a [id number] pericardial effusion. Trace pleural effusions. The appearance of the bladder suggests cystitis. Correlate with clinical findings and urinalysis. The unenhanced hepatic transplant is normal in size and attenuation. Small volume of abdominopelvic ascites. The kidneys are atrophic and without hydronephrosis. --ECHO: Moderate concentric LVH. Mild global hypokinesis of left ventricle. EF 40 to 45%. Right ventricle is mildly dilated. Right ventricle systolic function is moderately reduced. Mild biatrial enlargement. Aortic valve trileaflet. Aortic valve is moderately calcified, moderate valvular aortic stenosis. Mild aortic regurgitation. Mild mitral and tricuspid regurgitation. Small to moderate-sized circumferential pericardial effusion with most significant focal fluid collection adjacent to the inferolateral left ventricular wall. No findings suggestive of cardiac tamponade. Aortic root mildly dilated at 3.8 cm. Proximal ascending aorta is not visualized well enough to allow measurement. -- Appreciate pulmonology, cardiology Input -- Suspected probable infectious process. Procalcitonin normal. MRSA screen negative. Empirically completed 7-day course of antibiotics (cefepime, vancomycin, Doxy) Counseled to quit smoking Needs follow-up with pulmonology upon discharge saturating well on room air New onset A fib Noncompliant with home carvedilol Continue metoprolol On IV heparin for anticoagulation Appreciate cardiology input Increase metoprolol dose to 25 mg TID Rate is better controlled today Acute kidney injury on CKD IV/V Baseline Cr ~ 1.7 Metabolic acidosis Hyperkalemia --CT abd/pelvis with kidneys that are atrophic and without hydronephrosis Acidosis, hyperkalemia resolved Received IV fluids Avoid nephrotoxic agents as able Monitor renal function Cr 3.67 today Sodium 127 today Prograf held Continue IV Lasix per nephrology as clinically volume overloaded Volume overload Likely multifactorial Pericardial effusion on CT chest Small to moderate abdominal pelvic ascites on abdominal ultrasound H/O ETOH cirrhosis s/p liver transplant 6 years ago Liver transplant at [facility] in [place], is only taking Prograf and CellCept once a day (prescribed Q12) Has not had lab work in over a year Continues to drink alcohol post transplant but denies alcohol use in past 4 months Prograf and CellCept level pending Immunological work-up pending as well Monitor volume status Continue Lasix per Nephrology HTN Continue current medication Hypomagnesemia Replete electrolytes as needed Tobacco use Recommend cessation DVT Px: IV heparin Code status: FULL CODE Admission and Anticipated Discharge Date Admission Date: October 24, 2022 Subjective Patient is seen and examined at bedside Refusing to keep Horner catheter, IV heparin this morning but later cooperative Discussed with nephrology today Creatinine levels worsening Patient offers no complaints Review of Systems Review of Systems: All systems reviewed & are unremarkable except as noted in Subjective Physical Exam Physical Exam: Physical Exam: Vitals signs as noted above General Appearance:Moderately built and nourished, no apparent distress Head: normocephalic, Atraumatic Eyes: normal inspection, EOMI Neck: supple, Trachea midline Respiratory/Chest: Normal breath sounds, B/L Rales, No accessory muscle use Cardiovascular: Irregularly irregular, No murmur Abdomen/GI:Soft, Non tender, Bowel sounds present Extremities/Musculoskeletal:normal inspection, B/L LE edema Neurologic/Psych:AAOX1, grossly no focal neurological deficits Skin: normal color, warm Results & Data Results & Data Vital Signs (Past 12 Hours) Vital Signs Temp Pulse Resp BP Pulse Ox O2 Del Method 11/05/22 16:10 36.8 C 96 H 18 121/63 91 Room Air 11/05/22 14:28 36.5 C 96 H 18 106/71 96 Room Air 11/05/22 08:00 Room Air 11/05/22 11:31 36.4 C L 86 18 126/82 97 Room Air 11/05/22 08:31 36.4 C L 96 H 18 127/83 96 Room Air Laboratory Results Short CBC 11/05/22 Range/Units 04:32 WBC 3.80 L (4.8-10.8) K/ul Hgb 9.5 L (14.0-18.0) g/dl Hct 28.4 L (42.0-52.0) % Plt Count 138 (130-400) K/uL BMP 11/05/22 04:32 Sodium 127 L Potassium 4.7 Chloride 99 Carbon Dioxide 24 BUN 32 H Creatinine 3.67 H Glucose 123 H Calcium 8.4 L
[2022-11-05 17:52] LABS: Anti Cardiolipin Ab IgM 4.1 MPL-U/mL; Anti Nuclear Antibody Screen POSITIVE (NEGATIVE); Anti-Cardiolipin Ab IgA 3.7 APL-U/mL; Anti-Centromere Ab <1.0 NEG AI (<1.0 NEG); Anti-SS-A <1.0 NEG AI (<1.0 NEG); Anti-SS-B <1.0 NEG AI (<1.0 NEG); Chromatin Antibody <1.0 NEG AI (<1.0 NEG); Complement C3 69 mg/dL (82-185); Cyclic Citrullinated Pep IgG <16 UNITS; DNA ds Crithidia NEGATIVE (NEGATIVE); Microsomal Ab <1 IU/mL (<9); RNP Antibody <1.0 NEG AI (<1.0 NEG); Rheumatoid Factor <14 IU/mL (<14); Scleroderma Anti Scl-70 Ab <1.0 NEG AI (<1.0 NEG); Sm Antibody <1.0 NEG AI (<1.0 NEG)
[2022-11-05] MEDS: TAMSULOSIN HCL 0.4 MG CAP PO SCH (20:41)
[2022-11-06] MEDS ORDERED: OLANZapine 10 MG/2.1 ML SDV IM STA ×2 (04:11→06:31)
[2022-11-06] MEDS ORDERED: LORazepam 2 MG/1 ML VIAL IV PRN (04:12)
[2022-11-06 07:09] LABS: BUN Creatinine Ratio 9.1 (10-20); Calcium 8.7 mg/dl (8.6-10.3); Creatinine Clr Calc Pharmacy 24.9 ml/min; Est GFR (African American) 19.6 ml/min; Est GFR (Non-African American) 16.9 ml/min; Potassium 4.6 mmol/L (3.5-5.1)
[2022-11-06 07:34] LABS: Partial Thromboplastin Ratio 1.5
[2022-11-06 08:13] LABS: Partial Thromboplastin Time 42.9 Seconds (21.0-31.0)
[2022-11-06] MEDS: FOLIC ACID 1 MG in SYRINGE 9.8 ML IV SCH (08:59)
[2022-11-06] MEDS: FUROSEMIDE 40 MG/4 ML VIAL IV SCH (09:00)
[2022-11-06] MEDS: THIAMINE HCL 100 MG in SYRINGE 9 ML IV SCH (09:00)
[2022-11-06] MEDS ORDERED: LACTULOSE SYRUP 20 GM/30 ML UDC PO ONE (09:59)
[2022-11-06] MEDS: MAGNESIUM OXIDE 400 MG TAB PO SCH (10:20)
[2022-11-06] MEDS: METOPROLOL TARTRATE 25 MG TAB PO SCH ×2 (10:20→13:57)
[2022-11-06] MEDS: MYCOPHENOLATE MOFETIL 250 MG CAP PO SCH (10:20)
[2022-11-06 12:44] LABS: ANA Pattern Cytoplasmic; ANA Titer 1:40 titer
[2022-11-06] MEDS ORDERED: OLANZapine 10 MG/2.1 ML SDV IM PRN (14:06)
--- NOTE | 2022-11-06 14:51 | Psychiatric Consultation ---
Date of Consultation November 06, 2022 Impression / Recommendations Impression 57 yo male with complex medical presentation, worsening MSE during extended hospitalization--too late for protracted alcohol withdrawal, no Wernicke- Korsakoff at baseline so likely hospital acquired delirium though there are case reports of neuropsychiatric side effects of tacrolimus (such as behavioral disturbance, davila, etc). He is having forced compliance in the hospital and based on literature can occur at any time in treatment independent of level. He is in need of this medication so would treat side effects. A level is pending. Patient's ammonia level is normal but he is hyponatremic as well, though appears chronic. (1) Acute metabolic encephalopathy: Plan if persists consider reimaging as last 10/27/22 to exclude an acute neurologic event. Zyprexa 5 mg at once if requires IM, currently ordered daily by Dr. Jules Would likely benefit from Zyprexa 2.5 mg hs standing at hs for now with possible titration to BID if agitation continues. will follow, recs discussed with Dr. Jules time spent >50 min, >50% time spent coordination of care Psych History Identifying Data 57 yo male [place], first contact with psych service, hx of alcohol use disorder s/p liver transplant. admitted medically 13 days ago with metabolic encephalopathy due to multiorgan failure. Consult for davila/?PTSD. Chief Complaint agitation History of Present Illness As per liaison: Received call from primary nurse, patient is escalated and wanting to leave the hospital. Upon arriving to room, patient is sitting up in bed with legs open, exposing genitalia (ray intact). Patient using vulgar language/profanities, stating he wants to go home and wants the ray catheter removed. He is oriented to person/place/time at times, waxes and wanes rapidly. He is not able to explain why he is at the hospital and often speaks as if he is elsewhere, stating, "where are you going to be incase we get ?" Ultimately ray was removed and patient continued to want to leave, requested his pants. When attempting to put on his jeans, patient is unsteady on his feet requiring standby assistance, very high risk for falls. Patient laid on opposite end (foot) of the bed and fell asleep. Dr. Figueroa updated and will be seeing patient today to provide medication recommendations. Zyprexa 5mg IM is recommended if patient begins to escalate. Will continue to round and offer support as needed. Staff encouraged to call liaison for any questions or concerns. Patient is no where near baseline. Unclear if hallucinating but talking about the , confused, won't keep IV site or monitoring leads. Received 2 doses of IM Zyprexa 2.5 mg this am, did not receive 5 mg as calmed with behavioral interventions. Has been seen by multiple specialists including palliative care. [facility] he has been noncompliant with anti-rejection meds and was drinking again, at least as recently as July. Allergies Allergy/AdvReac Type Severity Reaction Status Date / Time No Known Allergies Allergy Unverified 10/24/22 12:02 Home Medications Medication Instructions Recorded Confirmed Type carvedilol 12.5 mg tablet 0 mg PO BID 10/24/22 10/24/22 History cyanocobalamin (vitamin B-12) 0 mcg PO DAILY 10/24/22 10/24/22 History 1,000 mcg tablet folic acid 1 mg tablet 0 mg PO DAILY 10/24/22 10/24/22 History furosemide 20 mg tablet 0 mg PO DAILY 10/24/22 10/24/22 History hydralazine 10 mg tablet 0 mg PO TID 10/24/22 10/24/22 History mycophenolate mofetil 500 mg tablet 500 mg PO BID 10/24/22 10/24/22 History tacrolimus 1 mg capsule, 3 mg PO Q12H 10/24/22 10/24/22 History immediate-release thiamine HCl (vitamin B1) 100 mg 100 mg PO DAILY 10/24/22 10/24/22 History tablet Patient History Medical History Advanced care planning/counseling discussion 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 Palliative care by specialist Tobacco use Surgical History Liver transplant status Family History Other Diabetes Heart disease Social History Smoking Status: Never smoker Do You Dip or Chew Tobacco: Yes; Hx Alcohol Use: No Hx Substance Use: No Preferred Language: Bulgarian Communication Ability: Effective Chemical Milling Processor Required: No Beliefs That Will Affect Care: None Current Living Situation: Alone Feels Safe at Home: Yes Safety Concerns: Feels Safe At This Time Assistive Devices: None Physical Exam Psychiatric: patient was finally sleeping, will defer as needs therapeutic rest and easily agitated Vital Signs (Past 24 Hours): Last Vital Signs Temp 36.3 C L 11/06/22 13:18 Pulse 110 H 11/06/22 13:18 Resp 18 11/06/22 13:18 BP 121/76 11/06/22 13:18 Pulse Ox 92 11/06/22 13:18 O2 Del Method Room Air 11/06/22 13:18 Review of Systems Unobtainable due to cognitive status Results & Data (PSY) Laboratory Results 11/06/22 11/06/22 11/06/22 Range/Units 10:03 05:40 05:40 APTT 42.9 H* (21.0-31.0) Seconds PTT Ratio 1.5 Sodium 128 L (136-145) mmol/L Potassium 4.6 (3.5-5.1) mmol/L Chloride 96 L (98-107) mmol/L Carbon Dioxide 24 (21-32) mmol/L Anion Gap 8 (3-11) BUN 34 H (6-23) mg/dl Creatinine 3.72 H (0.6-1.4) mg/dl Est Cr Clr Drug Dosing 24.9 ml/min Est GFR ( Amer) 19.6 ml/min Est GFR (Non-Af Amer) 16.9 ml/min BUN/Creatinine Ratio 9.1 L (10-20) Glucose 101 H (70-99(Fasting)) mg/dl Calcium 8.7 (8.6-10.3) mg/dl Ammonia 19.0 (18-72) umol/L Rheumatoid Factor (<14) IU/mL Cycl Citrul Peptide IgG UNITS NOEL Screen (NEGATIVE) NOEL Titer titer NOEL Pattern SS-A/Ro Antibody (<1.0 NEG) AI SS-B/La Antibody (<1.0 NEG) AI Sm (Abel) Antibody (<1.0 NEG) AI PERFORATOR OPERATOR Antibody (<1.0 NEG) AI Scl-70 Scleroderma Ab (<1.0 NEG) AI Anti-ds DNA (Crithidia) (NEGATIVE) Chromatin Antibody (<1.0 NEG) AI Anti-Centromere Ab (<1.0 NEG) AI Thyroid Antimicrosomal (<9) IU/mL Anti-Cardiolipin IgG Ab GPL-U/mL Anti-Cardiolipin IgA Ab APL-U/mL Anti-Cardiolipin IgM Ab MPL-U/mL Complement C3 (82-185) mg/dL Complement C4 (15-53) mg/dL 10/28/22 Range/Units 05:34 APTT (21.0-31.0) Seconds PTT Ratio Sodium (136-145) mmol/L Potassium (3.5-5.1) mmol/L Chloride (98-107) mmol/L Carbon Dioxide (21-32) mmol/L Anion Gap (3-11) BUN (6-23) mg/dl Creatinine (0.6-1.4) mg/dl Est Cr Clr Drug Dosing ml/min Est GFR ( Amer) ml/min Est GFR (Non-Af Amer) ml/min BUN/Creatinine Ratio (10-20) Glucose (70-99(Fasting)) mg/dl Calcium (8.6-10.3) mg/dl Ammonia (18-72) umol/L Rheumatoid Factor <14 (<14) IU/mL Cycl Citrul Peptide IgG <16 UNITS NOEL Screen POSITIVE A (NEGATIVE) NOEL Titer 1:40 H titer NOEL Pattern Cytoplasmic A SS-A/Ro Antibody <1.0 NEG (<1.0 NEG) AI SS-B/La Antibody <1.0 NEG (<1.0 NEG) AI Sm (Abel) Antibody <1.0 NEG (<1.0 NEG) AI PERFORATOR OPERATOR Antibody <1.0 NEG (<1.0 NEG) AI Scl-70 Scleroderma Ab <1.0 NEG (<1.0 NEG) AI Anti-ds DNA (Crithidia) NEGATIVE (NEGATIVE) Chromatin Antibody <1.0 NEG (<1.0 NEG) AI Anti-Centromere Ab <1.0 NEG (<1.0 NEG) AI Thyroid Antimicrosomal <1 (<9) IU/mL Anti-Cardiolipin IgG Ab 2.0 GPL-U/mL Anti-Cardiolipin IgA Ab 3.7 APL-U/mL Anti-Cardiolipin IgM Ab 4.1 MPL-U/mL Complement C3 69 L (82-185) mg/dL Complement C4 18 (15-53) mg/dL Medications Administered Furosemide (Furosemide 40 Mg/4 Ml Vial) 60 mg IV [id number] [facility] Stop: 12/05/22 08:59 Last Admin: 11/06/22 09:00 Dose: Not Given Documented By: Admin: 11/05/22 16:30 Dose: 60 mg Documented By: Admin: 11/05/22 09:21 Dose: 60 mg Documented By: JEROME Heparin Sodium/Dextrose (Heparin Sodium/Dextrose) 25,000 units in 500 mls @ 0 mls/hr IV .Q0M [facility]; Protocol Stop: 11/30/22 09:29 Last Titration: 11/06/22 07:07 Dose: 0 units/hr, 0 mls/hr Documented By: JEROME Co-signed By: SANTIAGO Titration: 11/05/22 19:01 Dose: 800 units/hr, 16 mls/hr Documented By: JEROME Co-signed By: SANTIAGO Admin: 11/05/22 05:43 Dose: 800 units/hr, 16 mls/hr Documented By: SANTIAGO Co-signed By: IMAN Titration: 11/05/22 05:43 Dose: 800 units/hr, 16 mls/hr Documented By: SANTIAGO Co-signed By: IMAN Admin: 11/04/22 15:12 Dose: Not Given Documented By: Admin: 11/04/22 01:34 Dose: 800 units/hr, 16 mls/hr Documented By: OPeyton Co-signed By: CHERYL Titration: 11/04/22 01:34 Dose: 800 units/hr, 16 mls/hr Documented By: SANTIAGO Co-signed By: CHERYL Admin: 11/02/22 18:44 Dose: 800 units/hr, 16 mls/hr Documented By: JH Co-signed By: HERMELINDA Titration: 11/02/22 18:44 Dose: 800 units/hr, 16 mls/hr Documented By: JH Co-signed By: HERMELINDA Titration: 11/02/22 07:12 Dose: 800 units/hr, 16 mls/hr Documented By: SB Co-signed By: JH Titration: 11/01/22 19:11 Dose: 800 units/hr, 16 mls/hr Documented By: SB Co-signed By: DTT Titration: 11/01/22 15:57 Dose: 800 units/hr, 16 mls/hr Documented By: DTT Co-signed By: CB Admin: 11/01/22 15:42 Dose: 1,400 units/hr, 28 mls/hr Documented By: DTT Co-signed By: CB Titration: 11/01/22 11:22 Dose: 0 units/hr, 0 mls/hr Documented By: DTT Co-signed By: BJH Titration: 10/31/22 22:35 Dose: 0 units/hr, 0 mls/hr Documented By: PK Co-signed By: MTR Titration: 10/31/22 19:16 Dose: 800 units/hr, 16 mls/hr Documented By: PK Co-signed By: DLN Admin: 10/31/22 09:30 Dose: 800 units/hr, 16 mls/hr Documented By: DLN Co-signed By: AM Folic Acid 1 mg/ Syringe 10 mls @ 5 mls/min IV QAM JESSICA Stop: 11/30/22 14:59 Last Admin: 11/06/22 08:59 Dose: Not Given Documented By: Admin: 11/05/22 08:50 Dose: 5 mls/min Documented By: Admin: 11/04/22 09:51 Dose: 5 mls/min Documented By: Admin: 11/03/22 09:05 Dose: 5 mls/min Documented By: Admin: 11/02/22 09:23 Dose: 5 mls/min Documented By: Admin: 11/01/22 09:30 Dose: 5 mls/min Documented By: Admin: 10/31/22 16:15 Dose: 5 mls/min Documented By: CASSANDRA Thiamine HCl 100 mg/ Syringe 10 mls @ 2 mls/min IV QAM JESSICA Stop: 11/30/22 15:14 Last Admin: 11/06/22 09:00 Dose: Not Given Documented By: Admin: 11/05/22 08:50 Dose: 2 mls/min Documented By: Admin: 11/04/22 09:50 Dose: 2 mls/min Documented By: Admin: 11/03/22 09:06 Dose: 2 mls/min Documented By: Admin: 11/02/22 09:23 Dose: 2 mls/min Documented By: Admin: 11/01/22 09:29 Dose: 2 mls/min Documented By: Admin: 10/31/22 16:15 Dose: 2 mls/min Documented By: CASSANDRA Magnesium Oxide (Magnesium Oxide 400 Mg Tab) 400 mg PO BID JESSICA Stop: 12/01/22 20:59 Last Admin: 11/06/22 10:20 Dose: Not Given Documented By: Admin: 11/05/22 20:42 Dose: 400 mg Documented By: Admin: 11/05/22 08:50 Dose: 400 mg Documented By: Admin: 11/04/22 20:50 Dose: 400 mg Documented By: Admin: 11/04/22 09:52 Dose: 400 mg Documented By: Admin: 11/03/22 20:19 Dose: 400 mg Documented By: Admin: 11/03/22 09:07 Dose: 400 mg Documented By: Admin: 11/02/22 20:05 Dose: 400 mg Documented By: Admin: 11/02/22 09:22 Dose: 400 mg Documented By: Admin: 11/01/22 21:05 Dose: 400 mg Documented By: SB Metoprolol Tartrate (Metoprolol Tartrate 1 Mg/Ml Vial) 2.5 mg IV Q6 PRN PRN Reason: Tachycardia Stop: 11/29/22 17:59 Last Admin: 10/31/22 07:23 Dose: 2.5 mg Documented By: Admin: 10/30/22 17:47 Dose: 2.5 mg Documented By: HERMELINDA Metoprolol Tartrate (Metoprolol Tartrate 25 Mg Tab) 25 mg PO TID JESSICA Stop: 12/03/22 13:59 Last Admin: 11/06/22 13:57 Dose: Not Given Documented By: Admin: 11/06/22 10:20 Dose: Not Given Documented By: Admin: 11/05/22 20:42 Dose: 25 mg Documented By: Admin: 11/05/22 14:24 Dose: 25 mg Documented By: Admin: 11/05/22 08:51 Dose: 25 mg Documented By: Admin: 11/04/22 20:49 Dose: 25 mg Documented By: Admin: 11/04/22 15:11 Dose: 25 mg Documented By: Admin: 11/04/22 09:52 Dose: 25 mg Documented By: Admin: 11/03/22 20:16 Dose: 25 mg Documented By: Admin: 11/03/22 14:21 Dose: 25 mg Documented By: SMM Mycophenolate Mofetil (Mycophenolate Mofetil 250 Mg Cap) 500 mg PO BID JESSICA Stop: 11/28/22 20:59 Last Admin: 11/06/22 10:20 Dose: Not Given Documented By: Admin: 11/05/22 20:43 Dose: 500 mg Documented By: Admin: 11/05/22 08:51 Dose: 500 mg Documented By: Admin: 11/04/22 20:49 Dose: 500 mg Documented By: Admin: 11/04/22 09:52 Dose: 500 mg Documented By: Admin: 11/03/22 20:18 Dose: 500 mg Documented By: Admin: 11/03/22 09:07 Dose: 500 mg Documented By: Admin: 11/02/22 20:05 Dose: 500 mg Documented By: Admin: 11/02/22 09:22 Dose: 500 mg Documented By: Admin: 11/01/22 21:04 Dose: 500 mg Documented By: Admin: 11/01/22 09:30 Dose: 500 mg Documented By: Admin: 10/31/22 21:51 Dose: 500 mg Documented By: Admin: 10/31/22 07:25 Dose: 500 mg Documented By: Admin: 10/30/22 20:26 Dose: Not Given Documented By: Admin: 10/30/22 08:07 Dose: Not Given Documented By: Admin: 10/29/22 22:37 Dose: Not Given Documented By: [id number] Ondansetron HCl (Ondansetron Inj 2 Mg/Ml 2 Ml Vial) 4 mg IV Q6H PRN PRN Reason: Nausea Stop: 11/23/22 17:55 Last Admin: 10/26/22 22:36 Dose: 4 mg Documented By: CR Tacrolimus (Tacrolimus 1 Mg Cap) 1 mg PO Q12 JESSICA Stop: 12/04/22 09:14 Last Admin: 11/04/22 20:51 Dose: 1 mg Documented By: Admin: 11/04/22 11:26 Dose: 1 mg Documented By: HLK Tamsulosin HCl (Tamsulosin Hcl 0.4 Mg Cap) 0.4 mg PO HS JESSICA Stop: 11/26/22 20:59 Last Admin: 11/05/22 20:41 Dose: 0.4 mg Documented By: Admin: 11/04/22 20:51 Dose: 0.4 mg Documented By: Admin: 11/03/22 20:16 Dose: 0.4 mg Documented By: Admin: 11/02/22 20:04 Dose: 0.4 mg Documented By: Admin: 11/01/22 21:04 Dose: 0.4 mg Documented By: Admin: 10/31/22 21:52 Dose: 0.4 mg Documented By: Admin: 10/30/22 20:26 Dose: Not Given Documented By: Admin: 10/29/22 22:38 Dose: Not Given Documented By: [id number] Admin: 10/28/22 21:00 Dose: Not Given Documented By: Admin: 10/27/22 20:46 Dose: 0.4 mg Documented By: LMP Coding Level of Care Code 23022 [facility] Intl Hosp Care Lvl 3 Diagnoses Acute metabolic encephalopathy G93.41
--- NOTE | 2022-11-06 15:00 | Nephrology Progress Note ---
Date of Service November 06, 2022 Assessment & Plan Admission and Anticipated Discharge Date Admission Date: October 24, 2022 Subjective Assessment & Plan (1) CKD (chronic kidney disease) stage 4, GFR 15-29 ml/min: Plan: Advanced CKD4, Now with ALEX and rising creat His last baseline creatinine was 1.7 two years ago and he already has bilateral atrophic kidneys so current changes are moslty chronic not acute kidney failure. Crackles on exam possibly related with ILD. His renal prognosis is not good and is heading towards dialysis. He will need regular Nephrology care in [place]. Creatinine is uptrending today 3.7 today. Prograf level from 10/31/2022 was high at 11. will start Prograf 0.5 bid from tomorrow. Check 12 hr trough Prograf trough level again tomorrow. Check LFT and mag + BMP tomorrow. lasix 40 mg iv x 1 today Subjective Seen for ALEX. had lasix and made 1300 ml urine yesterday somewhat more than usual. Review of Systems Review of Systems: All other systems were reviewed and negative except as noted in HPI Physical Exam Physical Exam: General exam: Appears comfortable, no acute distress HEENT: Pupils are equal and reactive to light Neck: No JVD, neck is supple trachea is midline Respiratory system: Clear breath sounds bilaterally. Gastrointestinal: Abdomen is soft, non distended, non tender, bowel sounds are present CVS: Regular rate and rhythm. No murmurs, rubs or gallops Musculoskeletal: No joint or muscle tenderness Extremities: Non tender, 1+ edema, peripheral pulses are present Neuro: Oriented, no tremors, no focal neurological deficits Skin: No rashes Results & Data Vital Signs (Past 12 Hours) Vital Signs Temp Pulse Resp BP Pulse Ox O2 Del Method 11/06/22 13:18 36.3 C L 110 H 18 121/76 92 Room Air 11/06/22 07:00 Room Air 11/06/22 07:14 36.3 C L 86 18 127/84 94 Room Air 11/06/22 03:48 36.2 C L 72 19 103/65 95 Room Air
[2022-11-06] MEDS ORDERED: FUROSEMIDE 40 MG/4 ML VIAL IV ONE (15:28)
--- NOTE | 2022-11-06 16:30 | Hospitalist Progress Note ---
Date of Service November 06, 2022 Assessment & Plan (1) Acute metabolic encephalopathy: Plan: Patient is a 57-yr male with PMH of history of heavy alcohol use and cirrhosis status post liver transplant at [facility] 6 years ago, hypertension, tobacco use who presents from [facility] clinic due to cough, fatigue and shortness of breath for the past 3 months. Acute metabolic encephalopathy Likely multifactorial-ALEX, deteriorating CHF, multiorgan failure, medications H/O noncompliance with medications and follow-up with physicians as per family --MRI Brain:No acute intracranial abnormality. -- Appreciate neurology input --Ammonia within normal limits TSH minimally elevated Normal vitamin B12 levels Continue thiamine, folic acid Avoid sedating medications as able Reorient frequently to minimize delirium Monitor for alcohol withdrawal Oriented X4 today- Refused further care Refused care with IV heparin, oral Medications despite explaining the risks and complications of leaving without complete treatment Discussed with psychiatry today Plans to sign out AMA As per Prior hospitalist Further information from PCP and transplant service in [place] Case discussed with Shannon Gracia #[phone] (the phone number for transplant team is [phone]) at the transplant center in [facility] He has been continuing to drink after transplant and has not been seen by the transplant team since his transplant team for follow-up Has been very noncompliant with medication and is still he has been getting Prograf and CellCept regularly from the facility He has seen [facility] [place] and following that he was transferred to the hospital with A-fib and RVR and shortness of breath His current condition of acute confusion and altered responsiveness could be due to medications and could be multifactorial as mentioned in neurological note He could have alcohol withdrawal issues as well No further recommendation from the transplant service other than continue the current care --Prograf level 11.5 on 10/31/22 Prograf dose decreased to 1 mg twice a day on 11/05/2019 Hold Prograf today. Repeat levels pending (2) SOB (shortness of breath): (3) HTN (hypertension): (4) Tobacco use: (5) History of alcohol use: Plan: Was apparently using alcohol even after liver transplant per record Monitor for withdrawal (6) Liver transplant status: (7) ALEX (acute kidney injury): (8) New onset atrial fibrillation: Plan Exertional dyspnea Cough Unintentional weight loss--Likely multifactorial Noncompliant with medications -self discontinued carvedilol, lasix and hydralazine 3 months ago and was taking only Prograf and CellCept once a day (prescribed Q12) Dyspnea likely multifactorial--probable interstitial lung disease versus fibrosis, valvular heart disease, CHF, pericardial effusion contributing as well Bronchiectasis on CT scan Moderate aortic stenosis on echo --BioFire negative --Chest CT:Significantly motion compromised examinations. Groundglass consolidation is seen throughout both lungs with associated intralobular septal thickening and a "crazy paving" appearance. This is nonspecific, and could be seen with pulmonary edema, multifocal pneumonia, pulmonary hemorrhage, and/or possibly drug induced lung disease. Clinical correlation will be essential. Correlate with any prior outside imaging studies. Radiographic follow-up to resolution is recommend. Cardiomegaly noting a ylgra-ot-moacjlis pericardial effusion. Trace pleural effusions. The appearance of the bladder suggests cystitis. Correlate with clinical findings and urinalysis. The unenhanced hepatic transplant is normal in size and attenuation. Small volume of abdominopelvic ascites. The kidneys are atrophic and without hydronephrosis. --ECHO: Moderate concentric LVH. Mild global hypokinesis of left ventricle. EF 40 to 45%. Right ventricle is mildly dilated. Right ventricle systolic function is moderately reduced. Mild biatrial enlargement. Aortic valve trileaflet. Aortic valve is moderately calcified, moderate valvular aortic stenosis. Mild aortic regurgitation. Mild mitral and tricuspid regurgitation. Small to moderate-sized circumferential pericardial effusion with most significant focal fluid collection adjacent to the inferolateral left ventricular wall. No findings suggestive of cardiac tamponade. Aortic root mildly dilated at 3.8 cm. Proximal ascending aorta is not visualized well enough to allow measurement. -- Appreciate pulmonology, cardiology Input -- Suspected probable infectious process. Procalcitonin normal. MRSA screen negative. Empirically completed 7-day course of antibiotics (cefepime, vancomycin, Doxy) Counseled to quit smoking Needs follow-up with pulmonology upon discharge saturating well on room air New onset A fib Noncompliant with home carvedilol Continue metoprolol On IV heparin for anticoagulation Appreciate cardiology input Increase metoprolol dose to 25 mg TID Remains tachycardic as non compliant with medications Acute kidney injury on CKD IV/V Baseline Cr ~ 1.7 Metabolic acidosis Hyperkalemia --CT abd/pelvis with kidneys that are atrophic and without hydronephrosis Acidosis, hyperkalemia resolved Received IV fluids Avoid nephrotoxic agents as able Monitor renal function Cr 3.7 today Sodium 128 today Prograf held Continue IV Lasix per nephrology as clinically volume overloaded Plan to be restarted on Prograf 0.5 mg twice daily tomorrow as per nephrology Needs recheck of Prograf trough level Needs continued renal function monitoring If continues to worsen, will eventually need dialysis. " I can get dialysis if needed, its 2 [place] next to my home" Volume overload Likely multifactorial Pericardial effusion on CT chest Small to moderate abdominal pelvic ascites on abdominal ultrasound H/O ETOH cirrhosis s/p liver transplant 6 years ago Liver transplant at [facility] in [place], is only taking Prograf and CellCept once a day (prescribed Q12) Has not had lab work in over a year Continues to drink alcohol post transplant but denies alcohol use in past 4 months Prograf and CellCept level pending Immunological work-up pending as well Monitor volume status Continue Lasix per Nephrology HTN Continue current medication Hypomagnesemia Replete electrolytes as needed Tobacco use Recommend cessation DVT Px: IV heparin Code status: FULL CODE Disposition Noncompliant with care Advised to follow-up with transplant center upon discharge Plans to sign out AGAINST MEDICAL ADVICE Admission and Anticipated Discharge Date Admission Date: October 24, 2022 Subjective Patient is seen and examined at bedside Refused care with IV heparin, Medications despite explaining the risks and complications Although patient was thought to have delirium overnight, he is oriented during my encounter on 2 occasions today Offers no complaints Discussed with psychiatry today Prefers to sign out AMA Review of Systems Review of Systems: All systems reviewed & are unremarkable except as noted in Subjective Physical Exam Physical Exam: Physical Exam: Vitals signs as noted above General Appearance:Moderately built and nourished, no apparent distress Head: normocephalic, Atraumatic Eyes: normal inspection, EOMI Neck: supple, Trachea midline Respiratory/Chest: Normal breath sounds,CTA, No accessory muscle use Cardiovascular: Irregularly irregular, No murmur Abdomen/GI:Soft, Non tender, Bowel sounds present Extremities/Musculoskeletal:normal inspection, B/L LE edema Neurologic/Psych:AAOX1, grossly no focal neurological deficits Skin: normal color, warm Results & Data Results & Data Vital Signs (Past 12 Hours) Vital Signs Temp Pulse Resp BP Pulse Ox O2 Del Method 11/06/22 13:18 36.3 C L 110 H 18 121/76 92 Room Air 11/06/22 07:00 Room Air 11/06/22 07:14 36.3 C L 86 18 127/84 94 Room Air Laboratory Results [facility] 11/06/22 05:40 Sodium 128 L Potassium 4.6 Chloride 96 L Carbon Dioxide 24 BUN 34 H Creatinine 3.72 H Glucose 101 H Calcium 8.7
--- NOTE | 2022-11-06 16:46 | Discharge Summary ---
Date of Service November 06, 2022 Admission HPI Per Admitting Provider This is a 57-year-old male with PMH of history of heavy alcohol use and cirrhosis status post liver transplant at [facility] 6 years ago, hypertension, tobacco use who presents from [facility] clinic due to cou gh, fatigue and shortness of breath for the past 3 months. Has felt poorly for the past 3 months, stating he has had a cough, postnasal drip, dyspnea with exertion, loss of appetite and unintentional weight loss of 20 pounds over the past 3 months. Has been sleeping all the time. States he has not had lab work done in over a year because it is difficult for him to get from [place] where he resides alone to the [facility]. Stop taking carvedilol, Lasix and hydralazine over 3 months ago because he ran out and "have never been told what those medications are for". Does still take mycophenolate and tacrolimus daily (scheduled as every 12). Denies any fever or chills. No lightheadedness. No chest pain, wheezing, vomiting, abdominal pain, dysuria, diarrhea or constipation. States that following liver transplant while still inpatient in [place], was told he had kidney and heart problems but has not followed up for those. Does not see any specialists. Still drinks alcohol occasionally since liver transplant but denies any drink in the past 4 months. Using chewing tobacco. Admission Exam Per Admitting Provider PE: NAD, well developed HEENT: normal conjunctiva (no jaundice) Lungs: Fair air movement b/l with mid and lower lobe crackles Cardiac: In afib, no murmur Abd: ND, soft, slight TTP of the L mid area MSK: trace b/l LE pitting edema Psych: AAOx3, normal affect Principal Diagnosis Acute metabolic encephalopathy ALEX on on CKD IV/V Noncompliance with medications and follow-up with physicians S/P liver Transplant A-fib RVR Volume overload Delirium Discharge Data Allergies Allergy/AdvReac Type Severity Reaction Status Date / Time No Known Allergies Allergy Unverified 10/24/22 12:02 Consultations 10/24/22 14:12 ED Decision to Admit Stat 10/24/22 15:23 Consult Cardiology Routine Consult Nephrology Routine 10/24/22 21:54 HIM [Consult Health Information Management] Routine 10/27/22 15:48 Consult Pulmonology Routine 10/29/22 16:30 Consult Palliative Care Routine 10/31/22 09:49 Consult Neurology Routine 11/06/22 07:32 Consult Psychiatry Routine Procedures Performed Laboratory Results WBC 3.80 K/ul (4.8-10.8) L 11/05/22 04:32 RBC 3.24 M/uL (4.70-6.10) L 11/05/22 04:32 Hgb 9.5 g/dl (14.0-18.0) L 11/05/22 04:32 Hct 28.4 % (42.0-52.0) L 11/05/22 04:32 MCV 87.7 fL (80.0-100.0) 11/05/22 04:32 MCH 29.3 pg (25.0-34.0) 11/05/22 04:32 MCHC 33.5 g/dL (32.0-36.0) 11/05/22 04:32 RDW Std Deviation 46.5 fL (36.4-46.3) H 11/05/22 04:32 RDW Coeff of Irina 14.5 % (11.5-14.5) 11/05/22 04:32 Plt Count 138 K/uL (130-400) 11/05/22 04:32 MPV 10.7 fL (9.4-12.4) 11/05/22 04:32 Immature Gran % (Auto) 0.2 % 11/01/22 07: Neut % (Auto) 66.9 % 11/01/22 07: Lymph % (Auto) 18.3 % 11/01/22 07: [place] % (Auto) 11.5 % 11/01/22 07: Eos % (Auto) 2.6 % 11/01/22 07: Baso % (Auto) 0.5 % 11/01/22 07: Neut # (Auto) 2.85 K/uL (1.40-6.50) 11/01/22 07: Lymph # (Auto) 0.78 K/uL (1.2-3.4) L 11/01/22 07:23 [place] # (Auto) 0.49 K/uL (0.11-0.59) 11/01/22 07: Eos # (Auto) 0.11 K/uL (0-0.50) 11/01/22 07:23 Baso # (Auto) 0.02 K/uL (0-0.2) 11/01/22 07:23 Immature Gran # (Auto) 0.01 K/uL (0.01-0.20) 11/01/22 07:23 PT 13.0 Seconds (9.0-12.0) H 10/30/22 00:22 INR 1.2 (0.9-1.1) H 10/30/22 00:22 APTT 42.9 Seconds (21.0-31.0) H* 11/06/22 05:40 PTT Ratio 1.5 11/06/22 05:40 Sodium 128 mmol/L (136-145) L 11/06/22 05:40 Potassium 4.6 mmol/L (3.5-5.1) 11/06/22 05:40 Chloride 96 mmol/L (98-107) L 11/06/22 05:40 Carbon Dioxide 24 mmol/L (21-32) 11/06/22 05:40 Anion Gap 8 (3-11) 11/06/22 05:40 BUN 34 mg/dl (6-23) H 11/06/22 05:40 Creatinine 3.72 mg/dl (0.6-1.4) H 11/06/22 05:40 Est Cr Clr Drug Dosing 24.9 ml/min 11/06/22 05:40 Est GFR ( Amer) 19.6 ml/min 11/06/22 05:40 Est GFR (Non-Af Amer) 16.9 ml/min 11/06/22 05:40 BUN/Creatinine Ratio 9.1 (10-20) L 11/06/22 05:40 Glucose 101 mg/dl (70-99(Fasting)) H 11/06/22 05:40 Estimat Average Glucose 117 mg/dl 10/25/22 07:36 Hemoglobin A1c 5.7 % (4.5-5.6) H 10/25/22 07:36 Lactate 1.2 mmol/L (0.4-2.0) 10/24/22 12:19 Calcium 8.7 mg/dl (8.6-10.3) 11/06/22 05:40 Phosphorus 5.1 mg/dl (2.5-4.9) H 10/26/22 05:39 Magnesium 1.8 mg/dl (1.7-2.4) 11/05/22 04:32 Total Bilirubin 0.8 mg/dl (0.2-1.0) 10/30/22 01:40 Direct Bilirubin 0.5 mg/dl (0-0.2) H 10/24/22 10:30 AST 9 U/L (13-39) L 10/30/22 01:40 ALT < 3 U/L (7-52) L 10/30/22 01:40 Alkaline Phosphatase 48 U/L (34-104) 10/30/22 01:40 Ammonia 19.0 umol/L (18-72) 11/06/22 10:03 Troponin I High Sens 24.8 pg/ml (0-20) H 10/24/22 22:45 B-Natriuretic Peptide 1610 pg/ml (0-100) H 10/24/22 16:12 Total Protein 5.4 gm/dl (6.0-8.3) L 10/30/22 01:40 Albumin 2.7 gm/dl (3.4-5.0) L 10/30/22 01:40 Globulin 2.7 gm/dl (2.5-4.0) 10/30/22 01:40 Albumin/Globulin Ratio 1.0 (0.9-2) 10/30/22 01:40 Lipase 7 U/L (11-82) L 10/24/22 10:30 Vitamin B12 390 pg/ml (180-914) 11/02/22 06:02 Procalcitonin 0.16 ng/ml (0-0.5) 10/24/22 12:19 TSH 5.226 uIu/ml (0.300-4.500) H 10/24/22 10:30 Free T4 1.18 ng/dl (0.61-1.60) 10/24/22 10:30 Urine Color Dark Yellow 10/27/22 04:55 Urine Appearance Cloudy (Clear) A 10/27/22 04:55 Urine pH 5.0 (4.5-7.5) 10/27/22 04:55 Ur Specific [place] 1.018 (1.000-1.030) 10/27/22 04:55 Urine Protein 1+ (Negative) H 10/27/22 04:55 Urine Glucose (UA) Negative (Negative) 10/27/22 04:55 Urine Ketones Trace (Negative) H 10/27/22 04:55 Urine Blood Negative (Negative) 10/27/22 04:55 Urine Nitrite Negative (Negative) 10/27/22 04:55 Urine Bilirubin Negative (Negative) 10/27/22 04:55 Urine Urobilinogen Negative (Negative) 10/27/22 04:55 Ur Leukocyte Esterase Negative (Negative) 10/27/22 04:55 Urine WBC (Auto) 1-5 /hpf (0-5) 10/27/22 04:55 Urine RBC (Auto) 5-10 /hpf (0-4) H 10/27/22 04:55 U Hyaline Cast (Auto) 1-5 /lpf (0-5) 10/27/22 04:55 U Epithel Cells (Auto) >30 /lpf (0-5) H 10/27/22 04:55 Urine Bacteria (Auto) Negative (Negative) 10/27/22 04:55 Calcium Oxalate Crystal Present (None Prsent) A 10/27/22 04:55 Nasal Screen MRSA (PCR) Negative (Negative) 10/24/22 20:58 Random Vancomycin 17.2 mcg/ml (10-20) 10/25/22 07:36 Mycophenolic Acid 1.6 mcg/mL (1.0-3.5) 10/26/22 05:39 MPA Glucuronide 180.0 mcg/mL (35.0-100.0) H 10/26/22 05:39 Tacrolimus 11.5 mcg/L 10/31/22 20:32 Rheumatoid Factor <14 IU/mL (<14) 10/28/22 05:34 Cycl Citrul Peptide IgG <16 UNITS 10/28/22 05:34 NOEL Screen POSITIVE (NEGATIVE) A 10/28/22 05:34 NOEL Titer 1:40 titer H 10/28/22 05:34 NOEL Pattern Cytoplasmic A 10/28/22 05:34 SS-A/Ro Antibody <1.0 NEG AI (<1.0 NEG) 10/28/22 05:34 SS-B/La Antibody <1.0 NEG AI (<1.0 NEG) 10/28/22 05:34 Sm (Abel) Antibody <1.0 NEG AI (<1.0 NEG) 10/28/22 05:34 [employer] Antibody <1.0 NEG AI (<1.0 NEG) 10/28/22 05:34 Scl-70 Scleroderma Ab <1.0 NEG AI (<1.0 NEG) 10/28/22 05:34 Anti-ds DNA (Crithidia) NEGATIVE (NEGATIVE) 10/28/22 05:34 Chromatin Antibody <1.0 NEG AI (<1.0 NEG) 10/28/22 05:34 Anti-Centromere Ab <1.0 NEG AI (<1.0 NEG) 10/28/22 05:34 Thyroid Antimicrosomal <1 IU/mL (<9) 10/28/22 05:34 Anti-Cardiolipin IgG Ab 2.0 GPL-U/mL 10/28/22 05:34 Anti-Cardiolipin IgA Ab 3.7 APL-U/mL 10/28/22 05:34 Anti-Cardiolipin IgM Ab 4.1 MPL-U/mL 10/28/22 05:34 Complement C3 69 mg/dL (82-185) L 10/28/22 05:34 Complement C4 18 mg/dL (15-53) 10/28/22 05:34 Adenovirus (PCR) Not Detected (NotDetected) 10/24/22 16:48 Anaplasma Smear See Comment 10/24/22 12:19 A. phagocytophilum DNA Negative (Negative) 10/24/22 12:19 Babesia Smear See Comment 10/24/22 12:19 Babesia microti DNA PCR Not Detected (Not Detected) 10/24/22 12:19 B. pertussis DNA (PCR) Not Detected (NotDetected) 10/24/22 16:48 B.parapertussis DNA PCR Not Detected (NotDetected) 10/24/22 16:48 Lyme Disease IgG Ab Negative (Negative) 10/24/22 12:19 Lyme Disease IgM Ab Negative (Negative) 10/24/22 12:19 C. pneumoniae DNA (PCR) Not Detected (NotDetected) 10/24/22 16:48 Coronavirus OC43 (PCR) Not Detected (NotDetected) 10/24/22 16:48 Coronavirus HKU1 (PCR) Not Detected (NotDetected) 10/24/22 16:48 Coronavirus 229E (PCR) Not Detected (NotDetected) 10/24/22 16:48 SARS-CoV-2 (PCR) Not Detected (NotDetected) 10/24/22 16:48 Coronavirus NL63 (PCR) Not Detected (NotDetected) 10/24/22 16:48 Human Metapneumovir PCR Not Detected (NotDetected) 10/24/22 16:48 Influenza Type A (PCR) Not Detected (NotDetected) 10/24/22 16:48 Influenza Type B (PCR) Not Detected (NotDetected) 10/24/22 16:48 M. pneumoniae (PCR) Not Detected (NotDetected) 10/24/22 16:48 Parainfluenza 1 (PCR) Not Detected (NotDetected) 10/24/22 16:48 Parainfluenza 2 (PCR) Not Detected (NotDetected) 10/24/22 16:48 Parainfluenza 3 (PCR) Not Detected (NotDetected) 10/24/22 16:48 Parainfluenza 4 (PCR) Not Detected (NotDetected) 10/24/22 16:48 RSV (PCR) Not Detected (NotDetected) 10/24/22 16:48 Entero/Rhino (PCR) Not Detected (NotDetected) 10/24/22 16:48 SARS-CoV-2, RNA, NAAT NEGATIVE (NEGATIVE) 10/24/22 11:19 Impressions Abdomen/Pelvis CT 10/24/22 11:47 CT SCAN OF THE CHEST, ABDOMEN, AND PELVIS WITHOUT IV CONTRAST CLINICAL HISTORY: Pneumonia. Liver transplant. Acute renal insufficiency. COMPARISON STUDY: Chest x-ray dated 10/24/2022. TECHNIQUE: Unenhanced CT scan of the chest, abdomen, and pelvis was performed from the thoracic inlet to the proximal femora. Images are reviewed in the axial, sagittal, and coronal planes. IV contrast was not administered due to poor renal function. Note that the examinations are suboptimal without oral and IV contrast. There is also significant motion artifact. A dose lowering technique was utilized adhering to the principles of ALARA. FINDINGS: CHEST: Thyroid: Imaged portions of the thyroid gland are normal in size and attenuation. Thoracic aorta: There is mild atherosclerotic calcification of the thoracic aorta, which is normal in caliber and demonstrates standard 3-vessel arch anatomy. Heart: The heart is enlarged noting a small to moderate pericardial effusion. The coronary arteries and aortic valve leaflets are densely calcified. There is diminished attenuation of the cardiac blood pool as compared to the myocardium suggesting anemia. Lungs and pleural spaces: Evaluation of the lung parenchyma is degraded by motion artifact. There are trace pleural effusions. There is ground glass consolidation throughout both lungs with associated intralobular septal thickeni ng. This gives a "crazy paving" appearance. The trachea and central airways are clear. There are scattered calcified granulomas. Mediastinum: There are numerous mildly enlarged mediastinal lymph nodes. Pretracheal nodes measure up to 14 mm short axis. Prevascular nodes measure up to 11 mm in short axis. Autumn: Not well assessed without IV contrast. Axillae: There is no axillary lymphadenopathy. Bony thorax: The skeletal structures are osteopenic. No lytic or blastic lesions are identified. Soft tissues: Gynecomastia is noted. ABDOMEN AND PELVIS: Liver: The unenhanced hepatic transplant is normal in size, contour, and attenuation. There is no intrahepatic biliary ductal dilatation. Gallbladder: Surgically absent. Spleen: Normal in size and attenuation. Pancreas: The unenhanced pancreas is atrophic and grossly unremarkable. Adrenal glands: Unremarkable. Kidneys: The unenhanced kidneys are atrophic and without hydronephrosis. No renal calculi are identified. There is no evidence of contour deforming renal mass lesion. Abdominal vasculature: The abdominal aorta is normal in course and caliber noting moderate atherosclerotic calcification. Bowel: There is no bowel obstruction. Mild fecal retention is seen throughout the colon. There are scattered colonic diverticula without CT evidence of acute diverticulitis. The appendix is well-visualized and normal. Peritoneum: There is a small volume of abdominopelvic ascites. No intraperitoneal free air is seen. There is a fat and ascitic fluid containing umbilical hernia. Lymphadenopathy: None. Pelvic viscera: The prostate gland is diminutive and heterogeneous. The bladder wall is circumferentially thickened with surrounding inflammation. There are small bilateral fat-containing groin hernias. Skeletal structures: The skeletal structures are osteopenic. There is mild lumbosacral spondylosis. No lytic or blastic lesions are seen. IMPRESSION: 1. Significantly motion compromised examinations. 2. Groundglass consolidation is seen throughout both lungs with associated intralobular septal thickening and a "crazy paving" appearance. This is nonspecific, and could be seen with pulmonary edema, multifocal pneumonia, pulmonary hemorrhage, and/or possibly drug induced lung disease. Clinical correlation will be essential. Correlate with any prior outside imaging studies. Radiographic follow-up to resolution is recommend. 3. Cardiomegaly noting a [id number] pericardial effusion. 4. Trace pleural effusions. 5. The appearance of the bladder suggests cystitis. Correlate with clinical findings and urinalysis. 6. The unenhanced hepatic transplant is normal in size and attenuation. 7. Small volume of abdominopelvic ascites. 8. The kidneys are atrophic and without hydronephrosis. 9. Additional findings as above. ACT 112: Negative or not required by law. Electronically signed by: Eusebio Salguero M.D. 10/24/2022 1:[address] 10/24/22 11:47 CT SCAN OF THE CHEST, ABDOMEN, AND PELVIS WITHOUT IV CONTRAST CLINICAL HISTORY: Pneumonia. Liver transplant. Acute renal insufficiency. COMPARISON STUDY: Chest x-ray dated 10/24/2022. TECHNIQUE: Unenhanced CT scan of the chest, abdomen, and pelvis was performed from the thoracic inlet to the proximal femora. Images are reviewed in the axial, sagittal, and coronal planes. IV contrast was not administered due to poor renal function. Note that the examinations are suboptimal without oral and IV contrast. There is also significant motion artifact. A dose lowering technique was utilized adhering to the principles of ALARA. FINDINGS: CHEST: Thyroid: Imaged portions of the thyroid gland are normal in size and attenuation. Thoracic aorta: There is mild atherosclerotic calcification of the thoracic aorta, which is normal in caliber and demonstrates standard 3-vessel arch anatomy. Heart: The heart is enlarged noting a small to moderate pericardial effusion. The coronary arteries and aortic valve leaflets are densely calcified. There is diminished attenuation of the cardiac blood pool as compared to the myocardium suggesting anemia. Lungs and pleural spaces: Evaluation of the lung parenchyma is degraded by motion artifact. There are trace pleural effusions. There is ground glass consolidation throughout both lungs with associated intralobular septal thi ckening. This gives a "crazy paving" appearance. The trachea and central airways are clear. There are scattered calcified granulomas. Mediastinum: There are numerous mildly enlarged mediastinal lymph nodes. Pretracheal nodes measure up to 14 mm short axis. Prevascular nodes measure up to 11 mm in short axis. Autumn: Not well assessed without IV contrast. Axillae: There is no axillary lymphadenopathy. Bony thorax: The skeletal structures are osteopenic. No lytic or blastic lesions are identified. Soft tissues: Gynecomastia is noted. ABDOMEN AND PELVIS: Liver: The unenhanced hepatic transplant is normal in size, contour, and attenuation. There is no intrahepatic biliary ductal dilatation. Gallbladder: Surgically absent. Spleen: Normal in size and attenuation. Pancreas: The unenhanced pancreas is atrophic and grossly unremarkable. Adrenal glands: Unremarkable. Kidneys: The unenhanced kidneys are atrophic and without hydronephrosis. No renal calculi are identified. There is no evidence of contour deforming renal mass lesion. Abdominal vasculature: The abdominal aorta is normal in course and caliber noting moderate atherosclerotic calcification. Bowel: There is no bowel obstruction. Mild fecal retention is seen throughout the colon. There are scattered colonic diverticula without CT evidence of acute diverticulitis. The appendix is well-visualized and normal. Peritoneum: There is a small volume of abdominopelvic ascites. No intraperitoneal free air is seen. There is a fat and ascitic fluid containing umbilical hernia. Lymphadenopathy: None. Pelvic viscera: The prostate gland is diminutive and heterogeneous. The bladder wall is circumferentially thickened with surrounding inflammation. There are small bilateral fat-containing groin hernias. Skeletal structures: The skeletal structures are osteopenic. There is mild lumbosacral spondylosis. No lytic or blastic lesions are seen. IMPRESSION: 1. Significantly motion compromised examinations. 2. Groundglass consolidation is seen throughout both lungs with associated intralobular septal thickening and a "crazy paving" appearance. This is nonspecific, and could be seen with pulmonary edema, multifocal pneumonia, pulmonary hemorrhage, and/or possibly drug induced lung disease. Clinical correlation will be essential. Correlate with any prior outside imaging studies. Radiographic follow-up to resolution is recommend. 3. Cardiomegaly noting a [id number] pericardial effusion. 4. Trace pleural effusions. 5. The appearance of the bladder suggests cystitis. Correlate with clinical findings and urinalysis. 6. The unenhanced hepatic transplant is normal in size and attenuation. 7. Small volume of abdominopelvic ascites. 8. The kidneys are atrophic and without hydronephrosis. 9. Additional findings as above. ACT 112: Negative or not required by law. Electronically signed by: Eusebio Salguero M.D. 10/24/2022 1:[address] 10/28/22 13:22 CT SCAN OF THE BRAIN WITHOUT IV CONTRAST CLINICAL HISTORY: Change in mental status. COMPARISON STUDY: CT of the brain dated 10/24/2022. TECHNIQUE: Unenhanced axial CT scan of the brain is performed from the vertex to the skull base. A dose lowering technique was utilized adhering to the principles of ALARA. CT DOSE: 1228.53 mGy.cm FINDINGS: Brain parenchyma: There is age-related involutional change noting [id number] subcortical and periventricular microangiopathic disease. There is no hemorrhage, mass effect, or evidence of acute territorial ischemia by CT criteria. Beverly-white matter differentiation is preserved. No extra-axial fluid collection is seen. Mineralization is noted in the basal ganglia. Ventricles, sulci, cisterns: Prominent secondary to involutional change. Intracranial vasculature: There is atherosclerotic calcification of the cavernous carotid and vertebral arteries. Calvarium: Unremarkable. Sinuses and mastoids: The visualized paranasal sinuses are clear. The mastoid air cells are well pneumatized. Orbits: The bony orbits are grossly intact. IMPRESSION: There is no hemorrhage, mass effect, or evidence of acute te rritorial ischemia by CT criteria. ACT 112: Negative or not required by law. Electronically signed by: Eusebio Salguero M.D. 10/28/2022 2:33 PM Abdomen Ultrasound 10/28/22 15:07 ULTRASOUND ASCITES CHECK CLINICAL HISTORY: Liver transplant. Assess for ascites. COMPARISON STUDY: Abdominal CT dated 10/24/2022. FINDINGS: Real-time grayscale sonography of all 4 quadrants of the abdomen is performed to assess for abdominal ascites. There is a [id number] volume of abdominopelvic ascites, with the largest pocket seen in the right lower quadrant. IMPRESSION: Small to moderate volume of abdominopelvic ascites. Electronically signed by: Eusebio Salguero M.D. 10/28/2022 3:44 PM Brain MRI 10/29/22 16:17 MRI OF THE BRAIN WITHOUT IV CONTRAST CLINICAL HISTORY: Change in mental status. Stroke like symptoms. COMPARISON STUDY: CT of the brain dated 10/28/2022. TECHNIQUE: MRI of the brain was performed utilizing various T1 and T2-weighted sequences in the axial, sagittal, and coronal planes. IV contrast was not administered for this examination. FINDINGS: Brain parenchyma: There is age-related involutional change noting mild subcortical and periventricular microangiopathic disease. There is no hemorrhage or mass effect. There is no restricted diffusion to suggest acute ischemia. [place]-white matter differentiation is preserved. No extra-axial fluid collection is seen. The cerebellar tonsils are normal in configuration. Mineralization is noted in the basal ganglia. Ventricles, sulci, and cisterns: Prominent secondary to involutional change. Pituitary and sella: Unremarkable. Intracranial vasculature: Normal flow voids are maintained at the skull base. Orbits: The bony orbits are grossly intact. Orbital contents are normal in appearance. Sinuses and mastoids: Clear. Calvarium: Unremarkable. Cervical cord: Partially visualized cervical spinal cord is normal in morphology and signal intensity. IMPRESSION: No acute intracranial abnormality. ACT 112: Negative or not required by law. Electronically signed by: Eusebio Salguero M.D. 10/29/2022 6:46 PM Orbit X-Ray 10/29/22 16:41 BONY ORBITS 3 VIEWS CLINICAL HISTORY: MRI clearance. FINDINGS: 3 views of the bony orbits are obtained. There is no radiodense/metallic foreign body seen in the region of the bony orbits. The bony orbits are intact as imaged. The visualized paranasal sinuses and the mastoid air cells appear clear. The imaged calvarium appears intact. IMPRESSION: There is no radiodense/metallic foreign body seen in the region of the bony orbits. ACT 112: Negative or not required by law. Electronically signed by: Eusebio Salguero M.D. 10/29/2022 5:22 PM Chest X-Ray 11/03/22 10:14 XR chest 1V portable HISTORY: 57 years-old Male f/u pulmonary vascular congestion acute shortness of breath COMPARISON: 10/29/2022 TECHNIQUE: AP view of the chest FINDINGS: Cardiac silhouette is enlarged. Pulmonary vascular congestion with interstitial coarsening. Small pleural effusions with bibasilar and midlung consolidation again noted. Slightly improved aeration of the lungs. No pneumothorax. Bones appear grossly intact. IMPRESSION: 1. Cardiomegaly with pulmonary edema again noted. There is mild improvement of the previously noted bilateral airspace opacities. 2. Small pleural effusions persist. ACT 112: Negative or not required by law. The above report was generated using voice recognition software. It may contain grammatical, syntax or spelling errors. Electronically signed by: Beltran Roy M.D. 11/03/2022 11:50 AM Ordered Studies 10/24/22 11:47 CT abd pelvis wo con Stat CT chest diagnostic wo con Stat 10/24/22 11:50 CT head/brain wo con Stat 10/28/22 13:22 CT Brain [CT head/brain wo con] Urgent 10/28/22 15:07 US abdomen ltd ascites Routine 10/29/22 16:17 MRI Brain [MR brain wo con] Urgent Hospital Course (1) Acute metabolic encephalopathy: Patient is a 57-yr male with PMH of history of heavy alcohol use and cirrhosis status post liver transplant at [facility] 6 years ago, hypertension, tobacco use who presents from [facility] clinic due to cough, fatigue and shortness of breath for the past 3 months. Acute metabolic encephalopathy Likely multifactorial-ALEX, deteriorating CHF, multiorgan failure, medications H/O noncompliance with medications and follow-up with physicians as per family --MRI Brain:No acute intracranial abnormality. -- Appreciate neurology input --Ammonia within normal limits TSH minimally elevated Normal vitamin B12 levels Continue thiamine, folic acid Avoid sedating medications as able Reorient frequently to minimize delirium Monitor for alcohol withdrawal Oriented X4 today- Refused further care Refused care with IV heparin, oral Medications despite explaining the risks and complications of leaving without complete treatment Discussed with psychiatry today Plans to sign out AMA As per Prior hospitalist Further information from PCP and transplant service in [place] Case discussed with Shannon Gracia #[phone] (the phone number for transplant team is [phone]) at the transplant center in [facility] He has been continuing to drink after transplant and has not been seen by the transplant team since his transplant team for follow-up Has been very noncompliant with medication and is still he has been getting Prograf and CellCept regularly from the facility He [facility] [place] and following that he was transferred to the hospital with A-fib and RVR and shortness of breath His current condition of acute confusion and altered responsiveness could be due to medications and could be multifactorial as mentioned in neurological note He could have alcohol withdrawal issues as well No further recommendation from the transplant service other than continue the current care --Prograf level 11.5 on 10/31/22 Prograf dose decreased to 1 mg twice a day on 11/05/2019 Hold Prograf today. Repeat levels pending (2) SOB (shortness of breath): (3) HTN (hypertension): (4) Tobacco use: (5) History of alcohol use: Was apparently using alcohol even after liver transplant per record Monitor for withdrawal (6) Liver transplant status: (7) ALEX (acute kidney injury): (8) New onset atrial fibrillation: Plan Exertional dyspnea Cough Unintentional weight loss--Likely multifactorial Noncompliant with medications -self discontinued carvedilol, lasix and hydralazine 3 months ago and was taking only Prograf and CellCept once a day ( prescribed Q12) Dyspnea likely multifactorial--probable interstitial lung disease versus fibrosis, valvular heart disease, CHF, pericardial effusion contributing as well Bronchiectasis on CT scan Moderate aortic stenosis on echo --BioFire negative --Chest CT:Significantly motion compromised examinations. Groundglass consolidation is seen throughout both lungs with associated intralobular septal thickening and a "crazy paving" appearance. This is nonspecific, and could be seen with pulmonary edema, multifocal pneumonia, pulmonary hemorrhage, and/or possibly drug induced lung disease. Clinical correlation will be essential. Correlate with any prior outside imaging studies. Radiographic follow-up to resolution is recommend. Cardiomegaly noting a [id number] pericardial effusion. Trace pleural effusions. The appearance of the bladder suggests cystitis. Correlate with clinical findings and urinalysis. The unenhanced hepatic transplant is normal in size and attenuation. Small volume of abdominopelvic ascites. The kidneys are atrophic and without hydronephrosis. --ECHO: Moderate concentric LVH. Mild global hypokinesis of left ventricle. EF 40 to 45%. Right ventricle is mildly dilated. Right ventricle systolic function is moderately reduced. Mild biatrial enlargement. Aortic valve trileaflet. Aortic valve is moderately calcified, moderate valvular aortic stenosis. Mild aortic regurgitation. Mild mitral and tricuspid regurgitation. Small to moderate-sized circumferential pericardial effusion with most significant focal fluid collection adjacent to the inferolateral left ventricular wall. No findings suggestive of cardiac tamponade. Aortic root mildly dilated at 3.8 cm. Proximal ascending aorta is not visualized well enough to allow measurement. -- Appreciate pulmonology, cardiology Input -- Suspected probable infectious process. Procalcitonin normal. MRSA screen negative. Empirically completed 7-day course of antibiotics (cefepime, vancomycin, Doxy) Counseled to quit smoking Needs follow-up with pulmonology upon discharge saturating well on room air New onset A fib Noncompliant with home carvedilol Continue metoprolol On IV heparin for anticoagulation Appreciate cardiology input Increase metoprolol dose to 25 mg TID Remains tachycardic as non compliant with medications Acute kidney injury on CKD IV/V Baseline Cr ~ 1.7 Metabolic acidosis Hyperkalemia --CT abd/pelvis with kidneys that are atrophic and without hydronephrosis Acidosis, hyperkalemia resolved Received IV fluids Avoid nephrotoxic agents as able Monitor renal function Cr 3.7 today Sodium 128 today Prograf held Continue IV Lasix per nephrology as clinically volume overloaded Plan to be restarted on Prograf 0.5 mg twice daily tomorrow as per nephrology Needs recheck of Prograf trough level Needs continued renal function monitoring If continues to worsen, will eventually need dialysis. " I can get dialysis if needed, its [place] to my home" Volume overload Likely multifactorial Pericardial effusion on CT chest Small to moderate abdominal pelvic ascites on abdominal ultrasound H/O ETOH cirrhosis s/p liver transplant 6 years ago Liver transplant at [facility] in [place], is only taking Prograf and CellCept once a day (prescribed Q12) Has not had lab work in over a year Continues to drink alcohol post transplant but denies alcohol use in past 4 months Prograf and CellCept level pending Immunological work-up pending as well Monitor volume status Continue Lasix per Nephrology HTN Continue current medication Hypomagnesemia Replete electrolytes as needed Tobacco use Recommend cessation DVT Px: IV heparin Code status: FULL CODE Disposition Noncompliant with care Advised to follow-up with transplant center upon discharge Plans to sign out AGAINST MEDICAL ADVICE Total Time Total Time Spent Total Time Spent (In Minutes): 56 minutes Discharge Plan Discharge Items Patient Disposition: Against Medical Advice Reason For Visit: COUGH, SOB, FATIGUE Activity: As commented below Non-emergency contact: Primary Care Provider and Specialist Follow-up/Referrals: PCP,NO [Primary Care Provider] - Pending Studies at Discharge: Yes Stand-Alone Forms: My [employer], Smoking Cessation Medications and DC Order Prescriptions: New tamsulosin 0.4 mg Capsule 0.4 mg PO HS Qty: 0 0RF magnesium oxide 400 mg (241.3 mg magnesium) Tablet 400 mg PO BID Qty: 0 0RF tacrolimus 0.5 mg Capsule 0.5 mg PO BID Qty: 0 0RF mycophenolate mofetil 250 mg Capsule 500 mg PO BID Qty: 0 0RF metoprolol tartrate 25 mg Tablet 25 mg PO TID Qty: 0 0RF torsemide 100 mg Tablet 100 mg PO QAM Qty: 0 0RF Continued cyanocobalamin (vitamin B-12) 1,000 mcg Tablet 0 mcg PO DAILY Rx Instructions: pt states he stopped taking more than 3 months ago because he felt he was taking too many meds and didn't need it; 1000mcg qd thiamine HCl (vitamin B1) 100 mg Tablet 100 mg PO DAILY Rx Instructions: for alcohol abuse folic acid 1 mg Tablet 0 mg PO DAILY Rx Instructions: pt states he stopped taking more than 3 months ago because he felt he was taking too many meds and didn't need it; 1 mg qd Discontinued hydralazine 10 mg Tablet 0 mg PO TID Rx Instructions: pt states he stopped taking more than 3 months ago because he felt he was taking too many meds and didn't need it; 10mg tid carvedilol 12.5 mg Tablet 0 mg PO BID Rx Instructions: pt states he stopped taking more than 3 months ago because he felt he was taking too many meds and didn't need it; 6.25 mg bid mycophenolate mofetil 500 mg Tablet 500 mg PO BID Rx Instructions: for liver transplant furosemide 20 mg Tablet 0 mg PO DAILY Rx Instructions: pt states he stopped taking more than 3 months ago because he felt he was taking too many meds and didn't need it; 20 mg qd tacrolimus 1 mg Capsule 3 mg PO Q12H Rx Instructions: for liver transplant Discharge Orders: Left Against Medical Advice (Routine); Ordered 11/06/22 Ordered By: Erasmo Jules Admission Data Admit Date/Time: 10/24/22 15:11 Attending Provider: Erasmo Jules Admit Provider: Mikayla Maguire Primary Care Provider: PCP,NO Other Providers: [facility] ; Mikayla Maguire ; John Edmonds ; Nicolás Magallanes ; Tee Bryant ; Radha Mcallister ; Stepan Westbrook ; Naveen Doshi ; Brittney Kearney ; Milan España ; Brittney Batista Adam M. ; Charles Ordonez ; Shakira Rahman ; Milan Ortega ; Itz Bhandari ; Carmen Snowden ; Brittney Figueroa ; Isaac Burroughs ; [place],[facility]
[2022-11-06] MEDS ORDERED: OLANZAPINE 2.5 MG TAB PO SCH (21:00)
[2022-11-07] MEDS ORDERED: TACROLIMUS 0.5 MG CAP PO SCH (07:00)
[2022-11-07] MEDS ORDERED: TORSEMIDE 100 MG TAB PO SCH (09:00)
== END 2022-11-06 16:34 | disposition left against medical advice (07) | DRG 308 ==
LOC: ED 10:40 → 4W 15:11 → SUATTDRO 15:11 → 4W 17:44
DX: Z94.0 Kidney transplant status; D84.9 Immunodeficiency, unspecified; K70.30 Alcoholic cirrhosis of liver without ascites; I13.2 Hypertensive heart and chronic kidney disease with heart failure and with stage 5 chronic kidney disease, or end stage renal disease; N17.9 Acute kidney failure, unspecified; I35.0 Nonrheumatic aortic (valve) stenosis; E83.42 Hypomagnesemia; F17.220 Nicotine dependence, chewing tobacco, uncomplicated; I45.5 Other specified heart block; Z94.4 Liver transplant status; E87.5 Hyperkalemia; Z91.199 Patient's noncompliance with other medical treatment and regimen due to unspecified reason; G93.41 Metabolic encephalopathy; J84.9 Interstitial pulmonary disease, unspecified; Z60.2 Problems related to living alone; I48.91 Unspecified atrial fibrillation; N18.5 Chronic kidney disease, stage 5; I31.39 Other pericardial effusion (noninflammatory); E87.20 Acidosis, unspecified; I50.20 Unspecified systolic (congestive) heart failure; F17.210 Nicotine dependence, cigarettes, uncomplicated; F10.21 Alcohol dependence, in remission